=== PATIENT | male | born 1975 | race Caucasian/White ===

== ENCOUNTER 2017-05-08 16:48 | Emergency (ER) | payer MEDICAID, SELFPAY ==
[2017-05-08 16:50] VITALS: BP 123/73; PULSE 86; RESP 18; TEMP 38; O2SAT 100
[2017-05-08 16:51] VITALS: BP 123/73; PULSE 86; RESP 18; TEMP 38; O2SAT 100; BMI 35.3
--- NOTE | 2017-05-08 17:37 | EKG12_ITS ---
Test Reason : CHEST PAIN Blood Pressure : / mmHG Vent. Rate : 084 BPM Atrial Rate : 084 BPM P-R Int : 196 ms QRS Dur : 086 ms QT Int : 348 ms P-R-T Axes : 039 -07 016 degrees QTc Int : 411 ms Normal sinus rhythm Normal ECG Confirmed by SE LUNDY, LISA ([id number]), digital editor JONNATHAN VARNER ([id number]) on 05/10/2017 1:27:00 PM Referred By: Confirmed By:LISA SAEZ MD
--- NOTE | 2017-05-08 18:00 | RAD_ITS ---
STUDY: X-RAY CHEST REASON FOR EXAM: Male, 41 years old. Chest pain, shortness of breath fever, cough, nausea vomiting and diarrhea. TECHNIQUE: 1 view COMPARISON: Prior chest radiograph May 22, 2016 FINDINGS: The lungs are clear and expanded. There is no demonstrated pleural abnormality. Normal size heart. Normal mediastinum and diann. Normal visualized pulmonary arteries. Normal visualized aortic arch and descending thoracic aorta. Normal visualized thoracic spine. Normal visualized ribs, clavicles, and shoulders. There is no demonstrated abnormality of the visualized soft tissue structures of the upper abdomen. RAD/Chest 1 View (Portable) IMPRESSION: Normal x-ray examination of the chest. Electronically Signed: Nilda Skinner MD at 18:27 EST , Service support ,
[2017-05-08 18:59] LABS: Absolute Lymphocyte Count 1.51 X10^3/ul (0.83-4.51); Absolute Neutrophil Count 13.4 X10^3/uL (2.0-7.7); Basophil# 0.02 X10^3/uL; Basophil% 0.1 % (0-1); Eosinophil# 0.11 X10^3/uL; Eosinophils% 0.7 % (0-5); Hematocrit 41.4 % (40-54); Lymphocyte # 1.51 X10^3/ul (4.0); Lymphocyte % 9.1 % (19-41); Mean Corp Hgb Conc 33.8 g/gl (32-36); Mean Corpuscular Volume 91.6 fL (80-94); Mean Platelet Vol. 8.8 fl (6.2-12.0); Monocyte# 1.49 X10^3/uL; Neutrophil # 13.41 X10^3/uL (2.7-7.7); Neutrophil % 80.9 % (47-70); Platelet Count 328 K/mm3 (150-450); RBC Distribution Width CV 13.2 % (11.6-14.6); RBC Distribution Width SD 43.5 fl (35.1-43.9); Red Blood Count 4.52 M/mm3 (4.6-6.2); White Blood Count 16.6 K/mm3 (4.4-11.0)
[2017-05-08 19:01] LABS: POSITIVE COUNT NO; POSITIVE DIFFERENTIAL NO; POSITIVE MORPHOLOGY NO
[2017-05-08 19:04] LABS: Anion Gap 8 (5-15); BUN 14 mg/dL (7-18); Calcium,Total 8.9 mg/dL (8.5-10.1); Chloride 100 mmol/L (98-107); Creatinine, Serum 1.27 mg/dL (0.70-1.30); EST Glomerular Filtration Rate 67 mL/min (>60); Est Glom Filt Rate - Afr Amer 81 mL/min (>60); Estimated Creatinine Clearance 73.01 ml/min; Glucose 97 mg/dL (74-106); Potassium 4.2 mmol/L (3.5-5.1); Sodium Level 137 mmol/L (136-145)
[2017-05-08] MEDS: Benzonatate 100 MG Capsule 200 MG PO (20:18)
[2017-05-08] MEDS: Ketorolac 30 MG/ML Syringe 15 MG IV (20:18)
[2017-05-08 20:19] VITALS: BP 125/75; PULSE 91; RESP 16; O2SAT 98
[2017-05-08 20:27] VITALS: RESP 16
--- NOTE | 2017-05-08 20:28 | ED.RN ---
REVIEWED D/C INSTRUCTIONS, FOLLOW UP CARE, PRESCRIPTIONS, AND S/S THAT WOULD WARRANT A RETURN TO THE ED WITH PT. PT VERBALIZED AN UNDERSTANDING AND DENIES FURTHER QUESTIONS FOR THIS RN. PT SKIN P/W/D, RESP EVEN AND UNLABORED, PT A&O X 3, NO DISTRESS NOTED. PT AMBULATED OUT OF ED, GAIT STEADY.
--- NOTE | 2017-05-09 00:56 | ED.VISSUMM ---
- ER Visit Summary Date of Service: 05/09/17 Chief Complaint: Shortness of breath chest pain History of Present Illness: The patient is a 41 M presenting for evaluation secondary to shortness of breath chest pain left arm numbness. Patient states that he had the flu about a month and a half ago, and is feeling similar to this over the course of the last day or so. He states that he has redeveloped fever cough nausea and vomiting. Patient states that today he was at home and was coughing so much it was causing him chest pain and some left arm numbness. He denies any exertional component to this. Denies any history of cardiac disease. He does have an underlying history of seizures. Review of systems otherwise negative. Physical Examination: Vital signs notable for temperature of 100.4. Well-nourished male no acute distress. Head normocephalic. Moist mucous membranes. Neck supple no JVD no meningismus. Heart regular rate and rhythm no murmurs. Lungs sounds clear to auscultation bilaterally there was some bilateral anterior chest tenderness to palpation without any evidence of crepitus step-offs or subcutaneous emphysema no overlying skin rashes. Abdomen soft nontender. Peripheral pulses 2+ and symmetric. No skin rashes. Patient alert and oriented. Test Results: EKG shows sinus rhythm [address] segments normal T waves no changes from prior EKG in January 2017. CBC does demonstrate leukocytosis 16.6, chemistry normal, troponin negative, chest x-ray shows no evidence of infiltrate or acute cardiopulmonary disease. Emergency Department Course and Treatment: Patient presented secondary to a febrile illness, cough, and chest discomfort. Protocol orders were entered, the patient received a cardiac workup that was found to be negative and also had a negative chest x-ray. He does have a leukocytosis consistent with infection however I do not see pneumonia, he is nontoxic-appearing, and is not hypoxic do not believe that empiric treatment is appropriate at this point. Patient was treated symptomatically rather with Toradol IV. He will be sent home with a course of Naprosyn and Tessalon for symptomatic treatment. He was instructed to follow-up with his PCP. Disposition: Discharge Impression: 1. Viral illness This note was generated with [employer] dictation software. It may contain incorrect words, spelling, and punctuation that were not noted in review of the chart prior to signing ED Disposition - Plan for ED Patient: Disposition: Home or Assisted Living Chief Complaint: Chest Pain Diagnosis: Febrile illness, acute Instructions: ED Upper Resp Infec No Abx Tx Referrals: Jeff Mohan DO [STAFF PHYSICIAN] -
--- NOTE | 2017-05-09 01:01 | ED.DCSUM_ITS ---
- ER Visit Summary Date of Service: 05/09/17 Chief Complaint: Shortness of breath chest pain History of Present Illness: The patient is a 41 M presenting for evaluation secondary to shortness of breath chest pain left arm numbness. Patient states that he had the flu about a month and a half ago, and is feeling similar to this over the course of the last day or so. He states that he has redeveloped fever cough nausea and vomiting. Patient states that today he was at home and was coughing so much it was causing him chest pain and some left arm numbness. He denies any exertional component to this. Denies any history of cardiac disease. He does have an underlying history of seizures. Review of systems otherwise negative. Physical Examination: Vital signs notable for temperature of 100.4. Well- nourished male no acute distress. Head normocephalic. Moist mucous membranes. Neck supple no JVD no meningismus. Heart regular rate and rhythm no murmurs. Lungs sounds clear to auscultation bilaterally there was some bilateral anterior chest tenderness to palpation without any evidence of crepitus step- offs or subcutaneous emphysema no overlying skin rashes. Abdomen soft nontender. Peripheral pulses 2+ and symmetric. No skin rashes. Patient alert and oriented. Test Results: EKG shows sinus rhythm [address] segments normal T waves no changes from prior EKG in January 2017. CBC does demonstrate leukocytosis 16.6, chemistry normal, troponin negative, chest x-ray shows no evidence of infiltrate or acute cardiopulmonary disease. Emergency Department Course and Treatment: Patient presented secondary to a febrile illness, cough, and chest discomfort. Protocol orders were entered, the patient received a cardiac workup that was found to be negative and also had a negative chest x-ray. He does have a leukocytosis consistent with infection however I do not see pneumonia, he is nontoxic-appearing, and is not hypoxic do not believe that empiric treatment is appropriate at this point. Patient was treated symptomatically rather with Toradol IV. He will be sent home with a course of Naprosyn and Tessalon for symptomatic treatment. He was instructed to follow-up with his PCP. Disposition: Discharge Impression: 1. Viral illness This note was generated with [employer] dictation software. It may contain incorrect words, spelling, and punctuation that were not noted in review of the chart prior to signing ED Disposition - Plan for ED Patient: Disposition: Home or Assisted Living Chief Complaint: Chest Pain Diagnosis: Febrile illness, acute Instructions: ED Upper Resp Infec No Abx Tx Referrals: Jeff Mohan DO [STAFF PHYSICIAN] -
== END 2017-05-08 20:29 | disposition home or self-care (01) ==
PROVIDERS: Emergency Provider Emergency Medicine
DX: B34.9 Viral infection, unspecified (principal); R06.00 Dyspnea, unspecified; R20.0 Anesthesia of skin; R07.89 Other chest pain; R50.9 Fever, unspecified; R05 Cough; R11.2 Nausea with vomiting, unspecified; G40.909 Epilepsy, unspecified, not intractable, without status epilepticus; Z79.899 Other long term (current) drug therapy; Z72.0 Tobacco use
CPT/HCPCS: 71045; 80048; 84484; 85025; 93005; 96374; 99285; A4216

== ENCOUNTER 2017-07-28 21:25 | Emergency (ER) | payer MEDICAID, SELFPAY ==
[2017-07-28 21:25] VITALS: PULSE 83; RESP 16; TEMP 36.6; O2SAT 98; BMI 37.5
[2017-07-28 21:27] VITALS: BP 114/84
[2017-07-28] MEDS: morphine 10 MG/ML Syringe IM (21:48)
--- NOTE | 2017-07-28 21:50 | ED.DCSUM_ITS ---
- ER Visit Summary Date of Service: 07/28/17 Chief Complaint: Back pain History of Present Illness: The patient is a 42 M with a history of chronic back pain. He previously followed with pain management and saw Dr. Osuna. He has had epidural injections but these were not well tolerated. Patient states they were considering surgical referral as next line but he never followed up. He went to [place] and rode a roller coaster 2 days ago. He has had increased pain since that time. He also fell earlier today. He denies weakness. He does complain of lower back pain which radiates down the left leg. He complains of burning and numbness in the left leg. He has had prior similar symptoms. He denies fevers abdominal pain urinary retention fecal incontinence or prior back surgeries. He has tried anti-inflammatories at home with little relief. He denies any recent opiate prescriptions. Physical Examination: Afebrile vitals are stable Patient does appear uncomfortable Moist mucous membranes Heart regular rate and rhythm Lungs are clear Abdomen soft Negative straight leg raise Patient has paraspinal lumbar tenderness left greater than right Sensation is intact to light touch of the bilateral lower extremities with easily palpable symmetric 2+ dorsalis pedis pulses and brisk capillary refill he has 5 out of 5 dorsiflexion, plantarflexion, extensor hallucis longus bilaterally Test Results: Not indicated Emergency Department Course and Treatment: Patient was given intramuscular morphine. [place] report shows no controlled substance prescriptions in the last 2 years. Patient was given a prescription for short course of [place]. Given the radicular symptoms we will also place on a prednisone burst. He was instructed on specific signs and symptoms to monitor for and conditions under which to return emergency department. All questions answered at bedside patient agreeable to plan. At this time he has no findings to suggest process such as cauda equina syndrome or epidural abscess or other acute surgical pathology. Do believe his pain currently is multifactorial. Given reproducible paraspinal tenderness and having recently a roller coaster I do believe there is a lumbosacral strain muscular component. With his burning and radiation down the left leg there is also radicular component. Treatment Plan: [] Disposition: Discharge Impression: Lumbosacral strain Lumbar radiculopathy This note was generated with [employer] dictation software. It may contain incorrect words, spelling, and punctuation that were not noted in review of the chart prior to signing ED Disposition - Plan for ED Patient: Chief Complaint: Back Referrals: Faith Fay MD [Primary Care Provider] -
--- NOTE | 2017-07-28 21:50 | ED.DEP ---
ED Disposition - Plan for ED Patient: Chief Complaint: Back Instructions: ED Sciatica, ED Sprain Strain Lumbar Prescriptions: Hydrocodone Bitart/Apap 5-325 [[place] 5MG-325MG] 1 tab PO Q6H PRN PRN 3 Days #10 tab PRN Reason: Pain Prednisone [Deltasone] 60 mg PO DAILY #15 tab Referrals: Faith Fay MD [STAFF PHYSICIAN] -
--- NOTE | 2017-07-28 21:55 | DCINST.ED_ITS ---
ED Disposition - Plan for ED Patient: Chief Complaint: Back Instructions: ED Sciatica, ED Sprain Strain Lumbar Prescriptions: Hydrocodone Bitart/Apap 5-325 [[place] 5MG-325MG] 1 tab PO Q6H PRN PRN 3 Days #10 tab PRN Reason: Pain Prednisone [Deltasone] 60 mg PO DAILY #15 tab Referrals: Faith Fay MD [STAFF PHYSICIAN] -
[2017-07-28 22:05] VITALS: BP 150/86; PULSE 85; RESP 16; O2SAT 97
== END 2017-07-28 22:05 | disposition home or self-care (01) ==
LOC: ED 21:44
PROVIDERS: Emergency Provider Emergency Medicine
DX: S39.012A Strain of muscle, fascia and tendon of lower back, initial encounter (principal); M54.16 Radiculopathy, lumbar region; R05 Cough; W19.XXXA Unspecified fall, initial encounter; Y93.9 Activity, unspecified; Y92.9 Unspecified place or not applicable; G40.909 Epilepsy, unspecified, not intractable, without status epilepticus; G89.29 Other chronic pain; Z79.899 Other long term (current) drug therapy; Z72.0 Tobacco use
CPT/HCPCS: 96372; 99282

== ENCOUNTER → 2017-08-17 08:20 | Outpatient (CLI) | payer MEDICAID, SELFPAY ==
--- NOTE | 2017-08-17 08:59 | MRI_ITS ---
STUDY: MRI LUMBAR SPINE WITHOUT CONTRAST REASON FOR EXAM: Male, 42 years old. Low back pain radiating to the left leg TECHNIQUE: Standardized fat and water weighted pulse sequences were obtained in the sagittal and axial planes. COMPARISON: X-ray 01/18/2016 FINDINGS: T12-L1: Normal endplates. Normal disc height, hydration and morphology. Normal bilateral facet joints. Normal central canal and bilateral lateral recesses. Normal bilateral intervertebral neural foramina. Normal lumbar lordosis. There is no substantial scoliosis. Normal conus medullaris that terminates at the T12-L1 level. L1-2: There is disc desiccation (image 7/13 sagittal T2). L2-3: Normal endplates. Normal disc height, hydration and morphology. Normal bilateral facet joints. Normal central canal and bilateral lateral recesses. Normal bilateral intervertebral neural foramina. L3-4: Normal endplates. Normal disc height, hydration and morphology. Normal bilateral facet joints. Normal central canal and bilateral lateral recesses. Normal bilateral intervertebral neural foramina. L4-5: Normal endplates. Normal disc height, hydration and morphology. Normal bilateral facet joints. Normal central canal and bilateral lateral recesses. Normal bilateral intervertebral neural foramina. L5-S1: There is disc desiccation and disc bulge (image 7/13 sagittal T2). There is narrowing of the neural foramina, predominating on the left (image 2, 10/13 sagittal T1). Normal visualized sacral ala. Normal visualized paraspinous soft tissue structures. MRI/Spine Lumbar (Routine) IMPRESSION: Degenerative disc bulge, L5-S1, with narrowing of the neural foramina, predominating on the left Electronically Signed: Pacheco Mireles MD at 11:37 EDT Tel , Service support ,
== END ==
PROVIDERS: Visit Provider Anesthesiology Pain Medicine
DX: M54.9 Dorsalgia, unspecified (principal); M79.606 Pain in leg, unspecified
CPT/HCPCS: 72148

== ENCOUNTER 2017-09-04 08:19 | Outpatient (RCR) | payer MEDICAID, SELFPAY ==
--- NOTE | 2017-09-04 14:49 | HP.OTFCE_ITS ---
HP OT Functional Capacity Eval - Reference Duration Sedentary Sedentary Light Light Light Medium Medium Medium Heavy Very Heavy Heavy Occasional (0-33% of day) Frequent (34-66% of day) Constant (67-100% of day) 10 # Negligible Negligible 15 # 8 # Negligible 20 # 10# Negli. 35 # 18 # 7 # 50 # 25 # 10 # 75 # 100 # >100 # 38 # 50 # >50 # 15 # 20 # >20 # - Patient Information Height: 5 ft 10 in Weight:: 99.79 kg Hand Dominance: R handed - Medical History Medical History Including Restrictions: 1993 pt fell off scaffle at work 20 ft and hurt back. Pt has medical hx; migraines, depression, Lipoma, abdominal pain , epigastric, weightloss, seizures, mild asthma, irritable IBS, GERD, chr low back pain with sciatica, hypothyroidism - Diagnoses Diagnoses: 1993 pt fell of scaffle at work 20 ft and hurt back. Pt has medical hx; migraines, depression, Lipoma, abdominal pain, epigastric, weightloss, seizures, mild asthma, irritable IBS, GERD, chr low back pain with sciatica, hypothyroidism - Symptoms Symptoms: pt states he just hurts constantly, numb L leg, pt states feels like someone is cutting him with knife constantly - Pain Pain: 9/10 lower back pain - Work History Work History: Pt unemployed at this time. [employer] 3 wks June/July 2017, [employer] for 1 wk 2017, [employer] 2016, [employer] [phone], [employer] here and there in between per pt and spouse. - ADLS ADLS: Pt lives in 2 story apartment with and 1 yr old son, no steps to enter. Sleeps in living room main level on a mattress on floor. Bathroom upstairs only for bathing, tub/shower no DME/AE, half bath downstairs with std toilet seat that he uses for toileting and grooming tasks. Not driving. Spouse completes all IADL's. Pt requires assist with ADL tasks secondary to increased back pain. Pt unable to read or write other than signing his name. He is R hand dominent. - Physical Examination ROM: BUE AROM Shoulder flexion 100', BUE internal/external rotation WFL, BUE horizontal abduction WFL, BUE elbow flexion/extension WFL. BLE ROM WFL. Strength: Generalized MMT, RUE 4+/5, LUE 4/5, L LE 3+/5, R LE 4/5 Right Tire Recapper Strength Average: 76.66 Left Tire Recapper Strength Average: 46.66 Right Lateral Pinch Average: 11.33 Left Lateral Pinch Average: 7.66 Right Tripod Pinch Average: 7.33 Left Tripod Pinch Average: 6.00 Sensation: Pt states numbness L shoulder down to fingertips, numbness L leg down to toes. Fine Motor: Pt states sometimes has difficulty with buttoning buttons and zippers. Pt able to unbutton/button 2 medium sized buttons during evaluation without difficulty. Pt states no problems with using utensils for self feeding. Balance: Pt states 2 wks ago had fall at home, in the living room fell and lost his balance. Spouse present for evaluation and states that she usually walks with him holding onto his belt loop if he needs it or else close by him for support. He will sometimes walk using cart for support if needed. Pt and spouse states no walker or canes. Pt stated spouse does all shopping and he did have an order for a w/c at one time which helped. - Non Material Handling Activities Bending: pt states 10/10 pain in back. Pt declined to attempt bending, squatting and kneeling or reaching out and up at this time. Pt stated unable to complete these activities secondary to increased back pain. Walking: Pt tolerated 2 minutes of the 15 minute walking test before having to sit down secondary to pain in back. Pt able to walk 222ft from [facility] to occupational therapy area for the evaluation and when leaving the evaluation. Slow moving, extra time needed when leaving secondary to increased back pain. Pt able to walk w/o assist to steps 140ft one standing rest break needed no support. After completing 3 steps he required seated rest break then walked 140ft back to desk pushing alfredo modified [employer] cart for increased support over half of the way back to occupational therapists desk with one standing rest break. Standing: Pt able to stand upright to complete BLE ROM and marching. Pt able to stand upright for walking. Pt stood during walking test for 2 minutes. Sitting: Pt able to sit upright in chair for 30 minutes without need to get up and walk around before starting physical examination part of evaluation. Climbing Stairs: Pt able to climb up/down 3 steps using bilateral handrails independently than sat in chair to rest for a few minutes. Pt stated that's all the steps he could handle because of the back pain. Spouse stated he will scoot up the steps at home if he can't make it all the way walking up the steps. - Dynamic Occasional Lifting Capacity Floor Lift: Pt declined to attempt any lifts. Pt states unable to complete any lifts secondary to back pain and not even able to carry his 1yr old son at this time.
== END 2017-09-04 19:00 | disposition home or self-care (01) ==
LOC: OT 08:19
PROVIDERS: Visit Provider Anesthesiology Pain Medicine
DX: M54.9 Dorsalgia, unspecified (principal)
CPT/HCPCS: 97165; 97166

== ENCOUNTER 2017-11-06 10:30 | Inpatient (IN) | payer MEDICAID, SELFPAY ==
[2017-11-06 10:31] VITALS: BP 118/83; PULSE 120; RESP 18; TEMP 36.6; O2SAT 98; BMI 30.4
[2017-11-06] MEDS: Morphine 4 MG/ML Syringe IV (10:50)
[2017-11-06] MEDS: Ondansetron 4 MG/2 ML Vial IV (10:50)
[2017-11-06] MEDS: 0.9% Normal Saline 1,000 ML 1000 ML IV ×3 (10:50→11:36)
[2017-11-06 10:57] LABS: Absolute Lymphocyte Count 1.68 X10^3/ul (0.83-4.51); Absolute Neutrophil Count 10.4 X10^3/uL (2.0-7.7); Basophil# 0.03 X10^3/uL; Basophil% 0.2 % (0-1); Eosinophil# 0.21 X10^3/uL; Eosinophils% 1.5 % (0-5); Hematocrit 39.9 % (40-54); Hemoglobin 14.1 g/dl (13.0-16.5); Lymphocyte # 1.68 X10^3/ul (4.0); Lymphocyte % 12.3 % (19-41); Mean Corp Hgb Conc 35.3 g/gl (32-36); Mean Corpuscular Hgb 31.1 pg (27.0-32.0); Mean Corpuscular Volume 87.9 fL (80-94); Mean Platelet Vol. 9.3 fl (6.2-12.0); Monocyte# 1.39 X10^3/uL; Monocyte% 10.1 % (0-10); Neutrophil # 10.38 X10^3/uL (2.7-7.7); Neutrophil % 75.8 % (47-70); Platelet Count 318 K/mm3 (150-450); RBC Distribution Width CV 12.9 % (11.6-14.6); RBC Distribution Width SD 41.9 fl (35.1-43.9); Red Blood Count 4.54 M/mm3 (4.6-6.2); White Blood Count 13.7 K/mm3 (4.4-11.0)
[2017-11-06 10:59] LABS: POSITIVE COUNT NO; POSITIVE DIFFERENTIAL NO; POSITIVE MORPHOLOGY NO
[2017-11-06 11:06] LABS: Anion Gap 12 (5-15); BUN 22 mg/dL (7-18); BUN/Creat Ratio 15.6 RATIO (10-20); Calcium,Total 9.6 mg/dL (8.5-10.1); Chloride 103 mmol/L (98-107); Creatinine, Serum 1.41 mg/dL (0.70-1.30); EST Glomerular Filtration Rate 59 mL/min (>60); Est Glom Filt Rate - Afr Amer 72 mL/min (>60); Estimated Creatinine Clearance 71.91 ml/min; Glucose 101 mg/dL (74-106); Potassium 3.4 mmol/L (3.5-5.1); Sodium Level 139 mmol/L (136-145)
[2017-11-06 11:10] LABS: Allen Test POS; Base Excess -3 mmol/L (-2 to +2); Bicarbonate 19.2 mmol/L (22-26); Blood Gas Specimen Type ART; O2 Delivery Device Room Air; PO2 76 mmHG (75-100); SITE R Radial; SO2 97 % (95-99); Time Given 1059; Total Carbon Dioxide 20 mmol/L; pH 7.55 (7.35-7.45)
[2017-11-06 11:20] LABS: Lactic Acid 2.5 mmol/L (0.4-2.0)
--- NOTE | 2017-11-06 11:29 | ED.VISSUMM ---
- ER Visit Summary Date of Service: 11/06/17 Chief Complaint: Generalized abdominal pain with diarrhea History of Present Illness: The patient is a 42 M who presents to the emergency department with increased abdominal pain and diarrhea. Diarrhea started 2 months ago. He is having 4-6 loose stools a day. Denies blood or mucus. There is no history of Crohn's disease ulcerative colitis. He has been scoped in the past. His PCP is Dr. Ryan. He does complain of thirst and dry mouth and lightheadedness. He denies fever or chills. He does report weight loss. He had a EGD and colonoscopy within the past year and was told it was unremarkable. He has been scoped by both Dr. Marinelli and a physician at the [facility]. Does not recall the name of the physician at the [facility]. He denies any change in the color of his urine. Denies dysuria, frequency, urgency or hematuria. Patient denies any ocular, visual or auditory symptoms. Patient denies any cardiac or respiratory symptoms. There is no history of trauma. There is no family history of inflammatory bowel disorder to patient's knowledge. Physical Examination: Patient vitals are remarkable for a heart rate of 120-130. He is pale diaphoretic and appears ill. HEENT is remarkable for dry mucosa. Heart is rapid and regular without murmur, gallop or rub. Lungs are clear to auscultation. Abdomen is tender with guarding and increased bowel sounds. There may be a small umbilical hernia. There is no inguinal lymphadenopathy or inguinal hernia. There is no CVA tenderness noted. There is no dermatologic lesions noted. Neuro exam is nonfocal. Test Results: White count is 13.7 thousand 76 segs no bands 12 lymphs. Basic metabolic panel is remarkable for potassium of 3.4 BUN/creatinine 22 1.41. Lactate is elevated 2.5. ABG reveals a respiratory alkalosis with increased AA gradient and base excess of -3. CT of the abdomen pelvis with p.o. contrast reveals no acute pathology. There is either atelectasis or scarring right left lower lung base. Emergency Department Course and Treatment: IV was established received 1 L normal saline. He has no urge to urinate after the end menstruation the 1 L. He initially was treated with Zofran and morphine IV push. A second dose of morphine was ordered since he still appears uncomfortable holding his abdomen. Appropriate blood work was obtained to evaluate patient's chronic diarrhea and concern for renal injury, hypokalemia and with weight loss need to rule out anemia etc. Lactate was obtained because of his tachypnea and the fact that he looks ill. Case was discussed with Dr. Mixon who is on-call for [facility] and no doc since he is a clinic clinic patient. She was informed patient's history physical. She would like a CAT scan. Because of the acute kidney injury CT was done with p.o. contrast only. Treatment Plan: Dr. patel informed me that he had similar presentation to 2015. Workup at that time was negative. He has had an additional workup since that was negative. She was made aware of the CAT scan results. She states she would be glad to see patient in consultation with the hospitalist. Disposition: [facility]Sur observation Impression: 1. Abdominal pain with diarrhea uncertain etiology 2. Acute kidney injury 3. Lactic acidosis 4. Mild hypokalemia 5. Respiratory alkalosis This note was generated with [employer] dictation software. It may contain incorrect words, spelling, and punctuation that were not noted in review of the chart prior to signing ED Disposition - Plan for ED Patient: Chief Complaint: Abd Pain Referrals: Argentina Jeffrey MD [Primary Care Provider] -
[2017-11-06] MEDS: morphine 8 MG/ML Syringe IV (11:36)
[2017-11-06 13:27] VITALS: BP 123/88; PULSE 79; RESP 16; O2SAT 97
--- NOTE | 2017-11-06 14:19 | PCM.HP.STD ---
Problem List (1) Intractable nausea and vomiting Status: Acute (2) Intractable diarrhea Status: Acute (3) SIRS (systemic inflammatory response syndrome) Status: Acute (4) Lactic acidosis Status: Acute (5) YAMILETH (acute kidney injury) Status: Acute History of Present Illness Date of Admission: 11/06/17 Chief Complaint: intractable nausea, vomiting and diarrhea The patient is a 42 year old M is with a one-month history of intractable nausea vomiting and diarrhea. Patient states that anything he eats he passes her right away with diarrhea. States that he is eating a lot but since he just passes it on. Also has intermittent nausea and vomiting. Patient was just concerned that this is been going on for a while and has had previous episodes that were similar to this. Patient presented to the emergency room and underwent a CAT scan that showed a solitary gallstone in the gallbladder neck but otherwise unremarkable. In the emergency room, patient received IV fluids, 12 mg of morphine and grams of Zofran. Patient denies any marijuana use, states that he does take Vicodin at night but does not use any other opiates. [] Past Medical History Past Medical History (Chronic Problems): Chronic Problems (Last Updated 07/01/17 @ 11:31 by Madiha Coley) Seasonal allergies (Chronic) Anxiety and depression (Chronic) Chronic bronchitis (Chronic) Thyroid activity decreased (Chronic) Obesity (BMI 30.0-34.9) (Chronic) Glucose intolerance (impaired glucose tolerance) (Chronic) Family history of diabetes mellitus (Chronic) Family history of coronary artery disease (Chronic) Family history of gastric carcinoma (Chronic) Father is at 42 years of age due to cancer Former smoker (Chronic) Quit 2010 Recovering alcoholic (Chronic) Quit drinking in 2010 Cholelithiasis (Chronic) Personal history of peptic ulcer disease (Chronic) Gastroesophageal reflux disease (Chronic) History of nephrolithiasis (Chronic) Osteoarthritis (Chronic) Medical History: Medical History (Last Reviewed 11/06/17 @ 14:22 by Claudio Garner DO) History of stomach ulcers (Acute) Z87.19 History of pneumonia (Acute) Z87.01 Seasonal allergies (Chronic) J30.2 Anxiety and depression (Chronic) F41.9, F32.9 Chronic bronchitis (Chronic) J42 Thyroid activity decreased (Chronic) E03.9 History of substance abuse (Acute) Z87.898 History of seizures (Acute) Z87.898 Allergies Penicillins Allergy (Verified 11/06/17 10:33) Anaphylaxis bezonates Allergy (Severe, Uncoded 11/06/17 10:33) Hives Home Medications: Ambulatory Orders Medication Instructions Recorded Lamotrigine [Lamotrigine] 100 mg PO BID 05/08/17 Albuterol Sulfate [Ventolin Hfa] 1 - 2 puff INHALATION Q6H PRN PRN 11/06/17 Dicyclomine HCl [Bentyl] 10 mg PO TIDAC 11/06/17 Ibuprofen 400 mg PO 4X/DAY 11/06/17 Levothyroxine [Synthroid] 50 mcg PO DAILY 11/06/17 Nabumetone [Relafen] 750 mg PO BID 11/06/17 Pantoprazole Sodium [Protonix] 40 mg PO DAILY 11/06/17 Quetiapine Fumarate [Seroquel] 50 mg PO DAILY 11/06/17 Sertraline HCl [Zoloft] 100 mg PO BID 11/06/17 Tizanidine HCl [Tizanidine HCl] 4 mg PO TID 11/06/17 Surgical History: Surgical History (Last Reviewed 11/06/17 @ 14:22 by Claudio Garner DO) History of colonoscopy Z98.890 2017 History of endoscopy Z98.890 2017 Surgical History: - Psychiatric History: Depression Smoking Status: Former smoker Tobacco Use: Chew Alcohol: None Drugs: None - *Family History Maternal Family History: Family History (Last Reviewed 11/06/17 @ 14:22 by Claudio Garner DO) Father Cancer Myocardial infarction, Onset Age: 39 Seizures Mother Breast cancer History Items: Diabetes, Seizures Paternal Family History: Family History (Last Reviewed 11/06/17 @ 14:22 by Claudio Garner DO) Father Cancer Myocardial infarction, Onset Age: 39 Seizures Mother Breast cancer History Items: Cancer - Gastric cancer in his father who at the age of 42, Heart Disease Review of Systems Constitutional: Reports: Chills. Denies: Anorexia, Fever Eyes: Denies: Blurred vision, Double vision HEENT: Denies: Head Aches, Sinus Congestion, Sinus Drainage Cardiovascular: Denies: Chest Pain, Palpitations Respiratory: Denies: Cough, Shortness of breath at rest, Sputum production Gastrointestinal: Reports: Abdominal Pain, Diarrhea, Nausea, Vomiting Genitourinary: Denies: Dysuria Musculoskeletal: Denies: Joint Pain, Joint Tenderness Skin: Denies: Rash, Wounds Neurological: Denies: Numbness, Tingling, Focal weakness Psychiatric: Reports: Depression. Denies: Anxiety Hematologic/ Lymphatic: Reports: Easy Bruising. Denies: Easy Bleeding, Hx of blood clot Comment: All review of systems are negative except as mentioned in the history of present illness and the other review of systems. VTE Information - Inpt Only VTE Present on Admission: No VTE Mechan Device Prophylaxis: None VTE Pharm Prophylaxis ordered?: Yes Patient Problems: Active and Suspected Problems (Last Updated 07/01/17 @ 11:31 by Madiha Coley) Intractable nausea and vomiting (Acute) Intractable diarrhea (Acute) SIRS (systemic inflammatory response syndrome) (Acute) Lactic acidosis (Acute) YAMILETH (acute kidney injury) (Acute) - Physical Exam General: Alert, No apparent distress, - - Appears older than stated age HEENT: Atraumatic, Normocephalic, - - No icterus Oral: Moist Mucosa, No Gingival or Mucosal Lesions/ Ulcerations, - - Chewing tobacco noted on his teeth Neck: No Nodes, Thyroid Normal Size and Texture Lungs: Clear to auscultation, No rhonchi, No wheeze, Diminished Cardiovascular: Regular rate, Regular Rhythm, Normal S1, Normal S2, No murmurs Abdomen: Bowel Sounds Present, Soft, Non-Distended, Tender - Epigastrium Extremities: No edema, No Calf Tenderness Skin: No rashes, No breakdown Musculoskeletal: No Tenderness to Palpation of Joints or Extremities, No Muscle Wasting Neurological: Neuro grossly intact, Sensory exam intact to light touch and pain, Coordination normal Psych/Mental Status: Normal Affect, Appropriate Vital Signs Temp Pulse Resp BP Pulse Ox 36.6 C 79 16 123/88 H 97 11/06/17 10:31 11/06/17 13:27 11/06/17 13:27 11/06/17 13:27 11/06/17 13:27 Clinical Impression(s) from Imaging Studies Abdomen CT 11/06/17 11:27 IMPRESSION: Solitary gallstone in the gallbladder neck. Increased markings at the lung bases suggestive of scarring and/or linear atelectasis. Electronically Signed: Kyrie Alexis MD at 13:40 EDT Tel [phone], Service support , Laboratory Results - last 24 hr 11/06/17 11/06/17 11/06/17 10:45 10:45 10:45 WBC 13.7 H RBC 4.54 L Hgb 14.1 Hct 39.9 L MCV 87.9 MCH 31.1 MCHC 35.3 RDW 12.9 RDW Differential 41.9 Plt Count 318 MPV 9.3 Immature Gran % (Auto) 0.100 Neut % (Auto) 75.8 H Lymph % (Auto) 12.3 L [place] % (Auto) 10.1 H Eos % (Auto) 1.5 Baso % (Auto) 0.2 Absolute Neuts (auto) 10.4 H Absolute Lymphs (auto) 1.68 Total Counted Not Reportable Specimen Type Sample Site pH Bicarbonate Actual POC Total CO2 Base Excess O2 Saturation ABG pCO2 ABG pO2 Isaiah Test O2 Delivery Device Blood Gas Notified Whom Blood Gas Notified Time Sodium 139 Potassium 3.4 L Chloride 103 Carbon Dioxide 24.0 Anion Gap 12 BUN 22 H Creatinine 1.41 H Estim Creat Clear Calc 71.91 Est GFR (MDRD) Af Amer 72 Est GFR (MDRD) Non-Af 59 L BUN/Creatinine Ratio 15.6 Glucose 101 Lactic Acid 2.5 H Calcium 9.6 11/06/17 11:04 WBC RBC Hgb Hct MCV MCH MCHC RDW RDW Differential Plt Count MPV Immature Gran % (Auto) Neut % (Auto) Lymph % (Auto) [place] % (Auto) Eos % (Auto) Baso % (Auto) Absolute Neuts (auto) Absolute Lymphs (auto) Total Counted Specimen Type ART Sample Site R Radial pH 7.55 H Bicarbonate Actual 19.2 L POC Total CO2 20 Base Excess -3 L O2 Saturation 97 ABG pCO2 22.0 L ABG pO2 76 Isaiah Test POS O2 Delivery Device Room Air Blood Gas Notified Whom ED Blood Gas Notified Time 1059 Sodium Potassium Chloride Carbon Dioxide Anion Gap BUN Creatinine Estim Creat Clear Calc Est GFR (MDRD) Af Amer Est GFR (MDRD) Non-Af BUN/Creatinine Ratio Glucose Lactic Acid Calcium Assessment/Plan All Active Problems (Last Updated 07/01/17 @ 11:31 by Madiha Coley) Intractable nausea and vomiting (Acute) Intractable diarrhea (Acute) SIRS (systemic inflammatory response syndrome) (Acute) Lactic acidosis (Acute) YAMILETH (acute kidney injury) (Acute) History of stomach ulcers (Acute) History of pneumonia (Acute) History of substance abuse (Acute) History of seizures (Acute) Colitis (Acute) Abdominal pain (Acute) Atypical chest pain (Acute) Vertigo (Acute) Migraine aura, persistent, intractable (Acute) Chest pain (Acute) Nonallopathic lesion-rib cage (Acute) Bulging lumbar disc (Acute) 1. Intractable nausea, vomiting and diarrhea Unclear etiology at this time Patient has had this before Patient is not a diabetic Patient does not smoke marijuana Uses narcotics only once daily Plan is a supportive management with IV fluids Hold off on narcotics, and this was discussed with the patient and he was in agreement to this at this time Start Reglan 5 mg IV every 6 hours for total of 4 doses to see if that helps Follow-up stool studies are ordered in the emergency room CAT scan unremarkable for any acute process. The stone in the gallbladder neck is not causing a problem at this time Clear diet 2. Acute kidney injury Baseline creatinine of 0.9 Likely prerenal in etiology IV fluids and reassess Avoid nephrotoxic agents 3. Systemic inflammatory response syndrome Unclear etiology but likely related with whatever maybe causing problem #1 Supportive management Follow-up infectious workup that has already been ordered 4. Lactic acidosis Unclear etiology but likely probably related with the volume depletion IV fluids Reevaluate 6 hours after the previous lactic acid was drawn 5. Chronic pain Patient has chronic back pain which is why he takes Vicodin As above, will hold off on narcotics as this could potentially be causing issues regards to trackable nausea and vomiting this were to be due to gastroparesis 6. DVT prophylaxis with Lovenox Code Visit Inpatient E&M: 54456 Init Hosp L3
[2017-11-06 14:26] VITALS: BMI 30.6
[2017-11-06 14:39] VITALS: BP 114/85; PULSE 73; RESP 16; TEMP 36.5; O2SAT 98
[2017-11-06 14:49] LABS: Reflex Lactate? Y
[2017-11-06] MEDS: 0.9% Normal Saline 1,000 ML 150 ML IV ×2 (15:33→21:01)
[2017-11-06] MEDS: Dicyclomine 10 MG Capsule PO (15:37)
--- NOTE | 2017-11-06 15:55 | CASEMGMT ---
IVELISSE RAMIREZ assessment completed. See Link. DC Plan: Home Pt denies DC needs. Requested CM call Dr. Perry Parker who works @ [facility]. Attempted call to Center but is closed today, open 11/07/17. IVELISSE RAMIREZ called to [employer] to see if he had list of #'s for local senior applications architect contacts. message left.Jhon MARTINEZ RN AC
[2017-11-06 15:57] LABS: Lactic Acid 0.8 mmol/L (0.4-2.0)
[2017-11-06] MEDS: Metoclopramide 10 MG/2 ML Vial 5 MG IV (17:29)
[2017-11-06 20:56] VITALS: BP 110/80; PULSE 66; RESP 16; TEMP 36.5; O2SAT 96
[2017-11-06] MEDS: Sertraline 100 MG Tablet PO (21:00)
[2017-11-06] MEDS: QUEtiapine 25 MG Tablet 50 MG PO (21:00)
[2017-11-06] MEDS: tiZANidine HCl 2 MG Tablet 4 MG PO (21:00)
[2017-11-06] MEDS: lamoTRIgine 100 MG Tablet PO (21:00)
[2017-11-07] MEDS: Metoclopramide 10 MG/2 ML Vial 5 MG IV ×3 (00:02→12:27)
[2017-11-07 02:55] VITALS: BP 111/80; PULSE 62; RESP 16; TEMP 36.3; O2SAT 97
[2017-11-07] MEDS: tiZANidine HCl 2 MG Tablet 4 MG PO ×3 (06:14→21:38)
[2017-11-07] MEDS: 0.9% NaCl Peripheral Flush Adult/Peds IV (06:15)
[2017-11-07] MEDS: Dicyclomine 10 MG Capsule PO ×4 (06:15→21:38)
[2017-11-07] MEDS: Levothyroxine 50 MCG Tablet PO (06:15)
[2017-11-07 06:52] LABS: Absolute Lymphocyte Count 1.48 X10^3/ul (0.83-4.51); Basophil# 0.02 X10^3/uL; Basophil% 0.2 % (0-1); Eosinophil# 0.35 X10^3/uL; Hematocrit 34.9 % (40-54); Hemoglobin 12.1 g/dl (13.0-16.5); Lymphocyte # 1.48 X10^3/ul (4.0); Mean Corp Hgb Conc 34.7 g/gl (32-36); Mean Corpuscular Hgb 31.7 pg (27.0-32.0); Mean Corpuscular Volume 91.4 fL (80-94); Mean Platelet Vol. 9.4 fl (6.2-12.0); Monocyte# 0.84 X10^3/uL; Monocyte% 9.7 % (0-10); Neutrophil # 5.98 X10^3/uL (2.7-7.7); Neutrophil % 68.8 % (47-70); Platelet Count 278 K/mm3 (150-450); RBC Distribution Width SD 42.6 fl (35.1-43.9); Red Blood Count 3.82 M/mm3 (4.6-6.2); White Blood Count 8.7 K/mm3 (4.4-11.0)
[2017-11-07 07:01] LABS: POSITIVE COUNT NO; POSITIVE DIFFERENTIAL NO; POSITIVE MORPHOLOGY NO
[2017-11-07 07:04] LABS: Anion Gap 13 (5-15); BUN 10 mg/dL (7-18); BUN/Creat Ratio 11.8 RATIO (10-20); Calcium,Total 8.5 mg/dL (8.5-10.1); Chloride 107 mmol/L (98-107); Creatinine, Serum 0.85 mg/dL (0.70-1.30); EST Glomerular Filtration Rate 106 mL/min (>60); Est Glom Filt Rate - Afr Amer 128 mL/min (>60); Estimated Creatinine Clearance 119.28 ml/min; Glucose 83 mg/dL (74-106); Sodium Level 144 mmol/L (136-145)
[2017-11-07] MEDS: Enoxaparin 40 MG/0.4 ML Syringe SC (09:58)
[2017-11-07] MEDS: Sertraline 100 MG Tablet PO ×2 (09:58→21:39)
[2017-11-07] MEDS: Pantoprazole Sodium 40 MG Tablet PO (09:59)
[2017-11-07] MEDS: lamoTRIgine 100 MG Tablet PO ×2 (09:59→21:38)
[2017-11-07 10:02] VITALS: BP 113/87; PULSE 54; RESP 16; TEMP 36.6; O2SAT 95
[2017-11-07 11:04] LABS: AST(SGOT) 23 U/L (15-37); Alanine Aminotransfer ALT/SGPT 33 U/L (16-61); Alkaline Phosphatase 112 U/L (45-117); Bilirubin, Direct 0.15 mg/dL (0.00-0.30); Globulin 3.7 g/dL (2.2-4.2); Protein, Total 6.7 g/dL (6.4-8.2)
[2017-11-07 11:24] LABS: Lipase 121 U/L (73-393)
--- NOTE | 2017-11-07 13:49 | CHAPLAIN ---
Type of Pastoral Visit _x__ Initial Visit ___ Follow-up Visit ___ On-call Visit ___ General Patient Visit ___ Spiritual Assessment ___ Family Conference ___ Bereavement ___ Rapid Response ___ Code Blue ___ Other (describe below) Pastoral Care Referral From _x__ Patient ___ Family ___ Nurse ___ Physician ___ Hydrogen Treater ___ Clutch Inspector ___ Other (describe below) Sacrament/Intervention _x__ Active listening ___ Anointing ___ Latter-Day ___ Bereavement ___ Communion ___ Nkiia exploration ___ _x__ Life review _x__ Prayer ___ Reconciliation ___ Sacrament of Sick _x__ Supportive presence ___ Wedding ___ Other (describe below) Pastoral Comments patient describes some of his life history and current personal family problems; pt says that his illness is not stress related; pt reports that his sole emotional support comes from [employer] Consultant Perry from [facility]; pt believes that his illness may be inherited; pt welcomes prayer and talks freely about his situation
--- NOTE | 2017-11-07 14:19 | PCM.PROGNOTE ---
<Gui Avina - Last Filed: 11/07/17 14:19> Patient Problems: Active and Suspected Problems (Last Reviewed 11/06/17 @ 14:22 by Claudio Garner DO) Intractable nausea and vomiting (Acute) Intractable diarrhea (Acute) SIRS (systemic inflammatory response syndrome) (Acute) Lactic acidosis (Acute) YAMILETH (acute kidney injury) (Acute) Subjective: Pt notes no improvement in symptoms. He continues to have abdominal pain - diffuse, moderate. He continues to have vomiting even with liquids today, and diarrhea conitnues. No fever or chills. 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 - Physical Exam General: Alert, Oriented x3, Cooperative HEENT: Atraumatic, PERRLA, EOMI, Normocephalic Neck: Supple, No JVD, Negative Carotid Bruits Lungs: Clear to auscultation, Normal air movement Cardiovascular: Regular rate, No murmurs Abdomen: Bowel Sounds Present, Tender - diffuse tender to light palp Extremities: No edema, Capillary Refill Less than 3 Seconds Skin: No rashes, No breakdown Musculoskeletal: No Tenderness to Palpation of Joints or Extremities Neurological: Cranial nerves II-XII grossly intact Psych/Mental Status: Normal Affect, Appropriate Vital Signs Temp Pulse Resp BP Pulse Ox 97.9 F 54 L 16 113/87 H 95 11/07/17 10:02 11/07/17 10:02 11/07/17 10:02 11/07/17 10:02 11/07/17 10:02 Oxygen Delivery Method Room Air Weight: 214 lb 0.008 oz Body Mass Index (BMI) 30.6 Intake and Output for Last 24 Hours 11/05/17 11/06/17 11/07/17 23:59 23:59 23:59 Intake Total 3154 / 3154 Balance 3154 / 3154 Microbiology Past 72 Hours 11/07/17 12:30 Stool Lactoferrin - Final Stool 11/07/17 12:30 Stool Occult Blood (LAW) - Final Stool Laboratory Tests Past 24 Hrs 11/06/17 11/07/17 11/07/17 15:10 06:05 06:05 WBC 8.7 RBC 3.82 L Hgb 12.1 L Hct 34.9 L MCV 91.4 MCH 31.7 MCHC 34.7 RDW 13.0 RDW Differential 42.6 Plt Count 278 MPV 9.4 Immature Gran % (Auto) 0.300 Neut % (Auto) 68.8 Lymph % (Auto) 17.0 L Tate % (Auto) 9.7 Eos % (Auto) 4.0 Baso % (Auto) 0.2 Absolute Neuts (auto) 6.0 Absolute Lymphs (auto) 1.48 Total Counted Not Reportable Sodium 144 Potassium 4.0 Chloride 107 Carbon Dioxide 24.0 Anion Gap 13 BUN 10 Creatinine 0.85 Estim Creat Clear Calc 119.28 Est GFR (MDRD) Af Amer 128 Est GFR (MDRD) Non-Af 106 BUN/Creatinine Ratio 11.8 Glucose 83 Lactic Acid 0.8 Calcium 8.5 Total Bilirubin Direct Bilirubin AST ALT Alkaline Phosphatase Total Protein Albumin Globulin Lipase 11/07/17 11/07/17 06:05 06:05 WBC RBC Hgb Hct MCV MCH MCHC RDW RDW Differential Plt Count MPV Immature Gran % (Auto) Neut % (Auto) Lymph % (Auto) Tate % (Auto) Eos % (Auto) Baso % (Auto) Absolute Neuts (auto) Absolute Lymphs (auto) Total Counted Sodium Potassium Chloride Carbon Dioxide Anion Gap BUN Creatinine Estim Creat Clear Calc Est GFR (MDRD) Af Amer Est GFR (MDRD) Non-Af BUN/Creatinine Ratio Glucose Lactic Acid Calcium Total Bilirubin 0.50 Direct Bilirubin 0.15 AST 23 ALT 33 Alkaline Phosphatase 112 Total Protein 6.7 Albumin 3.0 L Globulin 3.7 Lipase 121 Medical Necessity - Tobacco Use Smoking Status: Former smoker Tobacco Use: Chew Assessment/Plan All Active Problems (Last Reviewed 11/06/17 @ 14:22 by Claudio Garner DO) Intractable nausea and vomiting (Acute) Intractable diarrhea (Acute) SIRS (systemic inflammatory response syndrome) (Acute) Lactic acidosis (Acute) YAMILETH (acute kidney injury) (Acute) History of stomach ulcers (Acute) History of pneumonia (Acute) History of substance abuse (Acute) History of seizures (Acute) Colitis (Acute) Abdominal pain (Acute) Atypical chest pain (Acute) Vertigo (Acute) Migraine aura, persistent, intractable (Acute) Chest pain (Acute) Nonallopathic lesion-rib cage (Acute) Bulging lumbar disc (Acute) 1. Acute severe sepsis 2/2 gastroenteritis - unclear etiology. Suspect viral. No relief so far. WBC resolved. LA resolved. Tachy resolved. Lipase negative. LFTs normal. CT abdomen with solitary gallstone in gallbladder neck. Lactoferrin negative. Enteric panel pending. Stool occult blood negative. 2. YAMILETH 2/2 above -resolved 3. Hypothyroid - on synthroid, check tsh. 4. Anx/Dep - continue home meds. 5. IBS - bentyl. DVT ppx: lovenox DC planning: no subjective improvement. Monitor overnight. This patient was seen by Gui Avina PA-C under the supervision of Doctor Zamzam. <Pao Wyman E - Last Filed: 11/07/17 14:42> - Physical Exam Vital Signs Temp Pulse Resp BP Pulse Ox 97.9 F 54 L 16 113/87 H 95 11/07/17 10:02 11/07/17 10:02 11/07/17 10:02 11/07/17 10:02 11/07/17 10:02 Oxygen Delivery Method Room Air Weight: 214 lb 0.008 oz Body Mass Index (BMI) 30.6 Intake and Output for Last 24 Hours 11/05/17 11/06/17 11/07/17 23:59 23:59 23:59 Intake Total 3154 / 3154 Balance 3154 / 3154 Microbiology Past 72 Hours 11/07/17 12:30 Stool Lactoferrin - Final Stool 11/07/17 12:30 Stool Occult Blood (LAW) - Final Stool Laboratory Tests Past 24 Hrs 11/06/17 11/07/17 11/07/17 15:10 06:05 06:05 WBC 8.7 RBC 3.82 L Hgb 12.1 L Hct 34.9 L MCV 91.4 MCH 31.7 MCHC 34.7 RDW 13.0 RDW Differential 42.6 Plt Count 278 MPV 9.4 Immature Gran % (Auto) 0.300 Neut % (Auto) 68.8 Lymph % (Auto) 17.0 L Tate % (Auto) 9.7 Eos % (Auto) 4.0 Baso % (Auto) 0.2 Absolute Neuts (auto) 6.0 Absolute Lymphs (auto) 1.48 Total Counted Not Reportable Sodium 144 Potassium 4.0 Chloride 107 Carbon Dioxide 24.0 Anion Gap 13 BUN 10 Creatinine 0.85 Estim Creat Clear Calc 119.28 Est GFR (MDRD) Af Amer 128 Est GFR (MDRD) Non-Af 106 BUN/Creatinine Ratio 11.8 Glucose 83 Lactic Acid 0.8 Calcium 8.5 Total Bilirubin Direct Bilirubin AST ALT Alkaline Phosphatase Total Protein Albumin Globulin Lipase 11/07/17 11/07/17 06:05 06:05 WBC RBC Hgb Hct MCV MCH MCHC RDW RDW Differential Plt Count MPV Immature Gran % (Auto) Neut % (Auto) Lymph % (Auto) Tate % (Auto) Eos % (Auto) Baso % (Auto) Absolute Neuts (auto) Absolute Lymphs (auto) Total Counted Sodium Potassium Chloride Carbon Dioxide Anion Gap BUN Creatinine Estim Creat Clear Calc Est GFR (MDRD) Af Amer Est GFR (MDRD) Non-Af BUN/Creatinine Ratio Glucose Lactic Acid Calcium Total Bilirubin 0.50 Direct Bilirubin 0.15 AST 23 ALT 33 Alkaline Phosphatase 112 Total Protein 6.7 Albumin 3.0 L Globulin 3.7 Lipase 121 Assessment/Plan Hospitalist note: I am seeing this patient in conjunction with Gui Avina. I independently seen and examined the patient. Progress note above, laboratory data and imaging studies reviewed and I concur with the above treatment plan. Patient was admitted for Nausea and vomiting as well as abdominal pain. Today, he still complaining of abdominal discomfort, pain as well as nausea and vomiting. Leukocytosis resolved and his lactic acid is back to normal. He has been afebrile, other vital signs are stable. - Physical Exam General: Alert, Oriented x3, Cooperative, No apparent distress. HEENT: Atraumatic, PERRLA, EOMI. Neck: Supple, No JVD, Negative Carotid Bruits, Trachea Midline, Thyroid Normal. Lungs: Clear to auscultation, Normal air movement, No rhonchi, No wheeze, No rales. Cardiovascular: Regular rate, Regular Rhythm, Normal S1, Normal S2, PMI Normal. Abdomen: Bowel Sounds Present, Soft, superficial tenderness, no guarding or rigidity, Non-Distended, No Hepato-splenomegaly. Extremities: No clubbing, No cyanosis, No edema Skin: No rashes, No breakdown Neurological: Neuro grossly intact Vital Signs are stable. Assessment and plan: #1 abdominal pain/intractable nausea and vomiting: Likely due to gastroenteritis, possibly viral. Patient still symptomatic. She has been afebrile, leukocytosis resolved. LFT and lipase were normal. CT scan abdomen revealed solitary gallstone, otherwise no acute findings. Stool studies are pending. Plan to continue IV fluids, IV antiemetics, advance diet as tolerated. #2 acute kidney injury: Secondary to dehydration, fluid loss. He has been on IV fluids, serum creatinine is back to normal. #3 other chronic medical problems: Stable, continue current medications as above. This note was generated with [employer] dictation software. It may contain incorrect words, spelling, and punctuation that were not noted in checking the note before signing. Code Visit Inpatient E&M: 72568 Subs Hosp L2
[2017-11-07 15:13] LABS: Thyroid Stim Hormone (TSH) 1.53 uIU/mL (0.358-3.74)
[2017-11-07 15:56] VITALS: BP 118/86; PULSE 62; RESP 14; TEMP 36.6; O2SAT 100
[2017-11-07] MEDS: Acetaminophen 325 MG Tablet 650 MG PO (19:04)
[2017-11-07 21:30] VITALS: BP 134/95; PULSE 71; RESP 16; TEMP 36.9; O2SAT 98
[2017-11-07] MEDS: QUEtiapine 25 MG Tablet 50 MG PO (21:38)
[2017-11-08 03:30] VITALS: BP 130/94; PULSE 73; RESP 16; TEMP 36.6; O2SAT 97
[2017-11-08] MEDS: tiZANidine HCl 2 MG Tablet 4 MG PO (06:06)
[2017-11-08] MEDS: Levothyroxine 50 MCG Tablet PO (06:06)
[2017-11-08 08:49] VITALS: BP 111/81; PULSE 72; RESP 16; TEMP 37.1; O2SAT 94
[2017-11-08] MEDS: Pantoprazole Sodium 40 MG Tablet PO (08:51)
[2017-11-08] MEDS: Sertraline 100 MG Tablet PO (08:52)
[2017-11-08] MEDS: lamoTRIgine 100 MG Tablet PO (08:52)
[2017-11-08] MEDS: Enoxaparin 40 MG/0.4 ML Syringe SC (08:52)
[2017-11-08] MEDS: Dicyclomine 10 MG Capsule PO (08:52)
--- NOTE | 2017-11-08 11:48 | PCM.DC ---
- Discharge Diagnoses Current Active Problems: Current Active and Chronic Problems (Last Reviewed 11/06/17 @ 14:22 by Claudio Garner DO) Intractable nausea and vomiting (Acute) Intractable diarrhea (Acute) SIRS (systemic inflammatory response syndrome) (Acute) Lactic acidosis (Acute) YAMILETH (acute kidney injury) (Acute) You will use the following diet at home:: No restrictions Your food should be the consistency of: Regular Your liquids should be the consistency of: Regular/Thin Discharge Activity: Return to Normal Activity Allergies/Adverse Reactions: Allergies Penicillins Allergy (Verified 11/06/17 10:33) Anaphylaxis bezonates Allergy (Severe, Uncoded 11/06/17 10:33) Hives Medications to take at Discharge Lamotrigine 100 mg PO BID 05/08/17 Albuterol Sulfate [Ventolin Hfa] 1 - 2 puff INHALATION Q6H PRN PRN 11/06/17 Dicyclomine HCl [Bentyl] 10 mg PO TIDAC 11/06/17 Levothyroxine [Synthroid] 50 mcg PO DAILY 11/06/17 Nabumetone [Relafen] 750 mg PO BID 11/06/17 Pantoprazole Sodium [Protonix] 40 mg PO DAILY 11/06/17 Quetiapine Fumarate [Seroquel] 50 mg PO DAILY 11/06/17 Sertraline HCl [Zoloft] 100 mg PO BID 11/06/17 Tizanidine HCl 4 mg PO TID 11/06/17 Primary Care Physician: Argentina Jeffrey MD [Primary Care Provider] - Please follow up with your Primary Care Physician in: 1-2 weeks Test Results: Test results from this visit will be discussed in further detail at your follow-up appointment, if applicable. Proposed Discharge Date: 11/08/17
--- NOTE | 2017-11-08 14:13 | PCM.DC.SUM ---
<Gui Avina - Last Filed: 11/08/17 14:13> Discharge Date and Diagnosis Date of Admission: 11/06/17 Date of Discharge: 11/08/17 - Primary Discharge Diagnosis Acute severe sepsis 2/2 acute gastroenteritis suspect viral YAMILETH 2/2 sepsis, diarrhea IBS Hypothyroidism Anx/Dep - Secondary Discharge Diagnosis Chronic Problems (Last Reviewed 11/06/17 @ 14:22 by Claudio Garner DO) Seasonal allergies (Chronic) Anxiety and depression (Chronic) Chronic bronchitis (Chronic) Thyroid activity decreased (Chronic) Obesity (BMI 30.0-34.9) (Chronic) Glucose intolerance (impaired glucose tolerance) (Chronic) Family history of diabetes mellitus (Chronic) Family history of coronary artery disease (Chronic) Family history of gastric carcinoma (Chronic) Father is at 42 years of age due to cancer Former smoker (Chronic) Quit 2010 Recovering alcoholic (Chronic) Quit drinking in 2010 Cholelithiasis (Chronic) Personal history of peptic ulcer disease (Chronic) Gastroesophageal reflux disease (Chronic) History of nephrolithiasis (Chronic) Osteoarthritis (Chronic) Hospital Course and Treatment Imaging Results: CT/Abdomen/Pel W ORAL Cont Only IMPRESSION: Solitary gallstone in the gallbladder neck. Increased markings at the lung bases suggestive of scarring and/or linear atelectasis. Operations: None Procedures: None Summary of Care Provided: Physical exam on day of discharge: General: Resting comfortably NAD Psych: A/Ox3 normal affect HEENT: PEARRLA AT NC Neck: Supple NT CV: RRR no m/t/r/g/h Resp: CTA Abd: [id number] Soft NT no guarding or rigidity Ext: DP2+= no edema Skin: W/D normal turgor Lymph/Heme: No active bleeding or adenopathy Neuro: CN2-12 intact Hospital course: The patient is a 42 year old M with a history of irritable bowel syndrome, hypothyroidism, anxiety and depression, who presented to the emergency room chief complaint of intractable nausea and vomiting along with diarrhea. He stated it is been going on for about 1 month and began while he was working for a [employer], after which she was temporarily incarcerated and it continued throughout that time, after being released he continued still. He stated that he was unable to keep any foods or liquids down that he would vomit them back up. He also had diffuse abdominal pain with tenderness to palpation. He underwent a CT of the abdomen in the ER which was unremarkable. He did appear to meet severe sepsis criteria secondary to gastroenteritis with elevated white count, tachycardia, lactic acidosis. He also appeared to have a KI with elevated creatinine, probably secondary to sepsis and dehydration from the diarrhea. He was placed on IV fluids and admitted to the general medical floor with supportive care. Patient's vital signs, white count, and renal function improved overnight. He continued to complain of abdominal pain, nausea, vomiting although the frequency decreased by the following day. Enteric panel, C. difficile, lactoferrin were all ordered and were negative. His diet was advanced. He continued to improve and was discharged to home the following day. He will need to follow-up with his PCP in 1-2 weeks. This patient was seen by Gui Avina PA-C under the supervision of Doctor Wyman. [] Discharge Diet: No Restrictions Discharge Activity: Return to Normal Activity Home Medications: Medications to take at Discharge Lamotrigine 100 mg PO BID 05/08/17 Albuterol Sulfate [Ventolin Hfa] 1 - 2 puff INHALATION Q6H PRN PRN 11/06/17 Dicyclomine HCl [Bentyl] 10 mg PO TIDAC 11/06/17 Levothyroxine [Synthroid] 50 mcg PO DAILY 11/06/17 Nabumetone [Relafen] 750 mg PO BID 11/06/17 Pantoprazole Sodium [Protonix] 40 mg PO DAILY 11/06/17 Quetiapine Fumarate [Seroquel] 50 mg PO DAILY 11/06/17 Sertraline HCl [Zoloft] 100 mg PO BID 11/06/17 Tizanidine HCl 4 mg PO TID 11/06/17 Primary Care Physician: Argentina Jeffrey MD [Primary Care Provider] - Please follow up with your Primary Care Physician in: 1-2 weeks Disposition: Home Minutes spent on discharge:: 35 Patient Condition:: Stable Medical Necessity - Tobacco Use Smoking Status: Former smoker Tobacco Use: Chew Meaningful Use Info Meaningful Use Diagnoses (Choose all that apply): None applicable <Pao Wyman - Last Filed: 11/08/17 15:22> Discharge Date and Diagnosis - Secondary Discharge Diagnosis Chronic Problems (Last Reviewed 11/06/17 @ 14:22 by Claudio Jopperi, DO) Seasonal allergies (Chronic) Anxiety and depression (Chronic) Chronic bronchitis (Chronic) Thyroid activity decreased (Chronic) Obesity (BMI 30.0-34.9) (Chronic) Glucose intolerance (impaired glucose tolerance) (Chronic) Family history of diabetes mellitus (Chronic) Family history of coronary artery disease (Chronic) Family history of gastric carcinoma (Chronic) Father is at 42 years of age due to cancer Former smoker (Chronic) Quit 2010 Recovering alcoholic (Chronic) Quit drinking in 2010 Cholelithiasis (Chronic) Personal history of peptic ulcer disease (Chronic) Gastroesophageal reflux disease (Chronic) History of nephrolithiasis (Chronic) Osteoarthritis (Chronic) Hospital Course and Treatment Summary of Care Provided: Hospitalist note: Discharge summary above reviewed as well as physical examination and I agree with the above discharge plan. Patient was admitted for symptoms of nausea, vomiting and abdominal pain and he was found to have findings consistent with severe sepsis which is attributed to probable viral gastroenteritis. On admission, patient was tachycardic, tachypneic, have leukocytosis and his lactic acid was elevated and this is consistent with severe sepsis. He was treated with IV fluids, IV antiemetics and IV pain medications. CT scan abdomen and pelvis revealed solitary gallstone without other acute findings. With IV fluid therapy, lactic acid came back to normal. Stool studies including stool for occult blood, stool for lactoferrin, stool for C. difficile and stool for enteric pathogens came back unremarkable and negative. He was found to have mild hypokalemia and acute kidney injury secondary to fluid loss. Admission creatinine was 1.41 and with IV fluid therapy, it came down to 0.85 and it is back to normal. His LFT and lipase were normal. TSH was normal. Leukocytosis resolved as well as patient's symptoms. He remained afebrile throughout admission. Patient discharged home in stable medical condition, discharged on his chronic home medications without any changes, recommended follow-up with PCP in 1-2 weeks. - Physical Exam General: Alert, Oriented x3, Cooperative, No apparent distress. HEENT: Atraumatic, PERRLA, EOMI. Neck: Supple, No JVD, Negative Carotid Bruits, Trachea Midline, Thyroid Normal. Lungs: Clear to auscultation, Normal air movement, No rhonchi, No wheeze, No rales. Cardiovascular: Regular rate, Regular Rhythm, Normal S1, Normal S2, PMI Normal. Abdomen: Bowel Sounds Present, Soft, Non Tender, Non-Distended, No Hepato-splenomegaly. Extremities: No clubbing, No cyanosis, No edema Skin: No rashes, No breakdown Neurological: Neuro grossly intact Vital Signs are stable. This note was generated with [employer] dictation software. It may contain incorrect words, spelling, and punctuation that were not noted in checking the note before signing. Minutes spent on discharge:: 26 Patient Condition:: Stable Meaningful Use Info Meaningful Use Diagnoses (Choose all that apply): None applicable Code Visit Inpatient E&M: 24220 Disch Hosp
== END 2017-11-08 13:34 | disposition home or self-care (01) | DRG 416 ==
LOC: ED 11:31 → MS2 14:09
PROVIDERS: Physician Assistant; Emergency Provider Emergency Medicine; Family Provider Internal Medicine; PCP Internal Medicine; Visit Provider Hospitalist
DX: A41.89 Other specified sepsis (principal); N17.9 Acute kidney failure, unspecified; E87.2 Acidosis; J42 Unspecified chronic bronchitis; F10.20 Alcohol dependence, uncomplicated; R65.20 Severe sepsis without septic shock; A08.4 Viral intestinal infection, unspecified; G89.29 Other chronic pain; M54.9 Dorsalgia, unspecified; E03.9 Hypothyroidism, unspecified; K80.20 Calculus of gallbladder without cholecystitis without obstruction; E66.9 Obesity, unspecified; Z68.30 Body mass index [BMI] 30.0-30.9, adult; F41.9 Anxiety disorder, unspecified; F32.9 Major depressive disorder, single episode, unspecified; K58.9 Irritable bowel syndrome, unspecified; Z83.3 Family history of diabetes mellitus; Z87.891 Personal history of nicotine dependence; Z87.11 Personal history of peptic ulcer disease; K21.9 Gastro-esophageal reflux disease without esophagitis; M19.90 Unspecified osteoarthritis, unspecified site; E74.39 Other disorders of intestinal carbohydrate absorption; Z87.442 Personal history of urinary calculi
CPT/HCPCS: 36415; 36600; 74176; 80048; 80076; 82274; 82803; 83605; 83630; 83690; 84443; 85025; 87493; 87506; 97802; 99282; J7030; A4216; J2405

== ENCOUNTER 2018-01-15 21:33 | Emergency (ER) | payer MEDICAID, SELFPAY ==
[2018-01-15 21:33] VITALS: BP 120/83; PULSE 101; RESP 22; TEMP 37.1; O2SAT 99; BMI 34.6
[2018-01-15 21:39] VITALS: O2SAT 99
[2018-01-15 21:47] VITALS: BP 118/90; PULSE 88; RESP 20; O2SAT 100
--- NOTE | 2018-01-15 21:52 | EKG12_ITS ---
Test Reason : COUGH Blood Pressure : / mmHG Vent. Rate : 089 BPM Atrial Rate : 089 BPM P-R Int : 196 ms QRS Dur : 084 ms QT Int : 352 ms P-R-T Axes : 036 003 029 degrees QTc Int : 428 ms Normal sinus rhythm Normal ECG Confirmed by TORSTEN LUNDY, LO ([id number]), slot editor JONNATHAN VARNER ([id number] on 01/22/2018 2:29:18 PM Referred By: DR ZHU Confirmed By:LO SARMIENTO MD
[2018-01-15 22:14] LABS: Absolute Neutrophil Count 4.8 X10^3/uL (2.0-7.7); Basophil# 0.03 X10^3/uL; Basophil% 0.4 % (0-1); Eosinophil# 0.22 X10^3/uL; Eosinophils% 2.6 % (0-5); Hematocrit 42.7 % (40-54); Hemoglobin 14.8 g/dl (13.0-16.5); Lymphocyte % 28.9 % (19-41); Mean Corp Hgb Conc 34.7 g/gl (32-36); Mean Corpuscular Hgb 31.8 pg (27.0-32.0); Mean Corpuscular Volume 91.8 fL (80-94); Mean Platelet Vol. 9.2 fl (6.2-12.0); Monocyte# 0.83 X10^3/uL; Neutrophil # 4.81 X10^3/uL (2.7-7.7); Neutrophil % 57.9 % (47-70); Platelet Count 358 K/mm3 (150-450); RBC Distribution Width CV 13.1 % (11.6-14.6); RBC Distribution Width SD 43.7 fl (35.1-43.9); Red Blood Count 4.65 M/mm3 (4.6-6.2); White Blood Count 8.3 K/mm3 (4.4-11.0)
[2018-01-15 22:15] LABS: POSITIVE COUNT NO; POSITIVE DIFFERENTIAL NO; POSITIVE MORPHOLOGY NO
[2018-01-15] MEDS: Morphine 4 MG/ML Syringe IV (22:20)
[2018-01-15] MEDS: Ondansetron 4 MG/2 ML Vial IV (22:21)
[2018-01-15 22:22] LABS: Prothrombin Time (Protime)PT. 13.1 SECONDS (11.7-14.9)
[2018-01-15 22:23] LABS: Partial Thromboplast Time 28.7 Seconds (24.1-36.2)
[2018-01-15 22:30] LABS: AST(SGOT) 47 U/L (15-37); Alanine Aminotransfer ALT/SGPT 83 U/L (16-61); Albumin, Serum 4.3 g/dL (3.2-5.0); Alkaline Phosphatase 128 U/L (45-117); Anion Gap 6 (5-15); BUN 20 mg/dL (7-18); Calcium,Total 9.1 mg/dL (8.5-10.1); Chloride 106 mmol/L (98-107); Creatinine, Serum 1.11 mg/dL (0.70-1.30); D-Dimer Quantitative (DVT/PE) 0.57 FEU/ug/m (0.27-0.49); EST Glomerular Filtration Rate 78 mL/min (>60); Est Glom Filt Rate - Afr Amer 94 mL/min (>60); Estimated Creatinine Clearance 76.95 ml/min; Globulin 4.4 g/dL (2.2-4.2); Glucose 108 mg/dL (74-106); Protein, Total 8.7 g/dL (6.4-8.2); Sodium Level 139 mmol/L (136-145)
[2018-01-15 22:32] VITALS: TEMP 36.7
--- NOTE | 2018-01-15 22:35 | RAD_ITS ---
STUDY: X-RAY CHEST REASON FOR EXAM: Male, 42 years old. Cough TECHNIQUE: PA and lateral COMPARISON: May 08, 2017 FINDINGS: Less than optimal inspiratory effort and there is minor interstitial thickening at the lung bases. Lungs are otherwise clear There is no demonstrated pleural abnormality. Normal size heart. Normal mediastinum and diann. Normal visualized pulmonary arteries. Normal visualized aortic arch and descending thoracic aorta. Normal visualized thoracic spine. Normal visualized ribs, clavicles, and shoulders. There is no demonstrated abnormality of the visualized soft tissue structures of the upper abdomen. No significant change since prior exam RAD/Chest PA and Lateral IMPRESSION: No acute cardiopulmonary pathology Electronically Signed: Javi Guillermo MD at 23:11 EDT , Service support ,
[2018-01-15 22:37] VITALS: BP 109/73; PULSE 91; RESP 14; O2SAT 98
[2018-01-15 22:43] LABS: Lactic Acid 1.3 mmol/L (0.4-2.0)
--- NOTE | 2018-01-15 22:51 | CT_ITS ---
STUDY: CTA CHEST REASON FOR EXAM: Male, 42 years old. Hemoptysis in 7:00 PM. Passing kidney stones, chest pain. RADIATION DOSAGE (If Supplied By Facility): CTDIvol = ( 16.31 ) mGy, DLP = ( 645.91 ) mGycm TECHNIQUE: The examination was performed with the intravenous administration of 100 ml of Isovue 370 contrast material. Post-processing of the angiographic images was performed, with multiplanar reformation and 3D reconstruction. There is image blurring as a result of cardiac motion. Diagnostic accuracy is somewhat reduced. However, there is substantial diagnostic information remaining available on this study. Individualized dose optimization techniques were used for this CT. COMPARISON: Chest x-ray 01/15/2018. FINDINGS: Normal enhancement of the main pulmonary artery and right and left pulmonary arteries. Normal enhancement of the bilateral peripheral pulmonary arteries. There is no demonstrated pulmonary embolism. Normal thoracic aorta and visualized great vessels. There is no demonstrated aortic dissection. Normal heart and pericardium. Normal mediastinum. Normal hilar regions. Normal visualized trachea and bronchi. The lungs are under expanded. Normal pulmonary parenchyma. Normal pleura. Normal chest wall structures. Age-appropriate osseous structures. There is at least one gallbladder calculus in the gallbladder neck present on previous exam.. No overt biliary obstruction, the entirety of the biliary system is not visualized. Normal bilateral adrenal glands. CT/CTA Chest W/WO Contrast IMPRESSION: Normal CTA chest examination, without a demonstrated pulmonary embolism or arterial dissection. Cholelithiasis, present on previous exam. Electronically Signed: Makenna Everett MD at 0:10 EDT , Service support ,
[2018-01-15 23:43] LABS: Red Blood Cells-Urine 0 SEEN /hpf (0-5); Squamous Epithelial Cells - UA 0 SEEN /hpf (0-5)
[2018-01-15 23:50] LABS: Color, Urine Yellow (Yellow); Glucose, Dipstick Normal (Normal); Ketone-Dipstick Negative (Negative); Leukocyte Esterase-Dipstick Negative /ul (Negative); Nitrite-Dipstick Negative (Negative); Occult Blood-Urine Negative /ul (Negative); Protein-Dipstick 15 mg/dl (Negative); Specific Gravity, Urine 1.015 (1.002-1.030); Urine Bilirubin Dipstick Negative (Negative); Urine Clarity Clear (Clear); Urine Urobilinogen Normal (Normal)
[2018-01-15 23:57] LABS: Mucous, Urine 1+ /hpf (<or=2+)
[2018-01-15 23:58] VITALS: BP 117/74; PULSE 89; RESP 14; O2SAT 97
[2018-01-15 23:58] LABS: Bacteria RARE /hpf (None Seen); White Blood Cells 0-5 SEEN /hpf (0-5)
[2018-01-16 00:14] VITALS: BP 104/73; PULSE 89; RESP 24; O2SAT 97
--- NOTE | 2018-01-16 00:17 | ED.VISSUMM ---
- ER Visit Summary Date of Service: 01/16/18 Chief Complaint: Hemoptysis History of Present Illness: The patient is a 42 M presenting for evaluation secondary to hemoptysis. Patient reports that since the of this month he has been passing a kidney stone on his left side. Patient reports that he was diagnosed at an outside facility of this head CAT scan was sent home with medications. Patient states that he has been having persistent left-sided flank pain saw his primary care physician who started him on different medications. Patient states that over the last 6 days he has still been having this flank pain but now he is also developing a pleuritic pain as well as a cough. Patient states that he has had some chills associated with this. Patient reports that today he was having a coughing fit and started to cough up some blood. He reports that he has had 5 subsequent episodes of this. He denies that he is having any sort of nosebleeds. Patient does have prior history of smoking. He denies any unintended weight loss. Physical Examination: Vital signs notable for some minimal tachycardia with heart rate of 100. Well-nourished male no acute distress. Head normocephalic. Oropharynx clear, neck was supple. Heart was regular rate and rhythm no murmurs normal S1 and S2. Chest was tender in the posterior portion of the thorax over the left flank without any evidence of overlying vesicular rash lungs are clear. Abdomen was tender in the left upper quadrant. Remainder the physical otherwise unremarkable. Test Results: CT angiogram of the chest shows no acute pathology. Chest x-ray negative. EKG demonstrates sinus rhythm of [address] segments normal T waves. CBC chemistry urinalysis lactic are unremarkable, blood cultures are pending, d-dimer is positive Emergency Department Course and Treatment: Patient presented for evaluation secondary to flank pain chest pain and hemoptysis. Given the patient's hemoptysis there was some concern for the possibility of pulmonary embolism. D-dimer was obtained and was found to be in the positive range so CT angiogram was performed which ultimately was found to be negative. I reviewed the patient's records from the outside facility and he was noted to have a stone in the bladder consistent with a recently passed kidney stone but nothing obstructing. Patient has no evidence of urinary infection. Patient's pain was addressed in the emergency department with morphine and Zofran. At this point I do not see reason for the patient have further workup or admission. Patient does have a past history of smoking, and there is no evidence of PE infection or bronchitis on imaging or on physical exam so there is some at least mild concern for the possibility of a squamous cell tumor in the lungs. Patient will be given referral to pulmonology. He understands the importance of follow-up. Disposition: Discharge Impression: 1. Hemoptysis 2. Flank pain with recently passed kidney stone This note was generated with [employer] dictation software. It may contain incorrect words, spelling, and punctuation that were not noted in review of the chart prior to signing ED Disposition - Plan for ED Patient: Disposition: Home or Assisted Living Chief Complaint: Cough Diagnosis: Hemoptysis Instructions: ED Hemoptysis Referrals: Antonio Mcnulty MD [STAFF PHYSICIAN] - 1-2 Weeks
--- NOTE | 2018-01-16 00:24 | ED.DCSUM_ITS ---
- ER Visit Summary Date of Service: 01/16/18 Chief Complaint: Hemoptysis History of Present Illness: The patient is a 42 M presenting for evaluation secondary to hemoptysis. Patient reports that since the of this month he has been passing a kidney stone on his left side. Patient reports that he was d iagnosed at an outside facility of this head CAT scan was sent home with medications. Patient states that he has been having persistent left-sided flank pain saw his primary care physician who started him on different medications. Patient states that over the last 6 days he has still been having this flank pain but now he is also developing a pleuritic pain as well as a cough. Patient states that he has had some chills associated with this. Patient reports that today he was having a coughing fit and started to cough up some blood. He reports that he has had 5 subsequent episodes of this. He denies that he is having any sort of nosebleeds. Patient does have prior history of smoking. He denies any unintended weight loss. Physical Examination: Vital signs notable for some minimal tachycardia with heart rate of 100. Well-nourished male no acute distress. Head normocephalic. Oropharynx clear, neck was supple. Heart was regular rate and rhythm no murmurs normal S1 and S2. Chest was tender in the posterior portion of the thorax over the left flank without any evidence of overlying vesicular rash lungs are clear. Abdomen was tender in the left upper quadrant. Remainder the physical otherwise unremarkable. Test Results: CT angiogram of the chest shows no acute pathology. Chest x-ray negative. EKG demonstrates sinus rhythm of [address] segments normal T waves. CBC chemistry urinalysis lactic are unremarkable, blood cultures are pending, d-dimer is positive Emergency Department Course and Treatment: Patient presented for evaluation secondary to flank pain chest pain and hemoptysis. Given the patient's hemoptysis there was some concern for the possibility of pulmonary embolism. D- dimer was obtained and was found to be in the positive range so CT angiogram was performed which ultimately was found to be negative. I reviewed the patient's records from the outside facility and he was noted to have a stone in the bladder consistent with a recently passed kidney stone but nothing obstructing. Patient has no evidence of urinary infection. Patient's pain was addressed in the emergency department with morphine and Zofran. At this point I do not see reason for the patient have further workup or admission. Patient does have a past history of smoking, and there is no evidence of PE infection or bronchitis on imaging or on physical exam so there is some at least mild concern for the possibility of a squamous cell tumor in the lungs. Patient will be given refer ral to pulmonology. He understands the importance of follow-up. Disposition: Discharge Impression: 1. Hemoptysis 2. Flank pain with recently passed kidney stone This note was generated with [employer] video dictation software. It may contain incorrect words, spelling, and punctuation that were not noted in review of the chart prior to signing ED Disposition - Plan for ED Patient: Disposition: Home or Assisted Living Chief Complaint: Cough Diagnosis: Hemoptysis Instructions: ED Hemoptysis Referrals: Antonio Mcnulty MD [STAFF PHYSICIAN] - 1-2 Weeks
[2018-01-16 00:42] VITALS: BP 101/68; PULSE 87; RESP 16; O2SAT 95
--- NOTE | 2018-01-16 10:30 | CM.ED ---
ED CALLBACK: Follow-up call placed to patient with no ring tone. Message states the phone does not accept incoming calls.
== END 2018-01-16 00:43 | disposition home or self-care (01) ==
PROVIDERS: Emergency Provider Emergency Medicine; Family Provider Internal Medicine; PCP Internal Medicine
DX: R04.2 Hemoptysis (principal); R10.12 Left upper quadrant pain; Z87.442 Personal history of urinary calculi; R11.2 Nausea with vomiting, unspecified; R06.00 Dyspnea, unspecified; R68.83 Chills (without fever); R79.89 Other specified abnormal findings of blood chemistry; Z87.891 Personal history of nicotine dependence
CPT/HCPCS: 71046; 71275; 80053; 81001; 83605; 85025; 85379; 85610; 85730; 87040; 87086; 93005; 96374; 96375; 99284; Q9967; A4216; J2405

== ENCOUNTER 2018-01-18 12:46 | Emergency (ER) | payer MEDICAID, SELFPAY ==
[2018-01-18 12:46] VITALS: BP 116/76; PULSE 89; RESP 16; TEMP 36.1; O2SAT 97; BMI 36.2
--- NOTE | 2018-01-18 13:01 | RAD_ITS ---
STUDY: X-RAY - LUMBAR SPINE REASON FOR EXAM: Male, 42 years old. hx of L5 fx in 1993, back pain now again TECHNIQUE: 3 view(s) of the lumbar spine were obtained. COMPARISON: August 17 FINDINGS: Normal lumbar lordosis. There is multilevel endplate spondylosis of the lumbar vertebrae. There is multi-level degenerative disc disease with multi-level disc space narrowing. The soft tissue structures are unremarkable. RAD/Lumbar Spine 2 or 3 Views IMPRESSION: Degenerative changes of the spine. Electronically Signed: Gerry Gilmore MD at 13:40 EDT Tel , Service support ,
--- NOTE | 2018-01-18 13:50 | ED.DCSUM_ITS ---
- ER Visit Summary Date of Service: 01/18/18 Chief Complaint: Fall with back injury [] History of Present Illness: The patient is a 42 M [presents the emergency department after sustaining a fall last evening around 10:30 PM. Patient states that he was to come down the steps when he lost his balance and fell injuring his low back. Patient has a history of chronic back pain and is scheduled to see a back surgeon. Patient used to be in pain management with Dr. Osuna but no longer is. Patient chronically has some intermittent discomfort radiating down his left leg. He denies any weakness the extremities. He denies any hematuria. He denies any head or neck pain. She denies any abdominal pain.] Physical Examination: [HEENT-PERRLA, EOMI. Cranial nerves II through XII grossly intact. TMs clear. Mucous membranes moist. No adenopathy. Cardiovascular-regular rate and rhythm without murmur or ectopy Lungs-clear to auscultation, chest wall stable without crepitus or subcu emphysema Abdomen-normoactive bowel sounds, soft, nontender, no rebound or rigidity, no peritoneal signs. Back exam-patient has diffuse tenderness over the lumbar spine and lumbar paraspinal musculature. Patient has negative straight leg raises. Deep tendon reflexes are plus 2 out of 4 bilaterally at the patella and Achilles. Patient has normal L5 extension. Patient has normal sensation to light touch bilaterally. There is no ecchymosis or bruising noted to his back. No bony depressions. Extremities-intact ?4, normal range of motion, normal pulses, atraumatic] Test Results: [X-rays of the lumbar spine obtained showed degenerative changes otherwise nothing acute.] Emergency Department Course and Treatment: [] Treatment Plan: Patient will be given a prescription for Naprosyn, Flexeril, and 10 Pansey for severe pain. Patient advised to follow-up with his primary care physician or back surgeon within the next 3-5 days.] Disposition: [Discharged home in stable condition] Impression: [Contusion back status post fall] This note was generated with [employer] dictation software. It may contain incorrect words, spelling, and punctuation that were not noted in review of the chart prior to signing ED Disposition - Plan for ED Patient: Chief Complaint: Back Referrals: Argentina Jeffrey MD [Primary Care Provider] -
--- NOTE | 2018-01-18 13:52 | DCINST.ED_ITS ---
ED Disposition - Plan for ED Patient: Chief Complaint: Back Instructions: ED Contusion Back Prescriptions: Hydrocodone Bitart/Apap 5-325 [[place] 5MG-325MG] 1 tab PO Q4H PRN PRN 2 Days #10 tab PRN Reason: Pain Naproxen [Naprosyn] 500 mg PO BID PRN #20 tab Cyclobenzaprine [Flexeril] 10 mg PO TID PRN #20 tab PRN Reason: Muscle Spasm Referrals: Mariano Muniz MD [NON-STAFF] - 5-7 Days
== END 2018-01-18 14:08 | disposition home or self-care (01) ==
PROVIDERS: Emergency Provider Emergency Medicine; Family Provider Internal Medicine; PCP Internal Medicine
DX: S30.0XXA Contusion of lower back and pelvis, initial encounter (principal); W10.9XXA Fall (on) (from) unspecified stairs and steps, initial encounter; Y93.9 Activity, unspecified; Y92.9 Unspecified place or not applicable; M54.9 Dorsalgia, unspecified; G89.29 Other chronic pain; Z87.442 Personal history of urinary calculi; F17.220 Nicotine dependence, chewing tobacco, uncomplicated
CPT/HCPCS: 72100; 99282

== ENCOUNTER 2018-04-09 06:42 | Emergency (ER) | payer MEDICAID, SELFPAY ==
[2018-04-09 06:43] VITALS: BP 123/78; PULSE 65; RESP 16; TEMP 36.6; O2SAT 97; BMI 35.3
[2018-04-09 07:15] LABS: Anion Gap 8 (5-15); BUN 17 mg/dL (7-18); BUN/Creat Ratio 16.2 RATIO (10-20); Calcium,Total 8.5 mg/dL (8.5-10.1); Chloride 107 mmol/L (98-107); Creatinine, Serum 1.05 mg/dL (0.70-1.30); EST Glomerular Filtration Rate 83 mL/min (>60); Est Glom Filt Rate - Afr Amer 100 mL/min (>60); Estimated Creatinine Clearance 84.39 ml/min; Glucose 114 mg/dL (74-106); Potassium 3.7 mmol/L (3.5-5.1); Sodium Level 142 mmol/L (136-145)
[2018-04-09] MEDS: 0.9% Normal Saline 1,000 ML 999 ML IV (07:21)
[2018-04-09] MEDS: Ondansetron 4 MG/2 ML Vial IV (07:21)
[2018-04-09 07:24] LABS: Absolute Lymphocyte Count 1.59 X10^3/ul (0.83-4.51); Absolute Neutrophil Count 4.9 X10^3/uL (2.0-7.7); Basophil# 0.02 X10^3/uL; Basophil% 0.3 % (0-1); Eosinophil# 0.24 X10^3/uL; Eosinophils% 3.2 % (0-5); Hematocrit 41.1 % (40-54); Hemoglobin 14.2 g/dl (13.0-16.5); Lymphocyte # 1.59 X10^3/ul (4.0); Lymphocyte % 21.3 % (19-41); Mean Corp Hgb Conc 34.5 g/gl (32-36); Mean Corpuscular Hgb 31.6 pg (27.0-32.0); Mean Corpuscular Volume 91.3 fL (80-94); Mean Platelet Vol. 9.4 fl (6.2-12.0); Monocyte# 0.73 X10^3/uL; Monocyte% 9.8 % (0-10); Neutrophil # 4.86 X10^3/uL (2.7-7.7); Neutrophil % 65.1 % (47-70); Platelet Count 359 K/mm3 (150-450); RBC Distribution Width CV 13.4 % (11.6-14.6); RBC Distribution Width SD 44.5 fl (35.1-43.9); White Blood Count 7.5 K/mm3 (4.4-11.0)
--- NOTE | 2018-04-09 07:24 | ED.VISSUMM ---
- ER Visit Summary Date of Service: 04/09/18 Chief Complaint: Nausea, vomiting and diarrhea History of Present Illness: The patient is a 42 M history of peptic ulcer disease, bipolar disorder and compression fracture in his back. He states the last 2 days he has had nausea, vomiting and diarrhea. Denies fever. Has had small blood streaks with his stool. No melena. No hematemesis. No fever. He has had episodes like this before. He says he has mild epigastric abdominal discomfort. Physical Examination: Middle-aged male. No acute distress. Vital signs are stable. Afebrile. HEENT exam unremarkable except dry mixed membranes. Neck nontender no lymphadenopathy. Lungs clear to auscultation bilaterally. Heart regular rate and rhythm no murmur rate about 70. Abdomen soft. Nondistended. Normal bowel sounds. Mild epigastric tenderness. No rebound, guarding or rigidity. No hernias or masses. No signs of traction. Patient is moving all 4 extremities. They are neurovascular intact. Calves are nontender without edema. Back is nontender. Neurologically is awake and alert with no focal motor deficits. Test Results: CBC is normal with a white count of 7. Hemoglobin of 14. BMP shows normal values with a gap of 8 and a creatinine of 1. Lipase equals 147 is normal also. Emergency Department Course and Treatment: Patient treated with a liter of normal saline and IV Zofran. Positive p.o. fluid challenge. Repeat exam patient is doing well at 07 57. Positive p.o. fluids. He is comfortable being discharged home. Treatment Plan: Zofran as needed as nausea. He requested and was given a work excuse for today. Disposition: Discharge Impression: Acute nausea, vomiting and diarrhea Acute dehydration This note was generated with [employer] dictation software. It may contain incorrect words, spelling, and punctuation that were not noted in review of the chart prior to signing ED Disposition - Plan for ED Patient: Disposition: Home or Assisted Living Chief Complaint: Nausea/Vomiting/Diarrhea Instructions: ED Gastroenteritis Viral Prescriptions: Ondansetron [Zofran Odt] 4 mg PO Q8H PRN PRN #10 tab PRN Reason: Nausea Referrals: Argentina Jeffrey MD [Primary Care Provider] - 3-5 Days if not improving Additional Instructions: Plenty of fluids and rest. Zofran as needed for nausea. Follow-up with your primary care physician if not improving or return to the ER feeling worse.
[2018-04-09 07:25] LABS: POSITIVE COUNT NO; POSITIVE DIFFERENTIAL NO; POSITIVE MORPHOLOGY NO
--- NOTE | 2018-04-09 07:28 | ED.DCSUM_ITS ---
- ER Visit Summary Date of Service: 04/09/18 Chief Complaint: Nausea, vomiting and diarrhea History of Present Illness: The patient is a 42 M history of peptic ulcer disease, bipolar disorder and compression fracture in his back. He states the last 2 days he has had nausea, vomiting and diarrhea. Denies fever. Has had small blood streaks with his stool. No melena. No hematemesis. No fever. He has had episodes like this before. He says he has mild epigastric abdominal discomfort. Physical Examination: Middle-aged male. No acute distress. Vital signs are stable. Afebrile. HEENT exam unremarkable except dry mixed membranes. Neck nontender no lymphadenopathy. Lungs clear to auscultation bilaterally. Heart regular rate and rhythm no murmur rate about 70. Abdomen soft. Nondistended. Normal bowel sounds. Mild epigastric tenderness. No rebound, guarding or rigid ity. No hernias or masses. No signs of traction. Patient is moving all 4 extremities. They are neurovascular intact. Calves are nontender without edema. Back is nontender. Neurologically is awake and alert with no focal motor deficits. Test Results: CBC is normal with a white count of 7. Hemoglobin of 14. BMP shows normal values with a gap of 8 and a creatinine of 1. Lipase equals 147 is normal also. Emergency Department Course and Treatment: Patient treated with a liter of normal saline and IV Zofran. Positive p.o. fluid challenge. Repeat exam patient is doing well at 07 57. Positive p.o. fluids. He is comfortable being discharged home. Treatment Plan: Zofran as needed as nausea. He requested and was given a work excuse for today. Disposition: Discharge Impression: Acute nausea, vomiting and diarrhea Acute dehydration This note was generated with [employer] dictation software. It may contain incorrect words, spelling, and punctuation that were not noted in review of the chart prior to signing ED Disposition - Plan for ED Patient: Disposition: Home or Assisted Living Chief Complaint: Nausea/Vomiting/Diarrhea Instructions: ED Gastroenteritis Viral Prescriptions: Ondansetron [Zofran Odt] 4 mg PO Q8H PRN PRN #10 tab PRN Reason: Nausea Referrals: [place] Jeffrey MD [Primary Care Provider] - 3-5 Days if not improving Additional Instructions: Plenty of fluids and rest. Zofran as needed for nausea. Follow-up with your primary care physician if not improving or return to the ER feeling worse.
--- NOTE | 2018-04-09 07:34 | ED.DEP ---
ED Disposition - Plan for ED Patient: Disposition: Home or Assisted Living Chief Complaint: Nausea/Vomiting/Diarrhea Instructions: ED Gastroenteritis Viral Prescriptions: Ondansetron [Zofran Odt] 4 mg PO Q8H PRN PRN #10 tab PRN Reason: Nausea Referrals: Argentina Jeffrey MD [Primary Care Provider] - 3-5 Days if not improving Additional Instructions: Plenty of fluids and rest. Zofran as needed for nausea. Follow-up with your primary care physician if not improving or return to the ER feeling worse.
[2018-04-09 07:48] LABS: Lipase 147 U/L (73-393)
[2018-04-09 08:11] VITALS: BP 105/77; PULSE 63; RESP 16; O2SAT 94
--- OUTSIDE RECORDS SUMMARY | 2018-06-11 01:52 | XMS RPT_ITS ---
:1975 Author Organization OHIP Support Name Relationship Address Phone IFORCE Unavailable [address] [phone] [place] [address] UE Unavailable Unavailable Unavailable DORCAS, MAGGY Unavailable [address] + [address] [place] [address] STEPH UMAÑA Unavailable [address] + [address] [place] [address] UE Unavailable Unavailable Unavailable WHITE, UVALDO Unavailable [address] + [address] [place] [address] STEPH UMAÑA Unavailable [address] + [address] [place] [address] UE Unavailable Unavailable Unavailable WHITE, UVALDO Unavailable [address] + [address] [place] [address] WHITE, UVALDO Unavailable Unavailable + WHITE, UVALDO Unavailable Unavailable + UE Unavailable Unavailable Unavailable WHITE, UVALDO Unavailable [address] + [address] [place] [address] UE Unavailable Unavailable Unavailable WHITE, UVALDO Unavailable [address] + [address] [place] [address] UE Unavailable Unavailable Unavailable WHITE, UVALDO Unavailable [address] + [address] [place] [address] UE Unavailable Unavailable Unavailable WHITE, UVALDO Unavailable [address] + [address] [place] [address] UE Unavailable Unavailable Unavailable WHITE, UVALDO Unavailable [address] + [address] [place] [address] UE Unavailable Unavailable Unavailable WHITE, UVALDO Unavailable [address] + [address] [place] [address] S Unavailable Unavailable Unavailable WHITE, UVALDO Unavailable [address] + [address] [place] [address] . Unavailable Unavailable + ., [place] . WHITE, UVALDO Unavailable [address] + [address] [place] [address] . Unavailable Unavailable + ., [place] . WHITE, UVALDO Unavailable [address] + [address] [place] [address] UE Unavailable Unavailable Unavailable WHITE, UVALDO Unavailable [address] + [address] [place] [address] UE Unavailable Unavailable Unavailable WHITE, UVALDO Unavailable [address] + [address] [place] [address] Care Team Providers Name Role Phone PODLOGARAVIVA (SECURITY SERVICES SPECIALIST) Attending Unavailable PODLOGAR, AVIVA (SECURITY SERVICES SPECIALIST) Referring Unavailable PODLOGARAVIVA ([facility]) Referring Unavailable PODLOGARAVIVA ([facility]) Attending Unavailable MELANIE PHILLIPS ([facility]) Attending Unavailable MELANIE PHILLIPS ([facility]) Referring Unavailable RONALDO REES DO Attending Unavailable JAVI SETH MD. Primary Care Unavailable Argentina Jeffrey Primary Care Unavailable Javi Braswell Attending Unavailable Andrea Riggs Attending Unavailable Primay Care Physicia, No Primary Care Unavailable Oleghe, Efewongbe Attending Unavailable Primay Care Physicia, No Referring Unavailable Oleghe, Efewongbe Attending Unavailable Oleghe, Efewongbe Referring Unavailable Oleghe, Efewongbe Attending Unavailable Primay Care Physicia, No Referring Unavailable Primay Care Physicia, No Primary Care Unavailable Michael Gee Attending Unavailable Fabian Osuna Attending Unavailable Fabian Osuna Referring Unavailable Primay Care Physicia, No Primary Care Unavailable Fabina Osuna Attending Unavailable Fabian Osuna Referring Unavailable Primay Care Physicia, No Primary Care Unavailable Ganta, Argentina Primary Care Unavailable Jopperi, Claudio Admitting Unavailable Ashelfah, Ghasem Attending Unavailable Jopperi, Claudio Admitting Unavailable Jopperi, Claudio Attending Unavailable Ganta, Argentina Primary Care Unavailable Jopperi, Claudio Consulting Unavailable Jopperi, Claudio Admitting Unavailable Ganta, Argentina Primary Care Unavailable Ashelfah, Ghasem Consulting Unavailable Ashelfah, Ghasem Attending Unavailable Jopperi, Claudio Admitting Unavailable Ganta, Argentina Primary Care Unavailable Ashelfah, Ghasem Consulting Unavailable Ashelfah, Ghasem Attending Unavailable Ganta, Argentina Primary Care Unavailable Andrea Riggs Attending Unavailable Ganta, Argentina Primary Care Unavailable Ungur, Remus Attending Unavailable PROBLEMS PROBLEMS DATE TYPE CONDITION / CODE ATTENDING STATUS SOURCE 01/18/2018 Unknown T14.8XXA - Other Ungur, Remus Active [place] injury of Community unspecified body Hospital region, initial Repository encounter / T14.8XXA(ICD-10) 01/14/2018 Active 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 [place] therapy / Repository Z79.899(ICD-10) 11/13/2017 Unknown M54.9 - BasaliFabian Active [place] Dorsalgia, Community unspecified / Hospital M54.9(ICD-10) Repository 08/05/2017 Active Hypothyroidism, NA Active [facility] unspecified / [place] E03.9(ICD-10) Repository 07/29/2017 Unknown M54.16 - Michael Gee Active [place] Radiculopathy, Community lumbar region / Hospital M54.16(ICD-10) Repository PROCEDURES PROCEDURES No Procedure Records FoundRESULTS RESULTS EMERGENCY DEPARTMENT Observed: 04/09/2018 Status: F Source: [place] SUMMARY 3:27 PM [facility] REPOSITORY [facility] Medical Records Department [address] [place] [address] Emergency Department Summary 04/09/18 0724 MR#: [id number] Acct: [id number] Name: ELSA LOUISE Rep #: [id number] : 1975 42 From: Javi Braswell MD PCP: Argentina Jeffrey MD Status: DEP ER - ER Visit Summary Date of Service: 04/09/18 Chief Complaint: Nausea, vomiting and diarrhea History of Present Illness: The patient is a 42 M history of peptic ulcer disease, bipolar disorder and compression fracture in his back. He states the last 2 days he has had nausea, vomiting and diarrhea. Denies fever. Has had small blood streaks with his stool. No melena. No hematemesis. No fever. He has had episodes like this before. He says he has mild epigastric abdominal discomfort. Physical Examination: Middle-aged male. No acute distress. Vital signs are stable. Afebrile. HEENT exam unremarkable except dry mixed membranes. Neck nontender no lymphadenopathy. Lungs clear to auscultation bilaterally. Heart regular rate and rhythm no murmur rate about 70. Abdomen soft. Nondistended. Normal bowel sounds. Mild epigastric tenderness. No rebound, guarding or rigidity. No hernias or masses. No signs of traction. Patient is moving all 4 extremities. They are neurovascular intact. Calves are nontender without edema. Back is nontender. Neurologically is awake and alert with no focal motor deficits. Test Results: CBC is normal with a white count of 7. Hemoglobin of 14. BMP shows normal values with a gap of 8 and a creatinine of 1. Lipase equals 147 is normal also. Emergency Department Course and Treatment: Patient treated with a liter of normal saline and IV Zofran. Positive p.o. fluid challenge. Repeat exam patient is doing well at 07 57. Positive p.o. fluids. He is comfortable being discharged home. Treatment Plan: Zofran as needed as nausea. He requested and was given a work excuse for today. Disposition: Discharge Impression: Acute nausea, vomiting and diarrhea Acute dehydration This note was generated with [employer] dictation software. It may contain incorrect words, spelling, and punctuation that were not noted in review of the chart prior to signing ED Disposition - Plan for ED Patient: Disposition: Home or Assisted Living Chief Complaint: Nausea/Vomiting/Diarrhea Instructions: ED Gastroenteritis Viral Prescriptions: Ondansetron [Zofran Odt] 4 mg PO Q8H PRN PRN #10 tab PRN Reason: Nausea Referrals: Argentina Jeffrey MD [Primary Care Provider] - 3-5 Days if not improving Additional Instructions: Plenty of fluids and rest. Zofran as needed for nausea. Follow-up with your primary care physician if not improving or return to the ER feeling worse. What to do if you have Problems For any increased pain, shortness of breath, bleeding, nausea or vomiting, chest pain, or any unexpected problems, contact your Primary Care Provider. Call [facility] ([phone]) or report to the closest Emergency Room. Call 911 if necessary. 04/09/181526 <Electronically signed by Javi Braswell MD> Date Javi Braswell MD Cosigner Signature (If Indicated): Date CC: Argentina Jeffrey MD DISCHARGE INSTRUCTION Observed: 04/09/2018 Status: F Source: [place] 3:27 PM [facility] REPOSITORY [facility] Medical Records Department [address] [place] [address] Discharge Instruction 04/09/18 0734 MR#: [id number] Acct: [id number] Name: ELSA LOUISE Rep #: [id number] : 1975 42 From: Javi Brasewll MD PCP: Argentina Jeffrey MD Status: [facility] ER ED Disposition - Plan for ED Patient: Disposition: Home or Assisted Living Chief Complaint: Nausea/Vomiting/Diarrhea Instructions: ED Gastroenteritis Viral Prescriptions: Ondansetron [Zofran Odt] 4 mg PO Q8H PRN PRN #10 tab PRN Reason: Nausea Referrals: Argentina Jeffrey MD [Primary Care Provider] - 3-5 Days if not improving Additional Instructions: Plenty of fluids and rest. Zofran as needed for nausea. Follow-up with your primary care physician if not improving or return to the ER feeling worse. What to do if you have Problems For any increased pain, shortness of breath, bleeding, nausea or vomiting, chest pain, or any unexpected problems, contact your Primary Care Provider. Call [facility] ([phone]) or report to the closest Emergency Room. Call 911 if necessary. 04/09/18 1527 <Electronically signed by Javi Braswell MD> Date Javi Braswell MD Cosigner Signature (If Indicated): Date CC: Argentina Jeffrey MD DISCHARGE INSTRUCTION Observed: 04/09/2018 Status: J[place] Source: [place] 3:27 PM [facility] REPOSITORY [facility] Medical Records Department [address] [place] [address] Discharge Instruction 04/09/18 0758 MR#: [id number] Acct: [id number] Name: ELSA LOUISE Rep #: [id number] : 1975 42 From: Javi Braswell MD PCP: Argentina Jeffrey MD Status: DEP ER ED Disposition - Plan for ED Patient: Disposition: Home or Assisted Living Chief Complaint: Nausea/Vomiting/Diarrhea Instructions: ED Gastroenteritis Viral Prescriptions: Ondansetron [Zofran Odt] 4 mg PO Q8H PRN PRN #10 tab PRN Reason: Nausea Referrals: Argentina Jeffrey MD [Primary Care Provider] - 3-5 Days if not improving Additional Instructions: Plenty of fluids and rest. Zofran as needed for nausea. Follow-up with your primary care physician if not improving or return to the ER feeling worse. What to do if you have Problems For any increased pain, shortness of breath, bleeding, nausea or vomiting, chest pain, or any unexpected problems, contact your Primary Care Provider. Call [facility] ([phone]) or report to the closest Emergency Room. Call 911 if necessary. 04/09/18 152 <Electronically signed by Javi Braswell MD> Date Javi Braswell MD Cosigner Signature (If Indicated): Date CC: Argentina Jeffrey MD BASIC METABOLIC Collected: 04/09/2018 Status: F Source: [place] PROFILE (BMP) 6:55 AM [facility] REPOSITORY TYPE CODE TESTS RESULT OUT OF RANGE REFERENCE UNITS LAB L501.0100 74-106 mg/dL High GLU 114 Result Comment: Fasting Glucose result from 100 to 125 mg/dL suggests IMPAIRED HOMEOSTASIS per A.D.A. criteria. Please note revised GLUCOSE reference range effective 2017. LAB L501.1000 7-18 mg/dL Normal BUN 17 LAB L501.1100 0.70-1.30 mg/dL Normal CREAT,SERUM 1.05 Result Comment: The validity of the calculated GFR AND GFRAA in patients over 70 years has not been determined. Clinical correlation is essential. LAB L501.1110 >60 mL/min Normal EST GFR 83 Result Comment: Non- GFR Calc LAB L501.1115 >60 mL/min Normal EST GFR - AA 100 Result Comment: GFR Calc LAB L501.1255 ml/min Normal Estimated CRCL 84.39 LAB L501.1300 10-20 RATIO Normal BUN/CRE 16.2 LAB L501.2200 8.5-10 mg/dL Normal .1 CA 8.5 LAB L501.5300 136-14 mmol/L Normal 5 NA 142 LAB L501.5600 3.5-5. mmol/L Normal 1 K 3.7 LAB L501.5900 98-107 mmol/L Normal CL 107 LAB L501.6100 21.0-3 mmol/L Normal 2.0 CO2 27.0 LAB L501.6200 5-15 Normal GAP 8 Performed By: #### L500.2500 #### [facility] [address] [place], [address] CBC W/DIFF, AUTOMATED Collected: 04/09/2018 Status: F Source: [place] 6:55 AM [facility] REPOSITORY TYPE CODE TESTS RESULT OUT OF RANGE REFERENCE UNITS LAB L100.1000 4.4-11.0 K/mm3 Normal WBC 7.5 LAB L100.1200 4.6-6.2 M/mm3 Low RBC 4.50 LAB L100.1300 13.0-16.5 g/dl Normal HGB 14.2 LAB L100.1400 40-54 % Normal HCT 41.1 LAB L100.1500 80-94 fL Normal MCV 91.3 LAB L100.1600 27.0-32.0 pg Normal MCH 31.6 LAB L100.1700 32-36 g/gl Normal MCHC 34.5 LAB L100.1810 11.6-14.6 % Normal RDW CV 13.4 LAB L100.1820 35.1-43.9 fl High RDW SD 44.5 LAB L100.1900 150-450 K/mm3 Normal PLT 359 LAB L100.2000 6.2-12.0 fl Normal MPV 9.4 LAB L100.2100 47-70 % Normal NEUT% 65.1 LAB L100.2200 19-41 % Normal LY% 21.3 LAB L100.2300 0-10 % Normal MONO% 9.8 LAB L100.2400 0-5 % Normal EO% 3.2 LAB L100.2500 0-1 % Normal BASO% 0.3 LAB L100.2550 0.0-0.9 % Normal IM GRAN % 0.300 Result Comment: IG% - Immature Granulocytes (promyelocytes, myelocytes and metamyelocytes) > 1% indicates that a LEFT SHIFT is Present. LAB L100.2620 2.0-7.7 X10 3/uL Normal Absolute Neut 4.9 LAB L100.2720 0.83-4.51 X10 3/ul Normal Absolute Lymph 1.59 Performed By: #### L100.0100 #### [facility] [address] [place], [address] LIPASE Collected: 04/09/2018 Status: F Source: [place] 6:55 AM [facility] REPOSITORY TYPE CODE TESTS RESULT OUT OF RANGE REFERENCE UNITS LAB L501.2450 73-393 U/L Normal LIPASE 147 Performed By: #### L501.2450 #### [facility] [address] [place], [address] PROGRESS Observed: 03/28/2018 Status: COMPLETED Source: [place] 9:[address] [facility] REPOSITORY HNO ID: [id number] Author: Neil Fermin) Natan Service: (none) Author Type: Physician Grocery Supervisor Type: Progress Notes Filed: 03/28/2018 10:23 AM Note Text: Subjective HPI Patient presents with chief complaint of cough, sinus congestion, over the past 3 days. No fever. No vomiting or diarrhea. Family members have been ill as well. He has a former smoker having quit in 1992 and does currently chew tobacco. No chest pain shortness of breath. Review of Systems Constitutional: Negative. Negative for chills, fever and malaise/fatigue. HENT: Positive for congestion and sinus pain. Eyes: Negative. Respiratory: Positive for cough. Cardiovascular: Negative. Skin: Negative. All other systems reviewed and are negative. PAST MEDICAL HISTORY Diagnosis Date - Asthma - Depression - Epilepsy (HCC) - GERD (gastroesophageal reflux disease) - Heart attack (HCC) 2011 and 2013 from Cocaine abuse - Migraines - Rib fracture 11/2010 - Seizures ([facility]) - Snoring - Syncope Current Outpatient Prescriptions: tamsulosin ER (FLOMAX) 0.4 mg cap Take 1 capsule by mouth daily at bedtime. Disp: 10 capsule Rfl: [address] (PROTONIX) 40 mg tablet TAKE 1 TABLET BY MOUTH ONCE DAILY. Disp: 28 tablet Rfl: 1 VENTOLIN HFA 90 mcg/actuation inhaler INHALE 2 PUFFS EVERY FOUR HOURS NEEDED FOR WHEEZING / SHORTNESS OF BREATH Disp: 18 g Rfl: 2 lamoTRIgine (LAMICTAL) 100 mg tablet Take 1 tablet by mouth twice daily. Disp: 60 tablet Rfl: 3 sertraline (ZOLOFT) 50 mg tablet Take 1 tablet by mouth once daily. Disp: Rfl: QUEtiapine XR (SEROQUEL XR) 150 mg Tb24 150 mg at bedtime Disp: Rfl: levothyroxine (SYNTHROID) 50 mcg tablet Take 1 tablet by mouth once daily. Disp: 30 tablet Rfl: 3 dicyclomine (BENTYL) 10 mg capsule Take 1 capsule by mouth before meals and at bedtime. Disp: 30 capsule Rfl: 3 SUMAtriptan (IMITREX) 50 mg tablet Take one pill at onset of headache, may repeat in 2 hours if needed Disp: 9 tablet Rfl: 3 Cmezhptwcqaxoyy-Vkxrbride-MN (BROMFED DM) 2-30-10 mg/5 mL syrup Take 10 mL by mouth four times daily as needed. Disp: 200 mL Rfl: 0 fluticasone (FLONASE) 50 mcg/actuation nasal spray Use 2 Sprays in each nostril once daily. Rinse mouth after use. Disp: 1 Bottle Rfl: 0 No current facility-administered medications for this visit. PAST SURGICAL HISTORY Procedure Laterality Date - COLONOSCOP W/ OR W/O BRSH SPEC 11/13/2016 Colonoscopy - adenomatous polyp - 5 year follow up - EGD W/O OR W/BRUSH/WASH 11/13/2016 EGD - H pylori FAMILY HISTORY Problem Relation Age of Onset - Alcohol/Drug Father - Hypertension Father - Cancer Father stomach - Diabetes Mother - Hypertension Mother - Lipids Mother - Stroke Mother - Emphysema Maternal Grandmother - Hypertension Maternal Grandmother - Heart Maternal Grandmother heart attack x 2 - Stroke Maternal Grandmother x 3 - Heart Maternal Grandfather [place] at age 43 - Diabetes Paternal Grandmother - Heart Paternal Grandmother heart attack - Cancer Paternal Grandmother unknown - Hypertension Paternal Grandfather - Kidney Disease Paternal Grandfather had kidney stones Social History Substance Use Topics - Smoking status: Former Smoker Years: 5.00 Types: Cigarettes Quit date: 01/16/1993 - Smokeless tobacco: Current User Types: Chew Comment: chewing only - Alcohol use 0.6 oz/week 1 Cans of beer per week Comment: Occasional beer, once/week BP 106/80 Pulse 70 Temp 36.7 ?C (98 ?F) (Left Tympanic) Resp 16 Wt 98 kg (216 lb) SpO2 100% BMI 34.86 kg/m? Objective Physical Exam Constitutional: He is oriented to person, place, and time and well-developed, well-nourished, and in no distress. HENT: Head: Normocephalic and atraumatic. Right Ear: Tympanic membrane, external ear and ear canal normal. Left Ear: Tympanic membrane, external ear and ear canal normal. Nose: Rhinorrhea present. Mouth/Throat: Uvula is midline, oropharynx is clear and moist and mucous membranes are normal. Neck: Normal range of motion. Neck supple. Cardiovascular: Normal rate, regular rhythm and normal heart sounds. Pulmonary/Chest: Effort normal and breath sounds normal. No respiratory distress. He has no wheezes. He has no rales. Lymphadenopathy: He has no cervical adenopathy. Neurological: He is alert and oriented to person, place, and time. Skin: Skin is warm and dry. Psychiatric: Affect and judgment normal. Nursing note and vitals reviewed. ASSESSMENT/PLAN: 1. Viral URI with cough - ICD9: 465.9, ICD10: J06.9, B97.89 - Discussed viral etiology and rationale for treatment. - Symptomatic treatment with prn analgesia - Supportive care with fluids and rest - Follow up in one week if symptoms persist or sooner if worsening of symptoms - Bromfed and flonase for symptoms. Discussed with patient concerning symptoms to go to the emergency department or follow up here. Pt agreeable with this plan. Neil Amato PA-C CNOV Observed: 03/28/2018 Status: COMPLETED Source: [place] 9:[address] [facility] REPOSITORY Office Visit (WSTR) CEDELSA ([id number]) 1975 M Date Time Provider Department 03/28/18 9:00 AM NEIL AMATO) [facility] During your visit today, we recorded the following information about you: Temperature Pulse Respiration Blood pressure 98 degrees 70/minute 16/minute 106/80 Weight 98 kg Neli Amato PA-C 03/28/2018 10:23 AM Signed Subjective HPI Patient presents with chief complaint of cough, sinus congestion, over the past 3 days. No fever. No vomiting or diarrhea. Family members have been ill as well. He has a former smoker having quit in 1992 and does currently chew tobacco. No chest pain shortness of breath. Review of Systems Constitutional: Negative. Negative for chills, fever and malaise/fatigue. HENT: Positive for congestion and sinus pain. Eyes: Negative. Respiratory: Positive for cough. Cardiovascular: Negative. Skin: Negative. All other systems reviewed and are negative. PAST MEDICAL HISTORY Diagnosis Date - Asthma - Depression - Epilepsy (HCC) - GERD (gastroesophageal reflux disease) - Heart attack (HCC) 2011 and 2013 from Cocaine abuse - Migraines - Rib fracture 11/2010 - Seizures (HCC) - Snoring - Syncope Current Outpatient Prescriptions: tamsulosin ER (FLOMAX) 0.4 mg cap Take 1 capsule by mouth daily at bedtime. Disp: 10 capsule Rfl: [address] (PROTONIX) 40 mg tablet TAKE 1 TABLET BY MOUTH ONCE DAILY. Disp: 28 tablet Rfl: 1 VENTOLIN HFA 90 mcg/actuation inhaler INHALE 2 PUFFS EVERY FOUR HOURS NEEDED FOR WHEEZING / SHORTNESS OF BREATH Disp: 18 g Rfl: 2 lamoTRIgine (LAMICTAL) 100 mg tablet Take 1 tablet by mouth twice daily. Disp: 60 tablet Rfl: 3 sertraline (ZOLOFT) 50 mg tablet Take 1 tablet by mouth once daily. Disp: Rfl: QUEtiapine XR (SEROQUEL XR) 150 mg Tb24 150 mg at bedtime Disp: Rfl: levothyroxine (SYNTHROID) 50 mcg tablet Take 1 tablet by mouth once daily. Disp: 30 tablet Rfl: 3 dicyclomine (BENTYL) 10 mg capsule Take 1 capsule by mouth before meals and at bedtime. Disp: 30 capsule Rfl: 3 SUMAtriptan (IMITREX) 50 mg tablet Take one pill at onset of headache, may repeat in 2 hours if needed Disp: 9 tablet Rfl: 3 Cmuyhfsphrnzysm-Soknsekvi-ZK (BROMFED DM) 2-30-10 mg/5 mL syrup Take 10 mL by mouth four times daily as needed. Disp: 200 mL Rfl: 0 fluticasone (FLONASE) 50 mcg/actuation nasal spray Use 2 Sprays in each nostril once daily. Rinse mouth after use. Disp: 1 Bottle Rfl: 0 No current facility-administered medications for this visit. PAST SURGICAL HISTORY Procedure Laterality Date - COLONOSCOP W/ OR W/O BRSH SPEC 11/13/2016 Colonoscopy - adenomatous polyp - 5 year follow up - EGD W/O OR W/BRUSH/WASH 11/13/2016 EGD - H pylori FAMILY HISTORY Problem Relation Age of Onset - Alcohol/Drug Father - Hypertension Father - Cancer Father stomach - Diabetes Mother - Hypertension Mother - Lipids Mother - Stroke Mother - Emphysema Maternal Grandmother - Hypertension Maternal Grandmother - Heart Maternal Grandmother heart attack x 2 - Stroke Maternal Grandmother x 3 - Heart Maternal Grandfather [place] at age 43 - Diabetes Paternal Grandmother - Heart Paternal Grandmother heart attack - Cancer Paternal Grandmother unknown - Hypertension Paternal Grandfather - Kidney Disease Paternal Grandfather had kidney stones Social History Substance Use Topics - Smoking status: Former Smoker Years: 5.00 Types: Cigarettes Quit date: 01/16/1993 - Smokeless tobacco: Current User Types: Chew Comment: chewing only - Alcohol use 0.6 oz/week 1 Cans of beer per week Comment: Occasional beer, once/week BP 106/80 Pulse 70 Temp 36.7 ?C (98 ?F) (Left Tympanic) Resp 16 Wt 98 kg (216 lb) SpO2 100% BMI 34.86 kg/m? Objective Physical Exam Constitutional: He is oriented to person, place, and time and well-developed, well-nourished, and in no distress. HENT: Head: Normocephalic and atraumatic. Right Ear: Tympanic membrane, external ear and ear canal normal. Left Ear: Tympanic membrane, external ear and ear canal normal. Nose: Rhinorrhea present. Mouth/Throat: Uvula is midline, oropharynx is clear and moist and mucous membranes are normal. Neck: Normal range of motion. Neck supple. Cardiovascular: Normal rate, regular rhythm and normal heart sounds. Pulmonary/Chest: Effort normal and breath sounds normal. No respiratory distress. He has no wheezes. He has no rales. Lymphadenopathy: He has no cervical adenopathy. Neurological: He is alert and oriented to person, place, and time. Skin: Skin is warm and dry. Psychiatric: Affect and judgment normal. Nursing note and vitals reviewed. ASSESSMENT/PLAN: 1. Viral URI with cough - ICD9: 465.9, ICD10: J06.9, B97.89 - Discussed viral etiology and rationale for treatment. - Symptomatic treatment with prn analgesia - Supportive care with fluids and rest - Follow up in one week if symptoms persist or sooner if worsening of symptoms - Bromfed and flonase for symptoms. Discussed with patient concerning symptoms to go to the emergency department or follow up here. Pt agreeable with this plan. Neil Amato PA-C Referring Provider: SELF [[id number]] Allergies As of Date: 03/28/2018 Noted Allergy Reaction KEPPRA (LEVETIRACETAM) 08/02/2017 4 - Hives PENICILLINS 01/16/2011 14 - Other: See Comments Comments: States feel like something is crawling under his skin PERCOCET (OXYCODONE-ACETAMINOPHEN)01/31/2011 9 - Itching TESSALON (BENZONATATE) 08/02/2017 10 - Anaphylaxis Date Reviewed: 03/28/2018 Reviewed by: Nida Hagen Ma - Fully Assessed Reason for Visit: Sinusitis [127] Cmt: x 3 days Primary Visit Diagnosis:Viral URI with cough [J06.9, B97.89] Order(s):Hphvwpisiehpvqs-Mcmmqhpfl-SP (BROMFED DM) 2-30-10 mg/5 mL syrupTake 10 mL by mouth four times daily as needed.Disp: 200 mLRfl: 0 fluticasone (FLONASE) 50 mcg/actuation nasal sprayUse 2 Sprays in each nostril once daily. Rinse mouth after use.Disp: 1 BottleRfl: 0 Prescriptions as of 03/28/2018 Sig: TAMSULOSIN 0.4 MG CAPSULE Take 1 capsule by mouth daily* PANTOPRAZOLE 40 MG TABLET,DEL* TAKE 1 TABLET BY MOUTH ONCE D* VENTOLIN HFA 90 MCG/ACTUATION* INHALE 2 PUFFS EVERY FOUR ADONAY* LAMOTRIGINE 100 MG TABLET Take 1 tablet by mouth twice * SERTRALINE 50 MG TABLET Take 1 tablet by mouth once d* QUETIAPINE ER 150 MG TABLET,E* 150 mg at bedtime LEVOTHYROXINE 50 MCG TABLET Take 1 tablet by mouth once d* DICYCLOMINE 10 MG CAPSULE Take 1 capsule by mouth befor* SUMATRIPTAN 50 MG TABLET Take one pill at onset of hea* BROMPHENIRAMINE-PSEUDOEPHEDRI* Take 10 mL by mouth four time* FLUTICASONE 50 MCG/ACTUATION * Use 2 Sprays in each nostril * Problem List As Of Date 03/28/2018 Noted Resolved Depression [F32.9] INVALID FOR* Lipoma [D17.9] INVALID FOR* Abdominal pain, epigastric [R10.13] INVALID FOR* Weight loss [R63.4] INVALID FOR* Migraine without status migrainosus, not intrac*INVALID FOR* Lipoma of torso [D17.1] INVALID FOR* Seizures (HCC) [R56.9] INVALID FOR* Noncompliance with treatment regimen [Z91.19] INVALID FOR* Abnormal intentional weight loss [R63.4] INVALID FOR* More... Abdominal discomfort, epigastric [R10.13] INVALID FOR* More... Mild intermittent asthma, uncomplicated [J45.20]INVALID FOR* Irritable bowel syndrome with both constipation*INVALID FOR* GERD with esophagitis [K21.0] INVALID FOR* Chronic midline low back pain with sciatica [M5*INVALID FOR* Hypothyroidism, acquired [E03.9] INVALID FOR* Prescriptions ordered this encounter Disp Refills Start End TNWWQAPILJXEMSA-AIAYWUILADZDTMY-SQ 2* 200 * 0 03/28/2018 Route: ORAL Sig: Take 10 mL by mouth four times daily as needed. FLUTICASONE 50 MCG/ACTUATION NASAL S* 1 Conor* 0 03/28/2018 Route: EACH NOSTRIL Sig: Use 2 Sprays in each nostril once daily. Rinse mouth after use. Letter Text Neil Amato PA-C Urgent Care [address] [facility] [address] Dept: [phone] 03/28/2018 Elsa Louise [address] [facility] [address] [place] [phone] To Whom it May Concern: This is to certify that Elsa Louise was seen at our office for medical care. Elsa may return to work on 03/29/2018. If you have any questions please feel free to call. Sincerely: Neil Amato PA-C Encounter Status:Closed by NEIL AMATO PA-C on 03/28/18 12 LEAD ELECTROCARDIOGRAM Observed: 01/22/2018 Status: F Source: [place] 2:29 PM [facility] REPOSITORY [facility] Cardiovascular Services [address] [place] [address] 12 Lead EKG 01/15/18 2211 MR#: [id number] Acct: [id number] Name: ELSA LOUISE Rep #: [id number] : 1975 42 From: Edward Topete MD Attending Dr: Status: DEP ER Ordering Dr: Andrea Riggs MD Date: 01/15/18 Location: ED Sex: M C Admitted: Test Reason : COUGH Blood Pressure : / mmHG Vent. Rate : 089 BPM Atrial Rate : 089 BPM P-R Int : 196 ms QRS Dur : 084 ms QT Int : 352 ms P-R-T Axes : 036 003 029 degrees QTc Int : 428 ms Normal sinus rhythm Normal ECG Confirmed by EDWARD TOPETE MD ([id number]), editor magazine JONNATHAN VARNER ([id number]) on 01/22/2018 2:29:18 PM Referred By: DR ZHU Confirmed By:EDWARD TOPETE MD 01/22/18 1429 Date Edward Topete MD CC: Argentina Jeffrey MD; Andrea Riggs Signed DISCHARGE INSTRUCTION Observed: 01/18/2018 Status: F Source: [place] 1:52 PM [facility] Medical Records Department [address] [place] [address] Discharge Instruction 01/18/18 1350 MR#: [id number] Acct: [id number] Name: ELSA LOUISE Rep #: [id number] : 1975 42 From: Sloane Sosa DO PCP: Argentina Jeffrey MD Status: REG ER ED Disposition - Plan for ED Patient: Chief Complaint: Back Instructions: ED Contusion Back Prescriptions: Hydrocodone Bitart/Apap 5-325 [Bro[place] 5MG-325MG] 1 tab PO Q4H PRN PRN 2 Days #10 tab PRN Reason: Pain Naproxen [Naprosyn] 500 mg PO BID PRN #20 tab Cyclobenzaprine [Flexeril] 10 mg PO TID PRN #20 tab PRN Reason: Muscle Spasm Referrals: Mariano Muniz MD [NON-STAFF] - 5-7 Days What to do if you have Problems For any increased pain, shortness of breath, bleeding, nausea or vomiting, chest pain, or any unexpected problems, contact your Primary Care Provider. Call [facility] ([phone]) or report to the closest Emergency Room. Call 911 if necessary. 01/18/18 1352 <Electronically signed by Sloane Sosa DO> Date Sloane Sosa DO Cosigner Signature (If Indicated): Date CC: Argentina Jeffrey MD EMERGENCY DEPARTMENT Observed: 01/18/2018 Status: F Source: [place] SUMMARY 1:50 PM [facility] REPOSITORY [facility] Medical Records Department [address] [place] [address] Emergency Department Summary 01/18/18 1346 MR#: [id number] Acct: [id number] Name: ELSA LOUISE Rep #: [id number] : 1975 42 From: Sloane Sosa DO PCP: Argentina Jeffrey MD Status: REG ER - ER Visit Summary Date of Service: 01/18/18 Chief Complaint: Fall with back injury [] History of Present Illness: The patient is a 42 M [presents the emergency department after sustaining a fall last evening around 10:30 PM. Patient states that he was to come down the steps when he lost his balance and fell injuring his low back. Patient has a history of chronic back pain and is scheduled to see a back surgeon. Patient used to be in pain management with Dr. Osuna but no longer is. Patient chronically has some intermittent discomfort radiating down his left leg. He denies any weakness the extremities. He denies any hematuria. He denies any head or neck pain. She denies any abdominal pain.] Physical Examination: [HEENT-PERRLA, EOMI. Cranial nerves II through XII grossly intact. TMs clear. Mucous membranes moist. No adenopathy. Cardiovascular-regular rate and rhythm without murmur or ectopy Lungs-clear to auscultation, chest wall stable without crepitus or subcu emphysema Abdomen-normoactive bowel sounds, soft, nontender, no rebound or rigidity, no peritoneal signs. Back exam-patient has diffuse tenderness over the lumbar spine and lumbar paraspinal musculature. Patient has negative straight leg raises. Deep tendon reflexes are plus 2 out of 4 bilaterally at the patella and Achilles. Patient has normal L5 extension. Patient has normal sensation to light touch bilaterally. There is no ecchymosis or bruising noted to his back. No bony depressions. Extremities-intact 4, normal range of motion, normal pulses, atraumatic] Test Results: [X-rays of the lumbar spine obtained showed degenerative changes otherwise nothing acute.] Emergency Department Course and Treatment: [] Treatment Plan: Patient will be given a prescription for Naprosyn, Flexeril, and 10 Brooklyn for severe pain. Patient advised to follow-up with his primary care physician or back surgeon within the next 3-5 days.] Disposition: [Discharged home in stable condition] Impression: [Contusion back status post fall] This note was generated with [employer] software. It may contain incorrect words, spelling, and punctuation that were not noted in review of the chart prior to signing ED Disposition - Plan for ED Patient: Chief Complaint: Back Referrals: Argentina Jeffrey MD [Primary Care Provider] - What to do if you have Problems For any increased pain, shortness of breath, bleeding, nausea or vomiting, chest pain, or any unexpected problems, contact your Primary Care Provider. Call [facility] ([phone]) or report to the closest Emergency Room. Call 911 if necessary. 01/18/18 1350 <Electronically signed by Sloane Sosa DO> Date Sloane Sosa DO Cosigner Signature (If Indicated): Date CC: Argentina Jeffrey MD LUMBAR SPINE 2 OR 3 Observed: 01/18/2018 Status: F Source: [place] VIEWS 1:01 PM [facility] REPOSITORY [facility] Imaging Services [address] [place] [address] Lumbar Spine 2 or 3 Views MR#: [id number] Acct: [id number] Name: ELSA LOUISE Rep #: [id number] : 1975 M 42 From: Gerry Gilmore PCP: Argentina Jeffrey MD Status: REG ER Study: Lumbar Spine 2 or 3 Views Date of Exam: 01/18/18 Exam# [id number] Ordering Dr: Sloane Sosa DO STUDY: X-RAY - LUMBAR SPINE REASON FOR EXAM: Male, 42 years old. hx of L5 fx in 1993, back pain now again TECHNIQUE: 3 view(s) of the lumbar spine were obtained. COMPARISON: August 17 FINDINGS: Normal lumbar lordosis. There is multilevel endplate spondylosis of the lumbar vertebrae. There is multi-level degenerative disc disease with multi-level disc space narrowing. The soft tissue structures are unremarkable. RAD/Lumbar Spine 2 or 3 Views IMPRESSION: Degenerative changes of the spine. Electronically Signed: Gerry Gilmore MD at 13:40 EDT Tel , Service support , CC: Argentina Jeffrey MD; Sloane Sosa DO Patient Account Liaison: Signed EMERGENCY DEPARTMENT Observed: 01/16/2018 Status: F Source: [place] SUMMARY 1:18 AM [facility] REPOSITORY [facility] Medical Records Department [address] [place] [address] Emergency Department Summary 01/16/18 0017 MR#: [id number] Acct: [id number] Name: ELSA LOUISE Rep #: [id number] : 1975 42 From: Andrea Riggs MD PCP: Argentina Jeffrey MD Status: DEP ER - ER Visit Summary Date of Service: 01/16/18 Chief Complaint: Hemoptysis History of Present Illness: The patient is a 42 M presenting for evaluation secondary to hemoptysis. Patient reports that since the of this month he has been passing a kidney stone on his left side. Patient reports that he was diagnosed at an outside facility of this head CAT scan was sent home with medications. Patient states that he has been having persistent left-sided flank pain saw his primary care physician who started him on different medications. Patient states that over the last 6 days he has still been having this flank pain but now he is also developing a pleuritic pain as well as a cough. Patient states that he has had some chills associated with this. Patient reports that today he was having a coughing fit and started to cough up some blood. He reports that he has had 5 subsequent episodes of this. He denies that he is having any sort of nosebleeds. Patient does have prior history of smoking. He denies any unintended weight loss. Physical Examination: Vital signs notable for some minimal tachycardia with heart rate of 100. Well-nourished male no acute distress. Head normocephalic. Oropharynx clear, neck was supple. Heart was regular rate and rhythm no murmurs normal S1 and S2. Chest was tender in the posterior portion of the thorax over the left flank without any evidence of overlying vesicular rash lungs are clear. Abdomen was tender in the left upper quadrant. Remainder the physical otherwise unremarkable. Test Results: CT angiogram of the chest shows no acute pathology. Chest x-ray negative. EKG demonstrates sinus rhythm of [address] segments normal T waves. CBC chemistry urinalysis lactic are unremarkable, blood cultures are pending, d-dimer is positive Emergency Department Course and Treatment: Patient presented for evaluation secondary to flank pain chest pain and hemoptysis. Given the patient's hemoptysis there was some concern for the possibility of pulmonary embolism. D-dimer was obtained and was found to be in the positive range so CT angiogram was performed which ultimately was found to be negative. I reviewed the patient's records from the outside facility and he was noted to have a stone in the bladder consistent with a recently passed kidney stone but nothing obstructing. Patient has no evidence of urinary infection. Patient's pain was addressed in the emergency department with morphine and Zofran. At this point I do not see reason for the patient have further workup or admission. Patient does have a past history of smoking, and there is no evidence of PE infection or bronchitis on imaging or on physical exam so there is some at least mild concern for the possibility of a squamous cell tumor in the lungs. Patient will be given referral to pulmonology. He understands the importance of follow-up. Disposition: Discharge Impression: 1. Hemoptysis 2. Flank pain with recently passed kidney stone This note was generated with [employer] software. It may contain incorrect words, spelling, and punctuation that were not noted in review of the chart prior to signing ED Disposition - Plan for ED Patient: Disposition: Home or Assisted Living Chief Complaint: Cough Diagnosis: Hemoptysis Instructions: ED Hemoptysis Referrals: Antonio Mcnulty MD [STAFF PHYSICIAN] - 1-2 Weeks What to do if you have Problems For any increased pain, shortness of breath, bleeding, nausea or vomiting, chest pain, or any unexpected problems, contact your Primary Care Provider. Call [facility] ([phone]) or report to the closest Emergency Room. Call 911 if necessary. 01/16/18 0118 <Electronically signed by Andrea Riggs MD> Date Andrea Riggs MD Cosigner Signature (If Indicated): Date CC: Argentina Jeffrey MD URINALYSIS, COMPLETE Collected: 01/15/2018 Status: F Source: [place]ER[place] 11:37 PM [facility] REPOSITORY Order Comment: Order Date: 01/15/18 Has pt arrived? Y How was Urine Obtained? WIRELESS STORE MANAGER TO SPECIFY TYPE CODE TESTS RESULT OUT OF RANGE REFERENCE UNITS LAB L400.3000 Yellow COLOR Normal Yellow LAB L400.3050 Clear Normal CLARITY Clear LAB L400.3200 Normal mg/dl Normal GLUCOSE, UR Normal LAB L400.3300 Negative mg/dL Normal BILIRUBIN URINE Negative LAB L400.3400 Negative mg/dl Normal KETONE UR Negative LAB L400.3465 1.002-1.030 Normal SP.GR. DIPSTX 1.015 LAB L400.3550 5.0 - 8.0 pH UR Normal 6.0 LAB L400.3600 Negative mg/dl High PROT 15 DIPSTX LAB L400.3700 Normal mg/dl Normal UROBILI Normal LAB L400.3750 Negative Normal NITRITE UR Negative LAB L400.3780 Negative /ul Normal OCCULT BLOOD-UR Negative LAB L400.3800 Negative /ul LEUK Normal ESTERASE Negative LAB L400.4050 0-5 /hpf WBC Normal 0-5 SEEN LAB L400.4100 0-5 /hpf 0 Normal RBC-UA SEEN LAB L400.4150 0-5 /hpf SQUAM 0 Normal EPI SEEN LAB L400.4300 None Seen /hpf Normal BACTERIA RARE LAB L400.4350 <or=2+ /hpf 1+ Normal MUCUS, URINE Performed By: #### L400.0001 #### [facility] [address] [facility] [place], [address] Observed: 01/15/2018 Status: F Source: [place] CULTURE, URINE 11:37 PM [facility] REPOSITORY Order Date: 01/15/18 Has pt arrived? Y Urine Culture Culture exhibits no growth. Performed By: #### M100.0650 #### [facility] [address] [place], [address] Observed: 01/15/2018 Status: F Source: [place] CULTURE, BLOOD (WB) 11:27 PM [facility] REPOSITORY BC No growth in 5 days. Performed By: #### M200.1000 #### [facility] [address] [place], [place], [address] CTA CHEST W/WO Observed: 01/15/2018 Status: F Source: [place] CONTRAST 10:52 PM [facility] REPOSITORY [facility] Imaging Services [address] [place] [address] CTA Chest W/WO Contrast MR#: [id number] Acct: [id number] Name: ELSA LOUISE Rep #: [id number] : 1975 M 42 From: Makenna Everett MD PCP: Argentina Jeffrey MD Status: REG ER Study: CTA Chest W/WO Contrast Date of Exam: 01/15/18 Exam# [id number] Ordering Dr: Andrea Riggs MD STUDY: CTA CHEST REASON FOR EXAM: Male, 42 years old. Hemoptysis in 7:00 PM. Passing kidney stones, chest pain. RADIATION DOSAGE (If Supplied By Facility): CTDIvol = ( 16.31 ) mGy, DLP = ( 645.91 ) mGycm TECHNIQUE: The examination was performed with the intravenous administration of 100 ml of Isovue 370 contrast material. Post-processing of the angiographic images was performed, with multiplanar reformation and 3D reconstruction. There is image blurring as a result of cardiac motion. Diagnostic accuracy is somewhat reduced. However, there is substantial diagnostic information remaining available on this study. Individualized dose optimization techniques were used for this CT. COMPARISON: Chest x-ray 01/15/2018. FINDINGS: Normal enhancement of the main pulmonary artery and right and left pulmonary arteries. Normal enhancement of the bilateral peripheral pulmonary arteries. There is no demonstrated pulmonary embolism. Normal thoracic aorta and visualized great vessels. There is no demonstrated aortic dissection. Normal heart and pericardium. Normal mediastinum. Normal hilar regions. Normal visualized trachea and bronchi. The lungs are under expanded. Normal pulmonary parenchyma. Normal pleura. Normal chest wall structures. Age-appropriate osseous structures. There is at least one gallbladder calculus in the gallbladder neck present on previous exam.. No overt biliary obstruction, the entirety of the biliary system is not visualized. Normal bilateral adrenal glands. CT/CTA Chest W/WO Contrast IMPRESSION: Normal CTA chest examination, without a demonstrated pulmonary embolism or arterial dissection. Cholelithiasis, present on previous exam. Electronically Signed: Makenna Everett MD at 0:10 EDT , Service support , CC: Argentina Jeffrey MD; Andrea Riggs Patient Account Liaison: Signed CHEST PA AND LATERAL Observed: 01/15/2018 Status: F Source: [place] 9:54 PM [facility] REPOSITORY [facility] [place] [address] Chest PA and Lateral MR#: [id number] Acct: [id number] Name: ELSA LOUISE Rep #: [id number] : 1975 M 42 From: Javi Guillermo MD PCP: Argentina Jeffrey MD Status: REG ER Study: Chest PA and Lateral Date of Exam: 01/15/18 Exam# [id number] Ordering Dr: Andrea Riggs MD STUDY: X-RAY CHEST REASON FOR EXAM: Male, 42 years old. Cough TECHNIQUE: PA and lateral COMPARISON: May 08, 2017 FINDINGS: Less than optimal inspiratory effort and there is minor interstitial thickening at the lung bases. Lungs are otherwise clear There is no demonstrated pleural abnormality. Normal size heart. Normal mediastinum and diann. Normal visualized pulmonary arteries. Normal visualized aortic arch and descending thoracic aorta. Normal visualized thoracic spine. Normal visualized ribs, clavicles, and shoulders. There is no demonstrated abnormality of the visualized soft tissue structures of the upper abdomen. No significant change since prior exam RAD/Chest PA and Lateral IMPRESSION: No acute cardiopulmonary pathology Electronically Signed: Javi Guillermo MD at 23:11 EDT , Service support , CC: Argentina Jeffrey MD; Andrea Riggs Patient Account Liaison: Signed CBC W/DIFF, AUTOMATED Collected: 01/15/2018 Status: F Source: [place] 8:59 PM [facility] REPOSITORY TYPE CODE TESTS RESULT OUT OF RANGE REFERENCE UNITS LAB L100.1000 4.4-11.0 K/mm3 Normal WBC 8.3 LAB L100.1200 4.6-6.2 M/mm3 Normal RBC 4.65 LAB L100.1300 13.0-16.5 g/dl Normal HGB 14.8 LAB L100.1400 40-54 % Normal HCT 42.7 LAB L100.1500 80-94 fL Normal MCV 91.8 LAB L100.1600 27.0-32.0 pg Normal MCH 31.8 LAB L100.1700 32-36 g/gl Normal MCHC 34.7 LAB L100.1810 11.6-14.6 % Normal RDW CV 13.1 LAB L100.1820 35.1-43.9 fl Normal RDW SD 43.7 LAB L100.1900 150-450 K/mm3 Normal PLT 358 LAB L100.2000 6.2-12.0 fl Normal MPV 9.2 LAB L100.2100 47-70 % Normal NEUT% 57.9 LAB L100.2200 19-41 % Normal LY% 28.9 LAB L100.2300 0-10 % Normal MONO% 10.0 LAB L100.2400 0-5 % Normal EO% 2.6 LAB L100.2500 0-1 % Normal BASO% 0.4 LAB L100.2550 0.0-0.9 % Normal IM GRAN % 0.200 Result Comment: IG% - Immature Granulocytes (promyelocytes, myelocytes and metamyelocytes) > 1% indicates that a LEFT SHIFT is Present. LAB L100.2620 2.0-7.7 X10 3/uL Normal Absolute Neut 4.8 LAB L100.2720 0.83-4.51 X10 3/ul Normal Absolute Lymph 2.40 Performed By: #### L100.0100 #### [facility] [address] [place] [address], [id number] PROTHROMBIN TIME W/INR Collected: 01/15/2018 Status: F Source: [place] 8:59 PM [facility] REPOSITORY TYPE CODE TESTS RESULT OUT OF RANGE REFERENCE UNITS LAB L300.4150 11.7-14.9 SECONDS Normal PROTIME 13.1 LAB L300.4200 Normal INR 1.0 Performed By: #### L300.3900, L300.4310, L300.8000 #### [facility] [address] [facility] [id number] PARTIAL THROMBOPLAST Collected: 01/15/2018 Status: F Source: [place] TIME 8:59 PM [facility] REPOSITORY TYPE CODE TESTS RESULT OUT OF RANGE REFERENCE UNITS LAB L300.4310 24.1-36.2 Seconds Normal PTT 28.7 Performed By: #### L300.3900, L300.4310, L300.8000 #### [facility] [address] [place], [place], [id number] D-DIMER QUANTITATIVE Collected: 01/15/2018 Status: F Source: [place] (DVT/PE) 8:59 PM [facility] REPOSITORY TYPE CODE TESTS RESULT OUT OF RANGE REFERENCE UNITS LAB L300.8000 0.27-0.49 FEU/ug/m High alert D-DIMER 0.57 QUANT Result Comment: D-Dimer ELEVATED (>0.49): Additional studies and clinical assessments are indicated to conclude diagnosis of: Deep Vein Thrombosis (DVT) or Pulmonary Embolism (PE) CRITICAL VALUE VERIFIED. CALLED TO KIERRA 01/15/180 Ruthie Bailey. RESULTS READ BACK BY SAME . Performed By: #### L300.3900, L300.4310, L300.8000 #### [facility] [address] [place], [address] COMPREHENSIVE METABOLIC Collected: 01/15/2018 Status: F Source: [place]Y PROFIL 8:59 PM [facility] REPOSITORY TYPE CODE TESTS RESULT OUT OF RANGE REFERENCE UNITS LAB L501.0100 74-106 mg/dL High GLU 108 Result Comment: Fasting Glucose result from 100 to 125 mg/dL suggests IMPAIRED HOMEOSTASIS per A.D.A. criteria. Please note revised GLUCOSE reference range effective 2017. LAB L501.1000 7-18 mg/dL High BUN 20 LAB L501.1100 0.70-1.30 mg/dL Normal CREAT,SERUM 1.11 Result Comment: The validity of the calculated GFR AND GFRAA in patients over 70 years has not been determined. Clinical correlation is essential. LAB L501.1110 >60 mL/min Normal EST GFR 78 Result Comment: Non- GFR Calc LAB L501.1115 >60 mL/min Normal EST GFR - AA 94 Result Comment: GFR Calc LAB L501.1255 ml/min Normal Estimated CRCL 76.95 LAB L501.1300 10-20 RATIO Normal BUN/CRE 18.0 LAB L501.1500 6.4-8. g/dL High 2 T PROT 8.7 LAB L501.1800 3.2-5. g/dL Normal 0 ALB 4.3 LAB L501.1950 2.2-4. g/dL High 2 GLOB 4.4 LAB L501.2000 0.9-2. RATIO Normal 4 A/G 1.0 LAB L501.2200 8.5-10 mg/dL Normal .1 CA 9.1 LAB L501.4100 15-37 U/L High AST 47 LAB L501.4305 45-117 U/L High ALK P 128 LAB L501.4405 16-61 U/L High ALT 83 LAB L501.4600 0.20-1 mg/dL Normal .00 T BILI 0.40 LAB L501.5300 136-14 mmol/L Normal 5 NA 139 LAB L501.5600 3.5-5. mmol/L Normal 1 K 4.0 LAB L501.5900 98-107 mmol/L Normal CL 106 LAB L501.6100 21.0-3 mmol/L Normal 2.0 CO2 27.0 LAB L501.6200 5-15 Normal GAP 6 Performed By: #### L500.4050 #### [facility] [address] [place], [place], [address] LACTIC ACID Collected: 01/15/2018 Status: F Source: [place] 8:59 PM [facility] REPOSITORY Order Comment: Yes/No query for Sepsis Lactate Rule Y TYPE CODE TESTS RESULT OUT OF RANGE REFERENCE UNITS LAB L503.6005 0.4-2.0 mmol/L Normal LACTIC ACID 1.3 Performed By: #### L503.6005 #### [facility] [address] [place], [place], [address] Observed: 01/15/2018 Status: F Source: [place] CULTURE, BLOOD (WB) 8:59 PM [facility] RE[facility]ITORY BC No growth in 5 days. Performed By: #### M200.1000 #### [facility] [address] [place], [place], [address] CNOV Observed: 01/14/2018 Status: COMPLETED Source: [place] 2:[address] [facility] REPOSITORY Office Visit (FAMPWS) ELSA LOUISE ([id number]) 1975 M Date Time Provider Department 01/14/18 2:40 PM MELANIE PHILLIPS (FAN) CLAUDIA During your visit today, we recorded the following information about you: Pulse Respiration Blood pressure Weight 94/minute 22/minute 124/76 98.9 kg Melanie Phillips APRN.CNP 01/14/2018 4:12 PM Signed 01/14/2018 Patient presents with: ED Follow-up SUBJECTIVE: This is a 42 year old that is here today for ED follow up 01/08 kidney stones with gross hematuria. CT showed 4 mm calculus within the dependent portion of the bladder with mild left perinephric stranding suggesting recently passed calculus. Additional left nonobstructing nephrolithiasis. No hydroureteronephrosis. He states that he has seen multiple stones and the gross hematuria continues intermittently. He states that he has had stones before. He was given scripts for muscle relaxer and norco, but have not filled them yet. He states that he wanted to be seen here first to see if he should fill them. He states that he already received referrals for urology and nephrology and plans to schedule today. He is here today wondering if there is anything that can be done for the pain. He states that he is drinking a ton of water. states that it is actually water mixed with iced tea. He is currently drinking a blue polar ice drink. He is planning to establish with Dr. Muniz this week. He is requesting lab orders in preparation for his establish care visit. PAST MEDICAL HISTORY Diagnosis Date - Asthma - Depression - Epilepsy (HCC) - GERD (gastroesophageal reflux disease) - Heart attack (HCC) 2011 and 2013 from Cocaine abuse - Migraines - Rib fracture 11/2010 - Seizures ([facility]) - Snoring - Syncope ALLERGIES Keppra [Levetiracetam]; Penicillins; Percocet [Oxycodone-Acetaminophen]; Tessalon [Benzonatate] MEDICATIONS Current Outpatient Prescriptions: pantoprazole DR (PROTONIX) 40 mg tablet TAKE 1 TABLET BY MOUTH ONCE DAILY. VENTOLIN HFA 90 mcg/actuation inhaler INHALE 2 PUFFS EVERY FOUR HOURS NEEDED FOR WHEEZING / SHORTNESS OF BREATH lamoTRIgine (LAMICTAL) 100 mg tablet Take 1 tablet by mouth twice daily. sertraline (ZOLOFT) 50 mg tablet Take 1 tablet by mouth once daily. QUEtiapine XR (SEROQUEL XR) 150 mg Tb24 150 mg at bedtime levothyroxine (SYNTHROID) 50 mcg tablet Take 1 tablet by mouth once daily. dicyclomine (BENTYL) 10 mg capsule Take 1 capsule by mouth before meals and at bedtime. SUMAtriptan (IMITREX) 50 mg tablet Take one pill at onset of headache, may repeat in 2 hours if needed No current facility-administered medications for this visit. Medications and allergies reviewed by this provider. SOCIAL HISTORY Social History Marital status: Spouse name: Shannen Years of education: Number of children: 3 Occupational History Occupation Employer Comment Unemployed Social History Main Topics Smoking status: Former Smoker Packs/day: 0.00 Years: 5.00 Types: Cigarettes Quit date: 01/16/1993 Smokeless tobacco: Current User Types: Chew Comment: chewing only Alcohol use: Yes 0.6 oz/week Cans of beer: 1 per week Comment: Occasional beer, once/week Drug use: No Comment: history of cocaine abuse in past. Last used in 2013 Sexual activity: Yes Partners with: Female REVIEW OF SYSTEMS see HPI OBJECTIVE: BP 124/76 Pulse 94 Resp 22 Wt 98.9 kg (218 lb) SpO2 98% BMI 35.19 kg/m? . Vital signs reviewed by this provider. PHYSICAL EXAMINATION: General appearance: Well appearing, alert, in no acute distress, well-hydrated, well nourished. Skin: Skin color, texture, turgor normal, no suspicious rashes or lesions Lungs: Lungs clear to auscultation. No wheezing, rhonchi, rales Heart: RRR without murmur, gallop, or rubs. No ectopy Abdomen: Abdomen soft. Bowel sounds normal. No masses, organomegaly, + left CVA tenderness. + generalized abdominal tenderness that he states is his baseline L>R Extremities: No deformities, edema, skin discoloration, clubbing or cyanosis. Good capillary refill. , Pulses: 2+ ASSESSMENT/PLAN: 1. Kidney stones - ICD9: 592.0, ICD10: N20.0 (primary diagnosis) - will add flomax to assist with the passage of the stones. - educated on appropriate hydration with water and noncaffinated non sugar beverages - encouraged scheduling with specialists as recommended and establishing this week as planned - TAMSULOSIN 0.4 MG CAPSULE 2. Gross hematuria - ICD9: 599.71, ICD10: R31.0 - see above - TAMSULOSIN 0.4 MG CAPSULE 3. Medication management - ICD9: V58.69, ICD10: Z79.899 - COMP METABOLIC PANEL - CBC + DIFF - TSH BLD - T4 FREE/FREE THYROX - T3 BLD - LIPID PANEL, NONFASTING Melanie Phillips APRN.SECURITY SERVICES SPECIALIST Referring Provider: SELF [[id number]] Allergies As of Date: 01/14/2018 Noted Allergy Reaction KEPPRA (LEVETIRACETAM) 08/02/2017 4 - Hives PENICILLINS 01/16/2011 14 - Other: See Comments Comments: States feel like something is crawling under his skin PERCOCET (OXYCODONE-ACETAMINOPHEN)01/31/2011 9 - Itching TESSALON (BENZONATATE) 08/02/2017 10 - Anaphylaxis Date Reviewed: 01/14/2018 Reviewed by: Cyndie Pena) SONIA Reyes - Fully Assessed Reason for Visit: ED Follow-up [821] Primary Visit Diagnosis:Kidney stones [N20.0] Other Visit Diagnoses:Gross hematuria [R31.0] Medication management [Z79.899] Order(s):tamsulosin ER (FLOMAX) 0.4 mg capTake 1 capsule by mouth daily at bedtime.Disp: 10 capsuleRfl: 0 COMP METABOLIC PANEL [SQCMP] Order #: [id number] FUTURE CBC + DIFF [SQCBCDIF] Order #: [id number] FUTURE TSH BLD [SQTSH] Order #: [id number] FUTURE T4 FREE/FREE THYROX [SQFT4] Order #: [id number] FUTURE T3 BLD [SQT3] Order #: [id number] FUTURE LIPID PANEL, NONFASTING [SQLIPNF] Order #: [id number] FUTURE Prescriptions as of 01/14/2018 Sig: TAMSULOSIN 0.4 MG CAPSULE Take 1 capsule by mouth daily* PANTOPRAZOLE 40 MG TABLET,DEL* TAKE 1 TABLET BY MOUTH ONCE D* VENTOLIN HFA 90 MCG/ACTUATION* INHALE 2 PUFFS EVERY FOUR ADONAY* LAMOTRIGINE 100 MG TABLET Take 1 tablet by mouth twice * SERTRALINE 50 MG TABLET Take 1 tablet by mouth once d* QUETIAPINE ER 150 MG TABLET,E* 150 mg at bedtime LEVOTHYROXINE 50 MCG TABLET Take 1 tablet by mouth once d* DICYCLOMINE 10 MG CAPSULE Take 1 capsule by mouth befor* SUMATRIPTAN 50 MG TABLET Take one pill at onset of hea* Problem List As Of Date 01/14/2018 Noted Resolved Depression [F32.9] INVALID FOR* Lipoma [D17.9] INVALID FOR* Abdominal pain, epigastric [R10.13] INVALID FOR* Weight loss [R63.4] INVALID FOR* Migraine without status migrainosus, not intrac*INVALID FOR* Lipoma of torso [D17.1] INVALID FOR* Seizures (HCC) [R56.9] INVALID FOR* Noncompliance with treatment regimen [Z91.19] INVALID FOR* Abnormal intentional weight loss [R63.4] INVALID FOR* More... Abdominal discomfort, epigastric [R10.13] INVALID FOR* More... Mild intermittent asthma, uncomplicated [J45.20]INVALID FOR* Irritable bowel syndrome with both constipation*INVALID FOR* GERD with esophagitis [K21.0] INVALID FOR* Chronic midline low back pain with sciatica [M5*INVALID FOR* Hypothyroidism, acquired [E03.9] INVALID FOR* Prescriptions ordered this encounter Disp Refills Start End TAMSULOSIN 0.4 MG CAPSULE 10 c* 0 01/14/2018 Route: ORAL Sig: Take 1 capsule by mouth daily at bedtime. Encounter Status:Closed by MELANIE PHILLIPS on 01/14/18 CBC AND DIFFERENTIAL Collected: 01/14/2018 Status: F Source: [place] 2:09 PM [facility] REPOSITORY TYPE CODE TESTS RESULT OUT OF REFERENCE UNITS RANGE LAB WBC 3.70-11.00 k/uL WBC 7.64 LAB RBC 4.20-6.00 m/uL RBC 4.61 LAB HGB 13.0-17.0 g/dL Hemoglobin 14.4 LAB HCT 39.0-51.0 % Hematocrit 43.7 LAB MCV 80.0-100.0 fL MCV 94.8 LAB MCH 26.0-34.0 pG MCH 31.2 LAB MCHC 30.5-36.0 g/dL MCHC 33.0 LAB RDWCV 11.5-15.0 % RDW-CV 13.2 LAB PLTCT 150-400 k/uL Platelet Count 338 LAB MPV 9.0-12.7 fL MPV 9.8 LAB ANEUT % Neut% 62.8 LAB AANEUT 1.45-7.50 k/uL Abs Neut 4.80 LAB ALYMP % Lymph% 23.4 LAB AALYMP 1.00-4.00 k/uL Abs Lymph 1.79 LAB AMONO % Barrow% 9.8 LAB AAMONO <0.87 k/uL Abs Barrow 0.75 LAB AEOS % Eosin% 3.7 LAB AAEOS <0.46 k/uL Abs Eosin 0.28 LAB ABASO % Baso% 0.3 LAB AABASO <0.11 k/uL Abs Baso <0.03 LAB AUNRBC 0 /100 WBC NRBCs 0.0 LAB ABNRBC <0.01 k/uL Absolute nRBC <0.01 LAB DTYP DTYPE Auto Diff Performed By: #### CBCDIF, CMP, LIPNF, TSH, FT4, T3 #### [facility] [address] [place], [place] [address] COMP METABOLIC PANEL Collected: 01/14/2018 Status: F Source: [place] 2:09 PM [facility] REPOSITORY TYPE CODE TESTS RESULT OUT OF REFERENCE UNITS RANGE LAB TP 6.3-8.0 g/dL Protein, Total 7.7 LAB ALB 3.9-4.9 g/dL Albumin 4.6 LAB CA 8.5-10.2 mg/dL Calcium, Total 9.5 LAB TBIL 0.2-1.3 mg/dL Bilirubin, Total 0.4 LAB ALKP 38-113 U/L Alkaline Phosphatase 104 LAB AST 14-40 U/L AST High 43 LAB GLU 74-99 mg/dL Glucose High 105 Result Comment: The [place] Diabetes Association (ADA) provides guidance for cutoff values for fasting glucose and random glucose. The ADA defines fasting as no caloric intake for at least 8 hours. Fas ting plasma glucose results between 100 to 125 mg/dL indicate increased risk for diabetes (prediabetes). Fasting plasma glucose results greater than or equal to 126 mg/dL meet the criteria for diagnosis of diabetes. In the absence of unequivocal hyperglycemia, results should be confirmed by repeat testing. In a patient with classic symptoms of hyperglycemia or hyperglycemic crisis, random plasma glucose results greater than or equal to 200 mg/dL meet the criteria for diagnosis of diabetes. Reference: Standards of Medical Care in Diabetes 2016, [place] Diabetes Association. Diabetes Care. 2016.39(Suppl 1). LAB BUN 9-24 mg/dL BUN 15 LAB CRET 0.73-1.22 mg/dL Creatinine 1.00 LAB NA 136-144 mmol/L Sodium 139 LAB K 3.7-5.1 mmol/L Potassium 4.0 LAB CL 97-105 mmol/L Chloride 99 LAB CO2 22-30 mmol/L CO2 27 LAB AGAP 9-18 mmol/L Anion Gap 13 LAB ALT 10-54 U/L ALT High 60 LAB GFRAA eGFR- Amer. >60 LAB GFRNAA . eGFR-All Other Races >60 Result Comment: eGFR (Estimated GFR) Units of measure: mL/min/1.73 meters squared eGFR is derived from the reexpressed MDRD Study equation using the following parameters: serum creatinine, age, gender and race. The creatinine assay has been calibrated to be traceable to IDMS. An eGFR <60 mL/min/1.73m2 for >3 months is consistent with chronic kidney disease. Refer to KDOQI guidelines for clinical interpretation. In patients with unstable renal function, e.g. those with acute kidney injury, the eGFR may not accurately reflect actual GFR. Performed By: #### CBCDIF, CMP, LIPNF, TSH, FT4, T3 #### [facility] [address] [place] [address] LIPID PANEL, NONFAST Collected: 01/14/2018 Status: F Source: [place] 2:09 PM [facility] REPOSITORY TYPE CODE TESTS RESULT OUT OF REFERENCE UNITS RANGE LAB CHOLNF <200 mg/dL Total Cholesterol NF 163 Result Comment: <200 mg/dL, Desirable 200-239 mg/dL, Borderline high >239 mg/dL, High LAB TRIGNF <150 mg/dL Triglycerides, NF 96 Result Comment: <150 mg/dL, Normal 150-199 mg/dL, Borderline high 200-499 mg/dL, High >499 mg/dL, Very high LAB HDLNF >39 mg/dL HDL Cholesterol, NF 46 Result Comment: 40-59 mg/dL, Acceptable >59 mg/dL, High: Negative risk factor for coronary heart disease <40 mg/dL, Low: Positive risk factor for coronary heart disease LAB LDLNF <100 mg/dL LDL Cholesterol, NF 98 Result Comment: <100 mg/dL, Optimal 100-129 mg/dL, Near optimal/above optimal 130-159 mg/dL, Borderline high 160-189 mg/dL, High >189 mg/dL, Very high Secondary prevention optimal LDL Cholesterol levels are recommended to be < 70 mg/dL LAB NOHDLN <130 mg/dL Non HDL Chol, 117 NF Result Comment: <130 mg/dL, Optimal 130-159 mg/dL, Near optimal/above optimal 160-189 mg/dL, Borderline high 190-219 mg/dL, High >219 mg/dL, Very high Secondary prevention optimal non HDL Cholesterol levels are recommended to be < 100 mg/dL LAB VLDLNF <30 mg/dL VLDL Cholesterol, NF 19 LAB TCHDLN <5.10 mg/dL T Chol/HDL Ratio NF 3.54 LAB LDLHDN <2.54 mg/dL LDL/HDL Ratio, NF 2.13 Result Comment: Reference: 1. National Cholesterol Education Program ATP III Guideline At-A-Glance Quick Desk Reference: National Heart, Lung, and Blood Crucible. National Institutes of Health. 2001: NIH Publication No. 01-3305. 2. An International Atherosclerosis Society position paper: global recommendations for the management of dyslipidemia: executive summary, Atherosclerosis. 2014: 232(2):410-413. Performed By: #### CBCDIF, CMP, LIPNF, TSH, FT4, T3 #### [facility] [address] [place] [address] TSH Collected: 01/14/2018 Status: F Source: [place] 2:[address] [facility] REPOSITORY TYPE CODE TESTS RESULT OUT OF RANGE REFERENCE UNITS LAB TSH 0.400-5.500 uU/mL TSH 1.150 Performed By: #### CBCDIF, CMP, LIPNF, TSH, FT4, T3 #### [facility] [facility] [address] [place], [place] [id number] FREE T4 Collected: 01/14/2018 Status: F Source: [place] 2:[address] [facility] REPOSITORY TYPE CODE TESTS RESULT OUT OF RANGE REFERENCE UNITS LAB FT4 0.9-1.7 ng/dL Free T4 1.2 Performed By: #### CBCDIF, CMP, LIPNF, TSH, FT4, T3 #### [facility] [address] [place], [place] [address] T3 Collected: 01/14/2018 Status: F Source: [facility] 2:09 PM [facility] REPOSITORY TYPE CODE TESTS RESULT OUT OF RANGE REFERENCE UNITS LAB T3 79-165 ng/dL T3 110 Performed By: #### CBCDIF, CMP, LIPNF, TSH, FT4, T3 #### [facility] [address] [place], [place] [address] PROGRESS Observed: 01/14/2018 Status: COMPLETED Source: [place] 1:42 PM [facility] REPOSITORY HNO ID: [id number] Author: Melanie Phillips Service: (none) Author Type: Nurse Practitioner Type: Progress Notes Filed: 01/14/2018 4:12 PM Note Text: 01/14/2018 Patient presents with: ED Follow-up SUBJECTIVE: This is a 42 year old that is here today for ED follow up 01/08 kidney stones with gross hematuria. CT showed 4 mm calculus within the dependent portion of the bladder with mild left perinephric stranding suggesting recently passed calculus. Additional left nonobstructing nephrolithiasis. No hydroureteronephrosis. He states that he has seen multiple stones and the gross hematuria continues intermittently. He states that he has had stones before. He was given scripts for muscle relaxer and norco, but have not filled them yet. He states that he wanted to be seen here first to see if he should fill them. He states that he already received referrals for urology and nephrology and plans to schedule today. He is here today wondering if there is anything that can be done for the pain. He states that he is drinking a ton of water. states that it is actually water mixed with iced tea. He is currently drinking a blue polar ice drink. He is planning to establish with Dr. Muniz this week. He is requesting lab orders in preparation for his establish care visit. PAST MEDICAL HISTORY Diagnosis Date - Asthma - Depression - Epilepsy (HCC) - GERD (gastroesophageal reflux disease) - Heart attack (HCC) 2011 and 2013 from Cocaine abuse - Migraines - Rib fracture 11/2010 - Seizures (HCC) - Snoring - Syncope ALLERGIES Keppra [Levetiracetam]; Penicillins; Percocet [Oxycodone-Acetaminophen]; Tessalon [Benzonatate] MEDICATIONS Current Outpatient Prescriptions: pantoprazole DR (PROTONIX) 40 mg tablet TAKE 1 TABLET BY MOUTH ONCE DAILY. VENTOLIN HFA 90 mcg/actuation inhaler INHALE 2 PUFFS EVERY FOUR HOURS NEEDED FOR WHEEZING / SHORTNESS OF BREATH lamoTRIgine (LAMICTAL) 100 mg tablet Take 1 tablet by mouth twice daily. sertraline (ZOLOFT) 50 mg tablet Take 1 tablet by mouth once daily. QUEtiapine XR (SEROQUEL XR) 150 mg Tb24 150 mg at bedtime levothyroxine (SYNTHROID) 50 mcg tablet Take 1 tablet by mouth once daily. dicyclomine (BENTYL) 10 mg capsule Take 1 capsule by mouth before meals and at bedtime. SUMAtriptan (IMITREX) 50 mg tablet Take one pill at onset of headache, may repeat in 2 hours if needed No current facility-administered medications for this visit. Medications and allergies reviewed by this provider. SOCIAL HISTORY Social History Marital status: Spouse name: Shannen Years of education: Number of children: 3 Occupational History Occupation Employer Comment Unemployed Social History Main Topics Smoking status: Former Smoker Packs/day: 0.00 Years: 5.00 Types: Cigarettes Quit date: 01/16/1993 Smokeless tobacco: Current User Types: Chew Comment: chewing only Alcohol use: Yes 0.6 oz/week Cans of beer: 1 per week Comment: Occasional beer, once/week Drug use: No Comment: history of cocaine abuse in past. Last used in 2013 Sexual activity: Yes Partners with: Female REVIEW OF SYSTEMS see HPI OBJECTIVE: BP 124/76 Pulse 94 Resp 22 Wt 98.9 kg (218 lb) SpO2 98% BMI 35.19 kg/m? . Vital signs reviewed by this provider. PHYSICAL EXAMINATION: General appearance: Well appearing, alert, in no acute distress, well-hydrated, well nourished. Skin: Skin color, texture, turgor normal, no suspicious rashes or lesions Lungs: Lungs clear to auscultation. No wheezing, rhonchi, rales Heart: RRR without murmur, gallop, or rubs. No ectopy Abdomen: Abdomen soft. Bowel sounds normal. No masses, organomegaly, + left CVA tenderness. + generalized abdominal tenderness that he states is his baseline L>R Extremities: No deformities, edema, skin discoloration, clubbing or cyanosis. Good capillary refill. , Pulses: 2+ ASSESSMENT/PLAN: 1. Kidney stones - ICD9: 592.0, ICD10: N20.0 (primary diagnosis) - will add flomax to assist with the passage of the stones. - educated on appropriate hydration with water and noncaffinated non sugar beverages - encouraged scheduling with specialists as recommended and establishing this week as planned - TAMSULOSIN 0.4 MG CAPSULE 2. Gross hematuria - ICD9: 599.71, ICD10: R31.0 - see above - TAMSULOSIN 0.4 MG CAPSULE 3. Medication management - ICD9: V58.69, ICD10: Z79.899 - COMP METABOLIC PANEL - CBC + DIFF - TSH BLD - T4 FREE/FREE THYROX - T3 BLD - LIPID PANEL, NONFASTING Melanie Phillips, AWAKE OVERNIGHT MONITOR.SECURITY SERVICES SPECIALIST CT ABDOMEN/PELVIS W/O Observed: 01/08/2018 Status: F Source: [place] 8:19 PM [facility] REPOSITORY ORIGINAL CT ABDOMEN/PELVIS W/O CONTRAST CLINICAL STATEMENT: LEFT flank pain and abdominal pain x2 weeks COMPARISON: None TECHNIQUE: Axial images were obtained from the lung bases through the pubic symphysis. Coronal reformatted images were generated from the axial dataset. This exam was performed according to our [facility] dose optimization program, and includes the following measures where applicable: automated exposure control, adjustment of the mAs and/or kVp according to patient size and/or exam, and an iterative reconstruction algorithm. FINDINGS: The kidneys are symmetric in size and are without hydronephrosis. There is a punctate LEFT renal calcification measuring 1 mm. There is minimal LEFT perinephric stranding. The ureters are norm al, without radiopaque calculi.. There is a 4 mm radiopaque calculus layering dependently within the bladder. The visualized liver and spleen are unremarkable for noncontrast examination. The noncontrasted pancreas and adrenal glands are normal. There is a 1.5 cm high density gallstone within the gallbladder, w ithout evidence of acute cholecystitis. The small and large bowel are normal in course and caliber. The appendix is normal. There is no free fluid or free air. No adenopathy is identified. There are no suspicious osseous lesions. IMPRESSION: 4 mm calculus within the dependent portion of the bladder with mild LEFT perinephric stranding, suggesting recently passed calculus. Additional punctate LEFT nonobstructing nephrolithiasis. No evidence for hydroureteronephrosis. Incidental cholelithiasis. I have personally reviewed the images of this examination and agree with the resident's findings and interpretation. Interpreted By: Prince Persaud DO Preliminary Report By: Javier Langston DO Electronically Signed By: Prince Persaud DO Dictated Date: 01/08/2018 8:43:36 PM Prelim Date: 01/08/2018 8:48:40 PM Sign Date: 01/08/2018 8:50:40 PM UA Collected: 01/08/2018 Status: F Source: [facility] 7:35 PM [facility] REPOSITORY TYPE CODE TESTS RESULT OUT OF RANGE REFERENCE UNITS LAB SPCUA(RUSTY NC) UA Specimen Type Clean Catch LAB CLRUA(RUSTY NC) UA Color Yellow LAB APPUA(RUSTY Clear NC) UA Appear Clear LAB SGUA(LOIN C) UA Spec Grav 1.020 LAB GLUA(LOIN Negative mg/dL C) UA Glucose Negative LAB BILUA(RUSTY Negative NC) UA Bili Negative LAB KETUA(RUSTY Negative mg/dL NC) UA Ketones Negative LAB BLDUA(RUSTY Negative NC) UA Blood Unknown Moderate-Inta ct LAB PHUA(LOIN C) UA pH 6.5 LAB PROUA(RUSTY Negative mg/dL NC) UA Protein Negative LAB UROUA(RUSTY E.U./dL NC) UA Urobilinogen 0.2 LAB NITUA(RUSTY Negative NC) UA Nitrite Negative LAB LEUUA(RUSTY Negative NC) UA Leuk Est Negative Performed By: #### UA, UAMICAO #### [place] [address] .URINALYSIS MICROSCOPIC Collected: 01/08/2018 Status: F Source: [place] ([place]) 7:35 PM [facility] REPOSITORY TYPE CODE TESTS RESULT OUT OF RANGE REFERENCE UNITS LAB WBCUA(LOIN None Seen /hpf C) UA WBC None Seen LAB RBCUA(LOIN None Seen /hpf C) Unknown UA RBC 10-15 LAB EPIUA(LOIN None Seen /hpf C) UA Squam Epithelial None Seen Performed By: #### UA, UAMICDAVID #### [place] [address] [address] [facility] Observed: 11/25/2017 Status: COMPLETED Source: [place] 12:[address] [facility] REPOSITORY Telephone (NIQ) ELSA LOUISE ([id number]) 1975 M Date Time Provider Department 11/25/17 MARCIN LANG During your visit today, we recorded the following information about you: Allergies As of Date: 11/25/2017 Noted Allergy Reaction KEPPRA (LEVETIRACETAM) 08/02/2017 4 - Hives PENICILLINS 01/16/2011 14 - Other: See Comments Comments: States feel like something is crawling under his skin PERCOCET (OXYCODONE-ACETAMINOPHEN)01/31/2011 9 - Itching TESSALON (BENZONATATE) 08/02/2017 10 - Anaphylaxis Date Reviewed: 08/27/2017 Reviewed by: Marely Moore LPN - Fully Assessed Reason for Visit: Future Appointment [256] Prescriptions as of 11/25/2017 Sig: VENTOLIN HFA 90 MCG/ACTUATION* INHALE 2 PUFFS EVERY FOUR ADONAY* LAMOTRIGINE 100 MG TABLET Take 1 tablet by mouth twice * SERTRALINE 50 MG TABLET Take 1 tablet by mouth once d* QUETIAPINE ER 150 MG TABLET,E* 150 mg at bedtime LEVOTHYROXINE 50 MCG TABLET Take 1 tablet by mouth once d* DICYCLOMINE 10 MG CAPSULE Take 1 capsule by mouth befor* SUMATRIPTAN 50 MG TABLET Take one pill at onset of hea* X PANTOPRAZOLE 40 MG TABLET,DEL* Take 1 tablet by mouth once d* Problem List As Of Date 11/25/2017 Noted Resolved Depression [F32.9] INVALID FOR* Lipoma [D17.9] INVALID FOR* Abdominal pain, epigastric [R10.13] INVALID FOR* Weight loss [R63.4] INVALID FOR* Migraine without status migrainosus, not intrac*INVALID FOR* Lipoma of torso [D17.1] INVALID FOR* Seizures (HCC) [R56.9] INVALID FOR* Noncompliance with treatment regimen [Z91.19] INVALID FOR* Abnormal intentional weight loss [R63.4] INVALID FOR* More... Abdominal discomfort, epigastric [R10.13] INVALID FOR* More... Mild intermittent asthma, uncomplicated [J45.20]INVALID FOR* Irritable bowel syndrome with both constipation*INVALID FOR* GERD with esophagitis [K21.0] INVALID FOR* Chronic midline low back pain with sciatica [M5*INVALID FOR* Hypothyroidism, acquired [E03.9] INVALID FOR* Encounter Status:Closed by SAL HANCOCK on 11/25/17 DISCHARGE SUMMARY Observed: 11/08/2017 Status: F Source: [place] 3:23 PM [facility] REPOSITORY [facility] Medical Records Department [address] [place] [id number] Discharge Summary 11/08/17 1413 MR#: [id number] Acct: [id number] Name: ELSA LOUISE Rep #: [id number] : 1975 42 From: [facility] [place] PCP: [place] Jeffrey MD Status: DIS IN Y Location: [facility] [id number] <Gui Avina - Last Filed: 11/08/17 14:13> Discharge Date and Diagnosis Date of Admission: 11/06/17 Date of Discharge: 11/08/17 - Primary Discharge Diagnosis Acute severe sepsis 2/2 acute gastroenteritis suspect viral YAMILETH 2/2 sepsis, diarrhea IBS Hypothyroidism Anx/Dep - Secondary Discharge Diagnosis Chronic Problems (Last Reviewed 11/06/17 @ 14:22 by Claudio Garner DO) Seasonal allergies (Chronic) Anxiety and depression (Chronic) Chronic bronchitis (Chronic) Thyroid activity decreased (Chronic) Obesity (BMI 30.0-34.9) (Chronic) Glucose intolerance (impaired glucose tolerance) (Chronic) Family history of diabetes mellitus (Chronic) Family history of coronary artery disease (Chronic) Family history of gastric carcinoma (Chronic) Father is at 42 years of age due to cancer Former smoker (Chronic) Quit 2010 Recovering alcoholic (Chronic) Quit drinking in 2010 Cholelithiasis (Chronic) Personal history of peptic ulcer disease (Chronic) Gastroesophageal reflux disease (Chronic) History of nephrolithiasis (Chronic) Osteoarthritis (Chronic) Hospital Course and Treatment Imaging Results: CT/Abdomen/Pel W ORAL Cont Only IMPRESSION: Solitary gallstone in the gallbladder neck. Increased markings at the lung bases suggestive of scarring and/or linear atelectasis. Operations: None Procedures: None Summary of Care Provided: Physical exam on day of discharge: General: Resting comfortably NAD Psych: A/Ox3 normal affect HEENT: PEARRLA AT NC Neck: Supple NT CV: RRR no m/t/r/g/h Resp: CTA Abd: [id number] Soft NT no guarding or rigidity Ext: DP2+= no edema Skin: W/D normal turgor Lymph/Heme: No active bleeding or adenopathy Neuro: CN2-12 intact Hospital course: The patient is a 42 year old M with a history of irritable bowel syndrome, hypothyroidism, anxiety and depression, who presented to the emergency room chief complaint of intractable nausea and vomiting along with diarrhea. He stated it is been going on for about 1 month and began while he was working for a traveling [employer], after which she was temporarily incarcerated and it continued throughout that time, after being released he continued still. He stated that he was unable to keep any foods or liquids down that he would vomit them back up. He also had diffuse abdominal pain with tenderness to palpation. He underwent a CT of the abdomen in the ER which was unremarkable. He did appear to meet severe sepsis criteria secondary to gastroenteritis with elevated white count, tachycardia, lactic acidosis. He also appeared to have a KI with elevated creatinine, probably secondary to sepsis and dehydration from the diarrhea. He was placed on IV fluids and admitted to the general medical floor with supportive care. Patient's vital signs, white count, and renal function improved overnight. He continued to complain of abdominal pain, nausea, vomiting although the frequency decreased by the following day. Enteric panel, C. difficile, lactoferrin were all ordered and were negative. His diet was advanced. He continued to improve and was discharged to home the following day. He will need to follow-up with his PCP in 1-2 weeks. This patient was seen by Gui Avina PA-C under the supervision of Doctor Zamzam. [] Discharge Diet: No Restrictions Discharge Activity: Return to Normal Activity Home Medications: Medications to take at Discharge Lamotrigine 100 mg PO BID 05/08/17 Albuterol Sulfate [Ventolin Hfa] 1 - 2 puff INHALATION Q6H PRN PRN 11/06/17 Dicyclomine HCl [Bentyl] 10 mg PO TIDAC 11/06/17 Levothyroxine [Synthroid] 50 mcg PO DAILY 11/06/17 Nabumetone [Relafen] 750 mg PO BID 11/06/17 Pantoprazole Sodium [Protonix] 40 mg PO DAILY 11/06/17 Quetiapine Fumarate [Seroquel] 50 mg PO DAILY 11/06/17 Sertraline HCl [Zoloft] 100 mg PO BID 11/06/17 Tizanidine HCl 4 mg PO TID 11/06/17 Primary Care Physician: Argentina Jeffrey MD [Primary Care Provider] - Please follow up with your Primary Care Physician in: 1-2 weeks Disposition: Home Minutes spent on discharge:: 35 Patient Condition:: Stable Medical Necessity - Tobacco Use Smoking Status: Former smoker Tobacco Use: Chew Meaningful Use Info Meaningful Use Diagnoses (Choose all that apply): None applicable <Pao Wyman - Last Filed: 11/08/17 15:22> Discharge Date and Diagnosis - Secondary Discharge Diagnosis Chronic Problems (Last Reviewed 11/06/17 @ 14:22 by Claudio Garner DO) Seasonal allergies (Chronic) Anxiety and depression (Chronic) Chronic bronchitis (Chronic) Thyroid activity decreased (Chronic) Obesity (BMI 30.0-34.9) (Chronic) Glucose intolerance (impaired glucose tolerance) (Chronic) Family history of diabetes mellitus (Chronic) Family history of coronary artery disease (Chronic) Family history of gastric carcinoma (Chronic) Father is at 42 years of age due to cancer Former smoker (Chronic) Quit 2010 Recovering alcoholic (Chronic) Quit drinking in 2010 Cholelithiasis (Chronic) Personal history of peptic ulcer disease (Chronic) Gastroesophageal reflux disease (Chronic) History of nephrolithiasis (Chronic) Osteoarthritis (Chronic) Hospital Course and Treatment Summary of Care Provided: Hospitalist note: Discharge summary above reviewed as well as physical examination and I agree with the above discharge plan. Patient was admitted for symptoms of nausea, vomiting and abdominal pain and he was found to have findings consistent with severe sepsis which is attributed to probable viral gastroenteritis. On admission, patient was tachycardic, tachypneic, have leukocytosis and his lactic acid was elevated and this is consistent with severe sepsis. He was treated with IV fluids, IV antiemetics and IV pain medications. CT scan abdomen and pelvis revealed solitary gallstone without other acute findings. With IV fluid therapy, lactic acid came back to normal. Stool studies including stool for occult blood, stool for lactoferrin, stool for C. difficile and stool for enteric pathogens came back unremarkable and negative. He was found to have mild hypokalemia and acute kidney injury secondary to fluid loss. Admission creatinine was 1.41 and with IV fluid therapy, it came down to 0.85 and it is back to normal. His LFT and lipase were normal. TSH was normal. Leukocytosis resolved as well as patient's symptoms. He remained afebrile throughout admission. Patient discharged home in stable medical condition, discharged on his chronic home medications without any changes, recommended follow-up with PCP in 1-2 weeks. - Physical Exam General: Alert, Oriented x3, Cooperative, No apparent distress. HEENT: Atraumatic, PERRLA, EOMI. Neck: Supple, No JVD, Negative Carotid Bruits, Trachea Midline, Thyroid Normal. Lungs: Clear to auscultation, Normal air movement, No rhonchi, No wheeze, No rales. Cardiovascular: Regular rate, Regular Rhythm, Normal S1, Normal S2, PMI Normal. Abdomen: Bowel Sounds Present, Soft, Non Tender, Non-Distended, No Hepato-splenomegaly. Extremities: No clubbing, No cyanosis, No edema Skin: No rashes, No breakdown Neurological: Neuro grossly intact Vital Signs are stable. This note was generated with [employer] dictation software. It may contain incorrect words, spelling, and punctuation that were not noted in checking the note before signing. Minutes spent on discharge:: 26 Patient Condition:: Stable Meaningful Use Info Meaningful Use Diagnoses (Choose all that apply): None applicable Code Visit Inpatient Lisa AND M: [id number] Disch Hosp 11/08/17 1419 <Electronically signed by Gui MIDDLETON> Date Gui MIDDLETON 11/08/17 1523<Electronically signed by Pao Wyman MD> Cosigner Signature (if applicable): Date Pao Wyman MD CC: EMI Avina; Argentina Jeffrey MD; Pao Wyman Signed DISCHARGE INSTRUCTION Observed: 11/08/2017 Status: F Source: [facility]ATUR 11:49 AM [facility] REPOSITORY [facility] Medical Records Department [address] [place] [address] Instructions for Home/Discharge Instructions 11/08/17 1148 MR#: [id number] Acct: [id number] Name: ELSA LOUISE Rep #: [id number] : 1975 42 From: Gui MIDDLETON PCP: Argentina Jeffrey MD Status: ADM IN - Discharge Diagnoses Current Active Problems: Current Active and Chronic Problems (Last Reviewed 11/06/17 @ 14:22 by Claudio Garner DO) Intractable nausea and vomiting (Acute) Intractable diarrhea (Acute) SIRS (systemic inflammatory response syndrome) (Acute) Lactic acidosis (Acute) YAMILETH (acute kidney injury) (Acute) You will use the following diet at home:: No restrictions Your food should be the consistency of: Regular Your liquids should be the consistency of: Regular/Thin Discharge Activity: Return to Normal Activity Allergies/Adverse Reactions: Allergies Penicillins Allergy (Verified 11/06/17 10:33) Anaphylaxis bezonates Allergy (Severe, Uncoded 11/06/17 10:33) Hives Medications to take at Discharge Lamotrigine 100 mg PO BID 05/08/17 Albuterol Sulfate [Ventolin Hfa] 1 - 2 puff INHALATION Q6H PRN PRN 11/06/17 Dicyclomine HCl [Bentyl] 10 mg PO TIDAC 11/06/17 Levothyroxine [Synthroid] 50 mcg PO DAILY 11/06/17 Nabumetone [Relafen] 750 mg PO BID 11/06/17 Pantoprazole Sodium [Protonix] 40 mg PO DAILY 11/06/17 Quetiapine Fumarate [Seroquel] 50 mg PO DAILY 11/06/17 Sertraline HCl [Zoloft] 100 mg PO BID 11/06/17 Tizanidine HCl 4 mg PO TID 11/06/17 Primary Care Physician: Argentina Jeffrey MD [Primary Care Provider] - Please follow up with your Primary Care Physician in: 1-2 weeks Test Results: Test results from this visit will be discussed in further detail at your follow-up appointment, if applicable. Proposed Discharge Date: 11/08/17 11/08/17 1149 <Electronically signed by Gui MIDDLETON> Date Gui MIDDLETON CC: Argentina Jeffrey MD STOOL Observed: 11/07/2017 Status: F Source: [place] LACTOFERRIN/WBC 9:20 PM [facility] REPOSITORY Stool Lacto/WBC Normal Reference Range = Negative Fecal WBC Lactoferrin Positive: Fecal WBC Lactoferrin present Performed By: #### M100.0605 #### [facility] [address], [place], [address] Observed: 11/07/2017 Status: F Source: JEREMY CDIFF (MOLECULAR) 9:20 PM [facility] REPOSITORY Is the patient receiving laxatives? N New/unexplained onset of 3 or more stools in past 24 hrs? Y Cdiff-Molecular Normal Reference Range = Negative C. Diff DNA Negative- No toxigenic C. Diff DNA Detected NAAT METHOD Testing was performed using nucleic acid amplification Performed By: #### M100.6796 #### [facility] [address], [place], [address] Observed: 11/07/2017 Status: F Source: [place] ENTERIC PATHOGEN 9:20 PM [facility] PANEL STOOL REPOSITORY PANEL STOOL Normal Reference Range = Not Detected Not detected for Campylobacter group, Salmonella species, Shigella species, Vibrio Group, Yersinia enterocolitica, EHEC (Shiga Toxin 1, Shiga Toxin 2), Norovirus Gl/Gll, and Rotavirus A. Other common stool pathogens are not detected on this panel include: Aeromonas/Plesiomonas or parasites. Order testing for these organisms separately if suspected. This is an amplified DNA test which makes it both specific and sensitive. CAMPYLOBACTER Not Detected Salmonella Not Detected Shigella sp. Not Detected Shiga Toxin Not Detected Yersinia Not Detected VIBRIO Not Detected Norovirus Not Detected Rotavirus Not Detected Performed By: #### M100.637 #### [facility] [address] [facility] [place], [address] Observed: 11/07/2017 Status: F Source: [place] STOOL OCCULT BLOOD 12:30 PM [facility] IFOB REPOSITORY STOB iFOB Occult Blood Negative Performed By: #### M100.7900 #### [facility] [facility] [place], [address] STOOL Observed: 11/07/2017 Status: F Source: [place] LACTOFERRIN/WBC 12:30 PM [facility] REPOSITORY Stool Lacto/WBC Normal Reference Range = Negative Fecal WBC Lactoferrin Negative: No Fecal WBC Lactoferrin present Performed By: #### M100.0605 #### [facility] [address] [facility] [place], [address] CBC W/DIFF, AUTOMATED Collected: 11/07/2017 Status: F Source: DECATUR 6:05 AM [facility] REPOSITORY TYPE CODE TESTS RESULT OUT OF RANGE REFERENCE UNITS LAB L100.1000 4.4-11.0 K/mm3 Normal WBC 8.7 LAB L100.1200 4.6-6.2 M/mm3 Low RBC 3.82 LAB L100.1300 13.0-16.5 g/dl Low HGB 12.1 LAB L100.1400 40-54 % Low HCT 34.9 LAB L100.1500 80-94 fL Normal MCV 91.4 LAB L100.1600 27.0-32.0 pg Normal MCH 31.7 LAB L100.1700 32-36 g/gl Normal MCHC 34.7 LAB L100.1810 11.6-14.6 % Normal RDW CV 13.0 LAB L100.1820 35.1-43.9 fl Normal RDW SD 42.6 LAB L100.1900 150-450 K/mm3 Normal PLT 278 LAB L100.2000 6.2-12.0 fl Normal MPV 9.4 LAB L100.2100 47-70 % Normal NEUT% 68.8 LAB L100.2200 19-41 % Low LY% 17.0 LAB L100.2300 0-10 % Normal MONO% 9.7 LAB L100.2400 0-5 % Normal EO% 4.0 LAB L100.2500 0-1 % Normal BASO% 0.2 LAB L100.2550 0.0-0.9 % Normal IM GRAN % 0.300 Result Comment: IG% - Immature Granulocytes (promyelocytes, myelocytes and metamyelocytes) > 1% indicates that a LEFT SHIFT is Present. LAB L100.2620 2.0-7.7 X10 3/uL Normal Absolute Neut 6.0 LAB L100.2720 0.83-4.51 X10 3/ul Normal Absolute Lymph 1.48 Performed By: #### L100.0100 #### [facility] [address] [place], [address] BASIC METABOLIC Collected: 11/07/2017 Status: F Source: [place] PROFILE (BMP) 6:05 AM [facility] REPOSITORY TYPE CODE TESTS RESULT OUT OF RANGE REFERENCE UNITS LAB L501.0100 74-106 mg/dL Normal GLU 83 Result Comment: Please note revised GLUCOSE reference range effective 2017. LAB L501.1000 7-18 mg/dL Normal BUN 10 LAB L501.1100 0.70-1.30 mg/dL Normal CREAT,SERUM 0.85 Result Comment: The validity of the calculated GFR AND GFRAA in patients over 70 years has not been determined. Clinical correlation is essential. LAB L501.1110 >60 mL/min Normal EST GFR 106 Result Comment: Non- GFR Calc LAB L501.1115 >60 mL/min Normal EST GFR - AA 128 Result Comment: GFR Calc LAB L501.1255 ml/min Normal Estimated CRCL 119.28 LAB L501.1300 10-20 RATIO BUN/CRE Normal 11.8 LAB L501.2200 8.5-10 mg/dL .1 CA Normal 8.5 LAB L501.5300 136-14 mmol/L 5 NA Normal 144 LAB L501.5600 3.5-5. mmol/L 1 K Normal 4.0 LAB L501.5900 98-107 mmol/L CL Normal 107 LAB L501.6100 21.0-3 mmol/L 2.0 CO2 Normal 24.0 LAB L501.6200 5-15 GAP Normal 13 Performed By: #### L500.2500 #### [facility] [address], [place], [id number] LIVER PROFILE Collected: 11/07/2017 Status: F Source: JEREMY 6:05 AM [facility] REPOSITORY Order Comment: Comments: from blood in lab. TYPE CODE TESTS RESULT OUT OF RANGE REFERENCE UNITS LAB L501.1500 6.4-8.2 g/dL Normal T PROT 6.7 LAB L501.1800 3.2-5.0 g/dL Low ALB 3.0 LAB L501.1950 2.2-4.2 g/dL Normal GLOB 3.7 LAB L501.4100 15-37 U/L Normal AST 23 LAB L501.4305 45-117 U/L Normal ALK P 112 LAB L501.4405 16-61 U/L Normal ALT 33 LAB L501.4600 0.20-1.00 mg/dL Normal T BILI 0.50 LAB L501.4700 0.00-0.30 mg/dL Normal D BILI 0.15 Performed By: #### L500.3400 #### [facility] [address], [place], [id number] LIPASE Collected: 11/07/2017 Status: F Source: JEREMY 6:05 AM [facility] REPOSITORY Order Comment: Comments: from boold in lab. TYPE CODE TESTS RESULT OUT OF RANGE REFERENCE UNITS LAB L501.2450 73-393 U/L Normal LIPASE 121 Performed By: #### L501.2450 #### [facility] [address], [place], [address] THYROID STIM HORMONE Collected: 11/07/2017 Status: F Source: JEREMY (TSH) 6:05 AM [facility] REPOSITORY Order Comment: Comments: ok to add on TYPE CODE TESTS RESULT OUT OF RANGE REFERENCE UNITS LAB L501.9520 0.358-3.74 uIU/mL Normal TSH 1.53 Performed By: #### L501.9520 #### [facility] [address] [place], [address] LACTIC ACID Collected: 11/06/2017 Status: F Source: DECATUR 3:10 PM [facility] REPOSITORY TYPE CODE TESTS RESULT OUT OF RANGE REFERENCE UNITS LAB L503.6005 0.4-2.0 mmol/L Normal LACTIC ACID 0.8 Performed By: #### L503.6005 #### [facility] [address] [place], [address] HISTORY AND PHYSICAL Observed: 11/06/2017 Status: F Source: [place] EXAM 2:29 PM [facility] REPOSITORY [facility] Medical Records Department [address] [place] [address] History and Physical 11/06/17 1419 MR#: [id number] Acct: [id number] Name: ELSA LOUISE Rep #: [id number] : 1975 42 From: Claudio Garner DO PCP: Argentina Jeffrey MD Status: ADM IN Y Location: [place] [id number] Problem List (1) Intractable nausea and vomiting Status: Acute (2) Intractable diarrhea Status: Acute (3) SIRS (systemic inflammatory response syndrome) Status: Acute (4) Lactic acidosis Status: Acute (5) YAMILETH (acute kidney injury) Status: Acute History of Present Illness Date of Admission: 11/06/17 Chief Complaint: intractable nausea, vomiting and diarrhea The patient is a 42 year old M is with a one-month history of intractable nausea vomiting and diarrhea. Patient states that anything he eats he passes her right away with diarrhea. States that he is eating a lot but since he just passes it on. Also has intermittent nausea and vomiting. Patient was just concerned that this is been going on for a while and has had previous episodes that were similar to this. Patient presented to the emergency room and underwent a CAT scan that showed a solitary gallstone in the gallbladder neck but otherwise unremarkable. In the emergency room, patient received IV fluids, 12 mg of morphine and grams of Zofran. Patient denies any marijuana use, states that he does take Vicodin at night but does not use any other opiates. [] Past Medical History Past Medical History (Chronic Problems): Chronic Problems (Last Updated 07/01/17 @ 11:31 by Madiha Coley) Seasonal allergies (Chronic) Anxiety and depression (Chronic) Chronic bronchitis (Chronic) Thyroid activity decreased (Chronic) Obesity (BMI 30.0-34.9) (Chronic) Glucose intolerance (impaired glucose tolerance) (Chronic) Family history of diabetes mellitus (Chronic) Family history of coronary artery disease (Chronic) Family history of gastric carcinoma (Chronic) Father is at 42 years of age due to cancer Former smoker (Chronic) Quit 2010 Recovering alcoholic (Chronic) Quit drinking in 2010 Cholelithiasis (Chronic) Personal history of peptic ulcer disease (Chronic) Gastroesophageal reflux disease (Chronic) History of nephrolithiasis (Chronic) Osteoarthritis (Chronic) Medical History: Medical History (Last Reviewed 11/06/17 @ 14:22 by Claudio Garner DO) History of stomach ulcers (Acute) Z87.19 History of pneumonia (Acute) Z87.01 Seasonal allergies (Chronic) J30.2 Anxiety and depression (Chronic) F41.9, F32.9 Chronic bronchitis (Chronic) J42 Thyroid activity decreased (Chronic) E03.9 History of substance abuse (Acute) Z87.898 History of seizures (Acute) Z87.898 Allergies Penicillins Allergy (Verified 11/06/17 10:33) Anaphylaxis bezonates Allergy (Severe, Uncoded 11/06/17 10:33) Hives Home Medications: Ambulatory Orders Medication Instructions Recorded Lamotrigine [Lamotrigine] 100 mg PO BID 05/08/17 Albuterol Sulfate [Ventolin Hfa] 1 - 2 puff INHALATION Q6H PRN PRN 11/06/17 Dicyclomine HCl [Bentyl] 10 mg PO TIDAC 11/06/17 Surgical History: Surgical History (Last Reviewed 11/06/17 @ 14:22 by Claudio Garner DO) History of colonoscopy Z98.890 2017 History of endoscopy Z98.890 2017 Surgical History: - Psychiatric History: Depression Smoking Status: Former smoker Tobacco Use: Chew Alcohol: None Drugs: None - *Family History Maternal Family History: Family History (Last Reviewed 11/06/17 @ 14:22 by Claudio Garner DO) Father Cancer Myocardial infarction, Onset Age: 39 Seizures Mother Breast cancer History Items: Diabetes, Seizures Paternal Family History: Family History (Last Reviewed 11/06/17 @ 14:22 by Claudio Garner DO) Father Cancer Myocardial infarction, Onset Age: 39 Seizures Mother Breast cancer History Items: Cancer - Gastric cancer in his father who at the age of 42, Heart Disease Review of Systems Constitutional: Reports: Chills. Denies: Anorexia, Fever Eyes: Denies: Blurred vision, Double vision HEENT: Denies: Head Aches, Sinus Congestion, Sinus Drainage Cardiovascular: Denies: Chest Pain, Palpitations Respiratory: Denies: Cough, Shortness of breath at rest, Sputum production Gastrointestinal: Reports: Abdominal Pain, Diarrhea, Nausea, Vomiting Genitourinary: Denies: Dysuria Musculoskeletal: Denies: Joint Pain, Joint Tenderness Skin: Denies: Rash, Wounds Neurological: Denies: Numbness, Tingling, Focal weakness Psychiatric: Reports: Depression. Denies: Anxiety Hematologic/ Lymphatic: Reports: Easy Bruising. Denies: Easy Bleeding, Hx of blood clot Comment: All review of systems are negative except as mentioned in the history of present illness and the other review of systems. VTE Information - Inpt Only VTE Present on Admission: No VTE Mechan Device Prophylaxis: None VTE Pharm Prophylaxis ordered?: Yes Patient Problems: Active and Suspected Problems (Last Updated 07/01/17 @ 11:31 by Madiha Coley) Intractable nausea and vomiting (Acute) Intractable diarrhea (Acute) SIRS (systemic inflammatory response syndrome) (Acute) Lactic acidosis (Acute) YAMILETH (acute kidney injury) (Acute) - Physical Exam General: Alert, No apparent distress, - - Appears older than stated age HEENT: Atraumatic, Normocephalic, - - No icterus Oral: Moist Mucosa, No Gingival or Mucosal Lesions/ Ulcerations, - - Chewing tobacco noted on his teeth Neck: No Nodes, Thyroid Normal Size and Texture Lungs: Clear to auscultation, No rhonchi, No wheeze, Diminished Cardiovascular: Regular rate, Regular Rhythm, Normal S1, Normal S2, No murmurs Abdomen: Bowel Sounds Present, Soft, Non-Distended, Tender - Epigastrium Extremities: No edema, No Calf Tenderness Skin: No rashes, No breakdown Musculoskeletal: No Tenderness to Palpation of Joints or Extremities, No Muscle Wasting Neurological: Neuro grossly intact, Sensory exam intact to light touch and pain, Coordination normal Psych/Mental Status: Normal Affect, Appropriate Vital Signs Temp Pulse Resp BP Pulse Ox 36.6 C 79 16 123/88 H 97 11/06/17 10:31 11/06/17 13:27 11/06/17 13:27 11/06/17 13:27 11/06/17 13:27 Clinical Impression(s) from Imaging Studies Abdomen CT 11/06/17 11:27 IMPRESSION: Solitary gallstone in the gallbladder neck. Increased markings at the lung bases suggestive of scarring and/or linear atelectasis. Electronically Signed: Kyrie Alexis MD at 13:40 EDT Tel [phone], Service support , Laboratory Results - last 24 hr WBC 13.7 H Assessment/Plan All Active Problems (Last Updated 07/01/17 @ 11:31 by Madiha Coley) Intractable nausea and vomiting (Acute) Intractable diarrhea (Acute) SIRS (systemic inflammatory response syndrome) (Acute) Lactic acidosis (Acute) YAMILETH (acute kidney injury) (Acute) History of stomach ulcers (Acute) History of pneumonia (Acute) History of substance abuse (Acute) History of seizures (Acute) Colitis (Acute) Abdominal pain (Acute) Atypical chest pain (Acute) Vertigo (Acute) Migraine aura, persistent, intractable (Acute) Chest pain (Acute) Nonallopathic lesion-rib cage (Acute) Bulging lumbar disc (Acute) 1. Intractable nausea, vomiting and diarrhea * Unclear etiology at this time * Patient has had this before * Patient is not a diabetic * Patient does not smoke marijuana * Uses narcotics only once daily * Plan is a supportive management with IV fluids * Hold off on narcotics, and this was discussed with the patient and he was in agreement to this at this time * Start Reglan 5 mg IV every 6 hours for total of 4 doses to see if that helps * Follow-up stool studies are ordered in the emergency room * CAT scan unremarkable for any acute process. The stone in the gallbladder neck is not causing a problem at this time * Clear diet 2. Acute kidney injury * Baseline creatinine of 0.9 * Likely prerenal in etiology * IV fluids and reassess * Avoid nephrotoxic agents 3. Systemic inflammatory response syndrome * Unclear etiology but likely related with whatever maybe causing problem #1 * Supportive management * Follow-up infectious workup that has already been ordered 4. Lactic acidosis * Unclear etiology but likely probably related with the volume depletion * IV fluids * Reevaluate 6 hours after the previous lactic acid was drawn 5. Chronic pain * Patient has chronic back pain which is why he takes Vicodin * As above, will hold off on narcotics as this could potentially be causing issues regards to trackable nausea and vomiting this were to be due to gastroparesis 6. DVT prophylaxis with Lovenox Code Visit Inpatient E AND M: [id number] Init Hosp L3 11/06/17 1429 <Electronically signed by Claudio Garner DO> Date Claudio Garner DO Cosigner Signature: Date (if applicable) CC: Argentina Jeffrey MD; Claudio Garner DO Signed EMERGENCY DEPARTMENT Observed: 11/06/2017 Status: F Source: [place] SUMMARY 1:52 PM [facility] REPOSITORY [facility] Medical Records Department [address] [place] [address] Emergency Department Summary 11/06/17 1129 MR#: [id number] Acct: [id number] Name: ELSA LOUISE Rep #: [id number] : 1975 42 From: Altaf Ramirez MD PCP: Argentina Jeffrey MD Status: REG ER - ER Visit Summary Date of Service: 11/06/17 Chief Complaint: Generalized abdominal pain with diarrhea History of Present Illness: The patient is a 42 M who presents to the emergency department with increased abdominal pain and diarrhea. Diarrhea started 2 months ago. He is having 4-6 loose stools a day. Denies blood or mucus. There is no history of Crohn's disease ulcerative colitis. He has been scoped in the past. His PCP is Dr. Ryan. He does complain of thirst and dry mouth and lightheadedness. He denies fever or chills. He does report weight loss. He had a EGD and colonoscopy within the past year and was told it was unremarkable. He has been scoped by both Dr. Marinelli and a physician at the [facility]. Does not recall the name of the physician at the [facility]. He denies any change in the color of his urine. Denies dysuria, frequency, urgency or hematuria. Patient denies any ocular, visual or auditory symptoms. Patient denies any cardiac or respiratory symptoms. There is no history of trauma. There is no family history of inflammatory bowel disorder to patient's knowledge. Physical Examination: Patient vitals are remarkable for a heart rate of 120-130. He is pale diaphoretic and appears ill. HEENT is remarkable for dry mucosa. Heart is rapid and regular without murmur, gallop or rub. Lungs are clear to auscultation. Abdomen is tender with guarding and increased bowel sounds. There may be a small umbilical hernia. There is no inguinal lymphadenopathy or inguinal hernia. There is no CVA tenderness noted. There is no dermatologic lesions noted. Neuro exam is nonfocal. Test Results: White count is 13.7 thousand 76 segs no bands 12 lymphs. Basic metabolic panel is remarkable for potassium of 3.4 BUN/creatinine 22 1.41. Lactate is elevated 2.5. ABG reveals a respiratory alkalosis with increased AA gradient and base excess of -3. CT of the abdomen pelvis with p.o. contrast reveals no acute pathology. There is either atelectasis or scarring right left lower lung base. Emergency Department Course and Treatment: IV was established received 1 L normal saline. He has no urge to urinate after the end menstruation the 1 L. He initially was treated with Zofran and morphine IV push. A second dose of morphine was ordered since he still appears uncomfortable holding his abdomen. Appropriate blood work was obtained to evaluate patient's chronic diarrhea and concern for renal injury, hypokalemia and with weight loss need to rule out anemia etc. Lactate was obtained because of his tachypnea and the fact that he looks ill. Case was discussed with Dr. Mixon who is on-call for [facility] and no doc since he is a clinic clinic patient. She was informed patient's history physical. She would like a CAT scan. Because of the acute kidney injury CT was done with p.o. contrast only. Treatment Plan: Dr. patel informed me that he had similar presentation to 2015. Workup at that time was negative. He has had an additional workup since that was negative. She was made aware of the CAT scan results. She states she would be glad to see patient in consultation with the hospitalist. Disposition: [facility] observation Impression: 1. Abdominal pain with diarrhea uncertain etiology 2. Acute kidney injury 3. Lactic acidosis 4. Mild hypokalemia 5. Respiratory alkalosis This note was generated with [employer] dictation software. It may contain incorrect words, spelling, and punctuation that were not noted in review of the chart prior to signing ED Disposition - Plan for ED Patient: Chief Complaint: Abd Pain Referrals: Argentina Jeffrey MD [Primary Care Provider] - What to do if you have Problems For any increased pain, shortness of breath, bleeding, nausea or vomiting, chest pain, or any unexpected problems, contact your Primary Care Provider. Call [facility] ([phone]) or report to the closest Emergency Room. Call 911 if necessary. 11/06/17 1352 <Electronically signed by Altaf Ramirez MD> Date Altaf Ramirez MD Cosigner Signature (If Indicated): Date CC: Argentina Jeffrey MD ABDOMEN/PEL W ORAL CONT Observed: 11/06/2017 Status: F Source: [place] ONLY 11:27 AM [facility] REPOSITORY [facility] Imaging Services [address] [place] [address] Abdomen/Pel W ORAL Cont Only MR#: [id number] Acct: [id number] Name: ELSA LOUISE Rep #: [id number] : 1975 M 42 From: Kyrie Alexis MD PCP: Argentina Jeffrey MD Status: REG ER Study: Abdomen/Pel W ORAL Cont Only Date of Exam: 11/06/17 Exam# [id number] Ordering Dr: Altaf Ramirez MD STUDY: CT ABDOMEN AND PELVIS WITHOUT CONTRAST REASON FOR EXAM: Male, 42 years old. 2 month history of diarrhea. RADIATION DOSAGE (If Supplied By Facility): CTDIvol = ( 15.24 ) mGy, DLP = ( 853.16 ) mGycm TECHNIQUE: Transaxial images were obtained from the dome of the diaphragm to the symphysis pubis with oral contrast, and without intravenous contrast. Sagittal and coronal images were reconstructed. Individualized dose optimization techniques were used for this CT. COMPARISON: Comparison is made with prior study dated December 06, 2016. FINDINGS: Stable increased interstitial markings at the lung bases suggestive of bilateral bibasilar atelectasis and/or mild scarring. The visualized portions of the heart are within normal limits. Normal liver. There is a solitary gallstone in the gallbladder neck. Normal spleen. Normal pancreas. Normal bilateral adrenal glands. Normal right kidney. Normal left kidney. Normal visualized stomach. Normal small intestine. Normal colon. The appendix is visualized and appears normal. Normal abdominal aorta. Normal inferior vena cava. Normal retroperitoneum. Normal urinary bladder. There is a small umbilical hernia containing fat. Stable minimal depression of the superior endplate of the L2 vertebrae. CT/Abdomen/Pel W ORAL Cont Only IMPRESSION: Solitary gallstone in the gallbladder neck. Increased markings at the lung bases suggestive of scarring and/or linear atelectasis. Electronically Signed: Kyrie Alexis MD at 13:40 EDT Tel [phone], Service support , CC: Argentina Jeffrey MD; Altaf Ramirez MD Patient Account Liaison: Signed BLOOD GASES BY CPS Collected: 11/06/2017 Status: F Source: [place] 11:04 AM [facility] REPOSITORY TYPE CODE TESTS RESULT OUT OF RANGE REFERENCE UNITS LAB L9000.9990 Normal BLD GAS TYPE ART LAB L9001.1000 Normal SITE R Radial LAB L9001.1010 Normal LARISSA TEST POS LAB L9001.1050 O2 Normal Delivery Dev Room Air LAB L9001.1104 Normal Results To ED LAB L9001.1105 Normal Time Given 1059 LAB L9001.1110 7.35-7.45 High pH - I-STAT 7.55 LAB L9001.1210 35-45 mmHg Low pCO2 - ISTAT 22.0 LAB L9001.1310 75-100 mmHG Normal PO2 I-STAT 76 LAB L9001.2300 22-26 mmol/L Low HCO3 ISTAT 19.2 LAB L9001.2400 -2 to +2 mmol/L Low BE ISTAT -3 LAB L9001.2415 mmol/L Normal TOTAL CO2 20 ISTAT LAB L9001.2425 95-99 % Normal SO2 ISTAT 97 Performed By: #### L9000.0800 #### [facility] Point of Care [address] [place] [address] CBC W/DIFF, AUTOMATED Collected: 11/06/2017 Status: F Source: [place] 10:45 AM [facility] REPOSITORY TYPE CODE TESTS RESULT OUT OF RANGE REFERENCE UNITS LAB L100.1000 4.4-11.0 K/mm3 High WBC 13.7 LAB L100.1200 4.6-6.2 M/mm3 Low RBC 4.54 LAB L100.1300 13.0-16.5 g/dl Normal HGB 14.1 LAB L100.1400 40-54 % Low HCT 39.9 LAB L100.1500 80-94 fL Normal MCV 87.9 LAB L100.1600 27.0-32.0 pg Normal MCH 31.1 LAB L100.1700 32-36 g/gl Normal MCHC 35.3 LAB L100.1810 11.6-14.6 % Normal RDW CV 12.9 LAB L100.1820 35.1-43.9 fl Normal RDW SD 41.9 LAB L100.1900 150-450 K/mm3 Normal PLT 318 LAB L100.2000 6.2-12.0 fl Normal MPV 9.3 LAB L100.2100 47-70 % High NEUT% 75.8 LAB L100.2200 19-41 % Low LY% 12.3 LAB L100.2300 0-10 % High MONO% 10.1 LAB L100.2400 0-5 % Normal EO% 1.5 LAB L100.2500 0-1 % Normal BASO% 0.2 LAB L100.2550 0.0-0.9 % Normal IM GRAN % 0.100 Result Comment: IG% - Immature Granulocytes (promyelocytes, myelocytes and metamyelocytes) > 1% indicates that a LEFT SHIFT is Present. LAB L100.2620 2.0-7.7 X10 3/uL High Absolute Neut 10.4 LAB L100.2720 0.83-4.51 X10 3/ul Normal Absolute Lymph 1.68 Performed By: #### L100.0100 #### [facility] [address] [place], [place], [address] BASIC METABOLIC Collected: 11/06/2017 Status: F Source: [place] PROFILE (BMP) 10:45 AM [facility] REPOSITORY TYPE CODE TESTS RESULT OUT OF RANGE REFERENCE UNITS LAB L501.0100 74-106 mg/dL Normal GLU 101 Result Comment: Fasting Glucose result from 100 to 125 mg/dL suggests IMPAIRED HOMEOSTASIS per A.D.A. criteria. Please note revised GLUCOSE reference range effective 2017. LAB L501.1000 7-18 mg/dL High BUN 22 LAB L501.1100 0.70-1.30 mg/dL High CREAT,SERUM 1.41 Result Comment: The validity of the calculated GFR AND GFRAA in patients over 70 years has not been determined. Clinical correlation is essential. LAB L501.1110 >60 mL/min Low EST GFR 59 Result Comment: Non- GFR Calc LAB L501.1115 >60 mL/min Normal EST GFR - AA 72 Result Comment: GFR Calc LAB L501.1255 ml/min Normal Estimated CRCL 71.91 LAB L501.1300 10-20 RATIO Normal BUN/CRE 15.6 LAB L501.2200 8.5-10 mg/dL Normal .1 CA 9.6 LAB L501.5300 136-14 mmol/L Normal 5 NA 139 LAB L501.5600 3.5-5. mmol/L Low 1 K 3.4 LAB L501.5900 98-107 mmol/L Normal CL 103 LAB L501.6100 21.0-3 mmol/L Normal 2.0 CO2 24.0 LAB L501.6200 5-15 Normal GAP 12 Performed By: #### L500.2500 #### [facility] [address] [place], [address] LACTIC ACID Collected: 11/06/2017 Status: F Source: [place] 10:45 AM [facility] REPOSITORY Order Comment: Yes/No query for Sepsis Lactate Rule Y TYPE CODE TESTS RESULT OUT OF REFERENCE UNITS RANGE LAB L503.6005 0.4-2.0 mmol/L High LACTIC ACID 2.5 Result Comment: Critical Result(s) Called at: 11:20:02 11/06/2017 by: Asmita Woods to LSparr Performed By: #### L503.6005 #### [facility] [address] [place], [address] OT FUNCTIONAL CAPACITY Observed: 09/04/2017 Status: F Source: [place] EVAL 2:55 PM [facility] REPOSITORY [facility] Occupational Therapy [facility] [address] [place] [address]. [address] [place], [place] [address] Fax REHABILITATION SERVICES INITIAL EVALUATION MR#: [id number] Acct: [id number] Name: ELSA LOUISE Rep #: [id number] : 1975 42 From: Doris Friend Referring Dr.: Fabian Osuna MD Status: REG RCR Insurance: [facility] Eval Date: SELF PAY INSURANCE HP OT Functional Capacity Eval - Reference Duration Sedentary Sedentary Light Light Light Medium Medium Medium Heavy V yesenia Heavy Heavy - Patient Information Height: 5 ft 10 in Weight:: 99.79 kg Hand Dominance: R handed - Medical History Medical History Including Restrictions: 1993 pt fell off scaffle at work 20 ft and hurt back. Pt has medical hx; migraines, depression, Lipoma, abdominal pain, epigastric, weightloss, seizures, mild asthma, irritable IBS, GERD, chr low back pain with sciatica, hypothyroidism - Diagnoses Diagnoses: 1993 pt fell of scaffle at work 20 ft and hurt back. Pt has medical hx; migraines, depression, Lipoma, abdominal pain, epigastric, weightloss, seizures, mild asthma, irritable IBS, GERD, chr low back pain with sciatica, hypothyroidism - Symptoms Symptoms: pt states he just hurts constantly, numb L leg, pt states feels like someone is cutting him with knife constantly - Pain Pain: 9/10 lower back pain - Work History Work History: Pt unemployed at this time. [employer] 3 wks June/July 2017, [employer] for 1 wk 2017, [employer] 2016, [employer] [phone], [employer] Jobs here and there in between per pt and spouse. - ADLS ADLS: Pt lives in 2 story apartment with and 1 yr old son, no steps to enter. Sleeps in living room main level on a mattress on floor. Bathroom upstairs only for bathing, tub/shower no DME/AE, half bath downstairs with std toilet seat that he uses for toileting and grooming tasks. Not driving. Spouse completes all IADL's. Pt requires assist with ADL tasks secondary to increased back pain. Pt unable to read or write other than signing his name. He is R hand dominent. - Physical Examination ROM: BUE AROM Shoulder flexion 100', BUE internal/external rotation WFL, BUE horizontal abduction WFL, BUE elbow flexion/extension WFL. BLE ROM WFL. Strength: Generalized MMT, RUE 4+/5, LUE 4/5, L LE 3+/5, R LE 4/5 Right Fisher Line Strength Average: 76.66 Left Fisher Line Strength Average: 46.66 Right Lateral Pinch Average: 11.33 Left Lateral Pinch Average: 7.66 Right Tripod Pinch Average: 7.33 Left Tripod Pinch Average: 6.00 Sensation: Pt states numbness L shoulder down to fingertips, numbness L leg down to toes. Fine Motor: Pt states sometimes has difficulty with buttoning buttons and zippers. Pt able to unbutton/button 2 medium sized buttons during evaluation without difficulty. Pt states no problems with using utensils for self feeding. Balance: Pt states 2 wks ago had fall at home, in the living room fell and lost his balance. Spouse present for evaluation and states that she usually walks with him holding onto his belt loop if he needs it or else close by him for support. He will sometimes walk using cart for support if needed. Pt and spouse states no walker or canes. Pt stated spouse does all shopping and he did have an order for a w/c at one time which helped. - Non Material Handling Activities Bending: pt states 10/10 pain in back. Pt declined to attempt bending, squatting and kneeling or reaching out and up at this time. Pt stated unable to complete these activities secondary to increased back pain. Walking: Pt tolerated 2 minutes of the 15 minute walking test before having to sit down secondary to pain in back. [facility] the evaluation and when leaving the evaluation. Slow moving, extra time needed when leaving secondary to increased back pain. Pt able to walk w/o assist to steps 140ft one standing rest break needed no support. After completing 3 steps he required seated rest break then walked 140ft back to desk pushing alfredo modified stroller cart for increased support over half of the way back to occupational therapists desk with one standing rest break. Standing: Pt able to stand upright to complete BLE ROM and marching. Pt able to stand upright for walking. Pt stood during walking test for 2 minutes. Sitting: Pt able to sit upright in chair for 30 minutes without need to get up and walk around before starting physical examination part of evaluation. Climbing Stairs: Pt able to climb up/down 3 steps using bilateral handrails independently than sat in chair to rest for a few minutes. Pt stated that's all the steps he could handle because of the back pain. Spouse stated he will scoot up the steps at home if he can't make it all the way walking up the steps. - Dynamic Occasional Lifting Capacity Floor Lift: Pt declined to attempt any lifts. Pt states unable to complete any lifts secondary to back pain and not even able to carry his 1yr old son at this time. <Electronically signed by Doris Friend > 09/04/17 1455 CC: No Primary Care Physician; Fabian Osuna MD ESA Signed For Medicare only, by signing this I certify the plan of care. Physicians Signature Date CNOV Observed: 08/27/2017 Status: COMPLETED Source: [place] 3:[address] [facility] REPOSITORY Office Visit (FAMPWS) ELSA LOUISE ([id number]) 1975 M Date Time Provider Department 08/27/17 3:00 PM AVIVA HORN ([facility]) FAMWS During your visit today, we recorded the following information about you: Pulse Respiration Blood pressure Weight 60/minute 18/minute 110/72 104.4 kg Aviva Horn APRN.CNP 08/29/2017 2:45 PM Signed 08/27/2017 Patient presents with: Refill Request SUBJECTIVE: This is a 42 year old that is here today for Above Complaints. Is needing refill for Lamictal. He normally sees Dr. Wilson [facility], however patient is reporting he was told he would need to get these medications refilled by family physician. Reports last seizure was 2 weeks ago and he did not go to the hospital for this. Per patient report he brought himself out of it. He denies he was incontinent of urine or fell. He is out of Lamictal today. Denies headaches, visual disturbances, slurred speech, confusion, extremity weakness, numbness, or tingling. Patient is requesting me write a letter for him stating he is unable to work until he sees mental health program specialist. He is currently seeing pain management and reports they will not give him a letter stating this. He reports he is not working but needs this letter to give to child support agency or he will get arrested. Requesting order for sleep study. reports he snores and she has witnessed him have events of not breathing. Patient reports he feels fatigue during the day. PAST MEDICAL HISTORY Diagnosis Date - Asthma - Depression - Epilepsy (HCC) - GERD (gastroesophageal reflux disease) - Heart attack (HCC) 2011 and 2013 from Cocaine abuse - Migraines - Rib fracture 11/2010 - Seizures ([facility]) - Snoring - Syncope ALLERGIES Keppra [Levetiracetam]; Penicillins; Percocet [Oxycodone-Acetaminophen]; Tessalon [Benzonatate] MEDICATIONS Current Outpatient Prescriptions: sertraline (ZOLOFT) 50 mg tablet Take 1 tablet by mouth once daily. QUEtiapine XR (SEROQUEL XR) 150 mg Tb24 150 mg at bedtime albuterol HFA (VENTOLIN HFA) 90 mcg/actuation inhaler Inhale 2 Puffs as instructed every 4 hours as needed. For wheezing/shortness of breath. pantoprazole DR (PROTONIX) 40 mg tablet Take 1 tablet by mouth once daily. levothyroxine (SYNTHROID) 50 mcg tablet Take 1 tablet by mouth once daily. dicyclomine (BENTYL) 10 mg capsule Take 1 capsule by mouth before meals and at bedtime. lamoTRIgine (LAMICTAL) 100 mg tablet Take 1 tablet by mouth twice daily. SUMAtriptan (IMITREX) 50 mg tablet Take one pill at onset of headache, may repeat in 2 hours if needed No current facility-administered medications for this visit. Medications and allergies reviewed by this provider. SOCIAL HISTORY Social History Marital status: Spouse name: Shannen Years of education: Number of children: 3 Occupational History Occupation Employer Comment Unemployed Social History Main Topics Smoking status: Former Smoker Packs/day: 0.00 Years: 5.00 Types: Cigarettes Quit date: 01/16/1993 Smokeless tobacco: Current User Types: Chew Comment: chewing only Alcohol use: Yes 0.6 oz/week Cans of beer: 1 per week Comment: Occasional beer, once/week Drug use: No Comment: history of cocaine abuse in past. Last used in 2013 Sexual activity: Yes Partners with: Female REVIEW OF SYSTEMS GENERAL: No weight loss, malaise or fevers RESPIRATORY: Negative for cough, hemoptysis, wheezing, COPD, dyspnea or shortness of breath CARDIOVASCULAR: Negative for chest pain, leg swelling, hypertension, CHF or palpitations NEURO: SEE HPI All other reviewed and negative other than HPI. OBJECTIVE: BP 110/72 (BP Site: Left Arm, BP Position: Sitting, BP Cuff Size: Large Adult) Pulse 60 Resp 18 Wt 104.4 kg (230 lb 1.9 oz) BMI 37.14 kg/m? . Vital signs reviewed by this provider. APPEARANCE Well appearing, alert, in no acute distress, well- hydrated, well nourished. EYES PERRLA, conjunctiva and sclera normal. NECK Supple, no adenopathy; thyroid symmetric, normal size, no bruits HEART RRR with normal S1 and S2, no murmurs, no gallops, no JVD appreciated LUNG clear to auscultation EXTREMITIES Extremities normal, No deformities, No skin discoloration, No edema and Normal pulses bilaterally. NEURO Awake, alert and oriented x 3, Cranial nerves II-XII grossly intact, Reflexes symmetrical, Normal gait, No involuntary motions. and negative findings: speech normal, mental status intact, cranial nerves 2-12 intact, gait, including heel, toe, and tandem walking normal, muscle tone normal, muscle strength normal, reflexes normal and symmetric, plantar response downgoing bilaterally SKIN Skin color, texture, turgor normal, no suspicious rashes or lesions to exposed skin ASSESSMENT/PLAN: 1. Seizures (HCC) - ICD9: 780.39, ICD10: R56.9 (primary diagnosis) - spoke to [facility]- patient has been dismissed from practice d/t multiple no shows. - will refill Lamictal until can follow with neurology- discussed it is important to make and keep appointment, also reminded he has a establish care appointment with Dr. Muniz in November and he needs to show to this appointment - no red flag exam findings - red flag symptoms discussed, patient verbalizes understanding - CONSULT TO NEUROLOGY - PRIMARY CARE SOCIAL WORK CONSULT- patient requested through questionnaire - follow-up in November, sooner if needed, to ER with red flag exam findings 2. Snoring - ICD9: 786.09, ICD10: R06.83 - possible sleep apnea - POLYSOMNOGRAM (PSG)/HOME SLEEP APNEA TESTING (HSAT) 3. Daytime sleepiness - ICD9: 780.54, ICD10: R40.0 - plan as above 4. Need for vaccination - ICD9: V05.9, ICD10: Z23 - TETANUS/DIPTHERIA BOOSTER (OVER 7), PF NICOLE Chicas Podlogbjorn, AWAKE OVERNIGHT MONITOR.SECURITY SERVICES SPECIALIST Prescription instructions reviewed with patient as applicable. Patient advised if symptoms do not improve or if symptoms worsen sooner, to contact their primary care physician. Potential red flag symptoms discussed with the patient. Reviewed appropriate action plan to take if red flag symptoms occur. Patient agreeable to treatment plan. Referring Provider: SELF [[id number]] Allergies As of Date: 08/27/2017 Noted Allergy Reaction KEPPRA (LEVETIRACETAM) 08/02/2017 4 - Hives PENICILLINS 01/16/2011 14 - Other: See Comments Comments: States feel like something is crawling under his skin PERCOCET (OXYCODONE-ACETAMINOPHEN)01/31/2011 9 - Itching TESSALON (BENZONATATE) 08/02/2017 10 - Anaphylaxis Date Reviewed: 08/27/2017 Reviewed by: Marely Moore LPN - Fully Assessed Reason for Visit: Refill Request [94] Primary Visit Diagnosis:Seizures (HCC) [R56.9] Other Visit Diagnoses:Snoring [R06.83] Daytime sleepiness [R40.0] Need for vaccination [Z23] Order(s):CONSULT TO NEUROLOGY [9019] Order #: [id number]: 1 TETANUS/DIPTHERIA BOOSTER (OVER 7), PF IM [[id number]] Order #: [id number] POLYSOMNOGRAM (PSG)/HOME SLEEP APNEA TESTING (HSAT) [0850759] Order #: [id number] FUTURE lamoTRIgine (LAMICTAL) 100 mg tabletTake 1 tablet by mouth twice daily.Disp: 60 tabletRfl: 3 PRIMARY CARE SOCIAL WORK CONSULT [2907851] Order #: [id number]: 1 Prescriptions as of 08/27/2017 Sig: SERTRALINE 50 MG TABLET Take 1 tablet by mouth once d* QUETIAPINE ER 150 MG TABLET,E* 150 mg at bedtime ALBUTEROL SULFATE HFA 90 MCG/* Inhale 2 Puffs as instructed * PANTOPRAZOLE 40 MG TABLET,DEL* Take 1 tablet by mouth once d* LEVOTHYROXINE 50 MCG TABLET Take 1 tablet by mouth once d* DICYCLOMINE 10 MG CAPSULE Take 1 capsule by mouth befor* LAMOTRIGINE 100 MG TABLET Take 1 tablet by mouth twice * SUMATRIPTAN 50 MG TABLET Take one pill at onset of hea* Problem List As Of Date 08/27/2017 Noted Resolved Depression [F32.9] INVALID FOR* Lipoma [D17.9] INVALID FOR* Abdominal pain, epigastric [R10.13] INVALID FOR* Weight loss [R63.4] INVALID FOR* Migraine without status migrainosus, not intrac*INVALID FOR* Lipoma of torso [D17.1] INVALID FOR* Seizures (HCC) [R56.9] INVALID FOR* Noncompliance with treatment regimen [Z91.19] INVALID FOR* Abnormal intentional weight loss [R63.4] INVALID FOR* More... Abdominal discomfort, epigastric [R10.13] INVALID FOR* More... Mild intermittent asthma, uncomplicated [J45.20]INVALID FOR* Irritable bowel syndrome with both constipation*INVALID FOR* GERD with esophagitis [K21.0] INVALID FOR* Chronic midline low back pain with sciatica [M5*INVALID FOR* Hypothyroidism, acquired [E03.9] INVALID FOR* Prescriptions ordered this encounter Disp Refills Start End LAMOTRIGINE 100 MG TABLET 60 t* 3 08/27/2017 08/27/2017 Route: ORAL Sig: Take 1 tablet by mouth twice daily. Disc: Changing Therapy/Dosage Form LAMOTRIGINE 100 MG TABLET 60 t* 3 08/27/2017 Route: ORAL Sig: Take 1 tablet by mouth twice daily. Medications Discontinued During This Encounter lamoTRIgine (LAMICTAL) 100 mg tablet 12/19/2016 08/27/2017 Class: Historical Med Si mg as needed. Disc: Changing Therapy/Dosage Form lamoTRIgine (LAMICTAL) 100 mg tablet 08/02/2017 08/27/2017 Class: Med Update Route: ORAL Sig: Take 1 tablet by mouth twice daily. Disc: Changing Therapy/Dosage Form lamoTRIgine (LAMICTAL) 100 mg tablet 60 t* 3 08/27/2017 08/27/2017 Route: ORAL Sig: Take 1 tablet by mouth twice daily. Disc: Changing Therapy/Dosage Form Follow-up and Disposition History Recorded Encounter Status:Closed by PODLOGARAVIVA CNP on 08/29/17 PROGRESS Observed: 08/27/2017 Status: COMPLETED Source: [place] 2:33 PM [facility] REPOSITORY HNO ID: [id number] Author: Aviva Rolon) Podlogar Service: (none) Author Type: Nurse Practitioner Type: Progress Notes Filed: 08/29/2017 2:45 PM Note Text: 08/27/2017 Patient presents with: Refill Request SUBJECTIVE: This is a 42 year old that is here today for Above Complaints. Is needing refill for Lamictal. He [facility] [place], however patient is reporting he was told he would need to get these medications refilled by family physician. Reports last seizure was 2 weeks ago and he did not go to the hospital for this. Per patient report he brought himself out of it. He denies he was incontinent of urine or fell. He is out of Lamictal today. Denies headaches, visual disturbances, slurred speech, confusion, extremity weakness, numbness, or tingling. Patient is requesting me write a letter for him stating he is unable to work until he sees mental health program specialist. He is currently seeing pain management and reports they will not give him a letter stating this. He reports he is not working but needs this letter to give to child support agency or he will get arrested. Requesting order for sleep study. reports he snores and she has witnessed him have events of not breathing. Patient reports he feels fatigue during the day. PAST MEDICAL HISTORY Diagnosis Date - Asthma - Depression - Epilepsy ([facility]) - GERD (gastroesophageal reflux disease) - Heart attack ([facility]) 2011 and 2013 from Cocaine abuse - Migraines - Rib fracture 11/2010 - Seizures ([facility]) - Snoring - Syncope ALLERGIES Keppra [Levetiracetam]; Penicillins; Percocet [Oxycodone-Acetaminophen]; Tessalon [Benzonatate] MEDICATIONS Current Outpatient Prescriptions: sertraline (ZOLOFT) 50 mg tablet Take 1 tablet by mouth once daily. QUEtiapine XR (SEROQUEL XR) 150 mg Tb24 150 mg at bedtime albuterol HFA (VENTOLIN HFA) 90 mcg/actuation inhaler Inhale 2 Puffs as instructed every 4 hours as needed. For wheezing/shortness of breath. pantoprazole DR (PROTONIX) 40 mg tablet Take 1 tablet by mouth once daily. levothyroxine (SYNTHROID) 50 mcg tablet Take 1 tablet by mouth once daily. dicyclomine (BENTYL) 10 mg capsule Take 1 capsule by mouth before meals and at bedtime. lamoTRIgine (LAMICTAL) 100 mg tablet Take 1 tablet by mouth twice daily. SUMAtriptan (IMITREX) 50 mg tablet Take one pill at onset of headache, may repeat in 2 hours if needed No current facility-administered medications for this visit. Medications and allergies reviewed by this provider. SOCIAL HISTORY Social History Marital status: Spouse name: Shannen Years of education: Number of children: 3 Occupational History Occupation Employer Comment Unemployed Social History Main Topics Smoking status: Former Smoker Packs/day: 0.00 Years: 5.00 Types: Cigarettes Quit date: 01/16/1993 Smokeless tobacco: Current User Types: Chew Comment: chewing only Alcohol use: Yes 0.6 oz/week Cans of beer: 1 per week Comment: Occasional beer, once/week Drug use: No Comment: history of cocaine abuse in past. Last used in 2013 Sexual activity: Yes Partners with: Female REVIEW OF SYSTEMS GENERAL: No weight loss, malaise or fevers RESPIRATORY: Negative for cough, hemoptysis, wheezing, COPD, dyspnea or shortness of breath CARDIOVASCULAR: Negative for chest pain, leg swelling, hypertension, CHF or palpitations NEURO: SEE HPI All other reviewed and negative other than HPI. OBJECTIVE: BP 110/72 (BP Site: Left Arm, BP Position: Sitting, BP Cuff Size: Large Adult) Pulse 60 Resp 18 Wt 104.4 kg (230 lb 1.9 oz) BMI 37.14 kg/m? . Vital signs reviewed by this provider. APPEARANCE Well appearing, alert, in no acute distress, well-hydrated, well nourished. EYES PERRLA, conjunctiva and sclera normal. NECK Supple, no adenopathy; thyroid symmetric, normal size, no bruits HEART RRR with normal S1 and S2, no murmurs, no gallops, no JVD appreciated LUNG clear to auscultation EXTREMITIES Extremities normal, No deformities, No skin discoloration, No edema and Normal pulses bilaterally. NEURO Awake, alert and oriented x 3, Cranial nerves II-XII grossly intact, Reflexes symmetrical, Normal gait, No involuntary motions. and negative findings: speech normal, mental status intact, cranial nerves 2-12 intact, gait, including heel, toe, and tandem walking normal, muscle tone normal, muscle strength normal, reflexes normal and symmetric, plantar response downgoing bilaterally SKIN Skin color, texture, turgor normal, no suspicious rashes or lesions to exposed skin ASSESSMENT/PLAN: 1. Seizures (HCC) - ICD9: 780.39, ICD10: R56.9 (primary diagnosis) - spoke to [facility]- patient has been dismissed from practice d/t multiple no shows. - will refill Lamictal until can follow with neurology- discussed it is important to make and keep appointment, also reminded he has a establish care appointment with Dr. Muniz in November and he needs to show to this appointment - no red flag exam findings - red flag symptoms discussed, patient verbalizes understanding - CONSULT TO NEUROLOGY - PRIMARY CARE SOCIAL WORK CONSULT- patient requested through questionnaire - follow-up in November, sooner if needed, to ER with red flag exam findings 2. Snoring - ICD9: 786.09, ICD10: R06.83 - possible sleep apnea - POLYSOMNOGRAM (PSG)/HOME SLEEP APNEA TESTING (HSAT) 3. Daytime sleepiness - ICD9: 780.54, ICD10: R40.0 - plan as above 4. Need for vaccination - ICD9: V05.9, ICD10: Z23 - TETANUS/DIPTHERIA BOOSTER (OVER 7), PF IM Aviva Podlogar, AWAKE OVERNIGHT MONITOR.SECURITY SERVICES SPECIALIST Prescription instructions reviewed with patient as applicable. Patient advised if symptoms do not improve or if symptoms worsen sooner, to contact their primary care physician. Potential red flag symptoms discussed with the patient. Reviewed appropriate action plan to take if red flag symptoms occur. Patient agreeable to treatment plan. CNCO Observed: 08/23/2017 Status: COMPLETED Source: [place] 12:00 AM [facility] REPOSITORY Letter Text Elsa Louise August 23, 2017 [facility] [address] [facility]. [place], [place] [address] 08/23/2017 [facility]# [id number] Elsa Louise [address] [facility] [address] Dear Mr. Louise: We have been unsuccessful in reaching you by phone after several attempts. Please call our office at for further information on Lamictal refill denial. Thank you. Sincerely, Javi Seth MD/Aparna Campos LPN SPINE LUMBAR Observed: 08/17/2017 Status: F Source: [place] (ROUTINE) 8:59 AM [facility] REPOSITORY [facility] Imaging Services [address] [place] [address] Spine Lumbar (Routine) MR#: [id number] Acct: [id number] Name: ELSA LOUISE Rep #: [id number] : 1975 M 42 From: Pacheco Mireles MD PCP: Care Physician, No Primary Status: REG CLI Study: Spine Lumbar (Routine) Date of Exam: 08/17/17 Exam# [id number] Ordering Dr: Fabian Osuna MD STUDY: MRI LUMBAR SPINE WITHOUT CONTRAST REASON FOR EXAM: Male, 42 years old. Low back pain radiating to the left leg TECHNIQUE: Standardized fat and water weighted pulse sequences were obtained in the sagittal and axial planes. COMPARISON: X-ray 01/18/2016 FINDINGS: T12-L1: Normal endplates. Normal disc height, hydration and morphology. Normal bilateral facet joints. Normal central canal and bilateral lateral recesses. Normal bilateral intervertebral neural foramina. Normal lumbar lordosis. There is no substantial scoliosis. Normal conus medullaris that terminates at the T12-L1 level. L1-2: There is disc desiccation (image 7/13 sagittal T2). L2-3: Normal endplates. Normal disc height, hydration and morphology. Normal bilateral facet joints. Normal central canal and bilateral lateral recesses. Normal bilateral intervertebral neural foramina. L3-4: Normal endplates. Normal disc height, hydration and morphology. Normal bilateral facet joints. Normal central canal and bilateral lateral recesses. Normal bilateral intervertebral neural foramina. L4-5: Normal endplates. Normal disc height, hydration and morphology. Normal bilateral facet joints. Normal central canal and bilateral lateral recesses. Normal bilateral intervertebral neural foramina. L5-S1: There is disc desiccation and disc bulge (image 7/13 sagittal T2). There is narrowing of the neural foramina, predominating on the left (image 2, 10 sagittal T1). Normal visualized sacral ala. Normal visualized paraspinous soft tissue structures. MRI/Spine Lumbar (Routine) IMPRESSION: Degenerative disc bulge, L5-S1, with narrowing of the neural foramina, predominating on the left Electronically Signed: Pacheco Mireles MD at 11:37 EDT Tel , Service support , CC: No Primary Care Physician; Fabian Osuna MD Patient Account Liaison: Signed TSH Collected: 08/16/2017 Status: F Source: [place] 4:00 PM [facility] REPOSITORY TYPE CODE TESTS RESULT OUT OF RANGE REFERENCE UNITS LAB TSH 0.400-5.500 uU/mL TSH 2.460 Performed By: #### TSH, FT4, T3 #### [place] [address] FREE T4 Collected: 08/16/2017 Status: F Source: [place] 4:[address] [facility] REPOSITORY TYPE CODE TESTS RESULT OUT OF RANGE REFERENCE UNITS LAB FT4 0.9-1.7 ng/dL Free T4 1.2 Performed By: #### TSH, FT4, T3 #### [place] [address] T3 Collected: 08/16/2017 Status: F Source: [facility] 4:00 PM [facility] [place] REPOSITORY TYPE CODE TESTS RESULT OUT OF RANGE REFERENCE UNITS LAB T3 79-165 ng/dL T3 110 Performed By: #### TSH, FT4, T3 #### [place] [address] TSH Collected: 08/02/2017 Status: F Source: [place] 3:[address] [facility] REPOSITORY TYPE CODE TESTS RESULT OUT OF RANGE REFERENCE UNITS LAB TSH 0.400-5.500 uU/mL Low TSH 0.316 Performed By: #### TSH #### [place] [address] PROGRESS Observed: 08/02/2017 Status: COMPLETED Source: [place] 3:15 PM [facility] REPOSITORY HNO ID: [id number] Author: Aviva (Dude Ranch Manager) Podlogar Service: (none) Author Type: Nurse Practitioner Type: Progress Notes Filed: 08/02/2017 4:09 PM Note Text: 08/02/2017 Patient presents with: Rx Refills SUBJECTIVE: This is a 42 year old that is here today for Above Complaints. Last office visit was 08/30/2016. 1. Asthma: Having some intermittent wheezing. No hospitilaizations related to asthma . Has not had albuterol inhaler for some time. Reports he has asthma since childhood 2. GERD: Taking Protonix which helps control his reflux. No breakthrough symptoms. Hospitalized in November at [facility] for colitis. 3. Hypothyroidism: Has been out of synthyroid since December of last year. Positive for dry skin, thinning hair, and weight gain. 4.IBS: Has bouts of alternating diarrhea and constipation. Saw gastro in October of 2017 and had EGD and colonscopy. See results below. Taking bentyl which helps abdominal cramping. recommended he get repeat colonoscopy in 5 years. 5. Migraines: Getting once a month. Imitrex breaks them. Positive for auras, and photophobia. No nausea, vomiting. Change in frequency and intensity. 6. Seizures: Falls with Dr. Wilson for this. Last seizure yesterday. Patient reports he notified Dr. Wilson of this. Patient's reports I was able to get him out of it. 7. Depression: Goes to counseling center and his medications are managed through them. Denies SI. 8. Chronic back pain: Follows with Dr. Tavares. Jeremy [facility] Gastrointestinal Endoscopy Patient Name: Elsa Louise Procedure Date: 11/13/2016 12:42 PM Date of : 1975 Admit Type: Ambulatory Age: 41 Gender: Male Note Status: Finalized Sedation Initiated: ] PM ?1251 pm Procedure: ?Upper GI endoscopy Indications: ?Failure to thrive, Weight loss Providers: ?Elsa Zhu MD Patient Profile: ? ? ?This is a 41 year old male. Refer to note in patient ? chart for documentation of history and physical. Referring Physician: ?Kaleb Drummond MD Medicines: ?Midazolam 6 mg IV, Fentanyl 100 micrograms IV, ? Diphenhydramine 50 mg IV Complications: ?No immediate complications. Requesting Provider: Procedure: ?Pre-Anesthesia Assessment: ? - Prior to the procedure, a History and Physical was ? performed, and patient medications and allergies were ? reviewed. The patient is competent. The risks and ? benefits of the procedure and the sedation options and ? risks were discussed with the patient. All questions ? were answered and informed consent was obtained. ? Patient identification and proposed procedure were ? verified by the physician and the nurse in the ? procedure room. Mental Status Examination: alert and ? oriented. CV Examination: normal. Prophylactic ? Antibiotics: The patient does not require prophylactic ? antibiotics. Prior Anticoagulants: The patient has ? taken no previous anticoagulant or antiplatelet agents. ? ASA Grade Assessment: III - A patient with severe ? systemic disease. After reviewing the risks and ? benefits, the patient was deemed in satisfactory ? condition to undergo the procedure. The anesthesia plan ? was to use moderate sedation / analgesia (conscious ? sedation). Immediately prior to administration of ? medications, the patient was re-assessed for adequacy ? to receive sedatives. The heart rate, respiratory rate, ? oxygen saturations, blood pressure, adequacy of ? pulmonary ventilation, and response to care were ? monitored throughout the procedure. The physical status ? of the patient was re-assessed after the procedure. ? - Prior to the procedure, a History and Physical was ? performed, and patient medications and allergies were ? reviewed. The patient's tolerance of previous ? anesthesia was also reviewed. The risks and benefits of ? the procedure and the sedation options and risks were ? discussed with the patient. All questions were ? answered, and informed consent was obtained. Prior ? Anticoagulants: The patient has taken no previous ? anticoagulant or antiplatelet agents. ASA Grade ? Assessment: III - A patient with severe systemic ? disease. After reviewing the risks and benefits, the ? patient was deemed in satisfactory condition to undergo ? the procedure. ? After obtaining informed consent, the endoscope was ? passed under direct vision. Throughout the procedure, ? the patient's blood pressure, pulse, and oxygen ? saturations were monitored continuously. The Endoscope ? was introduced through the mouth, and advanced to the ? fourth part of duodenum. The upper GI endoscopy was ? accomplished without difficulty. The patient tolerated ? the procedure well. Findings: ? ? ?The in the duodenum was normal. ? ? ?Scattered mild inflammation characterized by congestion (edema), ? ? ?erosions, friability and granularity was found in the gastric antrum. ? ? ?Biopsies were taken with a cold forceps for histology. ? ? ?Moderately severe esophagitis with no bleeding was found. Biopsies were ? ? ?taken with a cold forceps for histology. Impression: ? - Normal. ? - Gastritis. Biopsied. ? - Moderately severe reflux esophagitis. Rule out ? Slaughter's esophagus. Biopsied. Recommendation: ? ? ? - Return to my office in 1 week. Attending Participation: ? ? ?I was present and participated during the entire procedure, including ? ? ?non-alaniz portions, and during the administration and?monitoring of ? ? ?Moderate Sedation. Scope In: 12:53:45 PM Scope Out: 12:57:15 PM MD Elsa Arnett MD 11/13/2016 1:13:06 PM This report has been signed electronically by Elsa Zhu MD Number of Addenda: 0 Note Initiated On: 11/13/2016 12:42 PM PAST MEDICAL HISTORY Diagnosis Date - Asthma - Depression - Epilepsy (HCC) - GERD (gastroesophageal reflux disease) - Heart attack (HCC) 2011 and 2013 from Cocaine abuse - Migraines - Rib fracture 11/2010 - Seizures (HCC) - Snoring - Syncope ALLERGIES Vicodin [Hydrocodone-Acetaminophen]; Penicillins; Percocet [Oxycodone-Acetaminophen] MEDICATIONS Current Outpatient Prescriptions: albuterol HFA (VENTOLIN HFA) 90 mcg/actuation inhaler Inhale 2 Puffs as instructed every 4 hours as needed. For wheezing/shortness of breath. sertraline (ZOLOFT) 50 mg tablet Take 1 tablet by mouth once daily. QUEtiapine XR (SEROQUEL XR) 150 mg Tb24 150 mg at bedtime lamoTRIgine (LAMICTAL) 100 mg tablet Take 1 tablet by mouth twice daily. pantoprazole DR (PROTONIX) 40 mg tablet Take 1 tablet by mouth once daily. levothyroxine (SYNTHROID) 50 mcg tablet Take 1 tablet by mouth once daily. dicyclomine (BENTYL) 10 mg capsule Take 1 capsule by mouth before meals and at bedtime. SUMAtriptan (IMITREX) 50 mg tablet Take one pill at onset of headache, may repeat in 2 hours if needed lamoTRIgine (LAMICTAL) 100 mg tablet 100 mg as needed. No current facility-administered medications for this visit. Medications and allergies reviewed by this provider. SOCIAL HISTORY Social History Marital status: Spouse name: Shannen Years of education: Number of children: 3 Occupational History Occupation Employer Comment Unemployed Social History Main Topics Smoking status: Former Smoker Packs/day: 0.00 Years: 5.00 Types: Cigarettes Quit date: 01/16/1993 Smokeless tobacco: Current User Types: Chew Comment: chewing only Alcohol use: Yes 0.6 oz/week Cans of beer: 1 per week Comment: Occasional beer, once/week Drug use: No Comment: history of cocaine abuse in past. Last used in 2013 Sexual activity: Yes Partners with: Female REVIEW OF SYSTEMS GENERAL: No weight loss, malaise or fevers NECK: Negative for lumps, goiter, pain and significant neck swelling RESPIRATORY: See HPI CARDIOVASCULAR: Negative for chest pain, leg swelling, hypertension, CHF or palpitations MUSCULOSKELETAL: Chronic back pain- see Dr. Nicole PSYCH: See HPI ENDOCRINE: See HPI NEURO: SEE HPI All other reviewed and negative other than HPI. OBJECTIVE: BP 100/72 (BP Site: Left Arm, BP Position: Sitting, BP Cuff Size: Regular Adult) Pulse 64 Resp 18 Wt 103.5 kg (228 lb 1.9 oz) BMI 36.82 kg/m? . Vital signs reviewed by this provider. APPEARANCE Well appearing, alert, in no acute distress, well-hydrated, well nourished. EYES PERRLA, conjunctiva and sclera normal. NECK Supple, no adenopathy; thyroid symmetric, normal size, no bruits HEART RRR with normal S1 and S2, no murmurs, no gallops, no JVD appreciated LUNG clear to auscultation ABDOMEN bowel sounds normoactive, no bruits, soft, non-tender, non-distended, no tenderness to palpation EXTREMITIES Extremities normal, No deformities, No skin discoloration, No edema and Normal pulses bilaterally. NEURO Awake, alert and oriented x 3, Cranial nerves II-XII grossly intact, Reflexes symmetrical, Normal gait and No involuntary motions. SKIN Skin color, texture, turgor normal, no suspicious rashes or lesions on exposed skin ASSESSMENT/PLAN: 1. Hypothyroidism, acquired - ICD9: 244.9, ICD10: E03.9 (primary diagnosis) - Instructed patient on importance of taking on an empty stomach either first thing in the morning or at bedtime. - check TSH today - continue current dose of Synthroid 0.050 mg- may need to adjust d/t being off for so long - Follow up in November with Dr. Muniz to establish care - TSH BLD 2. Migraine without status migrainosus, not intractable, unspecified migraine type - ICD9: 346.90, ICD10: G43.909 -stable - continue imitrex 3. Seizures (HCC) - ICD9: 780.39, ICD10: R56.9 - continue with Neurology 4. GERD with esophagitis - ICD9: 530.11, ICD10: K21.0 - Continue treatment with pantoprazole QD - Follow up in November with Dr. Muniz 5. Depression, unspecified depression type - ICD9: 311, ICD10: F32.9 - stable - continue with counseling center 6. Mild intermittent asthma, uncomplicated - ICD9: 493.90, ICD10: J45.20 Mild intermittent Asthma stable - Continue current meds - Avoidance of triggers recommended - Follow up in November with Dr. Muniz - Flu shot in the fall recommended 7. Irritable bowel syndrome with both constipation and diarrhea - ICD9: 564.1, ICD10: K58.2 - stable - continue bentyl and follow with GI A8. Chronic midline low back pain with sciatica, sciatica laterality unspecified - ICD9: 724.2, 724.3, 338.29, ICD10: M54.40, G89.29 - continue to follow with DR. Anusha Chicas Podlogbjorn, AWAKE OVERNIGHT MONITOR.SECURITY SERVICES SPECIALIST Prescription instructions reviewed with patient as applicable. Patient advised if symptoms do not improve or if symptoms worsen sooner, to contact their primary care physician. Potential red flag symptoms discussed with the patient. Reviewed appropriate action plan to take if red flag symptoms occur. Patient agreeable to treatment plan. CNOV Observed: 08/02/2017 Status: COMPLETED Source: [place] 3:[address] [facility] REPOSITORY Office Visit (FAMPWS) ELSA LOUISE ([id number]) 1975 M IPA Date Time Provider Department 08/02/17 3:00 PM AVIVA HORN) FAMPWS During your visit today, we recorded the following information about you: Pulse Respiration Blood pressure Weight 64/minute 18/minute 100/72 103.5 kg Aviva Horn APRN.SECURITY SERVICES SPECIALIST 08/02/2017 4:09 PM Signed 08/02/2017 Patient presents with: Rx Refills SUBJECTIVE: This is a 42 year old that is here today for Above Complaints. Last office visit was 08/30/2016. 1. Asthma: Having some intermittent wheezing. No hospitilaizations related to asthma . Has not had albuterol inhaler for some time. Reports he has asthma since childhood 2. GERD: Taking Protonix which helps control his reflux. No breakthrough symptoms. Hospitalized in November at [facility] for colitis. 3. Hypothyroidism: Has been out of synthyroid since December of last year. Positive for dry skin, thinning hair, and weight gain. 4.IBS: Has bouts of alternating diarrhea and constipation. Saw gastro in October of 2017 and had EGD and colonscopy. See results below. Taking bentyl which helps abdominal cramping. recommended he get repeat colonoscopy in 5 years. 5. Migraines: Getting once a month. Imitrex breaks them. Positive for auras, and photophobia. No nausea, vomiting. Change in frequency and intensity. 6. Seizures: Falls with Dr. Wilson for this. Last seizure yesterday. Patient reports he notified Dr. Wilson of this. Patient's reports I was able to get him out of it. 7. Depression: Goes to counseling center and his medications are managed through them. Denies SI. 8. Chronic back pain: Follows with Dr. Tavares. Jeremy FOR[facility] Gastrointestinal Endoscopy Patient Name: Elsa Louise Procedure Date: 11/13/2016 12:42 PM Date of : 1975 Admit Type: Ambulatory Age: 41 Gender: Male Note Status: Finalized Sedation Initiated: ] PM ?1251 pm Procedure: ?Upper GI endoscopy Indications: ?Failure to thrive, Weight loss Providers: ?Elsa Zhu MD Patient Profile: ? ? ?This is a 41 year old male. Refer to note in patient ? chart for documentation of history and physical. Referring Physician: ?Kaleb Drummond MD Medicines: ?Midazolam 6 mg IV, Fentanyl 100 micrograms IV, ? Diphenhydramine 50 mg IV Complications: ?No immediate complications. Requesting Provider: Procedure: ?Pre-Anesthesia Assessment: ? - Prior to the procedure, a History and Physical was ? performed, and patient medications and allergies were ? reviewed. The patient is competent. The risks and ? benefits of the procedure and the sedation options and ? risks were discussed with the patient. All questions ? were answered and informed consent was obtained. ? Patient identification and proposed procedure were ? verified by the physician and the nurse in the ? procedure room. Mental Status Examination: alert and ? oriented. CV Examination: normal. Prophylactic ? Antibiotics: The patient does not require prophylactic ? antibiotics. Prior Anticoagulants: The patient has ? taken no previous anticoagulant or antiplatelet agents. ? ASA Grade Assessment: III - A patient with severe ? systemic disease. After reviewing the risks and ? benefits, the patient was deemed in satisfactory ? condition to undergo the procedure. The anesthesia plan ? was to use moderate sedation / analgesia (conscious ? sedation). Immediately prior to administration of ? medications, the patient was re-assessed for adequacy ? to receive sedatives. The heart rate, respiratory rate, ? oxygen saturations, blood pressure, adequacy of ? pulmonary ventilation, and response to care were ? monitored throughout the procedure. The physical status ? of the patient was re-assessed after the procedure. ? - Prior to the procedure, a History and Physical was ? performed, and patient medications and allergies were ? reviewed. The patient's tolerance of previous ? anesthesia was also reviewed. The risks and benefits of ? the procedure and the sedation options and risks were ? discussed with the patient. All questions were ? answered, and informed consent was obtained. Prior ? Anticoagulants: The patient has taken no previous ? anticoagulant or antiplatelet agents. ASA Grade ? Assessment: III - A patient with severe systemic ? disease. After reviewing the risks and benefits, the ? patient was deemed in satisfactory condition to undergo ? the procedure. ? After obtaining informed consent, the endoscope was ? passed under direct vision. Throughout the procedure, ? the patient's blood pressure, pulse, and oxygen ? saturations were monitored continuously. The Endoscope ? was introduced through the mouth, and advanced to the ? fourth part of duodenum. The upper GI endoscopy was ? accomplished without difficulty. The patient tolerated ? the procedure well. Findings: ? ? ?The in the duodenum was normal. ? ? ?Scattered mild inflammation characterized by congestion (edema), ? ? ?erosions, friability and granularity was found in the gastric antrum. ? ? ?Biopsies were taken with a cold forceps for histology. ? ? ?Moderately severe esophagitis with no bleeding was found. Biopsies were ? ? ?taken with a cold forceps for histology. Impression: ? - Normal. ? - Gastritis. Biopsied. ? - Moderately severe reflux esophagitis. Rule out ? Slaughter's esophagus. Biopsied. Recommendation: ? ? ? - Return to my office in 1 week. Attending Participation: ? ? ?I was present and participated during the entire procedure, including ? ? ?non-alaniz portions, and during the administration and?monitoring of ? ? ?Moderate Sedation. Scope In: 12:53:45 PM Scope Out: 12:57:15 PM MD Elsa Arnett MD 11/13/2016 1:13:06 PM This report has been signed electronically by Elsa Zhu MD Number of Addenda: 0 Note Initiated On: 11/13/2016 12:42 PM PAST MEDICAL HISTORY Diagnosis Date - Asthma - Depression - Epilepsy (HCC) - GERD (gastroesophageal reflux disease) - Heart attack (HCC) 2011 and 2013 from Cocaine abuse - Migraines - Rib fracture 11/2010 - Seizures (HCC) - Snoring - Syncope ALLERGIES Vicodin [Hydrocodone-Acetaminophen]; Penicillins; Percocet [Oxycodone-Acetaminophen] MEDICATIONS Current Outpatient Prescriptions: albuterol HFA (VENTOLIN HFA) 90 mcg/actuation inhaler Inhale 2 Puffs as instructed every 4 hours as needed. For wheezing/shortness of breath. sertraline (ZOLOFT) 50 mg tablet Take 1 tablet by mouth once daily. QUEtiapine XR (SEROQUEL XR) 150 mg Tb24 150 mg at bedtime lamoTRIgine (LAMICTAL) 100 mg tablet Take 1 tablet by mouth twice daily. pantoprazole DR (PROTONIX) 40 mg tablet Take 1 tablet by mouth once daily. levothyroxine (SYNTHROID) 50 mcg tablet Take 1 tablet by mouth once daily. dicyclomine (BENTYL) 10 mg capsule Take 1 capsule by mouth before meals and at bedtime. SUMAtriptan (IMITREX) 50 mg tablet Take one pill at onset of headache, may repeat in 2 hours if needed lamoTRIgine (LAMICTAL) 100 mg tablet 100 mg as needed. No current facility-administered medications for this visit. Medications and allergies reviewed by this provider. SOCIAL HISTORY Social History Marital status: Spouse name: Shannen Years of education: Number of children: 3 Occupational History Occupation Employer Comment Unemployed Social History Main Topics Smoking status: Former Smoker Packs/day: 0.00 Years: 5.00 Types: Cigarettes Quit date: 01/16/1993 Smokeless tobacco: Current User Types: Chew Comment: chewing only Alcohol use: Yes 0.6 oz/week Cans of beer: 1 per week Comment: Occasional beer, once/week Drug use: No Comment: history of cocaine abuse in past. Last used in 2013 Sexual activity: Yes Partners with: Female REVIEW OF SYSTEMS GENERAL: No weight loss, malaise or fevers NECK: Negative for lumps, goiter, pain and significant neck swelling RESPIRATORY: See HPI CARDIOVASCULAR: Negative for chest pain, leg swelling, hypertension, CHF or palpitations MUSCULOSKELETAL: Chronic back pain- see Dr. Nicole PSYCH: See HPI ENDOCRINE: See HPI NEURO: SEE HPI All other reviewed and negative other than HPI. OBJECTIVE: BP 100/72 (BP Site: Left Arm, BP Position: Sitting, BP Cuff Size: Regular Adult) Pulse 64 Resp 18 Wt 103.5 kg (228 lb 1.9 oz) BMI 36.82 kg/m? . Vital signs reviewed by this provider. APPEARANCE Well appearing, alert, in no acute distress, well- hydrated, well nourished. EYES PERRLA, conjunctiva and sclera normal. NECK Supple, no adenopathy; thyroid symmetric, normal size, no bruits HEART RRR with normal S1 and S2, no murmurs, no gallops, no JVD appreciated LUNG clear to auscultation ABDOMEN bowel sounds normoactive, no bruits, soft, non-tender, non-distended, no tenderness to palpation EXTREMITIES Extremities normal, No deformities, No skin discoloration, No edema and Normal pulses bilaterally. NEURO Awake, alert and oriented x 3, Cranial nerves II-XII grossly intact, Reflexes symmetrical, Normal gait and No involuntary motions. SKIN Skin color, texture, turgor normal, no suspicious rashes or lesions on exposed skin ASSESSMENT/PLAN: 1. Hypothyroidism, acquired - ICD9: 244.9, ICD10: E03.9 (primary diagnosis) - Instructed patient on importance of taking on an empty stomach either first thing in the morning or at bedtime. - check TSH today - continue current dose of Synthroid 0.050 mg- may need to adjust d/t being off for so long - Follow up in November with Dr. Muniz to establish care - TSH BLD 2. Migraine without status migrainosus, not intractable, unspecified migraine type - ICD9: 346.90, ICD10: G43.909 -stable - continue imitrex 3. Seizures (HCC) - ICD9: 780.39, ICD10: R56.9 - continue with Neurology 4. GERD with esophagitis - ICD9: 530.11, ICD10: K21.0 - Continue treatment with pantoprazole QD - Follow up in November with Dr. Muniz 5. Depression, unspecified depression type - ICD9: 311, ICD10: F32.9 - stable - continue with counseling center 6. Mild intermittent asthma, uncomplicated - ICD9: 493.90, ICD10: J45.20 Mild intermittent Asthma stable - Continue current meds - Avoidance of triggers recommended - Follow up in November with Dr. Muniz - Flu shot in the fall recommended 7. Irritable bowel syndrome with both constipation and diarrhea - ICD9: 564.1, ICD10: K58.2 - stable - continue bentyl and follow with GI A8. Chronic midline low back pain with sciatica, sciatica laterality unspecified - ICD9: 724.2, 724.3, 338.29, ICD10: M54.40, G89.29 - continue to follow with DR. Anusha Chicas Podlogar, [employer] MONITOR.SECURITY SERVICES SPECIALIST Prescription instructions reviewed with patient as applicable. Patient advised if symptoms do not improve or if symptoms worsen sooner, to contact their primary care physician. Potential red flag symptoms discussed with the patient. Reviewed appropriate action plan to take if red flag symptoms occur. Patient agreeable to treatment plan. Referring Provider: SELF [[id number]] Allergies As of Date: 08/02/2017 Noted Allergy Reaction KEPPRA (LEVETIRACETAM) 08/02/2017 4 - Hives PENICILLINS 01/16/2011 14 - Other: See Comments Comments: States feel like something is crawling under his skin PERCOCET (OXYCODONE-ACETAMINOPHEN)01/31/2011 9 - Itching TESSALON (BENZONATATE) 08/02/2017 10 - Anaphylaxis Date Reviewed: 08/02/2017 Reviewed by: Aviva ([facility]) Podlogar - Fully Assessed Reason for Visit: Rx Refills [128] Primary Visit Diagnosis:Hypothyroidism, acquired [E03.9] Other Visit Diagnoses:Migraine without status migrainosus, not intractable, unspecified migraine type [G43.909] Seizures (HCC) [R56.9] GERD with esophagitis [K21.0] Depression, unspecified depression type [F32.9] Mild intermittent asthma, uncomplicated [J45.20] Irritable bowel syndrome with both constipation and diarrhea [K58.2] Chronic midline low back pain with sciatica, sciatica laterality unspecified [M54.40, G89.29] Order(s):sertraline (ZOLOFT) 50 mg tabletTake 1 tablet by mouth once daily.Disp: Rfl: QUEtiapine XR (SEROQUEL XR) 150 mg [id number] mg at bedtimeDisp: Rfl: lamoTRIgine (LAMICTAL) 100 mg tabletTake 1 tablet by mouth twice daily.Disp: Rfl: TSH BLD [SQTS] Order #: [id number] FUTURE albuterol HFA (VENTOLIN HFA) 90 mcg/actuation inhalerInhale 2 Puffs as instructed every 4 hours as needed. For wheezing/shortness of breath.Disp: 18 gRfl: [address] (PROTONIX) 40 mg tabletTake 1 tablet by mouth once daily.Disp: 30 tabletRfl: 3 levothyroxine (SYNTHROID) 50 mcg tabletTake 1 tablet by mouth once daily.Disp: 30 tabletRfl: 3 dicyclomine (BENTYL) 10 mg capsuleTake 1 capsule by mouth before meals and at bedtime.Disp: 30 capsuleRfl: 3 SUMAtriptan (IMITREX) 50 mg tabletTake one pill at onset of headache, may repeat in 2 hours if neededDisp: 9 tabletRfl: 3 Prescriptions as of 08/02/2017 Sig: ALBUTEROL SULFATE HFA 90 MCG/* Inhale 2 Puffs as instructed * SERTRALINE 50 MG TABLET Take 1 tablet by mouth once d* QUETIAPINE ER 150 MG TABLET,E* 150 mg at bedtime LAMOTRIGINE 100 MG TABLET Take 1 tablet by mouth twice * PANTOPRAZOLE 40 MG TABLET,DEL* Take 1 tablet by mouth once d* LEVOTHYROXINE 50 MCG TABLET Take 1 tablet by mouth once d* DICYCLOMINE 10 MG CAPSULE Take 1 capsule by mouth befor* SUMATRIPTAN 50 MG TABLET Take one pill at onset of hea* LAMOTRIGINE 100 MG TABLET 100 mg as needed. Problem List As Of Date 08/02/2017 Noted Resolved Depression [F32.9] INVALID FOR* Lipoma [D17.9] INVALID FOR* Abdominal pain, epigastric [R10.13] INVALID FOR* Weight loss [R63.4] INVALID FOR* Migraine without status migrainosus, not intrac*INVALID FOR* Lipoma of torso [D17.1] INVALID FOR* Seizures (HCC) [R56.9] INVALID FOR* Noncompliance with treatment regimen [Z91.19] INVALID FOR* Abnormal intentional weight loss [R63.4] INVALID FOR* More... Abdominal discomfort, epigastric [R10.13] INVALID FOR* More... Mild intermittent asthma, uncomplicated [J45.20]INVALID FOR* Irritable bowel syndrome with both constipation*INVALID FOR* GERD with esophagitis [K21.0] INVALID FOR* Chronic midline low back pain with sciatica [M5*INVALID FOR* Prescriptions ordered this encounter Disp Refills Start End SERTRALINE 50 MG TABLET 08/02/2017 Class: Med Update Route: ORAL Sig: Take 1 tablet by mouth once daily. QUETIAPINE ER 150 MG TABLET,EXTENDED* 08/02/2017 Class: Med Update Si mg at bedtime LAMOTRIGINE 100 MG TABLET 08/02/2017 Class: Med Update Route: ORAL Sig: Take 1 tablet by mouth twice daily. ALBUTEROL SULFATE HFA 90 MCG/ACTUATI* 18 g 1 08/02/2017 Route: INHALATION Sig: Inhale 2 Puffs as instructed every 4 hours as needed. For wheezing/shortness of breath. PANTOPRAZOLE 40 MG TABLET,DELAYED RE* 30 t* 3 08/02/2017 Route: ORAL Sig: Take 1 tablet by mouth once daily. LEVOTHYROXINE 50 MCG TABLET 30 t* 3 08/02/2017 Route: ORAL Sig: Take 1 tablet by mouth once daily. DICYCLOMINE 10 MG CAPSULE 30 c* 3 08/02/2017 Route: ORAL Sig: Take 1 capsule by mouth before meals and at bedtime. SUMATRIPTAN 50 MG TABLET 9 ta* 3 08/02/2017 Sig: Take one pill at onset of headache, may repeat in 2 hours if needed Medications Discontinued During This Encounter VENTOLIN HFA 90 mcg/actuation inhaler 18 g 1 11/07/2016 08/02/2017 Sig: Inhale 2 Puffs as instructed every 4 hours as needed for Wheezing/Shortness of Breath. Disc: Reason for discontinue is not on file. pantoprazole DR (PROTONIX) 40 mg tab* 12/12/2016 08/02/2017 Class: Historical Med Si mg once daily. Disc: Reason for discontinue is not on file. levothyroxine (SYNTHROID) 50 mcg tab* 12/12/2016 08/02/2017 Class: Historical Med Si mcg once daily. Disc: Reason for discontinue is not on file. dicyclomine (BENTYL) 10 mg capsule 12/12/2016 08/02/2017 Class: Historical Med Si mg before meals and at bedtime. Disc: Reason for discontinue is not on file. SUMAtriptan (IMITREX) 50 mg tablet 10/06/2016 08/02/2017 Class: Historical Med Sig: Disc: Reason for discontinue is not on file. levETIRAcetam XR (KEPPRA XR) 500 mg * 120 * 1 02/25/2017 08/02/2017 Cmt: Med-sync patient. If too soon, we will put new RX on hold for next cycle. Sig: Take 2 tablets by mouth twice daily. Disc: Discontinued by another Health Care Provider levETIRAcetam (KEPPRA) 500 mg tablet 0 12/19/2016 08/02/2017 Class: Historical Med Si mg twice daily. Disc: Discontinued by another Health Care Provider Follow-up and Disposition History Recorded Encounter Status:Closed by AVIVA HORN CNP on 08/02/17 DISCHARGE INSTRUCTION Observed: 07/28/2017 Status: F Source: JEREMY 9:55 PM [facility] Medical Records Department [address] [place] [address] Discharge Instruction 07/28/17 2150 MR#: [id number] Acct: [id number] Name: ELSA LOUISE Rep #: [id number] : 1975 42 From: Michael Gee MD PCP: Jessica Physician, No Primary Status: REG ER ED Disposition - Plan for ED Patient: Chief Complaint: Back Instructions: ED Sciatica, ED Sprain Strain Lumbar Prescriptions: Hydrocodone Bitart/Apap 5-325 [Bro[place] 5MG-325MG] 1 tab PO Q6H PRN PRN 3 Days #10 tab PRN Reason: Pain Prednisone [Deltasone] 60 mg PO DAILY #15 tab Referrals: Faith Fay MD [STAFF PHYSICIAN] - What to do if you have Problems For any increased pain, shortness of breath, bleeding, nausea or vomiting, chest pain, or any unexpected problems, contact your Primary Care Provider. Call [facility] ([phone]) or report to the closest Emergency Room. Call 911 if necessary. 07/28/17 2155 <Electronically signed by Michael Gee MD> Date Michael Gee MD Cosigner Signature (If Indicated): Date CC: No Primary Care Physician EMERGENCY DEPARTMENT Observed: 07/28/2017 Status: F Source: [place] SUMMARY 9:50 PM [facility]POS[facility] Medical Records Department [address] [place] [address] Emergency Department Summary 07/28/17 2143 MR#: [id number] Acct: [id number] Name: ELSA LOUISE Rep #: [id number] : 1975 42 From: Michael Gee MD PCP: Jessica Physician, No Primary Status: REG ER - ER Visit Summary Date of Service: 07/28/17 Chief Complaint: Back pain History of Present Illness: The patient is a 42 M with a history of chronic back pain. He previously followed with pain management and saw Dr. Osuna. He has had epidural injections but these were not well tolerated. Patient states they were considering surgical referral as next line but he never followed up. He went to [place] and rode a roller coaster 2 days ago. He has had increased pain since that time. He also fell earlier today. He denies weakness. He does complain of lower back pain which radiates down the left leg. He complains of burning and numbness in the left leg. He has had prior similar symptoms. He denies fevers abdominal pain urinary retention fecal incontinence or prior back surgeries. He has tried anti-inflammatories at home with little relief. He denies any recent opiate prescriptions. Physical Examination: Afebrile vitals are stable Patient does appear uncomfortable Moist mucous membranes Heart regular rate and rhythm Lungs are clear Abdomen soft Negative straight leg raise Patient has paraspinal lumbar tenderness left greater than right Sensation is intact to light touch of the bilateral lower extremities with easily palpable symmetric 2+ dorsalis pedis pulses and brisk capillary refill he has 5 out of 5 dorsiflexion, plantarflexion, extensor hallucis longus bilaterally Test Results: Not indicated Emergency Department Course and Treatment: Patient was given intramuscular morphine. [place] report shows no controlled substance prescriptions in the last 2 years. Patient was given a prescription for short course of [place]. Given the radicular symptoms we will also place on a prednisone burst. He was instructed on specific signs and symptoms to monitor for and conditions under which to return emergency department. All questions answered at bedside patient agreeable to plan. At this time he has no findings to suggest process such as cauda equina syndrome or epidural abscess or other acute surgical pathology. Do believe his pain currently is multifactorial. Given reproducible paraspinal tenderness and having recently a roller coaster I do believe there is a lumbosacral strain muscular component. With his burning and radiation down the left leg there is also radicular component. Treatment Plan: [] Disposition: Discharge Impression: Lumbosacral strain Lumbar radiculopathy This note was generated with [employer] dictation software. It may contain incorrect words, spelling, and punctuation that were not noted in review of the chart prior to signing ED Disposition - Plan for ED Patient: Chief Complaint: Back Referrals: Faith Fay MD [Primary Care Provider] - What to do if you have Problems For any increased pain, shortness of breath, bleeding, nausea or vomiting, chest pain, or any unexpected problems, contact your Primary Care Provider. Call [facility] ([phone]) or report to the closest Emergency Room. Call 911 if necessary. 07/28/170 <Electronically signed by Michael Gee MD> Date Michael Gee MD Cosigner Signature (If Indicated): Date CC: No Primary Care Physician 12 LEAD ELECTROCARDIOGRAM Observed: 05/10/2017 Status: F Source: [place] 1:27 PM [facility] REPOSITORY [facility] Cardiovascular Services [address] [place] [id number] 12 Lead EKG 05/08/17 1656 MR#: [id number] Acct: [id number] Name: ELSA LOUISE Rep #: [id number] : 1975 41 From: Jim Elder MD Attending Dr: Status: DEP ER Ordering Dr: Provider, Ed P. Date: 05/08/17 Location: ED Sex: M C Admitted: Test Reason : CHEST PAIN Blood Pressure : / mmHG Vent. Rate : 084 BPM Atrial Rate : 084 BPM P-R Int : 196 ms QRS Dur : 086 ms QT Int : 348 ms P-R-T Axes : 039 -07 016 degrees QTc Int : 411 ms Normal sinus rhythm Normal ECG Confirmed by SE LUNDY, JIM ([id number]), editor magazine JONNATHAN VARNER ([id number]) on 05/10/2017 1:27:00 PM Referred By: Confirmed By:JIM ELDER MD 05/10/17 4257 Date Jim Elder MD CC: No Primary Care Physician; ED PHYSICIAN PROVIDER Signed EMERGENCY DEPARTMENT Observed: 05/09/2017 Status: F Source: [place] SUMMARY 1:03 AM [facility] Medical Records Department [address] [place] [address] Emergency Department Summary 05/09/17 0056 MR#: [id number] Acct: [id number] Name: ELSA LOUISE Rep #: [id number] : 1975 41 From: Andrea Riggs MD PCP: Care Physician, No Primary Status: DEP ER - ER Visit Summary Date of Service: 05/09/17 Chief Complaint: Shortness of breath chest pain History of Present Illness: The patient is a 41 M presenting for evaluation secondary to shortness of breath chest pain left arm numbness. Patient states that he had the flu about a month and a half ago, and is feeling similar to this over the course of the last day or so. He states that he has redeveloped fever cough nausea and vomiting. Patient states that today he was at home and was coughing so much it was causing him chest pain and some left arm numbness. He denies any exertional component to this. Denies any history of cardiac disease. He does have an underlying history of seizures. Review of systems otherwise negative. Physical Examination: Vital signs notable for temperature of 100.4. Well-nourished male no acute distress. Head normocephalic. Moist mucous membranes. Neck supple no JVD no meningismus. Heart regular rate and rhythm no murmurs. Lungs sounds clear to auscultation bilaterally there was some bilateral anterior chest tenderness to palpation without any evidence of crepitus step-offs or subcutaneous emphysema no overlying skin rashes. Abdomen soft nontender. Peripheral pulses 2+ and symmetric. No skin rashes. Patient alert and oriented. Test Results: EKG shows sinus rhythm [address] segments normal T waves no changes from prior EKG in January 2017. CBC does demonstrate leukocytosis 16.6, chemistry normal, troponin negative, chest x-ray shows no evidence of infiltrate or acute cardiopulmonary disease. Emergency Department Course and Treatment: Patient presented secondary to a febrile illness, cough, and chest discomfort. Protocol orders were entered, the patient received a cardiac workup that was found to be negative and also had a negative chest x-ray. He does have a leukocytosis consistent with infection however I do not see pneumonia, he is nontoxic-appearing, and is not hypoxic do not believe that empiric treatment is appropriate at this point. Patient was treated symptomatically rather with Toradol IV. He will be sent home with a course of Naprosyn and Tessalon for symptomatic treatment. He was instructed to follow-up with his PCP. Disposition: Discharge Impression: 1. Viral illness This note was generated with [employer] dictation software. It may contain incorrect words, spelling, and punctuation that were not noted in review of the chart prior to signing ED Disposition - Plan for ED Patient: Disposition: Home or Assisted Living Chief Complaint: Chest Pain Diagnosis: Febrile illness, acute Instructions: ED Upper Resp Infec No Abx Tx Referrals: Jeff Mohan, DO [STAFF PHYSICIAN] - What to do if you have Problems For any increased pain, shortness of breath, bleeding, nausea or vomiting, chest pain, or any unexpected problems, contact your Primary Care Provider. Call [facility] ([phone]) or report to the closest Emergency Room. Call 911 if necessary. 05/09/17 0103 <Electronically signed by Andrea Riggs MD> Date Andrea Riggs MD Cosigner Signature (If Indicated): Date CC: No Primary Care Physician CBC W/DIFF, AUTOMATED Collected: 05/08/2017 Status: F Source: JEREMY 6:29 PM [facility] REPOSITORY TYPE CODE TESTS RESULT OUT OF RANGE REFERENCE UNITS LAB L100.1000 4.4-11.0 K/mm3 High WBC 16.6 LAB L100.1200 4.6-6.2 M/mm3 Low RBC 4.52 LAB L100.1300 13.0-16.5 g/dl Normal HGB 14.0 LAB L100.1400 40-54 % Normal HCT 41.4 LAB L100.1500 80-94 fL Normal MCV 91.6 LAB L100.1600 27.0-32.0 pg Normal MCH 31.0 LAB L100.1700 32-36 g/gl Normal MCHC 33.8 LAB L100.1810 11.6-14.6 % Normal RDW CV 13.2 LAB L100.1820 35.1-43.9 fl Normal RDW SD 43.5 LAB L100.1900 150-450 K/mm3 Normal PLT 328 LAB L100.2000 6.2-12.0 fl Normal MPV 8.8 LAB L100.2100 47-70 % High NEUT% 80.9 LAB L100.2200 19-41 % Low LY% 9.1 LAB L100.2300 0-10 % Normal MONO% 9.0 LAB L100.2400 0-5 % Normal EO% 0.7 LAB L100.2500 0-1 % Normal BASO% 0.1 LAB L100.2550 0.0-0.9 % Normal IM GRAN % 0.200 Result Comment: IG% - Immature Granulocytes (promyelocytes, myelocytes and metamyelocytes) > 1% indicates that a LEFT SHIFT is Present. LAB L100.2620 2.0-7.7 X10 3/uL High Absolute Neut 13.4 LAB L100.2720 0.83-4.51 X10 3/ul Normal Absolute Lymph 1.51 Performed By: #### L100.0100, L500.2500, L501.4010 #### [facility] [address] [place], [address] BASIC METABOLIC Collected: 05/08/2017 Status: F Source: [place] PROFILE ([facility]) 6:29 PM [facility] REPOSITORY Order Comment: 'TROP' Serial specimen #1, #2, #3, or #4: 1 TYPE CODE TESTS RESULT OUT OF RANGE REFERENCE UNITS LAB L501.0100 74-106 mg/dL Normal GLU 97 Result Comment: Please note revised GLUCOSE reference range effective 2017. LAB L501.1000 7-18 mg/dL Normal BUN 14 LAB L501.1100 0.70-1.30 mg/dL Normal CREAT,SERUM 1.27 Result Comment: The validity of the calculated GFR AND GFRAA in patients over 70 years has not been determined. Clinical correlation is essential. LAB L501.1110 >60 mL/min Normal EST GFR 67 Result Comment: Non- GFR Calc LAB L501.1115 >60 mL/min Normal EST GFR - AA 81 Result Comment: GFR Calc LAB L501.1255 ml/min Normal Estimated CRCL 73.01 LAB L501.1300 10-20 RATIO Normal BUN/CRE 11.0 LAB L501.2200 8.5-10 mg/dL Normal .1 CA 8.9 LAB L501.5300 136-14 mmol/L Normal 5 NA 137 LAB L501.5600 3.5-5. mmol/L Normal 1 K 4.2 LAB L501.5900 98-107 mmol/L Normal CL 100 LAB L501.6100 21.0-3 mmol/L Normal 2.0 CO2 29.0 LAB L501.6200 5-15 Normal GAP 8 Performed By: #### L100.0100, L500.2500, L501.4010 #### [facility] [address] [facility] [place], [address] TROPONIN-I Collected: 05/08/2017 Status: F Source: [place] 6:29 PM [facility] REPOSITORY Order Comment: 'TROP' Serial specimen #1, #2, #3, or #4: 1 TYPE CODE TESTS RESULT OUT OF RANGE REFERENCE UNITS LAB L501.4010 <0.06 ng/mL Normal < 0.02 TROPONIN-I Result Comment: TROPONIN-I EXPECTED VALUES <0.05 NEGATIVE 0.06 - 0.59 AT RISK OF [place] > OR = 0.60 SUGGEST WI Performed By: #### L100.0100, L500.2500, L501.4010 #### [facility] Laboratory [address] [place], [address] CHEST 1 VIEW Observed: 05/08/2017 Status: F Source: [place] (PORTABLE) 5:37 PM [facility] REPOSITORY [facility] Imaging Services [address] [place] [address] Chest 1 View (Portable) MR#: [id number] Acct: [id number] Name: ELSA LOUISE Rep #: [id number] : 1975 M 41 From: Nilda Skinner MD PCP: Care Physician, No Primary Status: PRE ER Study: Chest 1 View (Portable) Date of Exam: 05/08/17 Exam# [id number] Ordering Dr: Ace, Ashwin Huff STUDY: X-RAY CHEST REASON FOR EXAM: Male, 41 years old. Chest pain, shortness of breath fever, cough, nausea vomiting and diarrhea. TECHNIQUE: 1 view COMPARISON: Prior chest radiograph May 22, 2016 FINDINGS: The lungs are clear and expanded. There is no demonstrated pleural abnormality. Normal size heart. Normal mediastinum and diann. Normal visualized pulmonary arteries. Normal visualized aortic arch and descending thoracic aorta. Normal visualized thoracic spine. Normal visualized ribs, clavicles, and shoulders. There is no demonstrated abnormality of the visualized soft tissue structures of the upper abdomen. RAD/Chest 1 View (Portable) IMPRESSION: Normal x-ray examination of the chest. Electronically Signed: Nilda Skinner MD at 18:27 EST , Service support , CC: No Primary Care Physician; ED PHYSICIAN PROVIDER Patient Account Liaison: Signed ALLERGIES ALLERGIES DATE TYPE / CODE NAME / CODE REACTION SEVERITY SOURCE Drug Penicillins/F0010 Anaphylaxis Unknown Jeremy 9 Allergy/588509219( 14572(RXNORM) [facility] SNOMED CT) Hospital Repository Miscellaneous bezonates Hives SV [place] 9 Allergy/596029591( [facility] SNOMED CT) Hospital Repository DRUG LEVETIRACETAM HIVES [employer] 8 INGREDI/971815946( [facility] Main SNOMED CT) [place] Rep[facility] DRUG BENZONATATE ANAPHYLAXIS [employer] INGREDI/470733332( [facility] SNOMED CT) [place] [facility] DRUG/038357750(SNO OXYCODONE-ACETAMI ITCHING [address]) [facility] Repository DRUG/588667181(SNO HYDROCODONE-ACETA SWELLING [facility] [address] [place] [facility] Drug PENICILLINS OTHER: SEE C [place] 1 Class/729696301([facility] Main OMED CT) [place] Rep[facility] ENCOUNTERS ENCOUNTERS ADMIT/DISCHARGE ACCOUNT NUMBER ADMITTING ENCOUNTER LOCATION SOURCE CLASS 04/09/2018/04/09/19 [id number] Emergency [address] ding:ED Repository 03/28/2018/03/31/19 [id number] Ambulatory [address] Repository 01/18/2018/01/19/20 [id number] Emergency [address] ding:ED Repository 01/15/2018/01/17/20 [id number] Emergency [address] ding:ED Repository 01/14/2018/01/16/20 [id number] Ambulatory [address] Repository 01/14/2018/01/15/20 [id number] Ambulatory [address] Repository 01/08/2018/01/09/20 [id number] Emergency BBuilding:ER [address] Repository 11/06/2017/11/09/19 [id number] [facility] [address] ding:[id number] Repository : JO642Aon: 1 11/06/2017 [id number] Mayelin Garner BMSBuilding: Jeremy Claudio BMS.[facility] Repository 11/06/2017 [id number] [place]ulatory BMSBuilding: [place] Claudio BMS.[facility] Repository 11/06/2017 [id number] Mayelin Garner BMSBuilding: [place] Claudio BMS.[facility] Repository 09/04/2017/09/05/19 [id number] Ambulatory [address] ding:OT Repository 08/27/2017/08/31/19 [id number] Ambulatory [address] Repository 08/17/2017 [id number] Ambulatory [facility] ding:MRI Repository 08/16/2017/08/17/19 [id number] Ambulatory [address] Repository 08/02/2017/05/18/20 [id number] Ambulatory [address] Repository 08/02/2017/08/06/19 [id number] Ambulatory [address] Repository 07/28/2017/07/29/19 [id number] Emergency [address] ding:ED Repository 07/15/2017 [id number] Ambulatory BMSBuilding: [place] BMS.[facility] Repository 07/02/2017 [id number] Ambulatory BMSBuilding: [place] BMS.[facility] Repository 06/27/2017 [id number] Ambulatory BMSBuilding: [place] BMS.[facility] Repository 05/08/2017/05/08/19 [id number] Emergency [address] ding:ED Repository PAYERS PAYERS ENCOUNTER GUARANTOR PAYER SUBSCRIBER SOURCE 04/09/2018 ELSA [place] [id number] Primary ELSA Luna Lisa PAVON Insurance:CARESOURCEP WHITEDOB: [address] Number: [id number] [address]Uoe: [phone]) [id number] Repository [phone] () Date:2018-04-09[address]ATTN: [place] [address]ZH: 04/09/2018 Secondary NOT GIVENUNK Jeremy Insurance:SELF PAY [facility] Number: Effective Repository Date:2018-04-09 01/18/2018 ELSA West [id number] Primary ELSA [address] Insurance:CARESOURCEP WHITEDOB: [address] Number: [id number] Hospital [address]Pea: [phone] [id number] Repository [phone] () Date:2018-01-18[address]ATTN: [place] [address]BJ: 01/18/2018 Secondary NOT GIVENUNK [place] Insurance:SELF PAY [facility] Number: Effective Repository Date:2018-01-18 01/15/2018 ELSA West [id number] Primary ELSA [address] Insurance:CARESOURCEP WHITEDOB: [address] olicy Number: [id number] Hospital [address]Mdl: [phone] [id number] Repository [phone] () Date:2018-01-15 [address]ATTN: [place] [address]HS: 01/15/2018 Secondary NOT GIVENUNK Jeremy Insurance:SELF PAY [facility] Number: Effective Repository Date:2018-01-15 01/08/2018 ELSA LOUISEDOB: Primary ELSA West [facility] [id number] Insurance:CARESOURCE WHITEDOB: [facility] rdapt [employer] Number: [id number] Repository [address] [place] [address] [id number] [address] [id number]: [phone]) Date:2018-01-08 - rdapt [phone] () [id number] Name:O Lupus [address]Yil: [phone] [address] [place] [address] [phone] [address]ZD: [phone] () [phone] () 11/06/2017 ELSA HAWKINS5 Primary ELSA West [facility] [address] Insurance:CARESOURCEP WHITEDOB: [address] Number: [id number] Hospital [address]Lqp: [phone] [id number] Repository [phone] () Date:2017-11-06[address]ATTN: [place] [address]OL: 11/06/2017 Secondary NOT GIVENUNK [place] Insurance:SELF PAY [facility] Number: Effective Repository Date:2017-11-06 11/06/2017 ELSA HAWKINS5 Primary ELSA West [facility] [address] Insurance:CARESOURCEP WHITEDOB: [address] olicy Number: [id number] Hospital [address]Bez: [phone] [id number] Repository [phone] () Date:2017-11-06[address]ATTN: [place] [address]KF: 11/06/2017 Secondary NOT GIVENUNK Jeremy Insurance:SELF PAY [facility] Number: Effective Repository Date:2017-11-06 11/06/2017 ELSA LOUISE18[address]SA [address] Insurance:CARESOURCEP WHITEDOB: [id number] Number: [id number] Hospital [address]Ebq: [phone] [id number] Repository [phone] () Date:2017-11-06[address]ATTN: [place] [address]XK: 11/06/2017 Secondary NOT GIVENUNK Jeremy Insurance:SELF PAY [facility] Number: Effective Repository Date:2017-11-06 11/06/2017 ELSA HAWKINS5 Primary ELSA [address] Insurance:CARESOURCEP WHITEDOB: [id number], [place] Number: [id number] Hospital [address]Dhv: [phone] [id number] Repository [phone] () Date:2017-11-06[address]ATTN: [place] [address]VP: 11/06/2017 Secondary NOT GIVENUNK [place] Insurance:SELF PAY [facility] Number: Effective Repository Date:2017-11-06 09/04/2017 ELSA LOUISE[address] Insurance:CARESOURCEP WHITEDOB: Community [id number], [place] Number: [id number] [address]Gmm: [phone] [id number] Repository [phone] () Date:2016-02-16[address]ATTN: [place] [address]PZ: 09/04/2017 Secondary NOT GIVENUNK Jeremy Insurance:SELF PAY [facility] Number: Effective Repository Date:2017-08-30 08/17/2017 ELSA LOUISE[address] Insurance:CARESOURCEP WHITEDOB: [address] Number: [id number] Hospital [address]Awd: [phone] [id number] Repository [phone] () Date:2017-08-07[address]ATTN: [place] [address]OZ: 08/17/2017 Secondary NOT GIVENUNK Jeremy Insurance:SELF PAY [facility] Number: Effective Repository Date:2017-08-07 07/28/2017 ELSA HAWKINS5 Primary ELSA [address] Insurance:CARESOURCEP WHITEDOB: [address] Number: [id number] Hospital [address]Bdf: [phone] [id number] Repository [phone] () Date:2017-07-28[address]ATTN: [place] [address]JH: 07/28/2017 Secondary NOT GIVENUNK [place] Insurance:SELF PAY [facility] Number: Effective Repository Date:2017-07-28 07/15/2017 ELSA LOUISE[address] Insurance:CARESOURCEP WHITEDOB: [address] Number: [id number] Hospital [address]Zuu: [phone] [id number] Repository [phone] () Date:2017-06-19[address]ATTN: [place] [address]DJ: 07/15/2017 Secondary NOT GIVENUNK Jeremy Insurance:SELF PAY [facility] Number: Effective Repository Date:2017-06-19 07/02/2017 ELSA HAWKINS5 Primary [address]SA [address] Insurance:CARESOURCEP WHITEDOB: [address] Number: [id number] Hospital [address]Ume: [phone]) [id number] Repository [phone] () Date:2017-06-24[address]ATTN: [place] [address]SD: 07/02/2017 Secondary NOT GIVENUNK [place] Insurance:SELF PAY [facility] Number: Effective Repository Date:2017-06-24 06/27/2017 Elsa Louise1855 Primary Elsa Luna [address] Insurance:CARESOURCEP WhiteDOB: Community [address], [place] Number: [id number] Hospital [address]Xin: [phone] [id number] Repository [phone] () Date:2017-06-03[address]ATTN: [place] [address]PP: 06/27/2017 Secondary NOT GIVENUNK [place] Insurance:SELF PAY [facility] Number: Effective Repository Date:2017-06-03 05/08/2017 Elsa Louise1855 Primary Elsa Luna [address] Insurance:CARESOURCEP WhiteDOB: Community [address], [place] Number: [id number] Hospital [address]Akp: [phone] [id number] Repository [phone] () Date:2017-05-08[address]ATTN: [place] [address]EO: 05/08/2017 Secondary NOT GIVENUNK [place] Insurance:SELF PAY [facility] Number: Effective Repository Date:2017-05-08
== END 2018-04-09 08:18 | disposition home or self-care (01) ==
PROVIDERS: Emergency Provider Emergency Medicine; Family Provider Internal Medicine; PCP Internal Medicine
DX: K52.9 Noninfective gastroenteritis and colitis, unspecified (principal); E86.0 Dehydration; R11.2 Nausea with vomiting, unspecified; R19.7 Diarrhea, unspecified; F31.9 Bipolar disorder, unspecified; Z87.11 Personal history of peptic ulcer disease
CPT/HCPCS: 80048; 83690; 85025; 96365; 96374; 99283; J7030; A4216; J2405

== ENCOUNTER 2018-05-10 15:22 | Emergency (ER) | payer MEDICAID, SELFPAY ==
[2018-05-10 15:24] VITALS: BP 111/74; PULSE 121; RESP 18; TEMP 36.7; O2SAT 98; BMI 32.7
--- NOTE | 2018-05-10 15:59 | CT_ITS ---
STUDY: CT BRAIN WITHOUT CONTRAST REASON FOR EXAM: Male, 42 years old. Fall down stairs yesterday, dizziness, possible loss of consciousness RADIATION DOSAGE (If Supplied By Facility): CTDIvol = ( 44.99 ) mGy, DLP = ( 750.20 ) mGycm TECHNIQUE: Transaxial CT imaging of the brain was performed without administration of intravenous contrast material. Individualized dose optimization techniques were used for this CT. COMPARISON: None. FINDINGS: Normal soft tissue structures. Normal calvarium. Normal size ventricles and extra-axial spaces for the patient's age. Normal white matter tracts of the cerebral hemispheres. Normal basal ganglia and thalami. Normal brainstem. Normal cerebellum. There is no intracranial hemorrhage. There are no findings of an acute ischemic infarction. Normal visualized paranasal sinuses. CT/Brain/Head without Contrast IMPRESSION: No acute intracranial hemorrhage or mass effect. Electronically Signed: Saleem Reno MD at 17:09 EST , Service support ,
--- NOTE | 2018-05-10 15:59 | CT_ITS ---
STUDY: CT ABDOMEN AND PELVIS WITHOUT CONTRAST REASON FOR EXAM: Male, 42 years old. Fall down stairs yesterday, back pain, dizziness, possible loss of consciousness RADIATION DOSAGE (If Supplied By Facility): CTDIvol = ( 12.67 ) mGy, DLP = ( 750.20 ) mGycm TECHNIQUE: Transaxial images were obtained from the dome of the diaphragm to the symphysis pubis without oral contrast, and without intravenous contrast. Sagittal and coronal images were reconstructed. Individualized dose optimization techniques were used for this CT. COMPARISON: 11/06/2017 FINDINGS: Mild atelectasis in the lung bases. The visualized portions of the heart are within normal limits. Normal liver. Solitary gallstone in the gallbladder neck again noted. Normal spleen. Normal pancreas. Normal bilateral adrenal glands. Normal right kidney. Normal left kidney. Normal visualized stomach. Normal small intestine. Normal colon. The appendix is visualized and appears normal. Normal abdominal aorta. Normal inferior vena cava. Normal retroperitoneum. Normal urinary bladder. There is a small umbilical hernia containing fat. Spondylosis at multiple lumbar levels with a Schmorl's node involving superior L2 endplate, stable appearance since prior study. No compression fractures demonstrated. Benign appearing sclerotic lesion of posterior L4 likely represents a bone island or other benign lesion. Degenerative arthrosis of the left more than right hip, similar since the prior study. CT/Abdomen/Pelvis without Cont IMPRESSION: 1. No obvious solid organ injury, pneumoperitoneum or ascites. 2. Stable exam, chronic changes, as above and described previously. Electronically Signed: Saleem Reno MD at 17:08 EST , Service support ,
--- NOTE | 2018-05-10 15:59 | CT_ITS ---
STUDY: CT CERVICAL SPINE WITHOUT CONTRAST REASON FOR EXAM: Male, 42 years old. Fall down steps yesterday, dizziness, history of seizures RADIATION DOSAGE (If Supplied By Facility): CTDIvol = ( 23.48 ) mGy, DLP = ( 479.30 ) mGycm TECHNIQUE: High resolution transaxial imaging was performed without contrast material. Sagittal and coronal images were reconstructed. Individualized dose optimization techniques were used for this CT. COMPARISON: 11/09/2015 FINDINGS: Normal craniovertebral junction. There are degenerative changes of the anterior atlantoaxial articulation. Normal odontoid process. Normal cervical lordosis. Normal vertebral bodies and posterior osseous elements. C2-3: Normal endplates. Normal disc height and morphology. Normal central canal and intervertebral neuroforamina. C3-4: Normal endplates. Normal disc height and morphology. Normal central canal and intervertebral neuroforamina. C4-5: Normal endplates. Normal disc height and morphology. Normal central canal and intervertebral neuroforamina. C5-6: Disc space narrowing with posterior disc osteophyte complex contiguous with left uncovertebral hypertrophy. There is mild left more than right foraminal narrowing. Minimal narrowing of the spinal canal. C6-7: Normal endplates. Normal disc height and morphology. Normal central canal and intervertebral neuroforamina. C7-T1: Normal endplates. Normal disc height and morphology. Normal central canal and intervertebral neuroforamina. Normal visualized soft tissue structures. CT/Spine Cervical without Contras IMPRESSION: No acute cervical spine fracture or traumatic subluxation. Similar degenerative changes since 2016. Electronically Signed: Saleem Reno MD at 17:12 EST , Service support ,
[2018-05-10 16:19] VITALS: BP 114/74; PULSE 89; RESP 17; O2SAT 97; O2SAT 99
[2018-05-10 16:20] LABS: Absolute Lymphocyte Count 1.15 X10^3/ul (0.83-4.51); Absolute Neutrophil Count 5.7 X10^3/uL (2.0-7.7); Basophil# 0.02 X10^3/uL; Basophil% 0.3 % (0-1); Eosinophil# 0.12 X10^3/uL; Eosinophils% 1.5 % (0-5); Hematocrit 39.9 % (40-54); Hemoglobin 13.4 g/dl (13.0-16.5); Lymphocyte # 1.15 X10^3/ul (4.0); Lymphocyte % 14.8 % (19-41); Mean Corp Hgb Conc 33.6 g/gl (32-36); Mean Corpuscular Hgb 30.3 pg (27.0-32.0); Mean Corpuscular Volume 90.3 fL (80-94); Monocyte# 0.74 X10^3/uL; Monocyte% 9.5 % (0-10); Neutrophil # 5.74 X10^3/uL (2.7-7.7); Neutrophil % 73.8 % (47-70); POSITIVE COUNT NO; POSITIVE DIFFERENTIAL NO; POSITIVE MORPHOLOGY NO; Platelet Count 315 K/mm3 (150-450); RBC Distribution Width CV 13.1 % (11.6-14.6); RBC Distribution Width SD 42.7 fl (35.1-43.9); Red Blood Count 4.42 M/mm3 (4.6-6.2); White Blood Count 7.8 K/mm3 (4.4-11.0)
[2018-05-10] MEDS: Ondansetron 4 MG/2 ML Vial IV (16:23)
[2018-05-10] MEDS: 0.9% Normal Saline 1,000 ML 1000 ML IV (16:23)
[2018-05-10] MEDS: Morphine 4 MG/ML Syringe IV (16:23)
[2018-05-10 16:31] LABS: Anion Gap 7 (5-15); BUN 13 mg/dL (7-18); BUN/Creat Ratio 12.1 RATIO (10-20); Calcium,Total 8.8 mg/dL (8.5-10.1); Chloride 110 mmol/L (98-107); Creatinine, Serum 1.07 mg/dL (0.70-1.30); EST Glomerular Filtration Rate 81 mL/min (>60); Est Glom Filt Rate - Afr Amer 98 mL/min (>60); Glucose 131 mg/dL (74-106); Potassium 3.6 mmol/L (3.5-5.1); Sodium Level 143 mmol/L (136-145)
--- NOTE | 2018-05-10 17:10 | ED.DCSUM_ITS ---
- ER Visit Summary Date of Service: 05/10/18 Chief Complaint: Fall History of Present Illness: The patient is a 42 M presents to the emergency department after a fall. Patient was in his normal state of health. He states he was walking down the stairs last night. He states he missed the first stair and then tumbled down 13. He thinks he struck his head and may have lost consciousness. Since then, he had pain in his left flank and in his neck. He denies any weakness or numbness. He said no problems with bowel or bladder. He denies any nausea or vomiting. He has been mildly dizzy. Physical Examination: Afebrile, vitals unremarkable. Well-appearing male no acute distress. Head is normocephalic, atraumatic. Pupil's equal round reactive, extraocular muscles intact. Neck supple. Heart regular rate and rhythm. Lungs clear, chest nontender. Abdomen soft, nontender, nondistended. No pulsatile mass. Patient has paraspinal tenderness in the lumbar area, but no bony tenderness. Straight leg raise is negative bilaterally. 2+ symmetric lower extremity pulses. 2+ reflexes. No clonus. No weakness of dorsiflexion, plantar flexion, or extensor hallucis longus bilaterally. Test Results: [] Emergency Department Course and Treatment: The patient has normal reflexes of both upper and lower extremities. He has no red flag symptoms. He has no ecchymosis or evidence of external injury. I did obtain head CT, CT cervical spine, and CT of abdomen and pelvis given his mechanism. These are all unremarkable. On reevaluation, he is resting comfortably. I do not suspect a dangerous cause of his pain. I am going to treat him with anti-inflammatories and antispasmodics. He was counseled on concerning symptoms and reasons to return. He will be discharged home. Treatment Plan: [] Disposition: Discharge Impression: 1. Cervical strain status post mechanical fall 2. Lumbar contusion status post mechanical fall This note was generated with [employer] dictation software. It may contain incorrect words, spelling, and punctuation that were not noted in review of the chart prior to signing ED Disposition - Plan for ED Patient: Disposition: Home or Assisted Living Instructions: ED Mechanical Fall Prescriptions: RX: Naproxen [Naprosyn] 500 mg PO BID PRN #20 tab Cyclobenzaprine [Flexeril] 10 mg PO TID PRN #20 tab PRN Reason: Muscle Spasm Referrals: [place] Jeffrey MD [Primary Care Provider] -
[2018-05-10 17:47] VITALS: BP 108/63; PULSE 64; RESP 18; O2SAT 99
== END 2018-05-10 17:48 | disposition home or self-care (01) ==
LOC: ED 17:26
PROVIDERS: Emergency Provider Emergency Medicine; Family Provider Internal Medicine; PCP Internal Medicine
DX: S16.1XXA Strain of muscle, fascia and tendon at neck level, initial encounter (principal); S30.0XXA Contusion of lower back and pelvis, initial encounter; Z79.51 Long term (current) use of inhaled steroids; Z79.899 Other long term (current) drug therapy; W10.9XXA Fall (on) (from) unspecified stairs and steps, initial encounter; Y93.01 Activity, walking, marching and hiking; Y92.009 Unspecified place in unspecified non-institutional (private) residence as the place of occurrence of the external cause; Y99.8 Other external cause status
CPT/HCPCS: 70450; 72125; 74176; 80048; 85025; 96361; 96374; 96375; 99284; A4216; J2405

== ENCOUNTER 2018-05-25 21:18 | Emergency (ER) | payer SELFPAY ==
[2018-05-25 21:18] VITALS: BP 109/78; PULSE 122; RESP 18; TEMP 37.2; O2SAT 98; BMI 34.7
[2018-05-25] MEDS: 0.9% Normal Saline 1,000 ML 1000 ML IV (21:49)
[2018-05-25] MEDS: Loperamide 2 MG Capsule 4 MG PO (21:49)
[2018-05-25] MEDS: Dicyclomine 10 MG Capsule 20 MG PO (21:49)
[2018-05-25 21:56] VITALS: BP 127/86; PULSE 85; RESP 24; TEMP 37.2; O2SAT 98
[2018-05-25 22:23] LABS: Anion Gap 9 (5-15); BUN 20 mg/dL (7-18); BUN/Creat Ratio 17.7 RATIO (10-20); Calcium,Total 8.5 mg/dL (8.5-10.1); Chloride 111 mmol/L (98-107); Creatinine, Serum 1.13 mg/dL (0.70-1.30); EST Glomerular Filtration Rate 76 mL/min (>60); Est Glom Filt Rate - Afr Amer 92 mL/min (>60); Estimated Creatinine Clearance 75.59 ml/min; Glucose 85 mg/dL (74-106); Potassium 3.6 mmol/L (3.5-5.1); Sodium Level 141 mmol/L (136-145)
[2018-05-25 22:55] LABS: Amphetamine Urine VISTA NEGATIVE (<1000 ng/mL); Barbiturate Urine VISTA NEGATIVE (< 200 ng/mL); Benzodiazepine Urine VISTA NEGATIVE (< 200 ng/mL); Cocaine Urine VISTA NEGATIVE (< 300 ng/mL); Ecstacy Urine VISTA NEGATIVE (< 500 ng/mL); Methadone Urine VISTA NEGATIVE (< 300 ng/mL); PCP Urine VISTA NEGATIVE (< 25 ng/mL); THC Urine VISTA NEGATIVE (< 50 ng/mL); Vista UDS pH Range 6
[2018-05-25 23:00] VITALS: BP 118/67; PULSE 66; RESP 18; TEMP 36.4; O2SAT 100
--- NOTE | 2018-05-25 23:18 | ED.DCSUM_ITS ---
- ER Visit Summary Date of Service: 05/25/18 Chief Complaint: Patient presents with several complaints and include feels weird, numbness right side of the body that goes to the left side of the body, diarrhea with weight loss History of Present Illness: The patient is a 42 M who has multiple medical issues which include GERD, intractable nausea and vomiting and intractable diarrhea. He has history of anxiety and depression. There is remote history of ulcer. He has history of cholelithiasis per old records. There is history of seizures, migraines and osteoarthritis. Patient stares at times. There is no abnormal motor activity. And he does not appear to be scanning the room. His affect is unusual. He does not describe being depressed or anxious. He states he has not had alcohol beverage in 2 years. States is not smoked in 1 year. He denies history of substance abuse. Prior records indicate he does have history of substance abuse. Review of systems remarkable for chills and 5 pound weight loss since he has had diarrhea. Diarrhea started 1 week ago. He also reports abdominal pain with nausea and no vomiting. He does report palpitations and denies chest pain. He does report shortness of breath but denies cough, dyspnea on exertion, orthopnea PND. He does report headache and tingling as previously described. Review of systems otherwise negative. Physical Examination: Vital signs noted and are marked for heart rate of 122. Patient's affect is restrictive. He does not respond quickly. He does answer appropriately, however. He is well-nourished well-developed. He is not well groomed. Head is atraumatic normocephalic. Pupils are equal round reactive. Extraocular muscles are intact. TMs are pearly white with landmarks noted. Nares patent with no drainage. Posterior pharynx without erythema or exudate. Uvula is midline. There is no dysphonia or dysphasia. There appears to be chewing tobacco in his mouth. Trachea is midline. There is no stridor with auscultation of the neck. Heart is regular without murmur, gallop or rub. S1 and S2 are normal. Lungs are clear to auscultation with good movement of air bilaterally. Abdomen is soft nontender. Patient is alert and oriented ?3. Motor is 5 over 5. Sensory is intact. DTRs are symmetric with no clonus or Babinski sign. Cranial 2 through 12 are intact. Cerebellar testing is normal. He does not answer correctly which side I am touching. He responds the opposite side. When asked if he knows the difference from his right or left he responded no. Test Results: Basic metabolic panel is unremarkable. Tox screen is negative. Emergency Department Course and Treatment: IV was established. Received liter of normal saline and basic mental panel was obtained to assess renal function and electrolytes in light of history of diarrhea for 7 days. Looking specifically for hypokalemia and acute kidney injury. Tox screen was obtained because of prior history of substance abuse and his unusual affect. Treatment Plan: Since his neuro exam is nonfocal his laboratory tests are unremarkable and has had no diarrhea during his stay in the emergency department plan is to discharge to home Disposition: Discharged home in stable condition Impression: 1. Migratory paresthesia unknown etiology 2. History of intractable diarrhea with report of diarrhea 3. Sinus tachycardia documented on monitor, 105 4. History of depression anxiety 5. History of migraine headaches This note was generated with [employer] dictation software. It may contain incorrect words, spelling, and punctuation that were not noted in review of the chart prior to signing ED Disposition - Plan for ED Patient: Disposition: Home or Assisted Living Instructions: ED Paraesthesias Referrals: [place] Jeffrey MD [Primary Care Provider] - 3-5 Days if not improving
[2018-05-25 23:28] VITALS: BP 118/87; PULSE 73; RESP 18; O2SAT 100
== END 2018-05-25 23:34 | disposition home or self-care (01) ==
PROVIDERS: Emergency Provider Emergency Medicine; Family Provider Internal Medicine; PCP Internal Medicine
DX: R20.2 Paresthesia of skin (principal); R19.7 Diarrhea, unspecified; R00.0 Tachycardia, unspecified; M19.90 Unspecified osteoarthritis, unspecified site; G43.909 Migraine, unspecified, not intractable, without status migrainosus; R56.9 Unspecified convulsions; R10.9 Unspecified abdominal pain; R00.2 Palpitations; R06.02 Shortness of breath; K21.9 Gastro-esophageal reflux disease without esophagitis; F32.9 Major depressive disorder, single episode, unspecified; F41.9 Anxiety disorder, unspecified; Z79.899 Other long term (current) drug therapy; Z87.891 Personal history of nicotine dependence
CPT/HCPCS: 80048; 80307; 96360; 99285; J7030

== ENCOUNTER 2018-06-10 14:20 | Emergency (ER) | payer SELFPAY ==
[2018-06-10 14:22] VITALS: BP 121/73; PULSE 80; RESP 18; TEMP 36.4; O2SAT 99; BMI 40.1
--- NOTE | 2018-06-10 14:34 | RAD_ITS ---
STUDY: X-RAY - LUMBAR SPINE REASON FOR EXAM: Male, 42 years old. Back pain and left leg pain. History of a prior fracture. TECHNIQUE: 3 view(s) of the lumbar spine were obtained. COMPARISON: Comparison is made with prior study dated January 18, 2018 and January 18, 2016. FINDINGS: Normal lumbar lordosis. There is no substantial scoliosis. There is a normal alignment of the vertebrae. Normal vertebral bodies and endplates. Normal disc space heights. The soft tissue structures are unremarkable. RAD/Lumbar Spine 2 or 3 Views IMPRESSION: Normal x-ray examination of the lumbar spine. Electronically Signed: Kyrie Alexis, at 15:19 EDT , Service support ,
--- NOTE | 2018-06-10 14:35 | ED.VISSUMM ---
- ER Visit Summary Date of Service: 06/10/18 Chief Complaint: Back pain History of Present Illness: The patient is a 42 M who presents with back pain that began after a fall 2 days ago. Patient states he has a history of a hairline fracture in his L4 and L5 area. Patient is unsure if this fracture moved. Patient states the pain is constant throbbing. Patient states the pain is worse with prolonged sitting and prolonged standing. Patient states pain does radiate into his left hip and thigh. Patient also admits to some tingling in his hands. Patient states he has some pain in his left lower abdomen. Patient denies any vomiting. Patient denies any dysuria or hematuria. Physical Examination: Vital signs are stable. Patient is afebrile. Patient is in no acute distress. Heart was regular rate and rhythm. Lungs are clear and equal bilateral. Abdomen is soft. Bowel sounds are normal. There is no tenderness. There is no rebound or guarding noted. Musculoskeletal exam reveals tenderness and mild spasm of the lumbar spine and paraspinal muscles. There is no bony crepitance or step-off. There is no edema or ecchymosis. There is good range of motion. Straight leg raises were negative bilaterally. Deep tendon reflexes were 2/4 bilaterally. There are no sensory deficits noted. The remaining physical exam is within normal limits. Test Results: X-rays of the lumbar spine were obtained. There is no fracture noted. Emergency Department Course and Treatment: Patient was advised of his results. Patient was given a prescription for Naprosyn. Patient was instructed use ice to the area. Patient was instructed to follow-up with his primary care physician in 5-7 days. Patient understood and was agreeable with the plan. All questions were answered. Disposition: Discharge home Impression: Lumbosacral strain This note was generated with [employer] dictation software. It may contain incorrect words, spelling, and punctuation that were not noted in review of the chart prior to signing ED Disposition - Plan for ED Patient: Disposition: Home or Assisted Living Diagnosis: Lumbosacral strain Instructions: ED Sprain Strain Lumbar Prescriptions: Naproxen [Naprosyn] 500 mg PO BID PRN #20 tab Referrals: [place] Jeffrey MD [Primary Care Provider] - 5-7 Days
[2018-06-10] MEDS: Ketorolac 60 MG/2 ML Vial IM (14:44)
== END 2018-06-10 16:02 | disposition home or self-care (01) ==
PROVIDERS: Emergency Provider Emergency Medicine; Family Provider Internal Medicine; PCP Internal Medicine
DX: S39.012A Strain of muscle, fascia and tendon of lower back, initial encounter (principal); W19.XXXA Unspecified fall, initial encounter; Y93.9 Activity, unspecified; Y92.9 Unspecified place or not applicable; F32.9 Major depressive disorder, single episode, unspecified; F41.9 Anxiety disorder, unspecified; G40.909 Epilepsy, unspecified, not intractable, without status epilepticus; Z87.891 Personal history of nicotine dependence; Z79.899 Other long term (current) drug therapy
CPT/HCPCS: 72100; 96372; 99282

== ENCOUNTER 2018-06-21 20:39 | Emergency (ER) | payer SELFPAY ==
[2018-06-21 20:40] VITALS: BP 122/90; PULSE 100; RESP 28; TEMP 37.1; O2SAT 100; BMI 34.2
[2018-06-21 20:46] VITALS: BP 119/85; PULSE 92; RESP 29; O2SAT 99
--- NOTE | 2018-06-21 20:51 | RAD_ITS ---
STUDY: X-RAY CHEST REASON FOR EXAM: Male, 43 years old. Chest pain TECHNIQUE: Single frontal view of the chest. COMPARISON: None. FINDINGS: The lungs are clear and expanded. There is no demonstrated pleural abnormality. Normal size heart. Normal mediastinum and diann. Normal visualized pulmonary arteries. Normal visualized aortic arch and descending thoracic aorta. Normal visualized thoracic spine. Normal visualized ribs, clavicles, and shoulders. There is no demonstrated abnormality of the visualized soft tissue structures of the upper abdomen. RAD/Chest 1 View (Portable) IMPRESSION: Normal x-ray examination of the chest. Electronically Signed: Aj Santiago MD at 21:40 EDT Tel , Service support ,
--- NOTE | 2018-06-21 20:51 | EKG12_ITS ---
Test Reason : CP Blood Pressure : / mmHG Vent. Rate : 098 BPM Atrial Rate : 098 BPM P-R Int : 194 ms QRS Dur : 082 ms QT Int : 336 ms P-R-T Axes : 038 -06 022 degrees QTc Int : 428 ms Normal sinus rhythm Minimal voltage criteria for LVH, may be normal variant Borderline ECG Confirmed by TORSTEN LUNDY, LO ([id number]), sound editor JEANIE LOW ([id number]) on 06/24/2018 7:53:41 AM Referred By: LORI Confirmed By:LO SARMIENTO MD
[2018-06-21] MEDS: Aspirin 81 MG TAB.CHEW 324 MG PO (20:56)
[2018-06-21 20:57] VITALS: O2SAT 99
[2018-06-21 21:25] VITALS: BP 123/93; PULSE 96; RESP 26; O2SAT 99
[2018-06-21 21:30] LABS: Absolute Lymphocyte Count 1.96 X10^3/ul (0.83-4.51); Basophil# 0.02 X10^3/uL; Basophil% 0.2 % (0-1); Eosinophil# 0.21 X10^3/uL; Hematocrit 41.4 % (40-54); Hemoglobin 14.3 g/dl (13.0-16.5); Lymphocyte # 1.96 X10^3/ul (4.0); Lymphocyte % 18.8 % (19-41); Mean Corp Hgb Conc 34.5 g/gl (32-36); Mean Corpuscular Hgb 31.3 pg (27.0-32.0); Mean Corpuscular Volume 90.6 fL (80-94); Monocyte# 1.22 X10^3/uL; Monocyte% 11.7 % (0-10); Neutrophil # 6.99 X10^3/uL (2.7-7.7); Neutrophil % 67.1 % (47-70); POSITIVE COUNT NO; POSITIVE DIFFERENTIAL NO; POSITIVE MORPHOLOGY NO; Platelet Count 371 K/mm3 (150-450); RBC Distribution Width CV 13.9 % (11.6-14.6); RBC Distribution Width SD 45.5 fl (35.1-43.9); Red Blood Count 4.57 M/mm3 (4.6-6.2); White Blood Count 10.4 K/mm3 (4.4-11.0)
[2018-06-21 21:39] LABS: Anion Gap 6 (5-15); BUN 18 mg/dL (7-18); BUN/Creat Ratio 15.4 RATIO (10-20); Calcium,Total 8.7 mg/dL (8.5-10.1); Chloride 104 mmol/L (98-107); Creatinine, Serum 1.17 mg/dL (0.70-1.30); EST Glomerular Filtration Rate 73 mL/min (>60); Est Glom Filt Rate - Afr Amer 88 mL/min (>60); Estimated Creatinine Clearance 72.28 ml/min; Glucose 117 mg/dL (74-106); Potassium 3.8 mmol/L (3.5-5.1); Sodium Level 136 mmol/L (136-145)
[2018-06-21 22:10] VITALS: BP 130/92; PULSE 81; RESP 21; O2SAT 99
--- NOTE | 2018-06-21 22:19 | ED.VISSUMM ---
- ER Visit Summary Date of Service: 06/21/18 Chief Complaint: Chest pain History of Present Illness: The patient is a 43 M with chest pain. Symptoms have been going on for hours. He was working outside a lot today and he believes he overdid it. He reports anterior chest pain that does not radiate. Associated with some nausea and paresthesias. No sweats. No shortness of breath. Denies any history of DVT or PE. Denies any history of aortic disease. He does have a family history coronary disease and is a prior smoker. Physical Examination: Afebrile and vital signs unremarkable. Patient is alert and oriented. No acute distress. Heart regular rate and rhythm. Lungs clear. Abdomen soft. Skin normal in color. Calf soft and supple. Diffuse upper extremity paresthesias bilaterally. Test Results: EKG showed sinus rhythm at a rate of 98. No sign of acute ischemia or infarction pattern. CBC, BMP, troponin normal. Chest x-ray normal. Emergency Department Course and Treatment: Patient treated with aspirin while awaiting results. His workup was unremarkable. Low risk for ACS. No risk for PE. Nothing to suggest aortic disease. On reevaluation, no new or worsening symptoms. I believe the patient is appropriate for outpatient follow-up. Naproxen for pain. Follow-up with primary care. Treatment Plan: As above Disposition: Discharge Impression: 1. Chest pain unclear etiology This note was generated with Viewpoints dictation software. It may contain incorrect words, spelling, and punctuation that were not noted in review of the chart prior to signing ED Disposition - Plan for ED Patient: Referrals: Argentina Jeffrey MD [Primary Care Provider] -
--- NOTE | 2018-06-21 22:22 | ED.DEP ---
ED Disposition - Plan for ED Patient: Instructions: ED Chest Pain Atypical Unkn Cause Prescriptions: Ibuprofen [Motrin] 800 mg PO TID PRN PRN #20 tab PRN Reason: Pain Referrals: Argentina Jeffrey MD [Primary Care Provider] -
[2018-06-21 22:27] VITALS: BP 120/99; PULSE 82; RESP 18; O2SAT 98
== END 2018-06-21 22:28 | disposition home or self-care (01) ==
PROVIDERS: Emergency Provider Emergency Medicine; Family Provider Internal Medicine; PCP Internal Medicine
DX: R07.9 Chest pain, unspecified (principal); R11.0 Nausea; Z87.891 Personal history of nicotine dependence; Z82.49 Family history of ischemic heart disease and other diseases of the circulatory system; R20.2 Paresthesia of skin; Z79.899 Other long term (current) drug therapy
CPT/HCPCS: 71045; 80048; 84484; 85025; 93005; 99285; A4216

== ENCOUNTER 2018-07-01 19:16 | Emergency (ER) | payer SELFPAY ==
[2018-07-01 19:17] VITALS: BP 126/75; PULSE 106; PULSE 110; RESP 14; RESP 97; TEMP 36.6; O2SAT 97; BMI 32.5
--- NOTE | 2018-07-01 19:30 | RAD_ITS ---
STUDY: X-RAY - LEFT RADIUS AND ULNA REASON FOR EXAM: Male, 43 years old. Left wrist pain. TECHNIQUE: 2 view(s) of the forearm. COMPARISON: None. FINDINGS: There is no demonstrated soft tissue swelling. Normal visualized radius. Normal visualized ulna. There is no acute fracture, dislocation or destructive osseous pathology. Wrist and elbow appear intact. RAD/Forearm 2 Views IMPRESSION: No acute fracture or dislocation. Electronically Signed: Matthew Green DO at 19:50 EDT Tel [phone], Service support ,
--- NOTE | 2018-07-01 20:45 | ED.VISSUMM ---
- ER Visit Summary Date of Service: 07/01/18 Chief Complaint: Left wrist pain History of Present Illness: The patient is a 43 M who is right-hand dominant. Patient states he woke with pain to the left wrist 2 days ago. Today he dropped a pain when trying to carry with his left hand. Planes of pain that shoots up to the forearm. He denies any recent injury. Physical Examination: Vital signs unremarkable. Patient sitting upright in bed no acute distress. Left upper extremity examination was tenderness along the medial aspect of the left wrist and up to the mid forearm. He has full range of motion. Normal cap refill and sensation. No overlying skin changes or edema. Test Results: Left forearm x-rays show no fracture or dislocation. Emergency Department Course and Treatment: Patient be treated with a Velcro wrist splint and anti-inflammatories. Treatment Plan: [] Disposition: Discharge Impression: Left wrist sprain This note was generated with [employer] dictation software. It may contain incorrect words, spelling, and punctuation that were not noted in review of the chart prior to signing ED Disposition - Plan for ED Patient: Disposition: Home or Assisted Living Instructions: ED Sprain Wrist Prescriptions: Naproxen [Naprosyn] 500 mg PO BID PRN PRN #20 tablet PRN Reason: Pain Referrals: Argentina Jeffrey MD [Primary Care Provider] - 1 Week if not improving
[2018-07-01 21:23] VITALS: PULSE 94; RESP 16
== END 2018-07-01 21:24 | disposition home or self-care (01) ==
PROVIDERS: Emergency Provider Emergency Medicine; Family Provider Internal Medicine; PCP Internal Medicine
DX: S63.502A Unspecified sprain of left wrist, initial encounter (principal); K21.9 Gastro-esophageal reflux disease without esophagitis; R56.9 Unspecified convulsions; Z87.442 Personal history of urinary calculi; Z87.891 Personal history of nicotine dependence; Z79.899 Other long term (current) drug therapy; X58.XXXA Exposure to other specified factors, initial encounter; Y93.84 Activity, sleeping; Y92.003 Bedroom of unspecified non-institutional (private) residence as the place of occurrence of the external cause; Y99.8 Other external cause status
CPT/HCPCS: 73090; 99283

== ENCOUNTER 2018-07-03 19:35 | Emergency (ER) | payer OTHER, SELFPAY ==
[2018-07-03 19:37] VITALS: BP 104/71; PULSE 94; RESP 18; TEMP 36.7; O2SAT 100; BMI 30.7
--- NOTE | 2018-07-03 20:16 | ED.VISSUMM ---
- ER Visit Summary Date of Service: 07/03/18 Chief Complaint: Laceration History of Present Illness: The patient is a 43 M with a laceration to the left distal thumb tip. Patient is right-hand dominant. He cut his left thumb on glass in the garbage. He denies foreign bodies. He washed the area and then glued it. The bleeding has stopped. No other complaints. Tetanus is up-to-date. Physical Examination: Afebrile and vital signs are unremarkable. Patient has a 2 cm laceration to his left thumb tip that does not involve the nailbed. Wound is well approximated. No active bleeding. He is neurovascular intact. Test Results: None indicated Emergency Department Course and Treatment: Patient asked me not to clean and explore the wound. He said he already did. He just wanted to get checked out. I will put him on Clinda prophylaxis and refer him to corporate care for follow-up. Keep the area clean and dry. Treatment Plan: As above Disposition: Discharge Impression: 1. Left thumb laceration 2 cm This note was generated with [employer] dictation software. It may contain incorrect words, spelling, and punctuation that were not noted in review of the chart prior to signing ED Disposition - Plan for ED Patient: Referrals: Argentina Jeffrey MD [Primary Care Provider] -
--- NOTE | 2018-07-03 20:18 | ED.DEP ---
ED Disposition - Plan for ED Patient: Instructions: ED Laceration Hand Prescriptions: Clindamycin [Cleocin] 300 mg PO 4X/DAY #40 cap Referrals: Corporate,[facility] [GROUP OF PHYSICIANS] -
[2018-07-03] MEDS: Clindamycin HCl 150 MG Capsule 300 MG PO (20:22)
--- NOTE | 2018-07-03 20:27 | ED.RN ---
DISCHARGE INSTRUCTIONS GIVEN TO AND REVIEWED WITH PATIENT, PATIENT DENIES QUESTIONS OR CONCERNS AND VOICES UNDERSTANDING OF DISCHARGE INSTRUCTIONS. PT AMBULATES OUT OF ROOM WITHOUT DIFFICULTY.
== END 2018-07-03 20:27 | disposition home or self-care (01) ==
PROVIDERS: Emergency Provider Emergency Medicine; Family Provider Internal Medicine; PCP Internal Medicine
DX: S61.012A Laceration without foreign body of left thumb without damage to nail, initial encounter (principal); W25.XXXA Contact with sharp glass, initial encounter; Y93.9 Activity, unspecified; Y92.59 Other trade areas as the place of occurrence of the external cause
CPT/HCPCS: 99282

== ENCOUNTER 2018-07-13 17:12 | Emergency (ER) | payer SELFPAY ==
[2018-07-13 17:13] VITALS: BP 121/59; PULSE 73; RESP 22; TEMP 36.6; O2SAT 100; BMI 33.5
[2018-07-13 17:16] VITALS: BP 109/81; PULSE 70
--- NOTE | 2018-07-13 17:58 | EKG12_ITS ---
Test Reason : CP Blood Pressure : / mmHG Vent. Rate : 066 BPM Atrial Rate : 066 BPM P-R Int : 198 ms QRS Dur : 088 ms QT Int : 392 ms P-R-T Axes : 054 009 037 degrees QTc Int : 410 ms Normal sinus rhythm Normal ECG Confirmed by SE LUNDY, LISA ([id number]), scientific editor JEANIE LOW ([id number]) on 07/15/2018 11:15:40 AM Referred By: RUDOLPH Confirmed By:LISA SAEZ MD
--- NOTE | 2018-07-13 18:10 | ED.DCSUM_ITS ---
History of Present Illness Chief Complaint: Chest Pain Detail of Chief Complaint: Anterior left lower chest Informant: Patient, Significant Other Onset: Weeks - Onset 1 week ago if not longer Context: Sudden Onset Timing: Intermittent - Duration 2 to 4 days Quality: Sharp Location: Anterior left lower chest Current Severity: Mild Maximum Severity: Severe Worsened by: movement, palpation Relieved by: Nothing Associated Symptoms: Hurts to breathe Narrative: Patient is a 43-year-old male who chews tobacco presents with anterior left lower chest pain that is described as sharp. There is radiation to the left upper quadrant. There is no diaphoresis, dyspnea nausea or vomiting. There is no history of PE or DVT. He denies leg pain, swelling or discoloration. He has no risk factors for VTE. He denies URI symptoms. He denies trauma. Prior similar symptoms: No Recent Illness/Hospitalization: Yes - Recently for shoulder pain - Past Medical History (1) History of seizures Status: Acute (2) History of stomach ulcers Status: Acute (3) History of substance abuse Status: Acute (4) Migraine aura, persistent, intractable Status: Acute (5) Anxiety and depression Status: Chronic (6) Cholelithiasis Status: Chronic (7) Chronic bronchitis Status: Chronic (8) Former smoker Status: Chronic Comment: Quit 2010 (9) Gastroesophageal reflux disease Status: Chronic (10) History of nephrolithiasis Status: Chronic (11) Obesity (BMI 30.0-34.9) Status: Chronic Past Medical History - Allergies and Home Meds Allergies/Adverse Reactions: Allergies Penicillins Allergy (Verified 07/13/18 17:15) Anaphylaxis bezonates Allergy (Severe, Uncoded 07/03/18 19:39) Hives Primary Care Physician: Argentina Jeffrey MD [Primary Care Provider] - Prior records reviewed: Yes Surgical History: no surgical history, - Lives: Spouse/ Significant Other Smoking Status: Former smoker Alcohol: Rare - Family History Maternal Family History: Family History (Last Reviewed 11/06/17 @ 14:22 by Claudio Garner DO) Father Cancer Myocardial infarction, Onset Age: 39 Seizures Mother Breast cancer Family History: Reports: Diabetes, Seizures Paternal Family History: Family History (Last Reviewed 11/06/17 @ 14:22 by Claudio Garner DO) Father Cancer Myocardial infarction, Onset Age: 39 Seizures Mother Breast cancer Family History: Reports: Cancer - Gastric cancer in his father who at the age of 42, Heart Disease Review of Systems General: Denies: Chills, Fever, Malaise, Subjective, Sweats, Weight loss Eyes: Denies: Visual changes - bilaterally, Blurred Vision - bilaterally ENT: Denies: Bilateral ear pain, Rhinorrhea, Sore throat Cardiovascular: Reports: Chest pain Respiratory: Denies: Dyspnea, Cough, Dyspnea on exertion, Orthopnea, Paroxysmal nocturnal dyspnea Gastrointestinal: Denies: Abdominal pain, Nausea, Vomiting, Diarrhea, Melena, Hematochezia Genitourinary: Denies: Dysuria, Hematuria, Frequency Musculoskeletal: Denies: Myalgias, Arthralgias, Back pain, Swelling, Extremity Pain Skin: Denies: Rash, Wounds Neurological: Denies: Weakness, Parasthesia, Numbness Psych: Reports: Depression, Anxiety Hematologic: Denies: Easy bruising, Easy bleeding Allergy: Denies: Uticaria Physical Exam Vital Signs/Narrative: Vital Signs Temp Pulse Resp BP Pulse Ox 07/13/18 17:16 70 109/81 H 07/13/18 17:13 97.9 F 73 22 H 121/59 H 100 Inital Vital Signs reviewed: Yes General: Well nourished, Well developed, No Acute Distress Head: Normocephalic, Atraumatic Eyes: Perrl, EOMI. Negative for: Pale conjunctiva, Scleral icterus, - ENT: Moist mucous membranes, No rhinorrhea, - - Patient has tobacco staining of his teeth and chewing tobacco stuck on his teeth. Neck: Supple, Nontender, No lymphadenopathy, No JVD Cardiovascular: Regular rate, Regular rhythm, No murmurs, Normal S1, Normal S2 Respiratory: No distress, CTA bilaterally, Chest tenderness - Chest pain over lower rib cage. No rash to suggest herpes varicella-zoster. Abdomen: Soft, Nontender, Nondistended, Normal bowel sounds, No masses. Negative for: Hepatomegaly, Splenomegaly, Mass, Pulsatile mass Back: Nontender, Normal Inspection. Negative for: CVA tenderness Extremities: Nontender, No edema, - - There is no asymmetry, swelling, discoloration, leg vein distention, palpable cords or tenderness along the distribution of the deep venous system. Skin: Normal color, No rash. Negative for: Diaphoresis, Jaundice Neurological: Alert, Oriented x3, Cranial nerves II-XII grossly intact, Normal Strength, Normal Sensation Psychological: Normal affect, Normal Mood Diagnostic/Tx/Re-eval Chest X-Ray - ED: 2 View, Read by ED Physician, Unchanged, Normal, Heart, Mediastinum, Bony Structures, No Acute Disease 07/13/18 18:10 Chest PA and Lateral [RAD] Stat Laboratory Results 07/13/18 07/13/18 17:15 17:15 WBC 10.2 RBC 5.05 Hgb 15.8 Hct 44.7 MCV 88.5 MCH 31.3 MCHC 35.3 RDW 13.4 RDW Differential 43.2 Plt Count 388 MPV 9.3 Immature Gran % (Auto) 0.300 Neut % (Auto) 62.3 Lymph % (Auto) 25.2 Fleming % (Auto) 10.4 H Eos % (Auto) 1.5 Baso % (Auto) 0.3 Absolute Neuts (auto) 6.4 Absolute Lymphs (auto) 2.58 Total Counted Not Reportable Sodium 137 Potassium 3.7 Chloride 103 Carbon Dioxide 26.0 Anion Gap 8 BUN 13 Creatinine 1.07 Estim Creat Clear Calc 79.03 Est GFR (MDRD) Af Amer 98 Est GFR (MDRD) Non-Af 81 BUN/Creatinine Ratio 12.1 Glucose 99 Calcium 9.2 Troponin I < 0.015 - Medical Decision Making Patient with atypical left-sided chest pain. Will obtain troponin EKG to evaluate for ischemia/atypical presentation of cardiac disease. Chest x-ray to evaluate for pneumonia, pneumothorax etc. Blood work to assess renal function and electrolytes. CBC to assess white count and H&H. With 2 to 4 days of pain normal troponin normal EKG patient been informed this is not cardiac pain. Says the pain does have a pleuritic component as well as muscular component will treat with NSAIDs since he has no contraindications. ED Disposition - Plan for ED Patient: Disposition: Home or Assisted Living Diagnosis: Left-sided chest pain, Pleuritic chest pain Instructions: ED Chest Pain NonCardiac, ED Chest Pain Pleurisy Prescriptions: Naproxen [Naprosyn] 500 mg PO BID #14 tablet Referrals: Argentina Jeffrey MD [Primary Care Provider] - 1 Week if not improving Additional Instructions: Your prescription was electronically transmitted to [facility] your designated pharmacy of choice.
--- NOTE | 2018-07-13 18:10 | RAD_ITS ---
STUDY: X-RAY CHEST REASON FOR EXAM: Male, 43 years old. Anterior left lower chest pain TECHNIQUE: PA and lateral chest COMPARISON: 06/21/2018 FINDINGS: There is mild left lower lobe pulmonary opacity. There is no demonstrated pleural abnormality. Normal size heart. Normal mediastinum and diann. Normal visualized pulmonary arteries. Normal visualized aortic arch and descending thoracic aorta. Normal visualized thoracic spine. Normal visualized ribs, clavicles, and shoulders. There is no demonstrated abnormality of the visualized soft tissue structures of the upper abdomen. RAD/Chest PA and Lateral IMPRESSION: Mild left lower lobe linear pulmonary opacity infiltrate versus subsegmental atelectasis. Electronically Signed: Storm Peterson, at 21:04 EDT Tel , Service support ,
[2018-07-13 18:39] LABS: Absolute Lymphocyte Count 2.58 X10^3/ul (0.83-4.51); Absolute Neutrophil Count 6.4 X10^3/uL (2.0-7.7); Basophil# 0.03 X10^3/uL; Basophil% 0.3 % (0-1); Eosinophil# 0.15 X10^3/uL; Eosinophils% 1.5 % (0-5); Hematocrit 44.7 % (40-54); Hemoglobin 15.8 g/dl (13.0-16.5); Lymphocyte # 2.58 X10^3/ul (4.0); Lymphocyte % 25.2 % (19-41); Mean Corp Hgb Conc 35.3 g/gl (32-36); Mean Corpuscular Hgb 31.3 pg (27.0-32.0); Mean Corpuscular Volume 88.5 fL (80-94); Mean Platelet Vol. 9.3 fl (6.2-12.0); Monocyte# 1.06 X10^3/uL; Monocyte% 10.4 % (0-10); Neutrophil # 6.38 X10^3/uL (2.7-7.7); Neutrophil % 62.3 % (47-70); Platelet Count 388 K/mm3 (150-450); RBC Distribution Width CV 13.4 % (11.6-14.6); RBC Distribution Width SD 43.2 fl (35.1-43.9); Red Blood Count 5.05 M/mm3 (4.6-6.2); White Blood Count 10.2 K/mm3 (4.4-11.0)
[2018-07-13 18:40] LABS: POSITIVE COUNT NO; POSITIVE DIFFERENTIAL NO; POSITIVE MORPHOLOGY NO
[2018-07-13 18:53] LABS: Anion Gap 8 (5-15); BUN 13 mg/dL (7-18); BUN/Creat Ratio 12.1 RATIO (10-20); Calcium,Total 9.2 mg/dL (8.5-10.1); Chloride 103 mmol/L (98-107); Creatinine, Serum 1.07 mg/dL (0.70-1.30); EST Glomerular Filtration Rate 81 mL/min (>60); Est Glom Filt Rate - Afr Amer 98 mL/min (>60); Estimated Creatinine Clearance 79.03 ml/min; Glucose 99 mg/dL (74-106); Potassium 3.7 mmol/L (3.5-5.1); Sodium Level 137 mmol/L (136-145)
[2018-07-13 19:14] VITALS: BP 114/85; PULSE 72; RESP 16; O2SAT 100
[2018-07-13 20:03] VITALS: BP 115/79; PULSE 72; RESP 22; O2SAT 97
--- NOTE | 2018-07-13 20:05 | ED.RN ---
THIS NURSE ATTEMPTED TO REVIEW D/C INSTRUCTIONS WITH PT AND VISITORS. VISITOR TOOK THE D/C INSTRUCTIONS FROM THIS NURSES HANDS. PT DENIES FURTHER QUESTIONS. IV D/C. IV CATHETER INTACT. PT TOLERATED WELL.
== END 2018-07-13 20:06 | disposition home or self-care (01) ==
PROVIDERS: Emergency Provider Emergency Medicine; Family Provider Internal Medicine; PCP Internal Medicine
DX: R09.1 Pleurisy (principal); R07.9 Chest pain, unspecified; E66.9 Obesity, unspecified; G40.909 Epilepsy, unspecified, not intractable, without status epilepticus; G43.519 Persistent migraine aura without cerebral infarction, intractable, without status migrainosus; Z87.448 Personal history of other diseases of urinary system; Z87.19 Personal history of other diseases of the digestive system; Z87.898 Personal history of other specified conditions; Z87.09 Personal history of other diseases of the respiratory system; Z79.899 Other long term (current) drug therapy; F17.220 Nicotine dependence, chewing tobacco, uncomplicated; Z87.891 Personal history of nicotine dependence
CPT/HCPCS: 71046; 80048; 84484; 85025; 93005; 99284; A4216

== ENCOUNTER 2018-08-22 16:45 | Emergency (ER) | payer MEDICAID, SELFPAY ==
[2018-08-22 16:46] VITALS: BP 93/60; PULSE 68; RESP 16; TEMP 36.7; O2SAT 98; BMI 33.3
--- NOTE | 2018-08-22 17:43 | RAD_ITS ---
STUDY: X-RAY - LEFT KNEE REASON FOR EXAM: Male, 43 years old. Pain TECHNIQUE: 5 view(s) of the knee. COMPARISON: X-ray left knee April 16, 2013 FINDINGS: There is no evidence of fracture or dislocation. There is mild superior patellar spurring. There are no radiodense foreign bodies. RAD/Knee 4 or More Views IMPRESSION: No fracture or dislocation. Mild superior patellar spurring. Electronically Signed: Javi Sharpe, at 18:18 EDT Tel , Service support ,
--- NOTE | 2018-08-22 17:53 | ED.DCSUM_ITS ---
- ER Visit Summary Date of Service: 08/22/18 Chief Complaint: Left knee pain History of Present Illness: The patient is a 43 M who presents with left knee pain that is been getting worse over the past 2 hours. Patient states he was walking and thinks he may have twisted his knee. Patient denies any popping or snapping sensation. Patient states the pain is localized to the medial aspect of the left knee. Patient admits to some tingling in his left knee and foot. Patient denies any weakness. Patient states the pain is worse with any weightbearing and ambulation. Physical Examination: Vital signs are stable. Patient is afebrile. Patient is in no acute distress. Musculoskeletal exam reveals tenderness over the medial aspect of the left knee along the joint line. There is no effusion. There is no laxity appreciated. There is no deformity. There is good range of motion. Extensor mechanism is intact. There is pain with valgus testing but there is no laxity appreciated. There is no laxity with varus testing. Andi's test was negative. Warren's test was negative. Test Results: X-rays of the left knee were obtained. There is no acute fracture. Emergency Department Course and Treatment: Patient left prior to receiving discharge instructions. Patient did not sign any papers. Patient was told to follow-up with his primary care physician in 5 to 7 days. Patient was told to take Tylenol or ibuprofen as needed for pain. Disposition: Discharge home Impression: Left knee sprain This note was generated with [employer] dictation software. It may contain incorrect words, spelling, and punctuation that were not noted in review of the chart prior to signing ED Disposition - Plan for ED Patient: Disposition: Home or Assisted Living Diagnosis: Left knee sprain Referrals: Argentina Jeffrey MD [Primary Care Provider] -
--- NOTE | 2018-08-22 19:49 | ED.RN ---
PT STATES HE WILL NOT WAIT ON MD ANY LONGER, RIPPED WRISTBAND OFF, THREW ON FLOOR AND LEFT DEPARTMENT.
== END 2018-08-22 19:51 | disposition home or self-care (01) ==
PROVIDERS: Emergency Provider Emergency Medicine; Family Provider Internal Medicine; PCP Internal Medicine
DX: S83.92XA Sprain of unspecified site of left knee, initial encounter (principal); X58.XXXA Exposure to other specified factors, initial encounter; Y93.01 Activity, walking, marching and hiking; Y92.9 Unspecified place or not applicable; G40.909 Epilepsy, unspecified, not intractable, without status epilepticus; Z79.899 Other long term (current) drug therapy; Z87.891 Personal history of nicotine dependence
CPT/HCPCS: 73564; 99282

== ENCOUNTER 2018-08-29 12:53 | Emergency (ER) | payer MEDICAID, SELFPAY ==
[2018-08-29 12:53] VITALS: BP 110/70; PULSE 76; RESP 18; TEMP 37.1; O2SAT 99; BMI 33.0
--- NOTE | 2018-08-29 13:16 | EKG12_ITS ---
Test Reason : CP Blood Pressure : / mmHG Vent. Rate : 057 BPM Atrial Rate : 057 BPM P-R Int : 178 ms QRS Dur : 082 ms QT Int : 408 ms P-R-T Axes : 038 -04 016 degrees QTc Int : 397 ms Sinus bradycardia Otherwise normal ECG Confirmed by TORSTEN LUNDY, LO ([id number]), senior technical editor JEANIE LOW ([id number]) on 09/02/2018 9:24:09 AM Referred By: TL Confirmed By:LO SARMIENTO MD
[2018-08-29 13:27] LABS: Hematocrit 39.8 % (40-54); Hemoglobin 13.9 g/dl (13.0-16.5); Mean Corp Hgb Conc 34.9 g/gl (32-36); Mean Corpuscular Volume 88.8 fL (80-94); Mean Platelet Vol. 9.1 fl (6.2-12.0); Platelet Count 276 K/mm3 (150-450); RBC Distribution Width CV 12.7 % (11.6-14.6); RBC Distribution Width SD 41.4 fl (35.1-43.9); Red Blood Count 4.48 M/mm3 (4.6-6.2); White Blood Count 8.5 K/mm3 (4.4-11.0)
[2018-08-29 13:29] LABS: Scan Indicated on CBC? Y/N NO
[2018-08-29 13:33] VITALS: BP 103/85; BP 95/71; BP 97/63; PULSE 47; PULSE 61; PULSE 73
[2018-08-29] MEDS: 0.9% Normal Saline 1,000 ML 1000 ML IV (13:35)
[2018-08-29 13:44] LABS: Anion Gap 4 (5-15); BUN 19 mg/dL (7-18); BUN/Creat Ratio 16.7 RATIO (10-20); Calcium,Total 8.8 mg/dL (8.5-10.1); Chloride 110 mmol/L (98-107); Creatinine, Serum 1.14 mg/dL (0.70-1.30); EST Glomerular Filtration Rate 75 mL/min (>60); Est Glom Filt Rate - Afr Amer 91 mL/min (>60); Estimated Creatinine Clearance 74.18 ml/min; Glucose 111 mg/dL (74-106); Potassium 3.9 mmol/L (3.5-5.1); Sodium Level 139 mmol/L (136-145)
--- NOTE | 2018-08-29 14:09 | ED.VISSUMM ---
- ER Visit Summary Date of Service: 08/29/18 Chief Complaint: [Not feeling well] History of Present Illness: The patient is a 43 M [presents to the emergency department with complaint of generalized weakness and fatigue. 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 Patient states it was hot at work but he had 3 fans blowing on him and he is been drinking lots of water. Patient states he slept well last night. Patient did feel somewhat lightheaded but denies any vertiginous symptoms. Patient had a mild cough for the last 2 days. Patient does have a history of seizure disorder. Patient has had prior vertigo issues but this felt different. Patient has a history of colitis and anxiety and depression.] Patient denies any vomiting or diarrhea. He denies urinary symptoms. Physical Examination: [HEENT-PERRLA, EOMI. Cranial nerves II through XII grossly intact. TMs clear. Mucous membranes moist. No adenopathy. Cardiovascular-regular rate and rhythm without murmur or ectopy Lungs-clear to auscultation, chest wall stable without crepitus or subcu emphysema Abdomen-normoactive bowel sounds, soft, nontender, no rebound or rigidity, no peritoneal signs. Extremities-intact ?4, normal range of motion, normal pulses, atraumatic] Test Results: [CBC with differential obtained was unremarkable. Chemistries unremarkable. EKG obtained showed sinus rhythm with a ventricular rate of 57 bpm with no acute I segment changes.] Troponin is less than 0.015. Urinalysis was normal. Static vital signs were negative. Emergency Department Course and Treatment: [Patient received a liter normal same fluid bolus. While in the department patient was on a monitor as noted that he intermittently would drop his heart rate into the upper 30s however he was relatively asymptomatic with that. His heart rate but then quickly rebounded into the 50s and 60s. Treatment Plan: [Patient advised to push fluids. Etiology of symptoms unclear. Will discuss case with cardiology as well regarding his bradycardia and have patient follow-up with primary care as well as cardiology.] Disposition: [Discharged home in stable condition] Impression: [Generalized weakness-etiology uncertain Bradycardia] This note was generated with [employer] software. It may contain incorrect words, spelling, and punctuation that were not noted in review of the chart prior to signing ED Disposition - Plan for ED Patient: Referrals: Argentina Jeffrey MD [Primary Care Provider] -
[2018-08-29 14:28] LABS: Bacteria 0 SEEN /hpf (None Seen); Mucous, Urine 0 SEEN /hpf (<or=2+); Red Blood Cells-Urine 0 SEEN /hpf (0-5); Squamous Epithelial Cells - UA 0 SEEN /hpf (0-5); White Blood Cells 0 SEEN /hpf (0-5)
[2018-08-29 14:29] LABS: Color, Urine Yellow (Yellow); Glucose, Dipstick Normal (Normal); Ketone-Dipstick 15 mg/dl (Negative); Leukocyte Esterase-Dipstick Negative /ul (Negative); Nitrite-Dipstick Negative (Negative); Occult Blood-Urine Negative /ul (Negative); Protein-Dipstick Negative (Negative); Specific Gravity, Urine 1.025 (1.002-1.030); Urine Bilirubin Dipstick Negative (Negative); Urine Clarity Clear (Clear); Urine Urobilinogen Normal (Normal)
--- NOTE | 2018-08-29 14:42 | ED.DEP ---
ED Disposition - Plan for ED Patient: Instructions: ED Weakness UKO, ED Bradycardia Referrals: Argentina Jeffrey MD [Primary Care Provider] - 3-5 Days Jim Elder MD [STAFF PHYSICIAN] - 3-5 Days
[2018-08-29 14:58] VITALS: PULSE 41; RESP 18; O2SAT 100
[2018-08-29 15:28] VITALS: BP 109/72; PULSE 59; RESP 16; O2SAT 100
--- NOTE | 2018-08-29 15:29 | ED.RN ---
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
== END 2018-08-29 16:04 | disposition home or self-care (01) ==
PROVIDERS: Emergency Provider Emergency Medicine; Family Provider Internal Medicine; PCP Internal Medicine
DX: R53.1 Weakness (principal); R00.1 Bradycardia, unspecified; R53.83 Other fatigue; R42 Dizziness and giddiness; R05 Cough; G40.909 Epilepsy, unspecified, not intractable, without status epilepticus; F41.9 Anxiety disorder, unspecified; F32.9 Major depressive disorder, single episode, unspecified; Z87.19 Personal history of other diseases of the digestive system; Z79.899 Other long term (current) drug therapy; Z87.891 Personal history of nicotine dependence
CPT/HCPCS: 80048; 81001; 84484; 85027; 93005; 96360; 96361; 99285; J7030; A4216

== ENCOUNTER → 2018-08-29 | Outpatient (CLI) | payer MEDICAID, SELFPAY ==
[2018-08-29 12:53] VITALS: BMI 33.0
== END | disposition home or self-care (01) ==
LOC: CVS 15:19
PROVIDERS: Family Provider Internal Medicine; PCP Internal Medicine; Visit Provider Emergency Medicine
DX: R00.1 Bradycardia, unspecified (principal); R53.1 Weakness; R53.83 Other fatigue; R42 Dizziness and giddiness; R05 Cough; G40.909 Epilepsy, unspecified, not intractable, without status epilepticus; F41.9 Anxiety disorder, unspecified; F32.9 Major depressive disorder, single episode, unspecified; Z87.19 Personal history of other diseases of the digestive system; Z79.899 Other long term (current) drug therapy; Z87.891 Personal history of nicotine dependence
CPT/HCPCS: 80048; 81001; 84484; 85027; 93005; 93225; 93226; 96360; 96361; 99285; J7030; A4216

== ENCOUNTER 2018-11-27 18:41 | Emergency (ER) | payer SELFPAY ==
[2018-11-27 18:42] VITALS: BP 109/83; PULSE 73; RESP 18; TEMP 36.7; O2SAT 96; BMI 33.1
--- NOTE | 2018-11-27 18:49 | RAD_ITS ---
STUDY: X-RAY CHEST REASON FOR EXAM: Male, 43 years old. Twisting injury. Question rib fracture. TECHNIQUE: PA and lateral chest. COMPARISON: 07/13/2018. FINDINGS: The lungs are clear and expanded. There is no demonstrated pleural abnormality. Normal size heart. Normal mediastinum and diann. Normal visualized pulmonary arteries. Normal visualized aortic arch and descending thoracic aorta. Normal visualized thoracic spine. Normal visualized ribs, clavicles, and shoulders. There is no demonstrated abnormality of the visualized soft tissue structures of the upper abdomen. RAD/Chest PA and Lateral IMPRESSION: Normal x-ray examination of the chest. Electronically Signed: Aparna Gilliland MD at 19:41 EDT Tel , Service support ,
--- NOTE | 2018-11-27 18:49 | ED.VIS.INJ ---
History of Present Illness Chief Complaint: Other, Pain/Inj Informant: Patient Onset: Today Mechanism/Context: Fall - Fall from ladder. He grabbed a shelf felt a pop and tear left lower ribs. He reports pain with movement. He reports pain with breathing. He denies direct trauma. He denies abdominal pain. Denies pain referred to his trapezius or left shoulder area. Quality of Pain: Dull, Aching Current Severity: Mild Maximum Severity: Severe Worsened by: Breathing, touch and rising from supine position Associated Symptoms: Negative for: Parasthesias, Weakness, Loss of function, Inability to ambulate, Loss of consciousness, Amnesia Narrative: Patient is a 43-year-old male presents from work after fall from ladder. He states he grabbed a shelf with his left hand. [place] a pop and tear which he localizes over the left eighth ninth rib midclavicular line to posterior axillary line. He complains of pain with movement, touch and breathing. He does not endorse any direct trauma. He is on no anticoagulant. He has no allergy to NSAIDs. Tetanus Immunization: 5-10 years Prior similar symptoms: No Recent Illness/Hospitalization: No - Past Medical History (1) Bradycardia Status: Acute Past Medical History - Allergies and Home Meds Allergies/Adverse Reactions: Allergies benzonatate Allergy (Severe, Verified 11/27/18 18:52) Hives acetaminophen [From Percocet] Allergy (Intermediate, Verified 11/27/18 18:52) Unknown levetiracetam [From Keppra] Allergy (Intermediate, Verified 11/27/18 18:52) Unknown oxycodone [From Percocet] Allergy (Intermediate, Verified 11/27/18 18:52) Unknown Penicillins Allergy (Verified 11/27/18 18:52) Anaphylaxis Primary Care Physician: Aviva Horn NP-C [NON-STAFF] - Surgical History: no surgical history, - Lives: Spouse/ Significant Other Smoking Status: Former smoker - Chews tobacco Alcohol: Rare Drugs: None - Family History Maternal Family History: Family History (Last Reviewed 09/24/18 @ 08:46 by Adrienne Yu) Father Cancer Myocardial infarction, Onset Age: 39 Seizures Mother Breast cancer Family History: Reports: Diabetes, Seizures Paternal Family History: Family History (Last Reviewed 09/24/18 @ 08:46 by Adrienne Yu) Father Cancer Myocardial infarction, Onset Age: 39 Seizures Mother Breast cancer Family History: Reports: Cancer - Gastric cancer in his father who at the age of 42, Heart Disease Review of Systems General: Denies: Chills, Fever, Sweats Eyes: Denies: Visual changes - bilaterally, Blurred Vision - bilaterally ENT: Denies: Bilateral ear pain Cardiovascular: Reports: Chest pain. Denies: Heart racing Respiratory: Denies: Dyspnea, Cough, Sputum, Dyspnea on exertion Gastrointestinal: Denies: Abdominal pain, Nausea, Vomiting Genitourinary: Denies: Dysuria, Hematuria, Frequency Musculoskeletal: Denies: Myalgias, Arthralgias, Neck pain, Back pain, Swelling, Extremity Pain Neurological: Denies: Headache, Weakness, Numbness Hematologic: Denies: Easy bruising, Easy bleeding Physical Exam Vital Signs/Narrative: Vital Signs Temp Pulse Resp BP Pulse Ox 11/27/18 18:42 98.1 F 73 18 109/83 H 96 Inital Vital Signs reviewed: Yes General: Well nourished, Well developed Head: Normocephalic, Atraumatic, - - Is no evidence of trauma to the head or face. Eyes: Perrl, EOMI. Negative for: Pale conjunctiva, Scleral icterus ENT: TM's clear, No hemotympanum or drainage, No trauma. Negative for: Otorrhea, Nasal trauma, Nasal septal hematoma Neck: Nontender, Full ROM. Negative for: Spinal Tenderness, Paraspinal Tenderness Cardiovascular: Regular rate, Regular rhythm, No murmurs, Normal S1, Normal S2 Respiratory: No distress, CTA bilaterally, Decreased Air Movement, - - There is to be discoloration over the anterior left ninth rib on the anterior axillary line to the midclavicular line.. Negative for: Chest nontender Abdomen: Soft, Nontender, Nondistended, Normal bowel sounds, No masses. Negative for: Guarding, Rebound tenderness, Hyperactive bowel sounds, Hepatomegaly, Splenomegaly Rectal: Deferred Back: Nontender. Negative for: CVA Tenderness - Right, CVA Tenderness - Left, Spinal Tenderness, Paraspinal Tenderness Skin: Normal color, No rash, Trauma Neurological: Alert, Oriented x3, Cranial nerves II-XII grossly intact, Normal Strength, Normal Sensation Psychological: Normal affect, Normal Mood Diagnostic/Tx/Re-eval Chest X-Ray - ED: 2 View, Read by ED Physician, Read by Radiologist, Normal, Heart, Lungs, Bony Structures, No Acute Disease, Chronic Changes, CHF, - - Acute findings were noted. The radiologist read the chest x-ray before me. I reviewed chest x-ray before reviewing his report. Impressions Chest X-Ray 11/27/18 18:49 IMPRESSION: Normal x-ray examination of the chest. Electronically Signed: Aparna Gilliland MD at 19:41 EDT Tel , Service support , 11/27/18 18:49 Chest PA and Lateral [RAD] Stat - Medical Decision Making Since patient does not have a ride home he was treated with IV Toradol. X-ray was obtained to evaluate for lower rib fracture. If there is a lower rib fracture will need to obtain a CT of the abdomen to evaluate for splenic injury since lower rib fractures on the left side or have a 13 to 18% incidence of splenic injury. Patient will be discharged with anti-inflammatory since there is no contraindication. ED Disposition - Plan for ED Patient: Disposition: Home or Assisted Living Diagnosis: Chest wall muscle strain Instructions: Chest Wall Strain Prescriptions: Naproxen [Naprosyn] 500 mg PO BID #14 tab Transmission Status: Pending to [facility] Referrals: PodlogAviva milan NP-C [NON-STAFF] - 1 Week if not improving Additional Instructions: Your prescription was electronically transmitted to your designated pharmacy of choice.
[2018-11-27 18:50] VITALS: O2SAT 98
[2018-11-27] MEDS: Ketorolac 15 MG/ML Vial IV (18:57)
[2018-11-27 20:53] VITALS: BP 100/72; PULSE 68; RESP 16; O2SAT 96
== END 2018-11-27 20:53 | disposition home or self-care (01) ==
PROVIDERS: Emergency Provider Emergency Medicine; Family Provider Internal Medicine; PCP Internal Medicine
DX: S29.011A Strain of muscle and tendon of front wall of thorax, initial encounter (principal); W11.XXXA Fall on and from ladder, initial encounter; Y93.9 Activity, unspecified; Y92.9 Unspecified place or not applicable; Z87.891 Personal history of nicotine dependence; F17.220 Nicotine dependence, chewing tobacco, uncomplicated
CPT/HCPCS: 71046; 96374; 99285; A4216

== ENCOUNTER 2019-03-28 16:32 | Emergency (ER) | payer MEDICAID, SELFPAY ==
[2019-03-28 16:32] VITALS: BP 118/63; PULSE 105; RESP 15; TEMP 36.7; O2SAT 100; BMI 35.0
--- NOTE | 2019-03-28 17:07 | ED.VISSUMM ---
- ER Visit Summary Date of Service: 03/28/19 Chief Complaint: Left leg pain History of Present Illness: The patient is a 43 M who woke up with left leg pain yesterday. The pain is behind the knee and goes up the hamstring. It is worse with movement. He tried Tylenol without any relief. He denies any specific injuries. No shortness of breath. He denies any history of DVT or PE. No swelling to the leg noted. Physical Examination: Vital signs reviewed. Left leg exam is tender over the medial hamstring tendon. There is no leg swelling. His extensor mechanism is intact. He has 2+ DP pulses. Test Results: None performed Emergency Department Course and Treatment: Patient will be given naproxen for pain. I will write him for an outpatient DVT ultrasound to be done tomorrow morning. I do not feel he needs any other imaging studies at this time. He will call his PCP for follow-up Treatment Plan: [] Disposition: Discharge Impression: Left leg pain This note was generated with [employer] dictation software. It may contain incorrect words, spelling, and punctuation that were not noted in review of the chart prior to signing ED Disposition - Plan for ED Patient: Disposition: Home or Assisted Living Instructions: Hamstring Stretch (with Towel) Prescriptions: Naproxen [Naprosyn] 500 mg PO BID PRN #20 tab Transmission Status: Pending to [facility]30 Referrals: Argentina Jeffrey MD [Primary Care Provider] - Additional Instructions: Your prescription was electronically transmitted to [facility]
[2019-03-28] MEDS: Naproxen 500 MG Tablet PO (17:18)
[2019-03-28 17:23] VITALS: PULSE 90; RESP 18; O2SAT 97
== END 2019-03-28 17:24 | disposition home or self-care (01) ==
LOC: ED 17:18
PROVIDERS: Emergency Provider Emergency Medicine; Family Provider Internal Medicine; PCP Internal Medicine
DX: M79.605 Pain in left leg (principal); Z72.0 Tobacco use
CPT/HCPCS: 99283

== ENCOUNTER 2019-04-08 07:29 | Emergency (ER) | payer MEDICAID, SELFPAY ==
[2019-04-08 07:31] VITALS: BP 109/83; PULSE 69; RESP 20; TEMP 36.3; O2SAT 100; BMI 33.7
--- NOTE | 2019-04-08 07:39 | CT_ITS ---
STUDY: CT ABDOMEN AND PELVIS WITHOUT CONTRAST REASON FOR EXAM: Male, 43 years old. PT STATED LLQ PAIN TODAY, HX OF MULTIPLE LIPOMAS REMOVED THROUGHOUT ARMS AND TORSO RADIATION DOSAGE (If Supplied By Facility): CTDIvol = ( 10.39 ) mGy, DLP = ( 597.21 ) mGycm TECHNIQUE: Transaxial images were obtained from the dome of the diaphragm to the symphysis pubis without oral contrast, and without intravenous contrast. Sagittal and coronal images were reconstructed. Individualized dose optimization techniques were used for this CT. COMPARISON: Comparison is made with prior examination dated May 10, 2018. FINDINGS: The visualized lung bases are unremarkable. The visualized portions of the heart are within normal limits. Normal liver. There is a solitary gallstone. Normal spleen. Normal pancreas. Normal bilateral adrenal glands. Normal right kidney. Mild degree of left hydronephrosis and left hydroureter due to a 2.5 mm calculus at the right ureterovesical junction. Normal visualized stomach. Normal small intestine. Normal colon. The appendix is visualized and appears normal. Normal abdominal aorta. Normal inferior vena cava. There is borderline retroperitoneal lymphadenopathy with enlarged nodes no greater than 10mm in the short axis diameter. The urinary bladder is empty. There is a small umbilical hernia containing fat. Normal osseous structures. CT/Abdomen/Pelvis without Cont IMPRESSION: Mild degree of left hydronephrosis and hydroureter due to a 2.5 mm calculus at the left ureterovesical junction. Solitary gallstone. Electronically Signed: Kyrie Alexis, at 8:34 EST , Service support ,
--- NOTE | 2019-04-08 07:41 | ED.VIS.GI ---
History of Present Illness Chief Complaint: Abd Pain Informant: Patient - Abdominal Pain/Flank Pain Onset: Hours - 2 Context: Sudden Onset Timing: Continuous Quality: Aching Current Severity: Severe Maximum Severity: Severe Worsened by: Nothing Relieved by: Nothing - Nausea/Vomiting/Emesis GI Symptom: Nausea. Negative for: Vomiting - Diarrhea/Melena/Hematochezia GI Symptom: Negative for: Diarrhea, Melena, Hematochezia Associated Symptoms: Urgency - could not urinate this AM after pain started. last urinated last night prior to going to bed without difficulty.. Negative for: Dysuria, Hematuria Narrative: Sudden onset pain in his left flank and left lower quadrant. Does not go into his back. Just to his side. Woke him up from sleep. No prior abd surgeries. Prior similar symptoms: No Past Medical History - Allergies and Home Meds Allergies/Adverse Reactions: Allergies benzonatate Allergy (Severe, Verified 04/08/19 07:30) Hives acetaminophen [From Percocet] Allergy (Intermediate, Verified 04/08/19 07:30) Unknown levetiracetam [From Keppra] Allergy (Intermediate, Verified 04/08/19 07:30) Unknown oxycodone [From Percocet] Allergy (Intermediate, Verified 04/08/19 07:30) Unknown Penicillins Allergy (Verified 04/08/19 07:30) Anaphylaxis Primary Care Physician: Argentina Jeffrey MD [Primary Care Provider] - Romaine Rodriguez MD [STAFF PHYSICIAN] - 1 Week if not improving (if you don't pass the stone in 1 week's time and still having pain, call for appt) Past Medical History: None Surgical History: no surgical history, - Lives: With Family Smoking Status: Former smoker - Family History Maternal Family History: Family History (Last Reviewed 09/24/18 @ 08:46 by Adrienne Yu) Father Cancer Myocardial infarction, Onset Age: 39 Seizures Mother Breast cancer Family History: Reports: Diabetes, Seizures Paternal Family History: Family History (Last Reviewed 09/24/18 @ 08:46 by Adrienne Yu) Father Cancer Myocardial infarction, Onset Age: 39 Seizures Mother Breast cancer Family History: Reports: Cancer - Gastric cancer in his father who at the age of 42, Heart Disease Review of Systems ROS: Unable to Obtain - initially limited due to painful distress/condition General: Denies: Chills, Fever, Sweats Eyes: Denies: Visual changes - bilaterally, Diplopia ENT: Denies: Rhinorrhea, Sore throat Cardiovascular: Denies: Chest pain, Palpitations Respiratory: Denies: Dyspnea, Cough, Dyspnea on exertion Gastrointestinal: Reports: Abdominal pain, Nausea. Denies: Vomiting, Diarrhea, Melena, Hematochezia Genitourinary: Reports: - - feels like needs to urinate but can't; see HPI. Denies: Dysuria, Hematuria Musculoskeletal: Denies: Neck pain, Back pain, Extremity Pain Skin: Denies: Rash, Wounds Neurological: Denies: Headache, Weakness, Numbness Physical Exam Vital Signs/Narrative: Vital Signs Temp Pulse Resp BP Pulse Ox 04/08/19 07:31 97.4 F L 69 20 H 109/83 H 100 Inital Vital Signs reviewed: Yes General: Well nourished, Well developed, Acute Distress - painful Head: Normocephalic, Atraumatic Eyes: Perrl, EOMI ENT: Moist mucous membranes, No rhinorrhea Neck: Supple, Nontender Cardiovascular: Regular rate, Regular rhythm, No murmurs Respiratory: No distress - but hyperventilating, presumably due to pain, CTA bilaterally, Chest nontender Abdomen: Soft, Nondistended, Normal bowel sounds, Tender - LLQ and left mid abd, mild relatively. Negative for: Guarding, Rebound tenderness Back: Normal Inspection, CVA tenderness - left Extremities: Nontender, No edema. Negative for: Calf Tenderness Skin: Normal color, No rash, No Trauma Neurological: Alert, Oriented x3, Cranial nerves II-XII grossly intact, Normal Strength, Normal Sensation Psychological: Normal Mood, Agitated - very anxious, hyperventilating Diagnostic/Tx/Re-eval Impressions Abdomen/Pelvis CT 04/08/19 07:39 IMPRESSION: Mild degree of left hydronephrosis and hydroureter due to a 2.5 mm calculus at the left ureterovesical junction. Solitary gallstone. Electronically Signed: Kyrie Alexis, at 8:34 EST , Service support , 04/08/19 07:39 CT Abd [Abdomen/Pelvis without Cont] [CT] Stat Laboratory Results 04/08/19 07:59 Urine Color Yellow Urine Clarity Clear Urine pH 8.0 Ur Specific Dewitt 1.010 Urine Protein 15 H Urine Glucose (UA) Normal Urine Ketones Negative Urine Occult Blood 25 H Urine Nitrite Negative Urine Bilirubin Negative Urine Urobilinogen Normal Ur Leukocyte Esterase Negative Urine RBC 0-5 SEEN Urine WBC 0-5 SEEN Ur Squamous Epith Cells 0 SEEN Urine Bacteria 0 SEEN Urine Mucus 0 SEEN - Medical Decision Making CT confirms suspicion of a kidney stone, he has a 2.5 mm distal left ureteral stone with mild hydroureter and hydronephrosis. No sign of infection on urinalysis. His pain is well controlled after Toradol and morphine as well as Zofran. He is given prescriptions for symptom control, strainers to go, instructions for use and reasons to return. He is comfortable with the overall plan of expectant management. ED Disposition - Plan for ED Patient: Disposition: Home or Assisted Living Diagnosis: Urolithiasis, Ureteral colic, Cholelithiasis Instructions: KIDNEY STONE w/ Colic, What Are Gallstones? Prescriptions: Hydrocodone Bitart/Apap 5-325 [[place] 5MG-325MG] 1 - 2 tablet PO Q4H PRN PRN 3 Days #18 tablet PRN Reason: Pain Transmission Status: Sent to [facility] Ondansetron [Zofran Odt] 4 - 8 mg PO Q8H PRN PRN #15 tab PRN Reason: Nausea Transmission Status: Pending to [facility] Referrals: Argentina Jeffrey MD [Primary Care Provider] - Romaine Rodriguez MD [STAFF PHYSICIAN] - 1 Week if not improving (if you don't pass the stone in 1 week's time and still having pain, call for appt) Additional Instructions: Strain all your urine until you pass the stone. If you pass and catch the stone, take it to your doctor the next time you go for analysis. Return to the ER for pain or vomiting that is out of control not responding to medications.
[2019-04-08] MEDS: Ketorolac 30 MG/ML Syringe IV (07:53)
[2019-04-08] MEDS: Ondansetron 4 MG/2 ML Vial IV (07:53)
[2019-04-08] MEDS: Morphine 4 MG/ML Syringe IV (07:53)
[2019-04-08 08:04] LABS: Bacteria 0 SEEN /hpf (None Seen); Mucous, Urine 0 SEEN /hpf (<or=2+); Squamous Epithelial Cells - UA 0 SEEN /hpf (0-5)
[2019-04-08 08:30] LABS: Color, Urine Yellow (Yellow); Glucose, Dipstick Normal (Normal); Ketone-Dipstick Negative (Negative); Leukocyte Esterase-Dipstick Negative /ul (Negative); Nitrite-Dipstick Negative (Negative); Occult Blood-Urine 25 /ul (Negative); Protein-Dipstick 15 mg/dl (Negative); Urine Bilirubin Dipstick Negative (Negative); Urine Clarity Clear (Clear); Urine Urobilinogen Normal (Normal)
[2019-04-08 08:31] VITALS: BP 129/66; PULSE 59; RESP 16; O2SAT 97
[2019-04-08 08:39] LABS: Red Blood Cells-Urine 0-5 SEEN /hpf (0-5); White Blood Cells 0-5 SEEN /hpf (0-5)
== END 2019-04-08 09:01 | disposition home or self-care (01) ==
PROVIDERS: Emergency Provider Emergency Medicine; PCP Internal Medicine
DX: N13.2 Hydronephrosis with renal and ureteral calculous obstruction (principal); K80.20 Calculus of gallbladder without cholecystitis without obstruction; Z87.891 Personal history of nicotine dependence
CPT/HCPCS: 74176; 81001; 96374; 96375; 99285; A4216; J2405

== ENCOUNTER 2020-06-24 18:24 | Emergency (ER) | payer MEDICAID, SELFPAY ==
[2020-06-24 18:25] VITALS: BP 114/85; PULSE 95; RESP 16; TEMP 37; O2SAT 99; BMI 32.8
[2020-06-24] MEDS: Ketorolac 60 MG/2 ML Vial IM (19:14)
[2020-06-24] MEDS: Orphenadrine 60 MG/2 ML Ampul IM (19:14)
--- NOTE | 2020-06-24 19:17 | RAD_ITS ---
INDICATION: back pain, h/o fracture? EXAMINATION/TECHNIQUE: X-RAY - XR Spine Lumbar 2 or 3 Views COMPARISON: None. FINDINGS: VERTEBRAE: Preserved vertebral body height. No fracture. No spondylolisthesis. Preservation of the normal lumbar lordosis. No significant facet arthropathy. DISCS: Disc spaces are maintained. INCLUDED ABDOMEN: Included bowel gas pattern is non-obstructive. RAD/Lumbar Spine 2 or 3 Views IMPRESSION: No acute abnormalities. Electronically Signed: Yanick Fong MD at 19:45 EDT Tel , Service support ,
--- NOTE | 2020-06-24 21:04 | ED.VISSUMM ---
- ER Visit Summary Date of Service: 06/24/20 Chief Complaint: Back pain History of Present Illness: The patient is a 45 M with left low back pain. He said the pain radiates down his left leg and then up into his left arm. He feels a tingling sensation. History of back injections remotely. Symptoms were worse with twisting. No bowel or bladder changes. No saddle anesthesias. No fevers or systemic illness. No other trauma. No history of immune compromise. Physical Examination: Inspection is normal. He does have some tenderness to the left paraspinal muscles. Straight leg raise negative. Good strength and sensation. Normal pulses. Muscle compartments soft. Test Results: X-rays were unremarkable, interpreted by the radiologist and myself. Emergency Department Course and Treatment: Patient was treated with Toradol and Norflex. He had improvement on reevaluation. He was given a work note and a prescription for Flexeril. Risks of the medication were discussed. Treatment Plan: As above Disposition: Discharge Impression: Low back pain This note was generated with Kinetic dictation software. It may contain incorrect words, spelling, and punctuation that were not noted in review of the chart prior to signing ED Disposition - Plan for ED Patient: Disposition: Home or Assisted Living Instructions: ED Back Pain (Acute or Chronic) Prescriptions: cycloBENZAPRine HCl [Flexeril] 10 mg PO TID PRN #20 tab PRN Reason: Muscle Spasm Prescription Printed Referrals: Mariano Muniz MD [Primary Care Provider] -
[2020-06-24 21:31] VITALS: BP 119/74; PULSE 88; RESP 15; O2SAT 99
== END 2020-06-24 21:32 | disposition home or self-care (01) ==
LOC: ED 19:05
PROVIDERS: Emergency Provider Emergency Medicine; PCP Family Medicine
DX: M54.5 Low back pain (principal); R20.2 Paresthesia of skin
CPT/HCPCS: 72100; 96372; 99283

== ENCOUNTER 2024-06-29 18:50 | Emergency (ER) | payer MEDICAID, SELFPAY ==
[2024-06-29 18:50] VITALS: BP 116/81; PULSE 84; RESP 17; TEMP 36.8; O2SAT 98; BMI 34.4
--- NOTE | 2024-06-29 20:45 | RAD_ITS ---
PROCEDURE: LUMBAR SPINE 2 OR 3 VIEWS 06/29/2024 REASON FOR EXAM: PAIN TECHNIQUE: 2 view(s) of the lumbar spine COMPARISON: None FINDINGS: Vertebrae: No acute fracture or subluxation. Discs: Disc space heights are preserved. Alignment: Unremarkable Other: RAD/Lumbar Spine 2 or 3 Views IMPRESSION: NO EVIDENCE OF LUMBAR FRACTURE. Reading Location: [facility]
[2024-06-29 22:58] VITALS: BP 122/93; PULSE 83; RESP 18; O2SAT 100
[2024-06-30] MEDS: Ondansetron ODT 4 MG Tablet PO (00:10)
[2024-06-30] MEDS: Orphenadrine 60 MG/2 ML Ampul 30 MG IM (00:10)
[2024-06-30] MEDS: morphine 10 MG/ML Syringe IM (00:10)
[2024-06-30] MEDS: predniSONE 20 MG Tablet 40 MG PO (00:10)
--- NOTE | 2024-06-30 00:40 | EX.ED.DYSGE1 ---
HPI History of Present Illness Chief Complaint: Back Narrative Narrative: Patient is a 49-year-old male past medical history of chronic back pain, vertigo, GERD who presented to the emergency department with chief complaint of back pain. Patient states that he recently got out of long term and notes that he started to increase his activity and noted that he has had back pain. He states that he has pain rating down his left side into his toes. He states that he used to follow with pain management and noted that he used to get steroid injections and states that these were working for him well however he had to stop secondary to completing the course of this. He was told by his doctor that within about a year that the steroids would wear off. He states that he has no inciting event or injury specific to cause his back pain currently. Patient states he has been urinating normally for himself and having normal bowel movements. [facility] Medical History Bradycardia Epilepsy Asthma YMAILETH (acute kidney injury) Lactic acidosis SIRS (systemic inflammatory response syndrome) Intractable diarrhea Intractable nausea and vomiting History of stomach ulcers History of pneumonia Seasonal allergies Anxiety and depression Chronic bronchitis Thyroid activity decreased History of substance abuse Colitis Abdominal pain Atypical chest pain Vertigo Migraine aura, persistent, intractable Bulging lumbar disc Osteoarthritis History of nephrolithiasis Gastroesophageal reflux disease Personal history of peptic ulcer disease Nonallopathic lesion-rib cage Cholelithiasis Recovering alcoholic Glucose intolerance (impaired glucose tolerance) Obesity (BMI 30.0-34.9) Chest pain Home Medications ?Medication ?Instructions ?Recorded ?Last Taken ?Type cyclobenzaprine 5 mg tablet 5 mg PO TID PRN muscle spasm #20 06/30/24 Unknown Rx tabs lidocaine 5 % topical patch 1 patch topical DAILY #15 ea 06/30/24 Unknown Rx ondansetron 4 mg disintegrating 4 mg PO Q6H PRN nausea and 06/30/24 Unknown Rx tablet vomiting #20 tabs oxycodone-acetaminophen 5 mg-325 1 tab PO Q6H PRN pain 2 days #8 06/30/24 Unknown Rx mg tablet (Endocet) tabs Allergy/AdvReac Type Severity Reaction Status Date / Time benzonatate Allergy Severe Hives Verified 06/29/24 18:54 acetaminophen (From Percocet) Allergy Intermediate Unknown Verified 06/29/24 18:54 levetiracetam (From Keppra) Allergy Intermediate Unknown Verified 06/29/24 18:54 oxycodone (From Percocet) Allergy Intermediate Unknown Verified 06/29/24 18:54 Penicillins Allergy Anaphylaxis Verified 06/29/24 18:54 Family History Father Cancer Myocardial infarction, Onset Age: 39 Seizures Mother Breast cancer Surgical History History of endoscopy History of colonoscopy Social History Smoking Status: Current every day smoker tobacco type: smokeless tobacco Smokeless tobacco user: chewing tobacco alcohol intake: former substance use type: former substance user what type of physical activity do you participate in: walking frequency: daily ROS ROS ED ROS Narrative Constitutional: Denies fevers, chills, headaches, lightness, dizziness Eyes: Denies change in vision double vision blurry vision Cardiovascular: Denies chest pain or palpitations Respiratory: Denies coughing wheezing shortness of breath Abdomen: Denies nausea vomit diarrhea states that he is having normal bowel movements as noted above : States that he is urinating normally for himself as noted above denies any other urinary symptoms Neurological: Complains of pain shooting down his left leg into his foot as noted above denies any other numbness or tingling Musculoskeletal: Complains of back pain as noted above Skin: Denies rashes or lesions EXAM Physical Exam Narrative Exam Narrative: General: Patient was lying in bed rest comfortably did not appear to be in acute distress Head: Atraumatic, normocephalic Eyes: PERRL bilaterally, EOMI bilateral, no conjunctival injection noted Neck: Soft, supple, trachea midline Cardiovascular: Regular rate and rhythm no murmurs gallops rubs noted Respiratory: Clear to auscultation bilaterally Abdomen: Soft, nondistended, nontender palpation Musculoskeletal: No tenderness palpation midline of the thoracolumbar spine Extremities: +5/5 strength noted in the bilateral upper and lower extremities, no pedal edema exam Neurological: Patient functions knew that he was at [facility] years 2024. Sensation grossly intact, no saddle anesthesia noted Skin: Warm, dry contact no rashes or lesions noted Const Vital Signs: 06/29/24 18:50 06/29/24 22:58 Temperature 98.3 F Temperature Source Temporal Pulse Rate 84 83 Respiratory Rate 17 18 Blood Pressure 116/81 H 122/93 H Blood Pressure Mean 92 102 Pulse Ox 98 100 Oxygen Delivery Method Room Air MDM MDM MDM Narrative Medical decision making narrative: Patient is a 49-year-old male who presented to the emergency department with a chief complaint of back pain. On the differential diagnose includes Melamin to musculoskeletal strain, flareup of his chronic back pain. Patient had no specific trauma therefore I do not feel further imaging is warranted. Will give him morphine, Norflex, prednisone and reevaluate him. On reevaluation the patient he is feeling better he would like to go home at this point in time. Patient was encouraged to use multimodal pain therapy for his back pain which will include prescriptions for Lidoderm patch, cyclobenzaprine, Percocet, Zofran and also was advised to rotate Tylenol and ibuprofen [id number]. He is advised to follow-up with pain management in the outpatient setting to reestablish with them and also his primary care physician. He is agreeable this plan all question concerns answered he is discharged home in stable condition. Radiography Diagnostic Testing: Clinical Impression(s) from Imaging Studies Lumbar Spine X-Ray 06/29/24 20:45 IMPRESSION: NO EVIDENCE OF LUMBAR FRACTURE. Reading [facility] Discharge Plan Triage Chief Complaint: Back ED Provider: Maximiliano Martinez Dx/Rx/DC Orders Clinical Impression: Back pain Prescriptions: New lidocaine 5 % adhesive patch,medicated 1 patch topical DAILY Qty: 15 0RF Rx Instructions: leave on most painful area for up to 12 hrs cyclobenzaprine 5 mg tablet 5 mg PO TID PRN (Reason: muscle spasm) Qty: 20 0RF oxycodone-acetaminophen [Endocet] 5-325 mg tablet 1 tab PO Q6H PRN (Reason: pain) 2 Days Qty: 8 0RF ondansetron 4 mg tablet,disintegrating 4 mg PO Q6H PRN (Reason: nausea and vomiting) Qty: 20 0RF Primary Care Provider: Mariano Muniz Referrals: Mariano Muniz MD [Primary Care Provider] - Activity Restrictions/Additional Instructions: Rotate Tylenol and ibuprofen [id number] when you do this you can take something every 3 hours max dose Tylenol 4000 mg max dose of ibuprofen 3200 mg. Use prescriptions as prescribed and do not operate anything under the influence of the narcotic or the muscle relaxer. Follow-up with pain management and return with worsening symptoms or concerns. Print Language: Turkmen Disposition Disposition: Home, Self Care
[2024-06-30 01:20] VITALS: BP 110/87; PULSE 95; RESP 18; TEMP 36.6; O2SAT 96
== END 2024-06-30 01:22 | disposition home or self-care (01) ==
PROVIDERS: Emergency Provider Emergency Medicine; PCP Family Medicine; Visit Provider Emergency Medicine
DX: M54.9 Dorsalgia, unspecified (principal); G89.29 Other chronic pain; F17.220 Nicotine dependence, chewing tobacco, uncomplicated
CPT/HCPCS: 72100; 99282

== ENCOUNTER 2024-07-05 16:06 | Emergency (ER) | payer MEDICAID, SELFPAY ==
[2024-07-05 16:07] VITALS: BP 118/87; PULSE 104; TEMP 36.1; BMI 34.7
--- NOTE | 2024-07-05 16:31 | CT_ITS ---
PROCEDURE: SPINE CERVICAL WITHOUT CONTRAS 07/05/2024 REASON FOR EXAM: INJURY/PAIN TECHNIQUE: Cervical spine CT without contrast. Coronal and Sagittal reconstruction series were provided. One or more dose reduction techniques were used (e.g., Automated exposure control, adjustment of the mA and/or kV according to patient size, use of iterative reconstruction technique RADIATION DOSE SUMMARY: CTDlvol: 21 mGy DLP: 455 mGycm COMPARISON: None FINDINGS: Alignment: Straightening of the cervical alignment likely due to positioning. Vertebrae: Cervical vertebral body heights are preserved. No acute fracture. Discs: Narrowing of C5-C6 intervertebral disc space with endplate osteophyte formation. Soft Tissues: Unremarkable Other: CT/Spine Cervical without Contras IMPRESSION: No acute fracture or subluxation. Degenerative changes at C5-C6. Reading Location[facility]
--- NOTE | 2024-07-05 16:31 | EX.ED.GENINJ ---
HPI History of Present Illness Chief Complaint: Other, Pain/Inj Informant: patient Onset/Context/Timing Onset: Today and Hours (1) Mechanism/Context: Blunt Injury Quality of Pain: Sharp Location: Right lateral neck Worsened by: Movement Relieved by: Tylenol Associated Symptoms Associated Symptoms: Negative for Parasthesias, Weakness, Loss of function, Inability to ambulate, Loss of consciousness or Amnesia Narrative Narrative: Patient presents with neck pain that began today. Patient states he was cleaning his closet and a box fell off of the shelf and onto his neck. Patient states the pain is mainly over the right side of his neck. Patient states he took some Tylenol which helped somewhat. Patient describes the pain as sharp. Patient states it is worse with certain movements. Patient denies any paresthesias or weakness. Patient denies any head injury or loss of consciousness. Patient denies any other injuries. [facility] Medical History Bradycardia Epilepsy Asthma YAMILETH (acute kidney injury) Lactic acidosis SIRS (systemic inflammatory response syndrome) Intractable diarrhea Intractable nausea and vomiting History of stomach ulcers History of pneumonia Seasonal allergies Anxiety and depression Chronic bronchitis Thyroid activity decreased History of substance abuse Colitis Abdominal pain Atypical chest pain Vertigo Migraine aura, persistent, intractable Bulging lumbar disc Osteoarthritis History of nephrolithiasis Gastroesophageal reflux disease Personal history of peptic ulcer disease Nonallopathic lesion-rib cage Cholelithiasis Recovering alcoholic Glucose intolerance (impaired glucose tolerance) Obesity (BMI 30.0-34.9) Chest pain Home Medications ?Medication ?Instructions ?Recorded ?Last Taken ?Type cyclobenzaprine 5 mg tablet 5 mg PO TID PRN muscle spasm #20 06/30/24 Unknown Rx tabs lidocaine 5 % topical patch 1 patch topical DAILY #15 ea 06/30/24 Unknown Rx ondansetron 4 mg disintegrating 4 mg PO Q6H PRN nausea and 06/30/24 Unknown Rx tablet vomiting #20 tabs oxycodone-acetaminophen 5 mg-325 1 tab PO Q6H PRN pain 2 days #8 06/30/24 Unknown Rx mg tablet (Endocet) tabs hydrocodone-acetaminophen 5-325mg 1 tab PO Q6H PRN PRN Pain 3 days 07/05/24 Unknown Rx 5mg-325mg #10 TABLETS Allergy/AdvReac Type Severity Reaction Status Date / Time benzonatate Allergy Severe Hives Verified 07/05/24 16:10 acetaminophen (From Percocet) Allergy Intermediate Unknown Verified 07/05/24 16:10 levetiracetam (From Keppra) Allergy Intermediate Unknown Verified 07/05/24 16:10 oxycodone (From Percocet) Allergy Intermediate Unknown Verified 07/05/24 16:10 Penicillins Allergy Anaphylaxis Verified 07/05/24 16:10 Family History Father Cancer Myocardial infarction, Onset Age: 39 Seizures Mother Breast cancer Surgical History History of endoscopy History of colonoscopy Social History Smoking Status: Current every day smoker tobacco type: smokeless tobacco Smokeless tobacco user: chewing tobacco alcohol intake: former substance use type: former substance user what type of physical activity do you participate in: walking frequency: daily ROS ROS ED Constitutional Constitutional ED: Denies chills or fever(s) Eyes Eyes: Denies blurry vision or change in vision ENT ENT ED: Denies rhinorrhea or sore throat Cardiovascular Cardiovascular: Denies chest pain or palpitations Respiratory/Chest Respiratory/Chest: Denies cough or dyspnea Gastrointestinal Gastrointestinal: Reports nausea and vomiting Genitourinary Genitourinary ED: Denies dysuria or hematuria Musculoskeletal Musculoskeletal: Reports neck pain; Denies back pain Integumentary Denies abscess or rash Neurologic Neurologic: Denies headache(s) or weakness Allergic/Immunologic Allergic/Immunologic ED: Denies mouth swelling or urticaria EXAM Physical Exam Const Vital Signs: 07/05/24 16:07 07/05/24 16:26 07/05/24 18:28 Temperature 97 F L 98 F Temperature Source Oral Pulse Rate 104 H 87 Respiratory Rate 18 Respiratory Pattern Normal Blood Pressure 118/87 H 122/64 H Blood Pressure Mean 97 83 Pulse Ox 100 Positive well nourished and well developed General Appearance ED: well developed and NAD Neck Neck Narrative: There is tenderness and spasm of the right cervical paraspinal muscles. There is mild midline tenderness. There is no edema or ecchymosis. There is no bony crepitance or step-off noted. Range of motion of the cervical spine was limited in all motions secondary to pain. General: tenderness Extremity normal to inspection General Extremety ED: Negative for deformity or tenderness General Extremity: Negative for deformity Neuro oriented x3, CN's II-XII intact bilaterally, moves all extremities, no focal motor deficits and no sensory deficits noted [place] Coma Scale: document GCS findings Spontaneous Obeys Commands Oriented 15 Sensorium / Orientation: alert Motor Exam: strength 5/5 throughout Psych mental status grossly normal and thought process normal MDM MDM MDM Narrative Medical decision making narrative: Differential diagnosis includes transverse process fracture, cervical strain, and contusion. CT scan of the cervical spine will be obtained to assess for fracture. History & Record Review Additional record(s) reviewed:: Prior ED visit Radiography Diagnostic Testing: Clinical Impression(s) from Imaging Studies Cervical Spine CT 07/05/24 16:31 IMPRESSION: No acute fracture or subluxation. Degenerative changes at C5-C6. Reading [facility] scan of the cervical spine was obtained. There is no acute fracture or subluxation. There are some degenerative changes at C5-C6. This was interpreted by the radiologist and was also independently reviewed by myself. Treatment and Re-Evaluation Narrative: Cervical collar was applied. Patient was given a dose of [place] here. Patient was advised of his findings. Patient was instructed to use ice to the area. Patient was instructed in gentle range of motion exercises. Patient was given a prescription for short course of [place]. Patient was instructed to follow-up with his primary care physician in 5 to 7 days. Patient understood and was agreeable with plan. All questions were answered. Discharge Plan Triage Chief Complaint: Other, Pain/Inj ED Provider: Claudio Raza Dx/Rx/DC Orders Clinical Impression: Acute cervical myofascial strain, Head injury Instructions: ED Neck Sprain or Strain Prescriptions: New hydrocodone-acetaminophen 5-325 mg tablet 1 tab PO Q6H PRN PRN (Reason: Pain) 3 Days Qty: 10 0RF No Action lidocaine 5 % adhesive patch,medicated 1 patch topical DAILY Qty: 15 0RF Rx Instructions: leave on most painful area for up to 12 hrs cyclobenzaprine 5 mg tablet 5 mg PO TID PRN (Reason: muscle spasm) Qty: 20 0RF oxycodone-acetaminophen [Endocet] 5-325 mg tablet 1 tab PO Q6H PRN (Reason: pain) 2 Days Qty: 8 0RF ondansetron 4 mg tablet,disintegrating 4 mg PO Q6H PRN (Reason: nausea and vomiting) Qty: 20 0RF Primary Care Provider: Mariano Muniz Referrals: Mariano Muniz MD [Primary Care Provider] - 5-7 Days Print Language: Maldivian Disposition Disposition: Home, Self Care Discharge Date/Time: 07/05/24 18:29
[2024-07-05 18:28] VITALS: BP 122/64; PULSE 87; RESP 18; TEMP 36.6; O2SAT 100
[2024-07-05] MEDS: HYDROcodone Bitartrate/Apap 5/325 Tablet PO (18:28)
== END 2024-07-05 18:29 | disposition home or self-care (01) ==
PROVIDERS: Emergency Provider Emergency Medicine; PCP Family Medicine; Visit Provider Emergency Medicine
DX: S16.1XXA Strain of muscle, fascia and tendon at neck level, initial encounter (principal); S09.90XA Unspecified injury of head, initial encounter; W22.8XXA Striking against or struck by other objects, initial encounter; Y93.89 Activity, other specified; F17.220 Nicotine dependence, chewing tobacco, uncomplicated
CPT/HCPCS: 72125; 99282

== ENCOUNTER 2024-07-25 20:32 | Emergency (ER) | payer MEDICAID, SELFPAY ==
[2024-07-25 20:33] VITALS: BP 112/71; PULSE 84; RESP 18; TEMP 36.9; O2SAT 95; BMI 16.2
--- NOTE | 2024-07-25 20:40 | CT_ITS ---
PROCEDURE: CTA CHST, ABD, PEL W AND/OR WO 07/25/2024 REASON FOR EXAM: CHEST PAIN TECHNIQUE: Chest abdomen and pelvis CT with intravenous contrast. Coronal and Sagittal reconstruction series were provided. One or more dose reduction techniques were used (e.g., Automated exposure control, adjustment of the mA and/or kV according to patient size, use of iterative reconstruction technique. PATIENT PREPARATION: Per protocol ORAL CONTRAST TYPE: None. AMOUNT: mL CONTRAST: Omnipaque 350 VOLUME: 100 mL Not Provided Gauge IV COMPARISON: CT abdomen and pelvis 04/08/2019 FINDINGS: CHEST: Lines and tubes: None Mediastinum: No suspicious adenopathy. Heart: Normal cardiac size. No pericardial effusions. Thoracic Aorta: No thoracic aortic aneurysm or dissection. Lungs and Airways: Central airways are patent without endobronchial lesions. No focal consolidation. No pneumothorax. No pleural effusion. Mild bibasilar atelectasis. Bones: No suspicious osseous abnormality. Other: ABDOMEN AND PELVIS: Liver: Normal size. No mass. Gallbladder: No ductal dilation. Gallbladder is absent. Spleen: Normal size. Pancreas: Normal size without evidence of mass surrounding inflammation or ductal dilation. Adrenals: Unremarkable. Kidneys: 5 mm right inferior pole calculus without hydronephrosis. No suspicious mass or abnormal enhancement. Bilateral simple renal cysts. Bladder: Urinary bladder is unremarkable. Reproductive Organs: No pelvic mass. Bowel: Stomach is unremarkable. No bowel dilation or wall thickening. Moderate colonic stool. Normal appendix. Vasculature: The abdominal aorta and IVC are normal. Peritoneum / Retroperitoneum: No ascites. No pneumoperitoneum. Bones: No acute osseous abnormality. CT/CTA Chst, Abd, Pel W and/or WO IMPRESSION: No evidence of acute aortic abnormality No acute findings in the chest, abdomen and pelvis. 5 mm right inferior pole calculus without hydronephrosis. Reading Location: [facility]
--- NOTE | 2024-07-25 20:42 | EDS_ITS ---
HPI History of Present Illness Chief Complaint: Chest Pain Informant: patient Narrative Narrative: Presents sharp pain waking up 5 AM middle of his chest that goes to his back. His pain is upper abdomen. Tingling in his feet. Remote tobacco history. Family history of NE father at 53. He states heart attack 3 years ago however he never had a heart cath. No stenting. Denies hypertension diabetes hyperlipidemia. Denies recent travel surgery or immobilizations. No history of PE or DVT. Allergies oxycodone however Toller morphine. Prior Similar Symptoms: No CVD Risk Factors: Positive for Family History 1' </=55; Negative for Hypertension, Diabetes, Hypercholesterolemia or Smoking PE Risk Factors: Negative for Recent Travel/Surgery, Recent Immobilization or Prior DVT or PE [facility] Medical History Bradycardia Epilepsy Asthma YAMILETH (acute kidney injury) Lactic acidosis SIRS (systemic inflammatory response syndrome) Intractable diarrhea Intractable nausea and vomiting History of stomach ulcers History of pneumonia Seasonal allergies Anxiety and depression Chronic bronchitis Thyroid activity decreased History of substance abuse Colitis Abdominal pain Atypical chest pain Vertigo Migraine aura, persistent, intractable Bulging lumbar disc Osteoarthritis History of nephrolithiasis Gastroesophageal reflux disease Personal history of peptic ulcer disease Nonallopathic lesion-rib cage Cholelithiasis Recovering alcoholic Glucose intolerance (impaired glucose tolerance) Obesity (BMI 30.0-34.9) Chest pain Home Medications ?Medication ?Instructions ?Recorded ?Last Taken ?Type cyclobenzaprine 5 mg tablet 5 mg PO TID PRN muscle spa sm #20 06/30/24 Unknown Rx tabs lidocaine 5 % topical patch 1 patch topical DAILY #15 ea 06/30/24 Unknown Rx ondansetron 4 mg disintegrating 4 mg PO Q6H PRN nausea and 06/30/24 Unknown Rx tablet vomiting #20 tabs oxycodone-acetaminophen 5 mg-325 1 tab PO Q6H PRN pain 2 days #8 06/30/24 Unknown Rx mg tablet (Endocet) tabs hydrocodone-acetaminophen 5-325mg 1 tab PO Q6H PRN PRN Pain 3 days 07/05/24 Unknown Rx 5mg-325mg #10 TABLETS Allergy/AdvReac Type Severity Reaction Status Date / Time benzonatate Allergy Severe Hives Verified 07/25/24 20:41 acetaminophen (From Percocet) Allergy Intermediate Unknown Verified 07/25/24 20:41 levetiracetam (From Keppra) Allergy Intermediate Unknown Verified 07/25/24 20:41 oxycodone (From Percocet) Allergy Intermediate Unknown Verified 07/25/24 20:41 Penicillins Allergy Anaphylaxis Verified 07/25/24 20:41 Family History Father Cancer Myocardial infarction, Onset Age: 39 Seizures Mother Breast cancer Surgical History History of endoscopy History of colonoscopy Social History Smoking Status: Former smoker Smokeless tobacco user: chewing tobacco alcohol intake: former substance use type: former substance user what type of physical activity do you participate in: walking frequency: daily ROS ROS ED Constitutional Constitutional ED: Denies chills, fever(s) or sweats ENT ENT ED: Denies sore throat Cardiovascular Cardiovascular: Reports chest pain; Denies leg edema, palpitations or racing heartbeat Respiratory/Chest Respiratory/Chest: Denies cough, dyspnea or dyspnea on exertion Gastrointestinal Gastrointestinal: Reports abdominal pain; Denies diarrhea, nausea or vomiting Genitourinary Genitourinary ED: Denies dysuria, hematuria or urinary frequency Musculoskeletal Musculoskeletal: Reports back pain; Denies extremity pain or neck pain Integumentary Denies rash or wounds Neurologic Neurologic: Reports paresthesias; Denies headache(s) or weakness EXAM Physical Exam Const Vital Signs: 07/25/24 20:33 07/25/24 20:40 07/25/24 22:33 Temperature 98.5 F Temperature Source Oral Pulse Rate 84 85 Respiratory Rate 18 20 H Blood Pressure 112/71 108/78 Blood Pressure Mean 84 88 Pulse Ox 95 95 Oxygen Delivery Method Room Air Nasal Cannula Room Air 07/25/24 23:00 07/25/24 23:29 07/25/24 23:29 Temperature Temperature Source Pulse Rate 85 81 81 Respiratory Rate 19 H 21 H 21 H Blood Pressure 112/80 Blood Pressure Mean 90 Pulse Ox 92 85 98 Oxygen Delivery Method Room Air Room Air Room Air Positive well nourished and well developed General Appearance ED: well developed and NAD HEENT Reports moist mucous membranes normocephalic and atraumatic Eyes General Eye ED: Yes normal appearance of both eyes Neck full ROM Chest Wall Chest: Negative for tenderness Resp normal respiratory effort and normal air movement Effort and Inspection: symmetric chest movement; Negative for respiratory distress Cardio regular rate, regular rhythm and no murmurs Peripheral Pulses: pulses 2+ throughout GI normal to inspection, nondistended, normoactive bowel sounds and non-tender Palpation: Negative for guarding or rebound tenderness present Extremity normal to inspection Extremity Narrative: Symmetric pulses upper and lower. General Extremety ED: Negative for edema or tenderness General Extremity: Negative for edema Neuro oriented x3 and no sensory deficits noted Sensorium / Orientation: awake and alert Skin no rashes or lesions noted and no wounds MDM MDM MDM Narrative Medical decision making narrative: Interventions / MDM: Differential diagnosis: Atypical chest pain, abdominal pain, nephrolithiasis Diagnosis considered but do not suspect: ACS however EKG cardiac enzymes negative. Aortic dissection however CT negative. Pancreatitis however labs negative. My EKG interpretation: Sinus rate of 85, no ST changes. Imaging independently reviewed and interpreted by myself: CTA chest abdomen pelvis: No acute process. Right lower pole nephrolithiasis nonobstructing. External documents reviewed: N/A Test considered but not ordered:N/A ED course: Patient triage EKG normal reevaluation sharp pain chest to the back and tingling down the legs with discomfort in upper abdomen. Blood pressure is normal at 112/71. However with his symptoms we will send straight to CT to rule out dissection. Cardiac labs ordered. Morphine ordered. 2305: Pain down to 2. CTA negative for dissection. Nonobstructive right kidney stone noted. Initial troponin negative. And slight abdominal discomfort. Will add lipase and LFTs. Awaiting delta troponin results. 0000: Delta troponin negative lipase LFTs normal. Per nursing, patient became hypoxic when sleeping. Placed on 2 L of oxygen. He does report snoring at night. Discussed possible sleep apnea. Does have a PCP. Will need further workup as an outpatient. He was ambulated off oxygen, 93% return to the room. Patient will follow-up with PCP for further testing. All questions were answered. Re-evaluation: stable Disposition discussed with patient/family/significant other: Patient Case discussed with consulting clinician: N/A This note was generated with [employer] dictation software. It may contain incorrect words, spelling, and punctuation that were not noted in checking the note before signing. Lab Data Attestation: I reviewed the patient's lab results. Labs: Laboratory Results - last 24 hr 07/25/24 07/25/24 20:48 22:45 WBC 9.9 RBC 4.22 L Hgb 13.4 Hct 38.2 L MCV 90.5 MCH 31.8 MCHC 35.1 RDW Std Deviation 42.4 RDW Coeff of Thiago 12.8 Plt Count 340 MPV 9.0 Immature Gran % (Auto) 0.300 Neut % (Auto) 57.8 Lymph % (Auto) 29.0 [place] % (Auto) 11.0 H Eos % (Auto) 1.6 Baso % (Auto) 0.3 Absolute Neuts (auto) 5.7 Absolute Lymphs (auto) 2.87 Nucleated RBC % 0 PT 14.1 INR 1.1 APTT 26.2 Sodium 139 Potassium 4.2 Chloride 105 Carbon Dioxide 21.6 Anion Gap 13 BUN 20 H Creatinine 1.21 H Estim Creat Clear Calc 50.16 Est GFR (MDRD) Non-Af 74 BUN/Creatinine Ratio 16.3 Glucose 113 H Calcium 9.2 Total Bilirubin 0.53 Direct Bilirubin 0.26 AST 19 ALT 20 Alkaline Phosphatase 81 Troponin T High Sens < 6 Troponin T Hi Sens 2 Hr < 6 Total Protein 6.4 Albumin 3.8 Globulin 2.6 Lipase 22 Radiography Diagnostic Testing: Clinical Impression(s) from Imaging Studies Chest/Abdomen/Pelvis CTA 07/25/24 20:40 IMPRESSION: No evidence of acute aortic abnormality No acute findings in the chest, abdomen and pelvis. 5 mm right inferior pole calculus without hydronephrosis. Reading Location: [facility] Discharge Plan Triage Chief Complaint: Chest Pain ED Provider: Manuel Ivan Dx/Rx/DC Orders Clinical Impression: Chest pain, Abdominal pain, Paresthesias Instructions: Abdominal Pain, ED Chest Pain, Uncertain Cause Prescriptions: No Action hydrocodone-acetaminophen 5-325 mg tablet 1 tab PO Q6H PRN PRN (Reason: Pain) 3 Days Qty: 10 0RF lidocaine 5 % adhesive patch,medicated 1 patch topical DAILY Qty: 15 0RF Rx Instructions: leave on most painful area for up to 12 hrs cyclobenzaprine 5 mg tablet 5 mg PO TID PRN (Reason: muscle spasm) Qty: 20 0RF oxycodone-acetaminophen [Endocet] 5-325 mg tablet 1 tab PO Q6H PRN (Reason: pain) 2 Days Qty: 8 0RF ondansetron 4 mg tablet,disintegrating 4 mg PO Q6H PRN (Reason: nausea and vomiting) Qty: 20 0RF Primary Care Provider: Care Physician,No Primary Referrals: Mariano Muniz MD [Non-Staff] - 3-5 Days Activity Restrictions/Additional Instructions: EKG normal. Cardiac workup negative. Abdominal labs normal. CT angiogram chest abdomen pelvis negative for dissection. Nonobstructive right kidney stone noted. Use Tylenol Motrin as needed. Follow-up your doctor for further evaluation. Print Language: Botswanan Disposition Disposition: Home, Self Care
--- NOTE | 2024-07-25 20:45 | EKG12_ITS ---
Test Reason : CP Blood Pressure : */* mmHG Vent. Rate : 85 BPM Atrial Rate : 85 BPM P-R Int : 186 ms QRS Dur : 76 ms QT Int : 362 ms P-R-T Axes : 53 4 41 degrees QTcB Int : 430 ms Normal sinus rhythm Normal ECG Confirmed by Andrea Serrano ([id number]), communications editor JEANIE LOW ([id number]) on 07/27/2024 9:14:51 AM Referred By: UG Confirmed By: Andrea Serrano
[2024-07-25 20:58] LABS: Absolute Lymphocyte Count 2.87 X10^3/uL (0.83-4.51); Absolute Neutrophil Count 5.7 X10^3/uL (2.0-7.7); Basophil# 0.03 X10^3/uL; Basophil% 0.3 % (0-1); Eosinophil# 0.16 X10^3/uL; Eosinophils% 1.6 % (0-5); Hematocrit 38.2 % (40-54); Hemoglobin 13.4 g/dL (13.0-16.5); Lymphocyte # 2.87 X10^3/ul (0.83-4.51); Mean Corp Hgb Conc 35.1 g/dL (32-36); Mean Corpuscular Hgb 31.8 pg (27.0-32.0); Mean Corpuscular Volume 90.5 fL (80-94); Monocyte# 1.09 X10^3/uL; NRBC Flagged by Analyzer 0 % (0-5); Neutrophil # 5.73 X10^3/uL (2.7-7.7); Neutrophil % 57.8 % (47-70); Platelet Count 340 K/mm3 (150-450); RBC Distribution Width CV 12.8 % (11.6-14.6); RBC Distribution Width SD 42.4 fl (35.1-43.9); Red Blood Count 4.22 M/mm3 (4.6-6.2); White Blood Count 9.9 K/mm3 (4.4-11.0)
[2024-07-25] MEDS: 0.9% Normal Saline (1000mL) 1,000 ML 999 ML IV (20:58)
[2024-07-25] MEDS: Morphine 4 MG/ML Syringe IV (20:58)
[2024-07-25 21:07] LABS: International Normalized Ratio 1.1; Partial Thromboplast Time 26.2 Seconds (24.1-36.2); Prothrombin Time (Protime)PT. 14.1 SECONDS (11.7-14.9)
[2024-07-25 21:13] LABS: Anion Gap 13 (5-15); BUN 20 mg/dL (4-19); BUN/Creat Ratio 16.3 RATIO (10-20); Calcium,Total 9.2 mg/dL (7.6-11.0); Carbon Dioxide 21.6 mmol/L (21.0-32.0); Chloride 105 mmol/L (98-108); Creatinine, Serum 1.21 mg/dL (0.70-1.20); EST Glomerular Filtration Rate 74 (>60); Estimated Creatinine Clearance 50.16 ml/min (50-250); Glucose 113 mg/dL (70-99); Potassium 4.2 mmol/L (3.3-5.1); Sodium Level 139 mmol/L (133-145); Troponin T High Sensitivity < 6 ng/L (<=22)
[2024-07-25 22:33] VITALS: BP 108/78; PULSE 85; RESP 20; O2SAT 95
[2024-07-25 23:00] VITALS: BP 112/80; PULSE 85; RESP 19; O2SAT 92
[2024-07-25 23:18] LABS: Troponin T High Sens 2 HR < 6 ng/L (<=22)
[2024-07-25 23:29] VITALS: PULSE 81; RESP 21; O2SAT 85; O2SAT 98
[2024-07-25 23:38] LABS: AST(SGOT) 19 U/L (<=37); Alanine Aminotransfer ALT/SGPT 20 U/L (<=46); Albumin, Serum 3.8 g/dL (3.5-5.0); Alkaline Phosphatase 81 U/L (40-129); Bilirubin, Direct 0.26 mg/dL (0.00-0.30); Globulin 2.6 g/dL (2.2-4.2); Lipase 22 U/L (13-75); Protein, Total 6.4 g/dL (5.9-8.4); Total Bilirubin 0.53 mg/dL (0.00-1.30)
[2024-07-25 23:55] VITALS: O2SAT 99
[2024-07-26 00:09] VITALS: BP 115/91; PULSE 82; RESP 20; TEMP 36.9; O2SAT 96
== END 2024-07-26 00:10 | disposition home or self-care (01) ==
PROVIDERS: Emergency Provider Emergency Medicine; Visit Provider Emergency Medicine
DX: R07.9 Chest pain, unspecified (principal); Z87.891 Personal history of nicotine dependence; R20.2 Paresthesia of skin; R10.9 Unspecified abdominal pain
CPT/HCPCS: 71275; 74174; 80048; 80076; 83690; 84484; 85025; 85610; 85730; 93005; 96361; 96374; 99285; Q9967; A4216

== ENCOUNTER 2024-08-10 13:45 | Emergency (ER) | payer MEDICAID, SELFPAY ==
[2024-08-10 13:46] VITALS: BP 120/83; PULSE 115; RESP 18; TEMP 36.1; O2SAT 98; BMI 36.3
--- NOTE | 2024-08-10 14:10 | ED.VIS.LOWEX ---
HPI History of Present Illness HPI Narrative: Patient presents with bilateral feet pain that has been getting worse over the past several days. Patient states he was seen recently and had ultrasounds done to assess for blood clots. Patient states he had lab work but was never told if he was diabetic or not. Patient states his pain is burning. Patient states it is worse with prolonged standing. Patient has still some numbness including limited to his toes. Patient states his right big toe has a black area under the toenail. Patient denies any trauma or injury. Chief Complaint: Lower Extremity Injury Informant: patient Onset/Context/Timing Onset: Days Context: Gradual Onset Timing: Continuous Quality of Pain: Burning Location: Bilateral feet Worsened by: Prolonged standing Relieved by: Nothing Associated Symptoms Associated Symptoms: Positive for Parasthesia; Negative for Weakness or Loss of Funtion [facility] Medical History (Updated 08/10/24 @ 16:[address] Claudio Raza, DO) Bradycardia Epilepsy Asthma YAMILETH (acute kidney injury) Lactic acidosis SIRS (systemic inflammatory response syndrome) Intractable diarrhea Intractable nausea and vomiting History of stomach ulcers History of pneumonia Seasonal allergies Anxiety and depression Chronic bronchitis Thyroid activity decreased History of substance abuse Colitis Abdominal pain Atypical chest pain Vertigo Migraine aura, persistent, intractable Bulging lumbar disc Osteoarthritis History of nephrolithiasis Gastroesophageal reflux disease Personal history of peptic ulcer disease Nonallopathic lesion-rib cage Cholelithiasis Recovering alcoholic Glucose intolerance (impaired glucose tolerance) Obesity (BMI 30.0-34.9) Chest pain Home Medications ?Medication ?Instructions ?Recorded ?Last Taken ?Type cyclobenzaprine 5 mg tablet 5 mg PO TID PRN muscle spasm #20 06/30/24 Unknown Rx tabs lidocaine 5 % topical patch 1 patch topical DAILY #15 ea 06/30/24 Unknown Rx ondansetron 4 mg disintegrating 4 mg PO Q6H PRN nausea and 06/30/24 Unknown Rx tablet vomiting #20 tabs oxycodone-acetaminophen 5 mg-325 1 tab PO Q6H PRN pain 2 days #8 06/30/24 Unknown Rx mg tablet (Endocet) tabs hydrocodone-acetaminophen 5-325mg 1 tab PO Q6H PRN PRN Pain 3 days 07/05/24 Unknown Rx 5mg-325mg #10 TABLETS Allergy/AdvReac Type Severity Reaction Status Date / Time benzonatate Allergy Severe Hives Verified 08/10/24 13:46 acetaminophen (From Percocet) Allergy Intermediate Unknown Verified 08/10/24 13:46 levetiracetam (From Keppra) Allergy Intermediate Unknown Verified 08/10/24 13:46 oxycodone (From Percocet) Allergy Intermediate Unknown Verified 08/10/24 13:46 Penicillins Allergy Anaphylaxis Verified 08/10/24 13:46 Family History Father Cancer Myocardial infarction, Onset Age: 39 Seizures Mother Breast cancer Surgical History (Updated 08/10/24 @ 14:[address] Claudio Raza DO) Hx of cholecystectomy History of endoscopy History of colonoscopy Social History Smoking Status: Former smoker Smokeless tobacco user: chewing tobacco alcohol intake: former substance use type: former substance user what type of physical activity do you participate in: walking frequency: daily ROS ROS ED Constitutional Constitutional ED: Denies chills or fever(s) Eyes Eyes: Denies blurry vision or change in vision ENT ENT ED: Denies rhinorrhea or sore throat Cardiovascular Cardiovascular: Denies chest pain or palpitations Respiratory/Chest Respiratory/Chest: Denies cough or dyspnea Gastrointestinal Gastrointestinal: Denies nausea or vomiting Genitourinary Genitourinary ED: Denies dysuria or hematuria Musculoskeletal Musculoskeletal: Reports back pain; Denies neck pain Integumentary Denies abscess or rash Neurologic Neurologic: Reports paresthesias RLE and LLE; Denies headache(s) or weakness Allergic/Immunologic Allergic/Immunologic ED: Denies mouth swelling or urticaria EXAM Physical Exam Const Vital Signs: 08/10/24 13:46 Temperature 97 F L Temperature Source Temporal Pulse Rate 115 H Respiratory Rate 18 Blood Pressure 120/83 H Blood Pressure Mean 95 Pulse Ox 98 Oxygen Delivery Method Room Air Positive well nourished and well developed General Appearance ED: well developed and NAD HEENT Reports moist mucous membranes Resp normal respiratory effort and clear to auscultation bilaterally Cardio regular rate and regular rhythm GI non-tender and non-distended Palpation: soft Extremity normal to inspection Extremity Narrative: There is trace edema of the feet bilaterally. There is no ecchymosis. There is no deformity. There is full range of motion. There is a small subungual hematoma over the distal portion of the nailbed of the right great toe. There are no other skin discolorations noted. Pedal pulses are equal bilaterally. Sensation was intact to light touch in all digits. Capillary refill is less than 2 seconds in all digits. Neuro oriented x3, CN's II-XII intact bilaterally, moves all extremities and no sensory deficits noted Sensorium / Orientation: alert Motor Exam: strength 5/5 throughout Psych mental status grossly normal Skin no wounds MDM MDM MDM Narrative Medical decision making narrative: Differential diagnosis includes neuropathy, hyperglycemia, electrolyte abnormality, occult fracture, and contusion. X-rays of the bilateral feet will be obtained to assess for occult fracture. CBC will be obtained to assess for leukocytosis and anemia. Basic metabolic profile will be obtained to assess for electrolyte abnormality and renal function. History & Record Review Additional record(s) reviewed:: Prior ED visit and Prior labs Lab Data Attestation: I reviewed the patient's lab results. Lab results narrative: CBC was reviewed and was within normal limits. Basic metabolic profile was reviewed and was within normal limits. Labs: Laboratory Results - last 24 hr 08/10/24 14:57 WBC 9.6 RBC 4.12 L Hgb 13.0 Hct 37.8 L MCV 91.7 MCH 31.6 MCHC 34.4 RDW Std Deviation 43.8 RDW Coeff of Thiago 13.1 Plt Count 297 MPV 8.9 Immature Gran % (Auto) 0.300 Neut % (Auto) 67.0 Lymph % (Auto) 21.3 [place] % (Auto) 8.4 Eos % (Auto) 2.6 Baso % (Auto) 0.4 Absolute Neuts (auto) 6.4 Absolute Lymphs (auto) 2.04 Nucleated RBC % 0 Sodium 140 Potassium 4.3 Chloride 104 Carbon Dioxide 25.9 Anion Gap 10 BUN 14 Creatinine 1.07 Estim Creat Clear Calc 98.77 Est GFR (MDRD) Non-Af 86 BUN/Creatinine Ratio 13.5 Glucose 105 H Calcium 9.0 Radiography Diagnostic Testing: Clinical Impression(s) from Imaging Studies Foot X-Ray 08/10/24 15:00 IMPRESSION: NEGATIVE FOOT SERIES Reading Location: [facility] Foot X-Ray 08/10/24 15:00 IMPRESSION: NEGATIVE FOOT SERIES Reading Location: [facility] X-rays of the right foot were obtained. There are 3 views. On my independent interpretation, there is no acute fracture. There is no soft tissue swelling. There is no evidence of osteomyelitis. Radiologist also interpreted the x-rays and agrees. X-rays of the left foot were obtained. There are 3 views. On my independent interpretation, there is no acute fracture. There is no evidence of osteomyelitis. There is no soft tissue swelling. Radiologist also interpreted the x-rays and agrees. Treatment and Re-Evaluation Narrative: Patient was given a dose of [place] here. Patient was advised of his findings. Patient was instructed to follow-up with his primary care physician in 5 to 7 days. Patient was instructed return if worse in any way. Patient understood and was agreeable with the plan. All questions were answered. Discharge Plan Triage Chief Complaint: Lower Extremity Injury ED Provider: Claudio Raza Dx/Rx/DC Orders Clinical Impression: Bilateral foot pain, Tachycardia Instructions: ED Pain, Acute, Uncertain Cause Prescriptions: No Action hydrocodone-acetaminophen 5-325 mg tablet 1 tab PO Q6H PRN PRN (Reason: Pain) 3 Days Qty: 10 0RF lidocaine 5 % adhesive patch,medicated 1 patch topical DAILY Qty: 15 0RF Rx Instructions: leave on most painful area for up to 12 hrs cyclobenzaprine 5 mg tablet 5 mg PO TID PRN (Reason: muscle spasm) Qty: 20 0RF oxycodone-acetaminophen [Endocet] 5-325 mg tablet 1 tab PO Q6H PRN (Reason: pain) 2 Days Qty: 8 0RF ondansetron 4 mg tablet,disintegrating 4 mg PO Q6H PRN (Reason: nausea and vomiting) Qty: 20 0RF Stand Alone Forms: Work Status Form Primary Care Provider: Care Physician,No Primary Referrals: Joe Mckay MD [Med Staff - Merchandise Director] - 5-7 Days Care Physician,No Primary [Primary Care Provider] - Print Language: Romansh Disposition Disposition: Home, Self Care
--- NOTE | 2024-08-10 15:00 | RAD_ITS ---
PROCEDURE: FOOT MIN 3 VIEWS 08/10/2024 REASON FOR EXAM: Bilateral foot pain/numbness. No known injury. TECHNIQUE: 3 views of the left foot. COMPARISON: None. FINDINGS: Bones: No acute fracture or traumatic dislocation. No aggressive osseous lesions. Joints: Normal alignment. Mild degenerative changes. Soft tissues: Soft tissues are unremarkable. Other: No radiopaque foreign body. RAD/Foot min 3 Views IMPRESSION: NEGATIVE FOOT SERIES Reading Location: [id number]
--- NOTE | 2024-08-10 15:00 | RAD_ITS ---
PROCEDURE: FOOT MIN 3 VIEWS 08/10/2024 REASON FOR EXAM: Bilateral foot numbness and pain. No known injury. TECHNIQUE: 3 views of the right foot. COMPARISON: None. FINDINGS: Bones: No acute fracture or traumatic dislocation. No aggressive osseous lesions. Joints: Normal alignment. Mild degenerative changes. Soft tissues: Soft tissues are unremarkable. Other: No radiopaque foreign body. RAD/Foot min 3 Views IMPRESSION: NEGATIVE FOOT SERIES Reading Location: [id number]
[2024-08-10 15:03] LABS: Absolute Lymphocyte Count 2.04 X10^3/uL (0.83-4.51); Absolute Neutrophil Count 6.4 X10^3/uL (2.0-7.7); Basophil# 0.04 X10^3/uL; Basophil% 0.4 % (0-1); Eosinophil# 0.25 X10^3/uL; Eosinophils% 2.6 % (0-5); Hematocrit 37.8 % (40-54); Lymphocyte # 2.04 X10^3/ul (0.83-4.51); Lymphocyte % 21.3 % (19-41); Mean Corp Hgb Conc 34.4 g/dL (32-36); Mean Corpuscular Hgb 31.6 pg (27.0-32.0); Mean Corpuscular Volume 91.7 fL (80-94); Mean Platelet Vol. 8.9 fl (6.2-12.0); Monocyte# 0.81 X10^3/uL; Monocyte% 8.4 % (0-10); NRBC Flagged by Analyzer 0 % (0-5); Neutrophil # 6.43 X10^3/uL (2.7-7.7); Platelet Count 297 K/mm3 (150-450); RBC Distribution Width CV 13.1 % (11.6-14.6); RBC Distribution Width SD 43.8 fl (35.1-43.9); Red Blood Count 4.12 M/mm3 (4.6-6.2); White Blood Count 9.6 K/mm3 (4.4-11.0)
[2024-08-10 15:31] LABS: Anion Gap 10 (5-15); BUN 14 mg/dL (4-19); BUN/Creat Ratio 13.5 RATIO (10-20); Carbon Dioxide 25.9 mmol/L (21.0-32.0); Chloride 104 mmol/L (98-108); Creatinine, Serum 1.07 mg/dL (0.70-1.20); EST Glomerular Filtration Rate 86 (>60); Estimated Creatinine Clearance 98.77 ml/min (50-250); Glucose 105 mg/dL (70-99); Potassium 4.3 mmol/L (3.3-5.1); Sodium Level 140 mmol/L (133-145)
[2024-08-10 17:01] VITALS: BP 118/74; PULSE 94; RESP 18; O2SAT 97
[2024-08-10 17:04] VITALS: BP 118/74; PULSE 94; RESP 18; TEMP 36.1; O2SAT 97
== END 2024-08-10 17:05 | disposition home or self-care (01) ==
PROVIDERS: Emergency Provider Emergency Medicine; Visit Provider Emergency Medicine
DX: M79.672 Pain in left foot (principal); R00.0 Tachycardia, unspecified; Z87.891 Personal history of nicotine dependence; M79.671 Pain in right foot; Z90.49 Acquired absence of other specified parts of digestive tract
CPT/HCPCS: 73630; 80048; 85025; 99283; A4216

== ENCOUNTER 2024-08-16 14:02 | Emergency (ER) | payer MEDICAID, SELFPAY ==
[2024-08-16 14:03] VITALS: BP 103/86; PULSE 95; RESP 16; TEMP 36.6; O2SAT 99; BMI 35.6
--- NOTE | 2024-08-16 14:39 | CT_ITS ---
PROCEDURE: SPINE LUMBAR WITHOUT CONTRAST 08/16/2024 REASON FOR EXAM: FALL WITH LOW BACK AND FLANK PAIN TECHNIQUE: Lumbar spine CT without contrast. Coronal and Sagittal reconstruction series were provided. One or more dose reduction techniques were used (e.g., Automated exposure control, adjustment of the mA and/or kV according to patient size, use of iterative reconstruction technique COMPARISON: None. RADIATION DOSE SUMMARY: DLP: 1303.14 mGycm FINDINGS: No evidence of acute fracture or dislocation. Vertebral body heights are maintained. No compressive central or neural foraminal stenosis. Right kidney nonobstructive nephrolithiasis. CT/Spine Lumbar without Contrast IMPRESSION: No acute osseous abnormality. Reading Location: [id number]
--- NOTE | 2024-08-16 14:39 | CT_ITS ---
PROCEDURE: ABDOMEN/PELVIS W IV CONT ONLY 08/16/2024 REASON FOR EXAM: FALL OFF SETP LADDER W/ L-FLANK PAIN TECHNIQUE: Abdomen and pelvis CT with intravenous contrast. Coronal and Sagittal reconstruction series were provided. PATIENT PREPARATION: Per protocol ORAL CONTRAST TYPE: None. AMOUNT: mL CONTRAST: Isovue 370 VOLUME: 96 mL. One or more dose reduction techniques were used (e.g., Automated exposure control, adjustment of the mA and/or kV according to patient size, use of iterative reconstruction technique. RADIATION DOSE SUMMARY: CTDlvol: 40.97+ 23.17 mGy DLP: 2592.66 mGycm COMPARISON: 07/25/2024. FINDINGS: Mild bilateral dependent atelectasis. The peripheral soft tissues unremarkable. Degenerative changes of the hips and spine. No evidence of acute fracture. Normal caliber abdominal aorta. No suspicious lymphadenopathy. Liver is unremarkable. The gallbladder is surgically absent. The pancreas, spleen, adrenals are unremarkable. Bilateral kidney simple cysts. Additional bilateral subcentimeter hypodense lesions that are too small to characterize. Small right kidney nonobstructive calculi. No hydroureteronephrosis. The urinary bladder is unremarkable. Normal caliber large and small bowel. No inflammatory change. CT/Abdomen/Pelvis W IV Cont ONLY IMPRESSION: No acute traumatic abnormality of the abdomen or pelvis. Right kidney nonobstructive nephrolithiasis. Reading Location: [place] [id number]
--- NOTE | 2024-08-16 14:45 | ED.VIS.FALL ---
HPI HPI - Fall History of Present Illness Chief Complaint: Fall Detail of Chief Complaint: Complaining of lower back pain and left flank pain post fall. Informant: patient Occured/Mechanism Occurred: Yesterday Fall from Height (ft): About 2 feet off the ground on a stepladder. Fell on the cement floor. Usually ambulates: Without assistance Pain/Injury Pain Location: abdomen (Left flank and lower back.) and back Quality of Pain: Sharp Current Severity: Moderate Maximum Severity: Moderate Associated Symptoms Associated Symptoms: Negative for Parasthesias, Weakness, Loss of function, Inability to ambulate, Loss of consciousness or Amnesia Narrative Narrative: 49-year-old male prior cholecystectomy. Said yesterday he was on a step ladder about 2 feet off the ground he fell landing on his back complaining of left flank and lower back pain. Denies hitting his head no LOC. No blood thinners. Also states over the last several months he was gone from 500 pounds about 250. He denies intentionally losing weight he has had labs which were unremarkable. He is unsure if he has had his thyroid checked. Prior similar symptoms: No Recent Illness/Hospitalization: No PFSH PFS Medical History Bradycardia Epilepsy Asthma YAMILETH (acute kidney injury) Lactic acidosis SIRS (systemic inflammatory response syndrome) Intractable diarrhea Intractable nausea and vomiting History of stomach ulcers History of pneumonia Seasonal allergies Anxiety and depression Chronic bronchitis Thyroid activity decreased History of substance abuse Colitis Abdominal pain Atypical chest pain Vertigo Migraine aura, persistent, intractable Bulging lumbar disc Osteoarthritis History of nephrolithiasis Gastroesophageal reflux disease Personal history of peptic ulcer disease Nonallopathic lesion-rib cage Cholelithiasis Recovering alcoholic Glucose intolerance (impaired glucose tolerance) Obesity (BMI 30.0-34.9) Chest pain Home Medications ?Medication ?Instructions ?Recorded ?Last Taken ?Type cyclobenzaprine 5 mg tablet 5 mg PO TID PRN muscle spasm #20 06/30/24 Unknown Rx tabs lidocaine 5 % topical patch 1 patch topical DAILY #15 ea 06/30/24 Unknown Rx ondansetron 4 mg disintegrating 4 mg PO Q6H PRN nausea and 06/30/24 Unknown Rx tablet vomiting #20 tabs oxycodone-acetaminophen 5 mg-325 1 tab PO Q6H PRN pain 2 days #8 06/30/24 Unknown Rx mg tablet (Endocet) tabs hydrocodone-acetaminophen 5-325mg 1 tab PO Q6H PRN PRN Pain 3 days 07/05/24 Unknown Rx 5mg-325mg #10 TABLETS Allergy/AdvReac Type Severity Reaction Status Date / Time benzonatate Allergy Severe Hives Verified 08/16/24 14:03 acetaminophen (From Percocet) Allergy Intermediate Unknown Verified 08/16/24 14:03 levetiracetam (From Keppra) Allergy Intermediate Unknown Verified 08/16/24 14:03 oxycodone (From Percocet) Allergy Intermediate Unknown Verified 08/16/24 14:03 Penicillins Allergy Anaphylaxis Verified 08/16/24 14:03 Family History Father Cancer Myocardial infarction, Onset Age: 39 Seizures Mother Breast cancer Surgical History Hx of cholecystectomy History of endoscopy History of colonoscopy Social History Smoking Status: Former smoker Smokeless tobacco user: chewing tobacco alcohol intake: former substance use type: former substance user what type of physical activity do you participate in: walking frequency: daily ROS ROS ED ROS Narrative Follow-up with flank and back pain. Recent weight loss of over 200 pounds. Constitutional Constitutional ED: Denies fever(s) Eyes Eyes: Denies blurry vision ENT ENT ED: Denies ear pain Cardiovascular Cardiovascular: Denies chest pain Respiratory/Chest Respiratory/Chest: Denies cough or dyspnea Gastrointestinal Gastrointestinal: Reports abdominal pain; Denies constipation, diarrhea, melena, nausea or vomiting Genitourinary Genitourinary ED: Denies dysuria or hematuria Musculoskeletal Musculoskeletal: Reports back pain; Denies arthralgias Integumentary Denies abscess Neurologic Neurologic: Denies headache(s) Psychiatric Psychiatric: Denies anxiety Endocrine Endocrinology: Denies polydipsia Hematologic/Lymphatic Hematologic/Lymphatic: Denies easy bleeding, easy bruising or lymphadenopathy Allergic/Immunologic Allergic/Immunologic ED: Denies mouth swelling, tongue swelling or urticaria EXAM Physical Exam Narrative Exam Narrative: 49-year-old male sitting upright in bed. Vital signs are stable afebrile. H EENT exam pupils round react to light. There is no trauma to his face or scalp. Nontender no hematoma. No laceration. C-spine and neck nontender. No lymphadenopathy. No spinal tenderness. Lungs clear to auscultation bilaterally. Heart regular rhythm rate about 90 no murmur. Chest wall and ribs nontender. No crepitance or subcu air. No bruising. Abdomen soft nondistended normal bowel sounds without peritoneal signs. He is left flank tenderness. Again no signs of trauma. Back is lower spine and left iliac crest and left lateral. Lumbar soft tissue tenderness. There is no ecchymosis or bruising. There is tenderness and mild swelling. Pelvic girdle is intact. Moving all 4 extremities. Normal range of motion. Nontender no deformity. Normal marine engineer cpvec strength bilaterally 5 out of 5. Dorsi plantarflexion intact. Normal range of motion. Neurologically he is awake and alert. Answering questions and following commands. GCS 15. Const Vital Signs: 08/16/24 14:03 08/16/24 15:00 Temperature 98 F Temperature Source Temporal Pulse Rate 95 Respiratory Rate 16 Respiratory Effort Normal Respiratory Depth Normal Respiratory Pattern Normal Blood Pressure 103/86 H Blood Pressure Mean 91 Pulse Ox 99 Oxygen Delivery Method Room Air Positive well nourished and well developed; Negative for cachectic, contractures or unkempt General Appearance ED: well developed and NAD; Negative for unkempt, cachectic or contractures Nutritional Appearance: Negative for cachectic HEENT Reports normocephalic atraumatic; Negative for trauma, contusion, hematoma or tenderness Eyes PERRL and EOMs intact bilaterally Neck full ROM, no lymphadenopathy and supple General: Negative for tenderness Chest Wall inspection of chest normal and palpation of chest normal Resp normal respiratory effort, no retractions and clear to auscultation bilaterally Cardio regular rate, regular rhythm, S1 normal heart sound, S2 normal heart sound and no murmurs GI non-distended and no masses; Negative for non-tender GI Narrative: Tenderness left flank. Inspection: Negative for abdominal distention Auscultation: normoactive bowel sounds Palpation: soft; Negative for guarding or rebound tenderness present Back/Spine no CVA tenderness Back/Spine Narrative: Left iliac crest tenderness. General Back: Negative for CVA tenderness, erythema, ecchymosis, swelling or tenderness Cervical Spine: Negative for cervical spine tenderness Lumbar Spine / Lower Back: lumbar spinal tenderness and paraspinal muscle tenderness Extremity Extremity Narrative: Nontender. No deformity. Normal range of motion. Normal strength. Neuro oriented x3, CN's II-XII intact bilaterally, moves all extremities and no focal motor deficits Tania Coma Scale: document GCS findings Spontaneous Obeys Commands Oriented 15 Sensorium / Orientation: alert, oriented to person, oriented to place and oriented to time; Negative for orientation impaired or confused Motor Exam: strength 5/5 throughout Psych mental status grossly normal and thought process normal Appearance: Negative for unkempt Skin Lesions: no lesions Rashes: no rashes MDM MDM MDM Narrative Medical decision making narrative: 49-year-old male fell about 2 feet from a stepstool of cement complaining of lower back pain, iliac crest and left flank pain. CAT scan of his lumbar spine and abdomen will be obtained. He will be given morphine for pain and Zofran. He is also complained of a recent 200+ pound weight loss. He has had recent screening labs which are unremarkable I will check a TSH. Repeat exam patient is doing well at 4:16 PM. We went over his CAT scan and thyroid level results. Motrin Tylenol for pain. Follow-up with his primary care provider at the [facility]. Needs further evaluation for his weight loss. History & Record Review Discussion w/independent historian: Patient Additional record(s) reviewed:: Prior inpatient record, Prior outpatient record, Prior ED visit and Prior labs Lab Data Attestation: I reviewed the patient's lab results. Lab results narrative: TSH equals 1.15. CT abdomen and pelvis with IV contrast showed no acute process. Nonobstructing right renal stones. No acute traumatic injury. Labs: Laboratory Results - last 24 hr 08/16/24 14:55 TSH 1.150 Radiography Diagnostic Testing: Clinical Impression(s) from Imaging Studies Abdomen/Pelvis CT 08/16/24 14:39 IMPRESSION: No acute traumatic abnormality of the abdomen or pelvis. Right kidney nonobstructive nephrolithiasis. Reading Location: [id number] Lumbar [address] 08/16/24 14:39 IMPRESSION: No acute osseous abnormality. Reading Location: [id number] Discharge Plan Triage Chief Complaint: Fall ED Provider: Nelson Braswell Dx/Rx/DC Orders Clinical Impression: Fall, Back contusion Instructions: ED Soft Tissue Contusion Prescriptions: No Action hydrocodone-acetaminophen 5-325 mg tablet 1 tab PO Q6H PRN PRN (Reason: Pain) 3 Days Qty: 10 0RF lidocaine 5 % adhesive patch,medicated 1 patch topical DAILY Qty: 15 0RF Rx Instructions: leave on most painful area for up to 12 hrs cyclobenzaprine 5 mg tablet 5 mg PO TID PRN (Reason: muscle spasm) Qty: 20 0RF oxycodone-acetaminophen [Endocet] 5-325 mg tablet 1 tab PO Q6H PRN (Reason: pain) 2 Days Qty: 8 0RF ondansetron 4 mg tablet,disintegrating 4 mg PO Q6H PRN (Reason: nausea and vomiting) Qty: 20 0RF Primary Care Provider: Care Physician,No Primary Referrals: Care Physician,No Primary [Primary Care Provider] - Activity Restrictions/Additional Instructions: CAT scans of your back and abdomen were unremarkable. Suspect you injured the soft tissue of your lower back. Motrin and Tylenol for pain. Ice to your back. I checked your thyroid level was normal. Follow-up with your doctor for further evaluation of the weight loss. Print Language: [place] Disposition Disposition: Home, Self Care
[2024-08-16] MEDS: morphine 8 MG/ML Syringe 6 MG IV (14:52)
[2024-08-16] MEDS: Ondansetron 4 MG/2 ML Vial IV (14:52)
[2024-08-16 16:24] VITALS: BP 115/82; PULSE 68; RESP 16; O2SAT 99
== END 2024-08-16 16:25 | disposition home or self-care (01) ==
PROVIDERS: Emergency Provider Emergency Medicine; Visit Provider Emergency Medicine
DX: S20.229A Contusion of unspecified back wall of thorax, initial encounter (principal); R10.9 Unspecified abdominal pain; M54.50 Low back pain, unspecified; Z87.891 Personal history of nicotine dependence; W11.XXXA Fall on and from ladder, initial encounter; Z90.49 Acquired absence of other specified parts of digestive tract
CPT/HCPCS: 72131; 74177; 84443; 96374; 96375; 99282; Q9967; A4216; J2405